=== PATIENT | female | born 1960 | race Caucasian/White ===

== ENCOUNTER → 2020-10-12 10:50 | Outpatient (CLI) | payer BC, SELFPAY ==
--- NOTE | ~2020-10-12 | MM_ITS ---
EXAMINATION: MM screening grant BI w veronika HISTORY: Screening mammogram TECHNIQUE: Craniocaudal and mediolateral oblique 3-D tomosynthesis images were obtained and synthetic 2-D images were generated. CAD analysis was submitted and interpreted. COMPARISON: 04/04/2017 bilateral digital screening mammogram BREAST PARENCHYMAL COMPOSITION: There are scattered areas of fibroglandular density. FINDINGS: There is no evidence of suspicious mass, calcification, or architectural distortion to sugg est malignancy in either breast. There has been no suspicious interval change. IMPRESSION: 1. No mammographic evidence of malignancy. 2. Recommend routine screening mammography in one year. BI-RADS Category 1: Negative Reviewed, dictated and finalized at location A. [employer]
== END ==
PROVIDERS: PCP Nurse Practitioner Adult Health; Visit Provider Nurse Practitioner Adult Health
DX: Z12.31 Encounter for screening mammogram for malignant neoplasm of breast (principal)
CPT/HCPCS: 77063; 77067

== ENCOUNTER → 2020-10-20 | Outpatient (NON) | payer BC, SELFPAY ==
[2020-10-20 21:41] LABS: SARS-CoV-2 RNA PCR Negative
== END | disposition home or self-care (01) ==
PROVIDERS: PCP Nurse Practitioner Adult Health; Visit Provider Nurse Practitioner Adult Health
DX: Z20.822 Contact with and (suspected) exposure to COVID-19 (principal); R09.89 Other specified symptoms and signs involving the circulatory and respiratory systems
CPT/HCPCS: C9803; U0003; U0005

== ENCOUNTER 2021-06-05 01:03 | Day surgery (SDC) | payer OTHER, SELFPAY ==
[2021-05-24 14:24] VITALS: BMI 34.4
--- NOTE | 2021-06-05 07:26 | WPDANESEPPF ---
Anes - Initial Pre Proc Eval Procedure: Operation Date: 06/05/21 08:30 Proposed Procedures p Esophagogastroduodenoscopy & Screening Colonoscopy - Gasper French MD Date/Time: 06/05/21 07:26 Surgeon: Gasper French MD Pre Op Diagnosis: R13.10 dysphagia, Schatzki's Ring Patient Data Age: 60 Gender: F Height: 1.68 m Weight: 97 kg Allergies Allergy/AdvReac Type Severity Reaction Status Date / Time No Known Allergies Allergy Verified 06/05/21 07:48 Home Medications Medication Instructions Recorded Confirmed Type amlodipine 5 mg PO DAILY 05/24/21 05/24/21 History empagliflozin [Jardiance] 25 mg PO DAILY 05/24/21 05/24/21 History escitalopram oxalate 10 mg PO DAILY 05/24/21 05/24/21 History glucosamine sulfate [Glucosamine] 500 mg PO DAILY 05/24/21 05/24/21 History losartan 50 mg PO DAILY 05/24/21 05/24/21 History rosuvastatin 20 mg PO DAILY 05/24/21 05/24/21 History semaglutide [Ozempic] 1 mg SUBCUT WEEKLY 05/24/21 05/24/21 History Patient hx anesthesia problems: none Family hx anesthesia problems: none [facility] Past Medical History Medical History (Updated 06/05/21 @ 07:27 by Kris Rose MD) Diabetes HTN (hypertension) Hyperlipidemia Obesity Osteoarthritis Social History Social History Smoking status: Never smoker Alcohol intake: never Substance use: never Substance use type: does not use Living arrangements: alone Spiritual care concerns: No Anes - Eval Final PreProcedure Day of Procedure 06/05/21 07:26 Patient weight: obese Heart: regular rate and rhythm Lungs: clear to auscultation and normal air movement Airway: Mallampati scale class II Neurological: alert and oriented Last oral intake: >/= 8 hours ASA classification: III Emergent: no Anesthetic plan: proceed Anesthesia type and monitoring: general GIVS Informed Consent: The patient's anesthetic plan and its attendant risks and benefits were discussed with the patient/family/POA. Questions were solicited and answers provided to the satisfaction of the patient/family/POA.
[2021-06-05 07:50] VITALS: BP 147/73; PULSE 86; RESP 16; TEMP 36.9; O2SAT 99; BMI 33.8
[2021-06-05] MEDS: LACTATED RINGERS 1,000 ML 150 ML IV CONT (08:05)
[2021-06-05 08:18] LABS: Glucose Point of Care 167 mg/dl (65-105)
--- NOTE | 2021-06-05 08:35 | WPDGICN ---
Assessment and Plan Assessment and plan (1) Dysphagia: Code(s): R13.10 - Dysphagia, unspecified Status: Acute Assessment and Plan: Patient has recurrent dysphagia. 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 Likely this is related to GE reflux as a continues to recur. Plan is for EGD to assess more thoroughly. We may need to consider long-term PPI use to minimize recurrence of the stricture. (2) Encounter for screening colonoscopy: Code(s): Z12.11 - Encounter for screening for malignant neoplasm of colon Status: Acute Assessment and Plan: Patient presents today for screening colonoscopy. She appears to be at average risk for colon polyps. (3) Obesity: Code(s): E66.9 - Obesity, unspecified Status: Acute Assessment and Plan: Patient is modestly overweight. Consider diet restriction calorie counting and increase activity. GI Consult Note Consult date/time: 06/05/21 08:35 HPI: Sommer Villavicencio is a 60 year old female Presents for both colonoscopy and EGD. She complains of dysphagia. She has difficulty swallowing. Solid pieces of food will catch the mid substernal portion the chest. She subsequently will regurgitate or have difficulty swallowing additional food until this passes. She has had similar difficulties in the past. Most recently 3 years ago an EGD by Dr. Cannon revealed a Schatzki's ring. Patient has had several dilatations of esophageal web in the past. She denies any heartburn. But previously was treated with proton pump inhibitor. This was discontinued because of concern for kidney issues. Patient family history is noncontributory. She also desires neoplasia screening colonoscopy. She has never had colon issues that she is aware of. Her weight appetite bowel movements have remained normal. Review of Systems Review of Systems: All systems reviewed & are unremarkable except as noted in HPI and below PMFSH Past Medical History Medical History (Updated 06/05/21 @ 08:38 by Gasper French MD) Diabetes HTN (hypertension) Hyperlipidemia Obesity Osteoarthritis Social History Social History Smoking status: Never smoker Alcohol intake: never Substance use: never Substance use type: does not use Living arrangements: alone Spiritual care concerns: No Meds Home Medications and Allergies Home Medications Medication Instructions Recorded Confirmed Type amlodipine 5 mg PO DAILY 05/24/21 05/24/21 History empagliflozin [Jardiance] 25 mg PO DAILY 05/24/21 05/24/21 History escitalopram oxalate 10 mg PO DAILY 05/24/21 05/24/21 History glucosamine sulfate [Glucosamine] 500 mg PO DAILY 05/24/21 05/24/21 History losartan 50 mg PO DAILY 05/24/21 05/24/21 History rosuvastatin 20 mg PO DAILY 05/24/21 05/24/21 History semaglutide [Ozempic] 1 mg SUBCUT WEEKLY 05/24/21 05/24/21 History Allergies Allergy/AdvReac Type Severity Reaction Status Date / Time No Known Allergies Allergy Verified 06/05/21 07:48 Vital Signs Vital Signs - 24 hr 06/05/21 07:50 Temperature 98.5 F Pulse Rate 86 Respiratory Rate 16 Blood Pressure 147/73 H Pulse Oximetry 99 Exam Narrative: Physical exam reveals patient to be alert. Vital signs stable. HEENT exam is unremarkable. Patient is anicteric. Lungs are clear to auscultation and percussion. Heart is without murmur or extra sounds. Abdominal exam bowel sounds are present soft nontender with no organomegaly. Digital external rectal exam is normal.
[2021-06-05] MEDS: BENZOCAINE (*SP) 60 ML SPRAY CAN (HURRICAINE) 1 SPRAY MUCOUS MEM (08:54)
[2021-06-05 09:19] VITALS: BP 97/57; PULSE 81; RESP 32; O2SAT 96
[2021-06-05 09:29] VITALS: BP 100/62; PULSE 81; RESP 29; O2SAT 100
[2021-06-05 09:39] VITALS: BP 125/75; PULSE 69; RESP 19; O2SAT 99
== END 2021-06-05 09:55 | disposition home or self-care (01) ==
PROVIDERS: PCP Nurse Practitioner Adult Health; Visit Provider Internal Medicine Gastroenterology
PROC: 0DJ08ZZ Inspection of Upper Intestinal Tract, Via Natural or Artificial Opening Endoscopic (ICD-10-PCS; CPT 43235; principal; 2021-06-05 08:30)
DX: Z12.11 Encounter for screening for malignant neoplasm of colon (principal); R13.10 Dysphagia, unspecified; K22.2 Esophageal obstruction; K57.30 Diverticulosis of large intestine without perforation or abscess without bleeding; K64.8 Other hemorrhoids; I10 Essential (primary) hypertension; E11.9 Type 2 diabetes mellitus without complications; E78.5 Hyperlipidemia, unspecified; E66.9 Obesity, unspecified; M19.90 Unspecified osteoarthritis, unspecified site
CPT/HCPCS: 45378; 43235; 43450; 82948; J2704; J7120

== ENCOUNTER 2024-03-29 01:58 | Emergency (ER) | payer MEDICARE, SELFPAY ==
[2024-03-29 01:58] VITALS: BP 194/84; PULSE 102; RESP 16; TEMP 37.1; O2SAT 100
[2024-03-29] MEDS: ONDANSETRON INJ 4 MG/2 ML VIAL IV PUSH (02:19)
--- NOTE | 2024-03-29 02:32 | ED.NAVMDI ---
HPI - Nausea/Vomiting/Diarrhea General Chief complaint: Nausea/Vomiting/Diarrhea Stated complaint: n/v Time Seen by Provider: 03/29/24 02:09 History of Present Illness HPI Narrative: patient presents with nausea vomiting, she does report that she has been feeling constipated, denies any abdominal pain. Has not been able to keep anything down, symptoms ongoing for the last few days. No diarrhea. History of diabetes and kidney disease Related Data Home Medications Medication Instructions Recorded Confirmed glucosamine sulfate 500 mg tablet 500 mg PO DAILY 05/24/21 12/05/23 (Glucosamine) insulin lispro 100 unit/mL 1 sliding scale dose subcut 11/12/22 12/05/23 subcutaneous pen (Humalog KwikPen USEASDIRECTD (U-100) Insulin) Allergies Allergy/AdvReac Type Severity Reaction Status Date / Time No Known Allergies Allergy Verified 03/29/24 02:04 Review of Systems Review of Systems: All systems reviewed & are unremarkable except as noted in HPI and below PMFSH Past Medical History Medical History Anxiety CKD (chronic kidney disease) Depression Diabetes Esophageal dilatation HTN (hypertension) Hyperlipidemia Obesity Osteoarthritis Surgical History Surgical History History of removal of calculus of renal pelvis through percutaneous nephrostomy Family History Family History Father Bladder cancer Mother Diabetes mellitus Hypertension Depression Cerebrovascular accident Sibling Hypertension Diabetes mellitus Heart disease Social History Social History Smoking status: Never smoker Second hand tobacco smoke exposure: No Alcohol intake: never Substance use: never Substance use type: does not use Lack of Transportation: No Lack of Food: Never True Current Housing: I Have Housing Concerned About Future Housing: No Difficulty Paying Gas/Electric Bills: No Difficulty Paying for Meds: No Currently Unemployed: No Education: High School Diploma/GED Living arrangements: alone Occupation/Education: occupation Gender identity (if verbalized by the patient): Female Spiritual care concerns: No Agree to blood products: Yes Exam Narrative: EXAMINATION OF ORGAN SYSTEMS/BODY AREAS: Constitutional: Vital signs per nursing GENERAL: looks nauseous, emesis bag HEAD: Normal with no signs of head trauma. EYES: EOMI, conjunctiva normal ENT: Hearing grossly intact LUNGS: Nonlabored breathing. HEART: [Regular rate and rhythm] ABD: [Soft], [nontender to palpation] EXT: Normal range of motion SKIN: [No rashes or lesions.] NEURO: [Alert and oriented x 3. No gross focal sensory or strength deficits.] PSYCH: Normal affect Course Vital Signs Vital signs: Vital Signs Temperature 98.7 F 03/29/24 01:58 Pulse Rate 102 H 03/29/24 01:58 Respiratory Rate 16 03/29/24 01:58 Blood Pressure 194/84 H 03/29/24 01:58 Pulse Oximetry 100 03/29/24 01:58 Oxygen Delivery Room Air 03/29/24 01:58 Temperature 98.7 F 03/29/24 01:58 Pulse Rate 102 H 03/29/24 01:58 Respiratory Rate 16 03/29/24 01:58 Blood Pressure 194/84 H 03/29/24 01:58 Pulse Oximetry 100 03/29/24 01:58 Oxygen Delivery Room Air 03/29/24 01:58 MDM - Nausea/Vomiting/Diarrhea MDM Narrative Medical decision making narrative: A 63-year-old female presenting with nausea vomiting, no abdominal pain. She also reports that she has been having sensation of motion sickness /room spinning around her whenever she turns her head or sits up suddenly, is better when she lays still and does not turn her head. She is otherwise neurologically intact, with no facial droop, speaking with clear speech, extraocular m
[2024-03-29 03:14] LABS: Basophils Percent Auto 0.5 % (0.2-1.2); Hematocrit 43.2 % (37.0-47.0); Hemoglobin 14.6 g/dL (12.0-15.0); Immature Granulocyte Absolute 0.06 K/mm3 (0.00-0.031); Lymphocytes Absolute Auto 0.32 K/mm3 (0.9-3.2); Lymphocytes Percent Auto 5.5 % (18.3-44.2); Mean Corpuscular HGB Conc 33.8 g/dl (32-36); Mean Corpuscular Hemoglobin 28.5 pg (26-34); Mean Corpuscular Volume 84.2 fl (80-100); Monocytes Absolute Auto 0.3 K/mm3 (0.1-0.6); Monocytes Percent Auto 4.8 % (2.6-8.5); Neutrophils Absolute Auto 5.2 K/mm3 (1.3-6.7); Neutrophils Percent Auto 88.2 % (45.5-73.1); Platelet Count Result 164 k/mm3 (150-375); Red Blood Count 5.13 M/mm3 (4.2-5.4); Red Cell Distribution Width 13.2 % (11.5-14.5); White Blood Count 5.8 K/mm3 (4.5-10.0)
[2024-03-29 03:33] LABS: Lactic Acid Reflex 1.4 mmol/L (0.7-2.0)
[2024-03-29 03:33] LABS: Alanine Aminotransferase 46 U/L (6-35); Alkaline Phosphatase 93 U/L (38-126); Anion Gap 13 mmol/L (4-12); Aspartate Amino Transferase 51 U/L (14-36); Bilirubin,Total 1.4 mg/dL (0.2-1.3); Blood Urea Nitrogen 22 mg/dL (7-17); Calcium 8.9 mg/dL (8.4-10.2); Carbon Dioxide 19 mmol/L (22-30); Chloride 101 mmol/L (98-107); Estimated CRCL calculation 47 ml/min; Estimated Glomerular Filt Rate 45; Glucose 331 mg/dL (65-110); Lipase 92 U/L (23-300); Potassium 3.6 mmol/L (3.4-5.0); Sodium 133 mmol/L (137-145)
[2024-03-29] MEDS: MECLIZINE HCL 25 MG TABLET PO (03:50)
[2024-03-29 04:31] VITALS: BP 154/78; PULSE 91; RESP 17; O2SAT 100
== END 2024-03-29 04:31 | disposition home or self-care (01) ==
PROVIDERS: Emergency Provider Emergency Medicine; PCP Family Medicine
DX: R11.2 Nausea with vomiting, unspecified (principal); R42 Dizziness and giddiness; I12.9 Hypertensive chronic kidney disease with stage 1 through stage 4 chronic kidney disease, or unspecified chronic kidney disease; E11.22 Type 2 diabetes mellitus with diabetic chronic kidney disease; N18.9 Chronic kidney disease, unspecified; E78.5 Hyperlipidemia, unspecified; E66.9 Obesity, unspecified; Z68.32 Body mass index [BMI] 32.0-32.9, adult; M19.90 Unspecified osteoarthritis, unspecified site; F41.9 Anxiety disorder, unspecified; F32.A Depression, unspecified; Z87.442 Personal history of urinary calculi; Z79.4 Long term (current) use of insulin; Z79.85 Long-term (current) use of injectable non-insulin antidiabetic drugs; Z79.899 Other long term (current) drug therapy
CPT/HCPCS: 36415; 80053; 83605; 83690; 85025; 96374; 99284; A9270; J2405

== ENCOUNTER 2024-04-09 11:20 | Outpatient (CLI) | payer MEDICARE, SELFPAY ==
--- NOTE | ~2024-04-09 | CT_ITS ---
CT brain wo con Ordering provider: Trista Randall PA-C History: 63 years Female with . R53.1 - Weakness . Comparison: None. Technique: CT of the head without contrast. Radiation reduction technique utilized. The dose-length product was 599.57 mGy-cm. FINDINGS: BRAIN PARENCHYMA AND CSF SPACES: No midline shift, mass effect or hemorrhage. Slight ventricular dila tation is seen which is not compatible with the degree of brain atrophy. Normal pressure hydrocephalu s should be considered. The brain parenchyma and CSF spaces are otherwise normal. VISUALIZED PARANASAL SINUSES: Well aerated. MASTOIDS: Well aerated. BONES: The bones appear intact. SOFT TISSUES: Visualized nasopharynx is normal. Superficial soft tissues are normal. IMPRESSION: No acute intracranial findings. Slight ventricular dilatation is seen which is not compatible with the degree of brain atrophy. Jasmyne l pressure hydrocephalus should be considered. Reviewed, dictated and finalized at location A. IMPRESSION: No acute intracranial findings. Slight ventricular dilatation is seen which is not compatible with the degree o f brain atrophy. Normal pressure hydrocephalus should be considered.
== END 2024-04-09 11:21 ==
LOC: MICIMG 11:21
PROVIDERS: PCP Family Medicine; Visit Provider Student in an Organized Health Care Education/Training Program
DX: R53.1 Weakness (principal)
CPT/HCPCS: 70450

== ENCOUNTER 2024-05-18 10:49 | Outpatient (CLI) | payer MEDICARE, SELFPAY ==
--- NOTE | ~2024-05-18 | US_ITS ---
Renal-Bladder ultrasound Clinical History: Chronic kidney disease Technique: Real-time sonographic imaging of the kidneys and urinary bladder was performed. Findings: The right kidney measures 10.7 cm in length and the left kidney measures 10.9 cm. There is no hydronephrosis or renal calculus identified. Renal cortical echogenicity is within normal limits. Probable small bilateral renal cysts. The urinary bladder is moderately distended at the time of this exam. No intraluminal echoes are iden tified. No abnormal wall thickening is seen. 5.9 cm cystic mass in the right adnexal region noted. Impression: No significant abnormality seen involving the kidneys. 5.9 cm cystic mass in the right adnexal region incidentally noted. Additional dedicated imaging latoya p advised. This large of a cystic lesion is abnormal in a postmenopausal woman. Reviewed, dictated and finalized at [facility]. Impression: No significant abnormality seen involving the kidneys. 5.9 cm cystic mass in the right adnexal region incidentally noted. Additional d edicated imaging workup advised. This large of a cystic lesion is abnormal in a postmenopausal woman.
== END 2024-05-18 10:50 ==
PROVIDERS: PCP Family Medicine; Visit Provider Internal Medicine Nephrology
DX: N18.31 Chronic kidney disease, stage 3a (principal); R10.9 Unspecified abdominal pain
CPT/HCPCS: 76775

== ENCOUNTER 2024-05-19 11:11 | Outpatient (CLI) | payer MEDICARE, SELFPAY ==
--- NOTE | ~2024-05-19 | CT_ITS ---
Non-contrast CT scan of the Abdomen and Pelvis Clinical indication: Abdominal pain Technique: 2.5 mm axial scans were obtained through the abdomen and pelvis without intravenous or or al contrast. Dose reduction technique was used on this scan by utilizing automated exposure control a nd iterative reconstruction technique. The dose-length product (DLP) was 999.72 mGy-cm. Findings: Images through the lung bases reveal no abnormalities. There is no evidence of renal or ureteral calculi. The kidneys and the ureters are nondilated. Parape lvic left renal cysts are present. The liver, pancreas, gallbladder, and adrenals appear normal. Calcified splenic granulomas are presen t. There there are mild atherosclerotic ossifications of the aorta. There is no evidence of bowel obstruction. Images through the pelvis were performed. There is no evidence of ascites or lymphadenopathy. Urinary bladder unremarkable. There is a 7 cm cystic right ovarian mass, with possible solid component super iorly versus normal ovarian parenchyma. There is a 2.2 cm left ovarian cyst. Impression: 7 cm cystic right ovarian mass with possible solid component superiorly versus normal ovarian parench yma. Gynecological surgical consultation advised given the size of the lesion and patient age. Consid er follow-up ultrasound or pre and postcontrast pelvic MR to further assess for solid component of th e lesion. Ovarian neoplasm not excluded. 2.2 cm left ovarian cyst. Reviewed, dictated and finalized at [facility]. Impression: 7 cm cystic right ovarian mass with possible solid component superiorly versus normal ovarian parenchyma. Gynecological surgical consultation advised given th e size of the lesion and patient age. Consider follow-up ultrasound or pre and postcontrast pelvic MR to further assess for solid component of the lesion. Ova mitzi neoplasm not excluded. 2.2 cm left ovarian cyst.
== END 2024-05-19 11:12 ==
LOC: MICIMG 11:11
PROVIDERS: PCP Family Medicine; Visit Provider Internal Medicine Nephrology
DX: N83.292 Other ovarian cyst, left side (principal); N83.291 Other ovarian cyst, right side; N18.31 Chronic kidney disease, stage 3a
CPT/HCPCS: 74176

== ENCOUNTER 2024-06-05 10:15 | Outpatient (CLI) | payer MEDICARE, SELFPAY ==
--- NOTE | ~2024-06-05 | US_ITS ---
EXAMINATION: US pelvic complete w TV DATE: 06/05/2024 10:49 INDICATION: Other noninflammatory disorders of ovary. TECHNIQUE: Multiple transabdominal and transvaginal sonographic images of the pelvis were obtained. COMPARISON: CT abdomen and pelvis 05/19/2024 FINDINGS: TRANSABDOMINAL ULTRASOUND: The uterus measures 7.0 x 3.2 x 5.4 cm. There is no free fluid in the pelvis. TRANSVAGINAL ULTRASOUND: The endometrial complex measures 1 mm in thickness. There are nabothian cysts in the cervix. The righ t ovary measures 7.8 x 7.9 x 7.5 cm. The left ovary measures 5.9 x 3.5 x 4.8 cm. There is a 6.7 cm cy stic mass with thick septations and peripheral nodularity in right ovary. No internal vascular flow o n color Doppler. There is a 3.0 cm cyst in left ovary. There is normal vascular flow in the ovaries. IMPRESSION: 1. 6.7 cm cystic mass in right ovary suspicious for neoplasm. Pelvis MRI without and with contrast or surgical evaluation is recommended. 2. 3.0 cm cyst in left ovary, likely benign. Pelvis ultrasound is recommended in one year. Reviewed, dictated and finalized at location A. IMPRESSION: 1. 6.7 cm cystic mass in right ovary suspicious for neoplasm. Pelvis MRI withou t and with contrast or surgical evaluation is recommended. 2. 3.0 cm cyst in left ovary, likely benign. Pelvis ultrasound is recommended i n one year.
== END 2024-06-05 10:16 | disposition home or self-care (01) ==
LOC: MICIMG 10:17
PROVIDERS: PCP Family Medicine; Visit Provider Family Medicine
DX: N83.8 Other noninflammatory disorders of ovary, fallopian tube and broad ligament (principal); N83.202 Unspecified ovarian cyst, left side
CPT/HCPCS: 76830; 76856

== ENCOUNTER 2024-06-25 08:00 | Outpatient (RCR) | payer MEDICARE, SELFPAY ==
[2024-04-30 08:04] VITALS: BMI 32.2
[2024-04-30 08:13] VITALS: BMI 32.2
[2024-06-25 08:44] VITALS: BMI 31.5
== END 2024-07-13 10:30 | disposition home or self-care (01) ==
LOC: ANHDMC 08:00
PROVIDERS: PCP Family Medicine; Visit Provider Family Medicine
DX: E11.9 Type 2 diabetes mellitus without complications (principal); E23.2 Diabetes insipidus; Z71.89 Other specified counseling; Z71.3 Dietary counseling and surveillance
CPT/HCPCS: 97803; G0108

== ENCOUNTER 2024-12-07 08:06 | Outpatient (CLI) | payer MEDICARE, SELFPAY ==
--- NOTE | ~2024-12-07 | NM_ITS ---
EXAMINATION: NM bone scan whole body DATE: 12/07/2024 12:02 INDICATION: Hypercalcemia TECHNIQUE: 23.6 mCi Tc-99m HDP was administered intravenously. Delayed whole-body scintigrams were o btained. COMPARISON: CT abdomen pelvis dated 05/19/2024 FINDINGS: There is likely degenerative joint centered uptake at the bilateral sternoclavicular and acromioclavi cular joints, the radial aspect of the carpus of the right hand, with medial compartment predominance at the right knee and at the bilateral ankles and left midfoot. There is additional likely degenerat zarina disc related uptake at the left side of L4-5 at the right side of L2-L3 with corresponding severe disc height loss and Modic type III sclerotic endplate changes on prior CT. Small focus of mild upta ke at the right side of the mid cervical spine and location typical for facet osteoarthritis. No othe r foci of more atypical bone uptake to suggest metastatic disease. IMPRESSION: 1. Typical distribution of likely degenerative joint and disc centered uptake in the axial and append icular skeleton. No lesion suspicious for metastatic disease. Reviewed, dictated and finalized at location A. IMPRESSION: 1. Typical distribution of likely degenerative joint and disc centered uptake i n the axial and appendicular skeleton. No lesion suspicious for metastatic dise ase.
--- OUTSIDE RECORDS SUMMARY | 2024-12-07 08:17 | XMS_ITS | Clinical Summary ---
Author Organization [facility] Address [address] [place] [address] Care Team Providers Care Hotel Or Motel Cleaning Supervisor Name Role Phone Tanya Olmos NP Primary Care Provider [phone] Allergies Active Allergy Reactions Criticality Noted Date Comments Latex Rash Medium 11/06/2018 Medications amLODIPine (NORVASC) 5 mg tablet Take 1 tablet (5 mg total) by mouth nightly 5 10/14/2018 Active VICTOZA 3-JANET 0.6 mg/0.1 mL (18 mg/3 mL) injection Inject 1.2 mg under the skin daily with dinner. 4 10/18/2018 Active losartan (COZAAR) 100 mg tablet Take 1 tablet (100 mg total) by mouth daily with dinner 6 10/14/2018 Active metFORMIN XR (GLUCOPHAGE XR) 750 mg 24 hr tablet Take 750 mg by mouth daily with dinner. 3 10/14/2018 Active pioglitazone (ACTOS) 30 mg tablet Take 30 mg by mouth daily with dinner. 4 10/14/2018 Active pravastatin (PRAVACHOL) 40 mg tablet Take 40 mg by mouth daily with dinner. 6 10/14/2018 Active Trulicity 4.5 mg/0.5 mL pen injector 06/10/2024 Active escitalopram (LEXAPRO) 10 mg tablet 04/08/2024 Active Levemir FlexPen 100 unit/mL (3 mL) pen for injection 06/07/2024 Active rosuvastatin (CRESTOR) 20 mg tablet 04/08/2024 Active buPROPion SR (ZYBAN) 150 mg 12 hr tablet Take 1 tablet (150 mg total) by mouth 2 (two) times a day Active Active Problems Problem Noted Date Diagnosed Date Diabetes mellitus 06/29/2024 Hyperlipidemia 06/29/2024 Hypertensive disorder 06/29/2024 Obesity 06/29/2024 History of malignant neoplasm of skin 03/01/2020 Low kidney function 11/05/2019 Uric acid kidney stone 01/26/2019 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 Resolved Problems Problem Noted Date Diagnosed Date Resolved Date Nephrolithiasis 11/06/2018 01/26/2019 Overview (11/07/2018): Added automatically from request for surgery [id number] Encounters Date Type Department Care Team Description 11/10/2024 Telephone [facility] Obstetrics and Gynecology [address] [facility] [address]th [place] [address] Jossie Whitaker RN 11/10/2024 Telephone [facility] Obstetrics and Gynecology [address] [facility] [address] 13th [place] [address] Jossie Whitaker RN 11/10/2024 Orders Only [facility] Obstetrics and Gynecology [address] [facility] [address]th [place] [address] Jossie Whitaker RN Ovarian mass (Primary Dx) 11/09/2024 12:30 PM CLINICAL SERVICES CONSULTANT - 11/09/2024 11:59 PM CLINICAL SERVICES CONSULTANT Hospital Encounter [facility] Center for Outpatient [facility] - Ultrasound [address] [facility] 7th [address], [address] [place] [address] Ovarian mass Discharge Disposition: Discharge to home or self care 10/26/2024 Telephone [facility] Obstetrics and Gynecology [address] [facility] [address] [facility] 13th [place] [address] [place] [address] Georgina Trujillo from Last 3 Months Immunizations Immunization Administration Dates Next Due Influenza, Quadrivalent, Spl it, Preservative Free, Intramuscular 11/05/2019,07/08/2018 Surgical History Surgery Date Site/Laterality Comments ESOPHAGOGASTRODUODENOSCOPY Multiple with esophageal stretching for Schatzki's ring, last 05/2018 per patient report KIDNEY SURGERY Medical History Medical History Date Comments Hydronephrosis Right Diverticulosis Diabetes mellitus (HCC) Nephrolithiasis 11/06/2018 Added automatica lly from request for surgery [id number] ARF (acute renal failure) 10/2018 SCR: 2 .13 -> 2.07 (11/06/18) GERD (gastroesophageal reflux disease) Schatzki's ring s/p esophageal s tretching, last 05/2018 HTN (hypertension) Hyperlipemia Arthritis Family History Medical History Relation Name Comments Heart disease Brother s/p 4 vessel C ABG COPD Father Kidney cancer Father Arthritis Other Cancer Other Hypertension Other Anesthesia problems Neg Hx Relation Name Status Comments Brother Father Other Social History Tobacco Use Types Packs/Day Years Used Date Smoking Tobacco: Never Smokeless Tobacco: Never Alcohol Use Standard Drinks/Week Comments No 0 (1 standard drink = 0.6 oz pur e alcohol) Comments No Sex and Gender Information Value Date Recorded Sex Assigned at Not on file Legal Sex Female 2:18 PM CLINICAL SERVICES CONSULTANT Gender Identity Female 07/01/2024 11:19 AM CDT Sexual Orientation Not on file 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 Not on file Not on file Obstetrics History Para Term AB IAB SAB Ectopic Multiple Livin g Live Births 1 1 Date Outcome GA Total Labor Labor/2nd/3rd Weight Sex Type Anes PTL Dee Dee A1 A5 Name Clin Last Filed Vital Signs Vital Sign Reading Time Taken Comments Blood Pressure 133/81 08/03/2024 4:32 PM CLINICAL SERVICES CONSULTANT Pulse 90 08/03/2024 4:32 PM CLINICAL SERVICES CONSULTANT Temperature 36.8 C (98.3 F) 08/03/2024 4:32 PM CLINICAL SERVICES CONSULTANT Respiratory Rate 16 08/03/2024 4:32 PM CLINICAL SERVICES CONSULTANT Oxygen Saturation 98% 08/03/2024 4:32 PM CLINICAL SERVICES CONSULTANT Inhaled Oxygen Concentration - - Weight 83.3 kg (183 lb 11.2 oz) 08/03/2024 4:32 PM CLINICAL SERVICES CONSULTANT Height 165.1 cm (5' 5 ) 06/08/2019 8:07 AM CDT Body Mass Index 30.57 06/08/2019 8:07 AM CDT Plan of Treatment Health Maintenance Due Date Last Done Comments Albumin Creatinine Ratio, Urine 1958 Breast Cancer Screening-Mammogram 1958 Colon Cancer Screening-Colonoscopy 1958 Depression Screening 1958 Fall Risk Assessment 1958 Hemoglobin A1C 1958 Hepatitis C Screening 1958 Osteoporosis Screening-Bone Density Scan 1958 eGFR 1958 Dilated Eye Exam 1958 Foot Exam 1958 Lipid Panel 1958 DTaP/Tdap/Td Vaccine (1 - Tdap) 1969 Hepatitis B Screening 1976 Pneumococcal vaccine 65+ (1 of 2 - PCV) 1977 Zoster Vaccine (1 of 2) 2008 Well Visit 65+ 2023 Influenza Vaccine (#1) 2024 11/05/2019, 2017 Cervical Cancer Screening Discontinued 06/29/2024, 03/2024 Medical Devices Explanted Type Area Carpenter Bridge Device Identifier Shelf Expiration Date Model / Serial / Lot [employer] [id number] Universa 7fr 26cm 145cm Soft Positioner Marketing Research Intern Braid Tether - [id number] Implanted:Qty: 1 on 11/07/2018 by Ronan Pham MD at [facility] Explanted:Qty: 1 on 12/03/2018 at [facility] Stent Right: Urethra [employer] [id number] / / Procedures Procedure Name Priority Date/Time Associated Diagnosis Comments US PELVIS COMPLETE Schedule Routine, Read Routine (OP Routine) 11/09/2024 12:39 PM CLINICAL SERVICES CONSULTANT Ovarian mass HIGH RISK HPV DNA DETECTION WITH GENOTYPING Routine 06/29/2024 4:23 PM CDT Ovarian mass from Last 3 Months or Most Recently Relevant to Health Maintenance Results * US Pelvis Complete (11/09/2024 12:39 PM CLINICAL SERVICES CONSULTANT) Cul de Sac No free fluid visualized VIEWPOINT Endometrial Thickness 3.2 mm&millim eters VIEWPOINT Anatomical Region Laterality Modality Pelvis N/A Ultrasound 11/09/2024 12:4 3 PM CLINICAL SERVICES CONSULTANT Impressions 11/09/2024 1:31 PM CLINICAL SERVICES CONSULTANT The uterus is anteverted and normal in size. The endometrial stripe measures 3.2 mm. Both adnexal masses are stable in size and appearance when compared to scan in July. Right adnexa contains a multilocular lesion without color flow which is anechoic and similar in appearance to prior scan in July, with mean diameter today of 74 mm, prior scan was 68 mm. Left ovary contains a simple anechoic cyst without color flow and a mean diameter of 33 mm, prior scan was 31 mm. There was no evidence of free fluid in the pelvis. Narrative Procedure Note Kathe Hernandez MD - 11/09/2024 IMPRESSION: The uterus is anteverted and normal in size. The endometrial stripemeasures 3.2 mm. Both adnexal masses are stable in size and appearancewhen compared to scan in July. Right adnexa contains a multilocularlesion without color flow which is anechoic and similar in appearance toprior scan in July, with mean diameter today of 74 mm, prior scan was68 mm. Left ovary contains a simple anechoic cyst without color flow harris mean diameter of 33 mm, prior scan was 31 mm. There was no evidence offree fluid in the pelvis. us Premal Chaka Coronado MD [facility] US PROCEDURES Final Result * High Risk HPV DNA Detection with Genotyping (Molecular component) (06/29/2024 4:23 PM CDT) HPV HR 16 Not Detected Not Detected [facility] HPV HR 18 Not Detected Not Detected [facility] HPV HR Non 16/18 Not Detected Not Detected [facility] Comment: Interpretive Data Nucleic acid amplification for detection of high-risk Human Papilloma virus (HPV) is performed by the Obdulio Kitty 6800 HPV test. This assay specifically detects HPV-16 and HPV-18 genotypes. The following HPV genotypes are detected as high-risk HPV: HPV-31, 33, 35, ,39, 45, 51, 52, 56, 58, 59, 66, and 68. This assay has been approved by the [place] Food and Drug Administration for detection of HPV in cervical specimens collected by a physician using an endocervical brush/spatula or cervical broom and placed in the ThinPrep Pap Test PreservCyt collection containers. The performance characteristics of this test have been verified by the [facility] Molecular Infectious Disease laboratory. Correlate with separately reported cytology results, as applicable. Interpretive data last revised 23 Endocervical 06/29/2024 4:23 PM CDT 06/30/2024 9:10 AM CDT Narrative DAV[facility] - 06/30/2024 7:16 PM CDT Clinical history and diagnosis->adnexal mass Number of vials->1 Testing type->Screening Last menstrual period (date if known)->over 5 years ago [facility] Chaka Coronado MD LAB BODY FLUIDS AND STOO LS ORDERABLES Final Result [facility] Department [place] [address] [facility] from Last 3 Months or Most Recently Relevant to Health Maintenance Insurance [employer] [place] [facility] MEDICARE RAILROAD [facility] MEDICARE RAILROAD Advance Directives For more information, please contact: [phone] * Full Code (Latest Code Status on File) Date Activated Date Inactivated Comments 12/03/2018 6:15 PM 12/04/2018 8:51 PM * Full Code Date Activated Date Inactivated Comments 11/06/2018 4:45 PM 11/08/2018 9:17 PM Care Teams Hotel Or Motel Cleaning Supervisor Relationship Specialty Start Date End Date Tanya Olmos NP PCP - General Nurse Practitioner 11/13/18
--- OUTSIDE RECORDS SUMMARY | 2024-12-07 08:17 | XMS_ITS | CONTINUITY OF CARE DOCUMENT ---
Author Name héctor anaya Address Unknown Organization [facility] Address [address] [place] [address] Phone [phone] Care Team Providers Care High School History Teacher Name Role Phone Emory Melgoza MD Unavailable [phone] PIOTR ROBERSON Unavailable DEYANIRA MUÑOZ MD Unavailable PROBLEMS Condition Status Date Provider Notes Other symptoms involving car diovascular system active Emory Melgoza MD Diabetes mellitus active Emory Melgoza MD HTN essential active Emory Melgoza MD Hypercholesterolemia active Emory Melgoza MD PVC's active Emory Melgoza MD ENCOUNTERS Date Type Provider Location Encounter Diag nosis - In-person encounter Office Visit Emory Melgoza MD [facility] Other symptoms involving cardiovascular systemDiabetes mellitusHTN essentialHypercholeste rolemiaPVC's VITAL SIGNS Date Observation Value Provider blood pressure, diastolic 88 mm[Hg] Eduar De Guzman blood pressure, systolic 157 mm[Hg] Rosalba De Guzman Body Mass Index (Ratio) 34.11 kg/m2 Sara De Guzman pulse rate 79 /min Shanon kate oxygen saturation, oximetry 97 % Shanon De Guzman respiratory rate E&M 16 /min Kia De Guzman weight E&M 205 [lb_av] Shanon kate height E&M 65 [in_i] Shanon kate ALLERGIES Allergy Name Onset Date Reaction Criticality Status TAPE High Criticality active HISTORY OF MEDICATION USE Medication Status Instructions Dates Provider Indications Com ments NYSTATIN CREAM active as directed Shanon Gab LOSARTAN POTASSIUM 100 MG ORAL TABLET active once daily Shanon Hamenson PRAVASTATIN SODIUM 40 MG ORAL TABLET active ONE TAB. DAILY Shanon Gab PIOGLITAZONE HCL 30 MG ORAL TABLET active once daily Shanon Gab AMLODIPINE BESYLATE 5 MG ORAL TABLET active ONE TAB. DAILY Shanon Gab METFORMIN HCL ER 750 MG ORAL TABLET EXTENDED RELEASE 24 HOUR active 3 tabs every evening Shanon De Guzman SOCIAL HISTORY Date Observation Value Provider alcohol use no Emory Melgoza MD social history E&M Patient has n ever smoked. Smoking History: P atient has never smoked. Emory Melgoza MD social history reviewed E&M reviewed - no changes required Emory Melgoza MD smoking status Never smoker Emory Melgoza MD FAMILY HISTORY Family Member Condition Full Brother Family History of Di abetes: INSURANCE PROVIDERS Payer name Policy type / Coverage type [place] red libertarian ID [facility] [id number] TREATMENT PLAN Date Name Performer NEW:Rhythm: Sinus Rh ythm with very frequent ventricular ectopics T he average heart rate was 81 BPM with a maximum heart rate of 121 BPM at 15:19:36. T he minimum heart rate was 58 BPM at 02:06:00. 2 575 Ventricular ectopics were noted. Ventricular ectopics were observed as 1762 isolated beat(s) and as 13 couplet(s). 3 of the ventricular beats occurred in 1 bigeminal cycles. 784 of the ventricular beats occured in 124 trigeminal cycles. Emory Melgoza MD NEW:BP 157/88 Emory Melgoza MD Date Name Holter Monitor 24 Hr Complete Echo HISTORY OF PROCEDURES Procedure Date Procedure Name Provider Procedure Notes S tatus EKG Emory Melgoza MD completed
--- OUTSIDE RECORDS SUMMARY | 2024-12-07 08:17 | XMS_ITS | Referral Summary ---
Author Organization [facility] Address [address] [place] [address] Care Team Providers Care Lawyer Name Role Phone Tanya Olmos NP Primary Care Provider [phone] Encounters Date Type Department Care Team Description 11/10/2024 Telephone [facility] Obstetrics and Gynecology [address] [facility] [address] 13th [place] [address] Jossie Whitaker RN 11/10/2024 Telephone [facility] Obstetrics and Gynecology [address] [facility] [address] 13th [place] [address] Jossie Whitaker RN 11/10/2024 Orders Only [facility] Obstetrics and Gynecology [address] [facility] [address] 13th [place] [address] Jossie Whitaker RN Ovarian mass (Primary Dx) 11/09/2024 12:30 PM PETS SALESPERSON - 11/09/2024 11:59 PM PETS SALESPERSON Hospital Encounter [facility] Center for Outpatient Health - Ultrasound [address] [facility] 7th [address], [address] [place] [address] Ovarian mass Discharge Disposition: Discharge to home or self care 10/26/2024 Telephone [facility] Obstetrics and Gynecology [facility] [address] [facility] [address]th [place] [address] [place] [address] Georgina Trujillo from Last 3 Months Allergies Active Allergy Reactions Criticality Noted Date [...] (11/07/2018): Added automatically from request for surgery [id number] Immunizations Immunization Administration Dates Next Due Influenza, Quadrivalent, Spl it, Preservative Free, Intramuscular 11/05/2019,07/08/2018 Social History Tobacco Use Types Packs/Day Years Used Date Smoking Tobacco: Never Smokeless Tobacco: Never Alcohol Use Standard Drinks/Week Comments No 0 (1 standard drink = 0.6 oz pur e alcohol) Comments No Sex and Gender Information Value Date Recorded Sex Assigned at Not on file Legal Sex Female 2:18 PM PETS SALESPERSON Gender Identity Female 07/01/2024 11:19 AM CDT Sexual Orientation Not on file 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 Not on file Not on file Last Filed Vital Signs Vital Sign Reading Time Taken Comments Blood Pressure 133/81 08/03/2024 4:32 PM PETS SALESPERSON Pulse 90 08/03/2024 4:32 PM PETS SALESPERSON Temperature 36.8 C (98.3 F) 08/03/2024 4:32 PM PETS SALESPERSON Respiratory Rate 16 08/03/2024 4:32 PM PETS SALESPERSON Oxygen Saturation 98% 08/03/2024 4:32 PM PETS SALESPERSON Inhaled Oxygen Concentration - - Weight 83.3 kg (183 lb 11.2 oz) 08/03/2024 4:32 PM PETS SALESPERSON Height 165.1 cm (5' 5 ) 06/08/2019 8:07 AM CDT Body Mass Index 30.57 06/08/2019 8:07 AM CDT Plan of Treatment Not on file Medical Devices Explanted Type Area Band Sawmill Operator Device Identifier Shelf Expiration Date Model / Serial / Lot [employer] [id number] Universa 7fr 26cm 145cm Soft Positioner Chainstitch Hemmer Braid Tether - [id number] Implanted:Qty: 1 on 11/07/2018 by Ronan Pham MD at [facility] Explanted:Qty: 1 on 12/03/2018 at [facility] Stent Right: Urethra [employer] [id number] / / Procedures Procedure Name Priority Date/Time Associated Diagnosis Comments US PELVIS COMPLETE Schedule Routine, Read Routine (OP Routine) 11/09/2024 12:39 PM PETS SALESPERSON Ovarian mass HIGH RISK HPV DNA DETECTION WITH GENOTYPING Routine 06/29/2024 4:23 PM CDT Ovarian mass from Last 3 Months or Most Recently Relevant to Health Maintenance Results * US Pelvis Complete (11/09/2024 12:39 PM PETS SALESPERSON) Cul de Sac No free fluid visualized VIEWPOINT Endometrial Thickness 3.2 mm&millim eters VIEWPOINT Anatomical Region Laterality Modality Pelvis N/A Ultrasound 11/09/2024 12:4 3 PM PETS SALESPERSON Impressions 11/09/2024 1:31 PM PETS SALESPERSON The uterus is anteverted and normal in [...] the pelvis. us Premal Chaka Coronado MD [facility] US PROCEDURES Final Result * High Risk HPV DNA Detection with Genotyping (Molecular component) (06/29/2024 4:23 PM CDT) Pathologist [facility] HPV HR [address] [facility] HPV HR 18 Not Detected Not Detected [facility] HPV HR Non 16/18 Not Detected Not Detected [facility] Comment: Interpretive Data Nucleic acid amplification for [...] this test have been verified by the [facility] Molecular Infectious Disease laboratory. Correlate with separately reported cytology results, as applicable. Interpretive data last revised 23 Endocervical 06/29/2024 4:23 PM CDT 06/30/2024 9:10 AM CDT Narrative [facility] - 06/30/2024 7:16 PM CDT Clinical history and diagnosis->adnexal mass Number of vials->1 Testing type->Screening Last menstrual period (date if known)->over 5 years ago [facility] Chaka Coronado MD LAB BODY FLUIDS AND STOO LS ORDERABLES Final Result [facility] [place] [address] [facility] from Last 3 Months or Most Recently Relevant to Health Maintenance Insurance [place] [employer] [place] [facility] ANTHEM ACCESS MEDICARE [employer]ROAD [facility] MEDIC[facility] RAILROAD Advance Directives For more information, please contact: [phone] * Full Code (Latest Code Status on File) Date Activated Date Inactivated Comments 12/03/2018 6:15 PM 12/04/2018 8:51 PM * Full Code Date Activated Date Inactivated Comments 11/06/2018 4:45 PM 11/08/2018 9:17 PM Care Teams Lawyer Relationship Specialty Start Date End Date Tanya Olmos NP PCP - General Nurse Practitioner 11/13/18
== END 2024-12-07 08:07 | disposition home or self-care (01) ==
PROVIDERS: PCP Family Medicine; Visit Provider Internal Medicine Nephrology
DX: E83.52 Hypercalcemia (principal)
CPT/HCPCS: 78306; A9503

== ENCOUNTER 2025-01-25 14:56 | Outpatient (CLI) | payer MEDICARE, SELFPAY ==
--- NOTE | ~2025-01-25 | US_ITS ---
US renal BI Ordering provider: Clyde Leonard MD History: . worsened kidney function . Comparison: None. Technique: Ultrasound bilateral kidneys. Findings: RIGHT KIDNEY: Measures 5 x 10.5 x 4.6 cm in length which is normal in size. No renal cysts. No renal mass or visualized echogenic stones. Otherwise, normal echotexture and contour. No hydronephrosis. No rmal renal cortical thickness. LEFT KIDNEY: Measures 6.2x 10.5x 5.9 cm in length which is normal in size. No renal cysts. No renal m ass or visualized echogenic stones. Otherwise, normal echotexture and contour. No hydronephrosis. Nor mal renal cortical thickness. BLADDER: Normal. Ureteral jets were not seen bilaterally. IMPRESSION: Normal study. Reviewed, dictated and finalized at location A. IMPRESSION: Normal study.
--- OUTSIDE RECORDS SUMMARY | 2025-01-25 15:37 | XMS_ITS | Clinical Summary ---
Author Organization [facility] Address [address] [place] [address] Care Team Providers Care Supervisor Building Maintenance Name Role Phone Tanya Olmos NP Primary Care Provider [phone] Allergies Active Allergy Reactions Criticality Noted Date Comments Latex Rash Medium 11/06/2018 Medications amLODIPine (NORVASC) 5 mg tabletIndications:h ypertension Take 1 tablet (5 mg total) by mouth every morning 5 10/14/19 19 Active losartan (COZAAR) 100 mg tabletIndications:h ypertension Take 1 tablet (100 mg total) by mouth every morning 6 10/14/19 19 Active Trulicity 4.5 mg/0.5 mL pen injectorIndications :type 2 diabetes mellitus Inject 0.5 mL (4.5 mg total) under the skin once a week Saturdays06/10/20 24 Active escitalopram (LEXAPRO) 10 mg tabletIndications:A nxiety with Depression Take 1 tablet (10 mg total) by mouth every morning 04/08/20 24 Active clopidogreL (PLAVIX) 75 mg tabletIndications:C erebral Thromboembolism Prevention Take 1 tablet (75 mg total) by mouth every morning 10/22/19 25 Active LANTUS 100 unit/mL (3 mL) pen for injectionIndication s:DM 2 Inject 30 Units under the skin every morning 10/08/19 25 Active buPROPion XL (WELLBUTRIN XL) 150 mg 24 hr tabletIndications:A nxiety with Depression Take 1 tablet (150 mg total) by mouth every morning 10/23/19 25 Active solifenacin (VESIcare) 5 mg tabletIndications:B ladder Hyperactivity,Urina ry Urgency Take 1 tablet (5 mg total) by mouth every morning 12/03/19 25 Active rosuvastatin (CRESTOR) 10 mg tabletIndications:C erebral Thromboembolism Prevention,hyperlip idemia Take 1 tablet (10 mg total) by mouth every morning 12/03/19 25 Active cholecalciferol, vitamin D3, (VITAMIN D3 ORAL)Indications:Fernandez pplement Take 1 tablet by mouth every morning Active pravastatin (PRAVACHOL) 40 mg tabletIndications:C erebral Thromboembolism Prevention,hyperlip idemia Take 1 tablet (40 mg total) by mouth every morning 6 10/14/19 19 025 Discontin ued(Alter nathan therapy) Levemir FlexPen 100 unit/mL (3 mL) pen for injection 06/07/20 24 025 Discontin ued(Error ) rosuvastatin (CRESTOR) 20 mg tablet 04/08/20 24 025 Discontin ued(Alter nathan therapy) Active Problems Problem Noted Date Diagnosed Date Adnexal mass 12/30/2024 Diabetes mellitus 06/29/2024 Hyperlipidemia 06/29/2024 Hypertensive disorder 06/29/2024 Obesity 06/29/2024 History of malignant neoplasm of skin 03/01/2020 Low kidney function 11/05/2019 Uric acid kidney stone 01/26/2019 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 Advanced Medicine 13th [place] [phone] Yesica Cross testing recommended 01/19/2025 Orders Only [facility] Obstetrics and Gynecology [address] [facility] 13th [place] [address] Jossie Whitaker RN Syncope, unspecified syncope type (Primary Dx); History of cardioembolic cerebrovascular accident (CVA) 01/15/2025 10:30 AM CDT Pre-Admission Testing [facility] for Preoperative Assessment and Planning [facility] Advanced Medicine ([facility]) [address] [place] [address] Preop examination (Primary Dx); Nephrolithiasis; Adnexal mass; Ovarian mass 12/30/2024 Orders Only [facility] Obstetrics and Gynecology [address] [facility] 13th [place] [address] Jossie Whitaker RN Adnexal mass (Primary Dx); Ovarian mass 12/28/2024 1:00 PM CDT Office Visit [facility] Obstetrics and Gynecology [address] [facility] 13th [place] [address] Leonel Coronado MD Adnexal mass (Primary Dx) 12/28/2024 10:55 AM CDT - 12/28/2024 11:59 PM CDT Hospital Encounter [facility] - Ultrasound [address] [facility], 7th Floor, [address] [facility] [place] [address] Ovarian mass Discharge Disposition: Discharge to home or self care 11/10/2024 Telephone [facility] Obstetrics and Gynecology [address] [facility] 13th [place] [address] Jossie Whitaker RN 11/10/2024 Telephone [facility] Obstetrics and Gynecology [address] [facility] 13th [place] [address] Jossie Whitaker RN 11/10/2024 Orders Only [facility] Obstetrics and Gynecology [address] [facility] 13th [place] [address] Jossie Whitaker RN Ovarian mass (Primary Dx) 11/09/2024 12:30 PM DELIMER - 11/09/2024 11:59 PM DELIMER Hospital Encounter [facility] Center for Outpatient Health - Ultrasound [address] [facility], 7th Floor, [address] [facility] [place] [address] Ovarian mass Discharge Disposition: Discharge to home or self care from Last 3 Months Immunizations Immunization Administration Dates Next Due Influenza, Quadrivalent, Spl it, Preservative Free, Intramuscular 11/05/2019,07/08/2018 Surgical History Surgery Date Site/Laterality Comments ESOPHAGOGASTRODUODENOSCOPY Multiple with esophageal stretching for Schatzki's ring, last 05/2018 per patient report KIDNEY SURGERY Medical History Medical History Date Comments Hydronephrosis Right Diverticulosis Diabetes mellitus (HCC) Nephrolithiasis 11/06/2018 Added automatica lly from request for surgery [id number] ARF (acute renal failure) 10/2018 SCR: 2 [...] Packs/Day Years Used Date Smoking Tobacco: Never Passive Smoke Exposure: Past Smokeless Tobacco: Never Tobacco Cessation:Counseling Given: Not Answered Alcohol Use Standard Drinks/Week Comments No 0 (1 standard drink = 0.6 oz pur e alcohol) AUDIT-C Answer Date Recorded Q1: How often do you have a drink containing alcohol? Never 01/15/2025 Q2: How many drinks containi ng alcohol do you have on a typical day when you are drinking? Patient does not drink Q3: How often do you have si x or more drinks on one occasion? Never 01/15/2025 Personal Safety Answer Date Recorded Have you ever been in or are you currently in a harmful physical or emotional relationship or is someone making you feel afraid or unsafe? 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 Not on file Not on file Not on file Obstetrics History Para Term AB IAB SAB Ectopic Multiple Livin g Live Births 1 1 Date Outcome GA Total Labor Labor/2nd/3rd Weight Sex Type Anes PTL Dee Dee A1 A5 Name Clin Last Filed Vital Signs Vital Sign Reading Time Taken Comments Blood Pressure 109/66 01/15/2025 10:30 AM CDT Pulse 76 01/15/2025 10:30 AM CDT Temperature 36.9 C (98.4 F) 12/28/2024 1:24 PM CDT Respiratory Rate 17 01/15/2025 10:30 AM CDT Oxygen Saturation 97% 01/15/2025 10:30 AM CDT Inhaled Oxygen Concentration - - Weight 75.4 kg (166 lb 3.6 oz) 01/15/2025 10:30 AM CDT Height 165.1 cm (5' 5 ) 01/15/2025 10:30 AM CDT Body Mass Index 27.66 01/15/2025 10:30 AM CDT Plan of Treatment Upcoming Encounters Date Type Department Care Team (Latest Contact Info) Description 01/29/2025 11:40 AM CDT Hospital Encounter [facility] Operating Room [address] [place] [phone] Leonel Coronado MD [address] [facility] [phone] [place] [address] 01/29/2025 11:40 AM CDT Anesthesia Event [facility] Operating Room [address] [place] [phone] Ilsa Gomez, STREET [employer]ER [address] [facility] [address] [phone] [place] [address] 01/29/2025 11:40 AM CDT - 01/29/2025 2:[address] [facility] Operating Room [address] [place] [phone] Leonel Coronado MD [address] [facility] [phone] [place] [address] LAPAROSCOPIC HYSTERECTOMY ABDOMINAL SALPINGO-OOPHORECTOM Y Scheduled Procedures Name Priority Associated Diagnoses Date/Ti me LAPAROSCOPIC HYSTERECTOMY ABDOMINAL SALPINGO-OOPHORECTOMY Adnexal mass 01/29/2025 11:40 AM CDT CYSTOSCOPY Adnexal mass 01/29/2025 11:40 AM CDT Health Maintenance Due Date Last Done Comments Albumin Creatinine Ratio, Urine 1958 Breast Cancer Screening-Mammogram 1958 Colon Cancer Screening-Colonoscopy 1958 Depression Screening 1958 Hepatitis C Screening 1958 Osteoporosis Screening-Bone Density Scan 1958 Dilated Eye Exam 1958 Foot Exam 1958 Lipid Panel 1958 DTaP/Tdap/Td Vaccine (1 - Tdap) 1969 Hepatitis B Screening 1976 Pneumococcal vaccine 65+ (1 of 2 - PCV) 1977 Zoster Vaccine (1 of 2) 2008 Well Visit 65+ 2023 Influenza Vaccine (Season Ended) 2025 11/05/19 20, 07/08/2018 Hemoglobin A1C 07/17/2025 01/15/2025 Fall Risk Assessment 01/15/2026 01/15/2025 eGFR 01/15/2026 01/15/2025 Cervical Cancer Screening Discontinued 06/29/2024, 03/2024 Medical Devices Explanted Type Area Pre Owned Sales Consultant Device Identifier Shelf Expiration Date Model / Serial / Lot [employer] [id number] Universa 7fr 26cm 145cm Soft Positioner Carriage Rider Braid Tether - [id number] Implanted:Qty: 1 on 11/07/2018 by Ronan Pham MD at [facility] Explanted:Qty: 1 on 12/03/2018 at [facility] Stent Right: Urethra [employer] [id number] / / Procedures Procedure Name Priority Date/Time Associated Diagnosis Comments EGFR Routine 01/15/2025 11:46 AM CDT Adnexal mass DIFFERENTIAL AUTO Routine 01/15/2025 11: 46 AM CDT Adnexal mass CA 125 Routine 01/15/2025 11:46 AM CDT Adnexal mass Ovarian mass CEA Routine 01/15/2025 11:46 AM CDT Adnexal mass Ovarian mass CANCER ANTIGEN 19-9 Routine 01/15/2025 1 1:46 AM CDT Adnexal mass Ovarian mass CBC WITH AUTO DIFFERENTIAL Routine 01/15/2025 11:46 AM CDT Adnexal mass COMPREHENSIVE METABOLIC PANEL Routine 01/15/2025 11:46 AM CDT Adnexal mass TYPE AND SCREEN 14 DAY Routine 01/15/2025 11:46 AM CDT Preop examination URINE CULTURE Routine 01/15/2025 11:46 AM CDT Preop examination Nephrolithiasis POCT HEMOGLOBIN A1C Routine 01/15/2025 1 1:01 AM CDT US PELVIS COMPLETE Schedule Routine, Read Routine (OP Routine) 12/28/2024 10:55 AM CDT Ovarian mass US PELVIS COMPLETE Schedule Routine, Read Routine (OP Routine) 11/09/2024 12:39 PM DELIMER Ovarian mass HIGH RISK HPV DNA DETECTION WITH GENOTYPING Routine 06/29/2024 4:23 PM CDT Ovarian mass from Last 3 Months or Most Recently Relevant to Health Maintenance Results * TYPE AND SCREEN 14 DAY (01/15/2025 11:46 AM CDT) ABO Rh O Positive Peter, indirect Negative DAVIS [facility] Blood 01/15/2025 11:4 6 AM CDT 01/15/2025 12:48 PM CDT Narrative DAVIS TOWNSEND - 01/15/2025 1:43 PM CDT Is this test being ordered in advance for a procedure?->Yes Expected date of procedure:->01/29/25 Has the patient been transfused in the past 3 months?->No Has the patient been in the past 3 months?->No Ilsa Gomez NP LAB BLOOD BANK TEST ORD ERABLES Final Result Performing Organization Address [facility] Co de Phone Number DAVIS [facility] [place] [address] * (ABNORMAL) eGFR (01/15/2025 11:46 AM CDT) eGFR 21(L) >=60 mL/min/1. 73 m2 Comment: Interpretive Data Reference Interval Normal >/= 90 mL/min/1.73m2 Mildly decreased* 60 - 89 mL/min/1.73m2 Mildly to moderately decreased 45 - 59 mL/min/1.73m2 Moderately to severely decreased 30 - 44 mL/min/1.73m2 Severely decreased 15 - 29 mL/min/1.73m2 Kidney Failure < 15 mL/min/1.73m2 *Relative to young adult level Estimated glomerular filtration rate is determined by the 2020 CKD-EPI equation recommended by the National Kidney Foundation (A Unifying Approach to GFR Estimation: Recommendations of the NKF-ASK Task Force on Reassessing the Inclusion of Race in Diagnosing Kidney Disease, JASN 2020). The CKD-EPI equation should not be used for patients with unstable renal function and has not been validated in children and those over 70. Current interpretive data was last reviewed 2021. Blood 01/15/2025 11:4 6 AM CDT 01/15/2025 12:46 PM CDT Leonel Coronado MD LAB BLOOD ORDERABLES Fin al Result Performing Organization Address [facility]/ZIP Co de Phone Number DAVIS [facility] Department [place] [address] * Differential, auto (01/15/2025 11:46 AM CDT) Neutrophil abs 3.58 1.50 - 6.50 K/cumm Imm gran abs 0.01 0.00 - 0.10 K/cumm [facility] Lymphocyte abs 1.21 0.80 - 3.30 K/cumm [facility] Monocyte abs 0.53 0.20 - 0.80 K/cumm [facility] Eosinophil abs 0.29 0.00 - 0.50 K/cumm [facility] Basophil abs 0.08 0.00 - 0.10 K/cumm [facility] Neutrophil pct 62.8 % [facility] Comment: Interpretive Data Percent cell count reference ranges are not reported, since discordance with absolute values may lead to misinterpretation of CBC data. Current Interpretive Data was last revised on 2017. Imm gran pct 0.2 % [facility] Comment: Interpretive Data Percent cell count reference ranges are not reported, since discordance with absolute values may lead to misinterpretation of CBC data. Current Interpretive Data was last revised on 2017. Lymphocyte pct 21.2 % [facility] Comment: Interpretive Data Percent cell count reference ranges are not reported, since discordance with absolute values may lead to misinterpretation of CBC data. Current Interpretive Data was last revised on 2017. Monocyte pct 9.3 % [facility] Comment: Interpretive Data Percent cell count reference ranges are not reported, since discordance with absolute values may lead to misinterpretation of CBC data. Current Interpretive Data was last revised on 2017. Eosinophil pct 5.1 % [facility] Comment: Interpretive Data Percent cell count reference ranges are not reported, since discordance with absolute values may lead to misinterpretation of CBC data. Current Interpretive Data was last revised on 2017. Basophil pct 1.4 % [facility] Comment: Interpretive Data Percent cell count reference ranges are not reported, since discordance with absolute values may lead to misinterpretation of CBC data. Current Interpretive Data was last revised on 2017. Blood 01/15/2025 11:4 6 AM CDT 01/15/2025 12:46 PM CDT us Premal Chaka Coronado MD LAB BLOOD ORDERABLES Fin al Result CERNER [facility] Department [place] [address] * CBC with auto differential (01/15/2025 11:46 AM CDT) [facility] WBC 5.70 3.80 - 9.90 K/cumm Hgb 13.9 11.9 - 15.5 g/dL [facility] Hct 41.1 35.6 - 45.5 % [facility] Plt 290 150 - 400 K/cumm [facility] MPV 10.8 9.1 - 12.3 fL [facility] RBC 4.96 3.90 - 5.20 M/cumm [facility] MCV 82.9 81.3 - 96.4 fL [facility] MCH 28.0 27.1 - 33.3 pg [facility] MCHC 33.8 32.3 - 35.7 g/dL [facility] RDW CV 13.7 11.1 - 14.9 % [facility] RDW SD 41.5 35.7 - 48.1 fL [facility] NRBC abs 0.00 0.00 - 0.01 K/cumm [facility] Blood 01/15/2025 11:4 6 AM CDT 01/15/2025 12:46 PM CDT [facility] Chaka Coronado MD LAB BLOOD ORDERABLES Fin al Result [facility] Department [place] [address] * Cancer antigen 19-9 (01/15/2025 11:46 AM CDT) [facility] CA 19-9 ag 16.4 <=35.0 units/mL Comment: Interpretive Data The [employer] CA 19-9 assay procedure was used. Results from different manufacturers or methods may not be comparable. Serial testing should be performed using the same method. Blood 01/15/2025 11:4 6 AM CDT 01/15/2025 12:46 PM CDT Leonel Coronaod MD LAB BLOOD ORDERABLES Fin al Result Performing Organization Address [facility] de Phone Number [facility] [place] [address] * Urine culture Urine, clean voided (01/15/2025 11:46 AM CDT) Report Final Report: Less than 100,000 colonies/mL (clinically insignificant growth based on current clinical standards) Organism (CLINICALLY INSIGNIFICANT GROWTH [facility] Urine, clean voided 01/15/2025 11:46 AM CDT 01/15/2025 12:46 PM CDT Narrative [facility] - 01/16/2025 1:29 PM CDT Testing performed by [facility] Microbiology [facility] ([phone]) Ilsa Gomez NP LAB MICROBIOLOGY - GENE RAL ORDERABLES Final Result Performing Organization Address [facility] de Phone Number [facility] Department [place] [address] * CA 125 (01/15/2025 11:46 AM CDT) Pathologist [facility] CA 125 ag 13.6 0.0 - 38.1 units/mL Comment: Interpretive Data The [employer] CA 125 assay procedure was used. Results from different manufacturers or methods may not be comparable. Serial testing should be performed using the same method. Blood 01/15/2025 11:4 6 AM CDT 01/15/2025 12:46 PM CDT Leonel Coronado MD LAB BLOOD ORDERABLES Fin al Result Performing Organization Address [facility] [place] [address] * CEA (01/15/2025 11:46 AM CDT) CEA 1.3 <=5.0 ng/mL Comment: Interpretive Data: Reference Range: Non-Smokers: 0.0 5.0 ng/mL Smokers: 0.0 6.5 ng/mL The [employer] CEA assay procedure was used. Results from different manufacturers or methods may not be comparable. Serial testing should be performed using the same method. Current interpretive data was last revised 2022. Blood 01/15/2025 11:4 6 AM CDT 01/15/2025 12:46 PM CDT us Premal Chaka Coronado MD LAB BLOOD ORDERABLES Fin al Result [facility] Department [place] [address] * (ABNORMAL) Comprehensive metabolic panel (01/15/2025 11:46 AM CDT) Sodium 140 135 - 145 mmol/L Potassium, pl 4.1 3.3 - 4.9 mmol/L [facility] Chloride 103 97 - 110 mmol/L [facility] CO2 27 22 - 32 mmol/L [facility] Anion gap 10 2 - 15 mmol/L [facility] BUN 33(H) 6 - 25 mg/dL [facility] Creatinine 2.50(H) 0.60 - 1.10 mg/dL [facility] Glucose 86 70 - 199 mg/dL [facility] Comment: Interpretive Data Fasting glucose >/= 126 mg/dl is diagnostic for diabetes. Fasting is defined as no caloric intake for at least 8 hours. Fasting glucose between 100 mg/dl to 125 mg/dl is diagnostic of prediabetes. In a patient with classic symptoms of hyperglycemia or hyperglycemic crisis, a random glucose >/= 200 mg/dl is diagnostic for diabetes. In the absence of unequivocal hyperglycemia, results should be confirmed by repeat testing. The classification and Diagnosis of Diabetes Diabetes Care 202; 46: S19-S40. Current interpretive data was last revised 2022. Calcium 11.8(H) 8.5 - 10.3 mg/dL [facility] Bilirubin, total 0.6 0.1 - 1.2 mg/dL [facility] Protein, pl 8.2 6.5 - 8.5 g/dL [facility] Albumin 4.1 3.5 - 5.0 g/dL [facility] Alk phos 128 40 - 130 Units/L [facility] ALT 34 7 - 45 Units/L [facility] AST 35 10 - 45 Units/L [facility] Blood 01/15/2025 11:4 6 AM CDT 01/15/2025 12:46 PM CDT [facility] LAB BLOOD ORDERABLES Fin al Result Performing Organization Address [facility] de Phone Number [facility] [place] [address] * (ABNORMAL) POCT hemoglobin A1c (01/15/2025 11:01 AM CDT) Hgb A1C, POC 6.6(H) 4.0 - 5.6 % Est Average Gluc POC 143 mg/dL [facility] Comment: The ADA recommends reporting an estimated Average Glucose (eAG) with all Hemoglobin A1c results using the equation derived from a study of 507 normal and diabetic adults. Minority populations were underrepresented and children were not included. (Diabetes Care 31:5419-3523, 2008). The eAG is not equivalent to a fasting glucose. Blood 01/15/2025 11:0 1 AM CDT 01/15/2025 11:01 AM CDT Leonel Coronado MD POINT OF CARE TEST ORDER BESS Final Result Performing Organization Address [facility] Co de Phone Number [facility] [place] [address] * US Pelvis Complete (12/28/2024 10:55 AM CDT) Cul de Sac No free fluid visualized V[facility]POINT Endometrial Thickness 2.6 mm&millim eters VIEWPOINT Anatomical Region Laterality Modality Pelvis N/A Ultrasound 12/28/2024 11:3 4 AM CDT Impressions 12/28/2024 12:38 PM CDT Images compared to scan on 11/09/24. The uterus is anteverted and normal in size. The endometrial stripe measures 2.6 mm. There is a small fibroid, mean diameter 16 mm. Right adnexa contains a multilocular lesion without solid components or color flow with a mean diameter of 73 mm, prior mean was 74 mm, for a continued ORADS 3 designation. Left ovary contains a unilocular cystic lesion which is anechoic, without color flow or solid components, mean diameter 30 mm with prior mean of 31 mm, for a continued ORADS 2 lesion. There was no evidence of free fluid in the pelvis. Narrative Procedure Note Kathe Hernandez MD - 12/28/2024 IMPRESSION: Images compared to scan on 11/09/24. The uterus is anteverted and normalin size. The endometrial stripe measures 2.6 mm. There is a smallfibroid, mean diameter 16 mm. Right adnexa contains a multilocular lesionwithout solid components or color flow with a mean diameter of 73 mm,prior mean was 74 mm, for a continued ORADS 3 designation. Left ovarycontains a unilocular cystic lesion which is anechoic, without color flowor solid components, mean diameter 30 mm with prior mean of 31 mm, for acontinued ORADS 2 lesion. There was no evidence of free fluid in thepelvis. us Premal Chaka Coronado MD [facility] US PROCEDURES Final Result * US Pelvis Complete (11/09/2024 12:39 PM DELIMER) Cul de Sac No free fluid visualized [facility] Endometrial Thickness 3.2 mm&millim eters VIEWPOINT Anatomical Region Laterality Modality Pelvis N/A Ultrasound 11/09/2024 12:4 3 PM DELIMER Impressions 11/09/2024 1:31 PM DELIMER The uterus is anteverted and normal in [...] the pelvis. us Premal Chaka Coronado MD [facility] US PROCEDURES Final Result * High Risk HPV DNA Detection with Genotyping (Molecular component) (06/29/2024 4:23 PM CDT) HPV HR 16 Not Detected Not Detected [facility] HPV HR 18 Not Detected Not Detected [facility] HPV HR Non 16/18 Not Detected Not Detected [facility] Comment: Interpretive Data Nucleic acid amplification [...] this test have been verified by the [facility] Molecular Infectious Disease laboratory. Correlate with separately reported cytology results, as applicable. Interpretive data last revised 23 Endocervical 06/29/2024 4:23 PM CDT 06/30/2024 9:10 AM CDT Narrative DAVIS TOWNSEND - 06/30/2024 7:16 PM CDT Clinical history and diagnosis->adnexal mass Number of vials->1 Testing type->Screening Last menstrual period (date if known)->over 5 years ago us Premal Chaka Coronado MD LAB BODY FLUIDS AND STOO LS ORDERABLES Final Result [facility] One [facility] Department [place] [address] [facility] from Last 3 Months or Most Recently Relevant to Health Maintenance Insurance [employer] [place] [employer] CHOICE [employer] ACCESS MEDICARE RAILROAD [address] [facility] MEDICARE RAILROAD [facility] Address: [facility] [address] [place] [address] Advance Directives For more information, please contact: [phone] * Full Code (Latest Code Status on File) Date Activated Date Inactivated Comments 12/03/2018 6:15 PM 12/04/2018 8:51 PM * Full Code Date Activated Date Inactivated Comments 11/06/2018 4:45 PM 11/08/2018 9:17 PM Care Teams Supervisor Building Maintenance Relationship Specialty Start Date End Date Tanya Olmos NP PCP - General Nurse Practitioner 11/13/18
--- OUTSIDE RECORDS SUMMARY | 2025-01-25 15:38 | XMS_ITS | Referral Summary ---
Author Organization [facility] Address [address] [place] [address] Care Team Providers Care Medical Office Technologist Name Role Phone Tanya Olmos NP Primary Care Provider [phone] Encounters Date Type Department Care Team Description 01/21/2025 Telephone [facility]s [facility] Gynecology [address] [facility] Advanced Medicine 13th [place] [phone] Yesica rCoss testing recommended 01/19/2025 Orders Only [facility]ne[facility] [address] [facility] Medicine 13th [place] [address] Jossie Whitaker RN Syncope, unspecified syncope type (Primary Dx); History of cardioembolic cerebrovascular accident (CVA) 01/15/2025 10:30 AM CDT Pre-Admission Testing [facility] [address] [place] [address] Preop examination (Primary Dx); Nephrolithiasis; Adnexal mass; Ovarian mass 12/30/2024 Orders Only [facility] Ob[facility]s [facility] Gynecology [address] [facility] Medicine 13th [place] [phone] Jossie Whitaker RN Adnexal mass (Primary Dx); Ovarian mass 12/28/2024 10:55 AM CDT - 12/28/2024 11:59 PM CDT Hospital Encounter [facility] - Ul[facility]ound [address] [facility], 7th Floor, [address] [place] [address] Ovarian mass Discharge Disposition: Discharge to home or self care 12/28/2024 1:00 PM CDT Office Visit [facility] [address] [facility] Advanced Medicine 13th [place] [address] Leonel Coronado MD Adnexal mass (Primary Dx) 11/10/2024 Telephone [facility] [address] [facility] 13th [place] [address] Jossie Whitaker RN 11/10/2024 Telephone [facility] [address] [facility] 13th [place] [address] Jossie Whitaker RN 11/10/2024 Orders Only [facility]cology Pending sale to [facility] 13th [place] [address] Jossie Whitaker RN Ovarian mass (Primary Dx) 11/09/2024 12:30 PM HEALTH INSURANCE SPECIALIST - 11/09/2024 11:59 PM HEALTH INSURANCE SPECIALIST Hospital Encounter [facility] - Ultrasound [address] [place] [address], 7th Floor, [address] [place] [address] Ovarian mass Discharge Disposition: Discharge to home or self care from Last 3 Months Allergies Active Allergy [...] (11/07/2018): Added automatically from request for surgery [id number] Immunizations Immunization Administration Dates Next Due Influenza, [...] on file Legal Sex Female 2:18 PM HEALTH INSURANCE SPECIALIST Gender Identity Female 07/01/2024 11:19 AM CDT Sexual Orientation Not on file 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 Not on file [...] Description 01/29/2025 11:40 AM CDT Hospital Encounter [facility] Operating Room [address] [place] [phone] Leonel Coronado MD [address] [facility] [phone] [place], [place] [phone] 01/29/2025 11:40 AM CDT Anesthesia Event [facility] Operating Room [address] [place] [phone] Ilsa Gomez, RESOURCES REPRESENTATIVE [address] [facility] [address] [phone] [place], [place] [phone] 01/29/2025 11:40 AM CDT - 01/29/2025 2:30 PM CDT Surgery [facility] Operating Room [address] [place] [phone] Leonel Coronado MD [address] [facility] [phone] [place], [place] [id number] LAPAROSCOPIC HYSTERECTOMY ABDOMINAL SALPINGO-OOPHORECTOM Y Scheduled Procedures Name Priority Associated Diagnoses Date/Ti me LAPAROSCOPIC HYSTERECTOMY ABDOMINAL SALPINGO-OOPHORECTOMY Adnexal mass 01/29/2025 11:40 AM CDT CYSTOSCOPY Adnexal mass 01/29/2025 11:40 AM CDT Medical Devices Explanted Type Area Price Accuracy Supervisor Device Identifier Shelf Expiration Date Model / Serial / Lot [employer] [id number] Universa 7fr 26cm 145cm Soft Positioner Polymerization Oven Operator Braid Tether - [id number] Implanted:Qty: 1 on 11/07/2018 by Ronan Pham MD at [facility] Explanted:Qty: 1 on 12/03/2018 at [facility] Stent Right: Urethra [employer] [id number] / / Procedures Procedure Name Priority Date/Time [...] Read Routine (OP Routine) 11/09/2024 12:39 PM HEALTH INSURANCE SPECIALIST Ovarian mass HIGH RISK HPV DNA DETECTION WITH GENOTYPING Routine 06/29/2024 4:23 PM CDT Ovarian mass from Last 3 Months or Most Recently Relevant to Health Maintenance Results * TYPE AND SCREEN 14 DAY (01/15/2025 11:46 AM CDT) ABO Rh O Positive Peter, indirect Negative [facility] Blood 01/15/2025 11:4 6 AM CDT [...] ORD ERABLES Final Result Performing Organization Address [facility] Co de Phone Number [facility] [place] [address] * (ABNORMAL) eGFR (01/15/2025 11:46 AM CDT) [...] ORDERABLES Fin al Result Performing Organization Address [facility] Co de Phone Number [facility] Department [place] [address] * Differential, auto (01/15/2025 11:46 AM CDT) Neutrophil abs 3.58 1.50 - 6.50 K/cumm Imm gran abs 0.01 0.00 - 0.10 K/cumm [facility] Lymphocyte abs 1.21 0.80 - 3.30 K/cumm [facility] Monocyte abs 0.53 0.20 - 0.80 K/cumm [facility] Eosinophil abs 0.29 0.00 - 0.50 K/cumm [facility] Basophil abs 0.08 0.00 - 0.10 K/cumm [facility] Neutrophil pct 62.8 % [facility] Comment: Interpretive Data Percent cell count reference ranges are not reported, since discordance with absolute values may lead to misinterpretation of CBC data. Current Interpretive Data was last revised on 2017. Imm gran pct 0.2 % [facility] Comment: Interpretive Data Percent cell count reference ranges are not reported, since discordance with absolute values may lead to misinterpretation of CBC data. Current Interpretive Data was last revised on 2017. Lymphocyte pct 21.2 % [facility] Comment: Interpretive Data Percent cell count reference ranges are not reported, since discordance with absolute values may lead to misinterpretation of CBC data. Current Interpretive Data was last revised on 2017. Monocyte pct 9.3 % [facility] Comment: Interpretive Data Percent cell count reference ranges are not reported, since discordance with absolute values may lead to misinterpretation of CBC data. Current Interpretive Data was last revised on 2017. Eosinophil pct 5.1 % [facility] Comment: Interpretive Data Percent cell count reference ranges are not reported, since discordance with absolute values may lead to misinterpretation of CBC data. Current Interpretive Data was last revised on 2017. Basophil pct 1.4 % [facility] Comment: Interpretive Data Percent cell count reference ranges are not reported, since discordance with absolute values may lead to misinterpretation of CBC data. Current Interpretive Data was last revised on 2017. Blood 01/15/2025 11:4 6 AM CDT 01/15/2025 12:46 PM CDT [facility] Chaka Coronado MD LAB BLOOD ORDERABLES Fin al Result Performing Organization Address [facility] de Phone Number [facility] [place] [address] * CBC with auto differential (01/15/2025 11:46 AM CDT) [facility] WBC 5.70 3.80 - 9.90 K/cumm Hgb 13.9 11.9 - 15.5 g/dL [facility] Hct 41.1 35.6 - 45.5 % [facility] Plt 290 150 - 400 K/cumm [facility] MPV 10.8 9.1 - 12.3 fL [facility] RBC 4.96 3.90 - 5.20 M/cumm [facility] MCV 82.9 81.3 - 96.4 fL [facility] MCH 28.0 27.1 - 33.3 pg [facility] MCHC 33.8 32.3 - 35.7 g/dL [facility] RDW CV 13.7 11.1 - 14.9 % [facility] RDW SD 41.5 35.7 - 48.1 fL [facility] NRBC abs 0.00 0.00 - 0.01 K/cumm [facility] Blood 01/15/2025 11:4 6 AM CDT 01/15/2025 12:46 PM CDT [facility] Chaka Coronado MD LAB BLOOD ORDERABLES Fin al Result Performing Organization Address [facility] Co de Phone Number [facility] Department [place] [address] * Cancer antigen 19-9 (01/15/2025 11:46 AM CDT) [facility] CA 19-9 ag 16.4 <=35.0 units/mL Comment: Interpretive Data The [employer] CA 19-9 assay procedure was used. Results from different manufacturers or methods may not be comparable. Serial testing should be performed using the same method. Blood 01/15/2025 11:4 6 AM CDT 01/15/2025 12:46 PM CDT Leonel Coronado MD LAB BLOOD ORDERABLES Fin al Result [facility] [place] [address] * Urine culture Urine, clean voided (01/15/2025 11:46 AM CDT) Report Final Report: Less than 100,000 colonies/mL (clinically insignificant growth based on current clinical standards) Organism (CLINICALLY INSIGNIFICANT GROWTH [facility] Urine, clean voided 01/15/2025 11:46 AM CDT 01/15/2025 12:46 PM CDT Narrative [facility] - 01/16/2025 1:29 PM CDT Testing performed by [facility] Microbiology Laboratory ([phone]) Result [facility] Ilsa Gomez NP LAB MICROBIOLOGY - GENE RAL ORDERABLES Final Result Performing Organization Address [facility] [place] [address] * CA 125 (01/15/2025 11:46 AM CDT) CA 125 ag 13.6 0.0 - 38.1 units/mL Comment: Interpretive Data The [employer] CA 125 assay procedure was used. Results from different manufacturers or methods may not be comparable. Serial testing should be performed using the same method. Blood 01/15/2025 11:4 6 AM CDT 01/15/2025 12:46 PM CDT Leonel Coronado MD LAB BLOOD ORDERABLES Fin al Result Performing Organization Address [facility] Co de Phone Number [facility] [place] [address] * CEA (01/15/2025 11:46 AM CDT) CEA [...] 6 AM CDT 01/15/2025 12:46 PM CDT [facility] Chaka Coronado MD LAB BLOOD ORDERABLES Fin al Result [facility] Department [place] [address] * (ABNORMAL) Comprehensive metabolic panel (01/15/2025 11:46 AM CDT) Sodium 140 135 - 145 mmol/L Potassium, pl 4.1 3.3 - 4.9 mmol/L [facility] Chloride 103 97 - 110 mmol/L [facility] CO2 27 22 - 32 mmol/L [facility] Anion gap 10 2 - 15 mmol/L [facility] BUN 33(H) 6 - 25 mg/dL [facility] Creatinine 2.50(H) 0.60 - 1.10 mg/dL [facility] Glucose 86 70 - 199 mg/dL [facility] Comment: Interpretive Data Fasting glucose [...] classification and Diagnosis of Diabetes Diabetes Care 2021; 46: S19-S40. Current interpretive data was last revised 2022. Calcium 11.8(H) 8.5 - 10.3 mg/dL [facility] Bilirubin, total 0.6 0.1 - 1.2 mg/dL [facility] Protein, pl 8.2 6.5 - 8.5 g/dL [facility] Albumin 4.1 3.5 - 5.0 g/dL [facility] Alk phos 128 40 - 130 Units/L [facility] ALT 34 7 - 45 Units/L [facility] AST 35 10 - 45 Units/L [facility] Blood 01/15/2025 11:4 6 AM CDT 01/15/2025 12:46 PM CDT Leonel Coronado MD LAB BLOOD ORDERABLES Fin al Result Performing Organization Address [facility] Co de Phone Number [facility] [place] [address] * (ABNORMAL) POCT hemoglobin A1c (01/15/2025 11:01 AM CDT) Hgb A1C, POC 6.6(H) 4.0 - 5.6 % Est Average Gluc POC 143 mg/dL [facility] Comment: The ADA recommends reporting an estimated Average Glucose (eAG) with all Hemoglobin A1c results using the equation derived from a study of 507 normal and diabetic adults. Minority populations were underrepresented and children were not included. (Diabetes Care 31:4909-6659, 2008). The eAG is not equivalent to a fasting glucose. Blood 01/15/2025 11:0 1 AM CDT 01/15/2025 11:01 AM CDT Leonel Coronado MD POINT OF CARE TEST ORDER BESS Final Result Performing Organization Address [facility] Co de Phone Number [facility] [place] [address] * US Pelvis Complete (12/28/2024 10:55 AM [...] in thepelvis. us Premal Chaka Coronado MD IMG US PROCEDURES Final Result * US Pelvis Complete (11/09/2024 12:39 PM HEALTH INSURANCE SPECIALIST) Cul de Sac No free fluid visualized [facility] Endometrial Thickness 3.2 mm&millim eters [facility] Anatomical Region Laterality Modality Pelvis N/A Ultrasound 11/09/2024 12:4 3 PM HEALTH INSURANCE SPECIALIST Impressions 11/09/2024 1:31 PM HEALTH INSURANCE SPECIALIST The uterus is anteverted and normal in [...] the pelvis. us Premal Chaka Coronado MD [facility] US PROCEDURES Final Result * High Risk HPV DNA Detection with Genotyping (Molecular component) (06/29/2024 4:23 PM CDT) Pathologist [facility] HPV HR 16 Not Detected Not Detected [facility] HPV HR 18 Not Detected Not Detected [facility] HPV HR Non 16/18 Not Detected Not Detected [facility] Comment: Interpretive Data Nucleic acid amplification [...] this test have been verified by the [facility] Molecular Infectious Disease laboratory. Correlate with separately reported cytology results, as applicable. Interpretive data last revised 23 [facility] 06/29/2024 4:23 PM CDT 06/30/2024 9:10 AM CDT Narrative [facility] - 06/30/2024 7:16 PM CDT Clinical history and diagnosis->adnexal mass Number of vials->1 Testing type->Screening Last menstrual period (date if known)->over 5 years ago us Premok Chaka Coroando MD LAB BODY FLUIDS AND STOO LS ORDERABLES Final Result [facility] Department [place] [address] [facility] from Last 3 Months or Most Recently Relevant to Health Maintenance Insurance [employer] CHOICE [facility]LY [facility] ACCESS MEDICARE RAILROAD [facility] MEDICARE RAILROAD Advance Directives For more information, please contact: [phone] * Full Code (Latest Code Status on File) Date Activated Date Inactivated Comments 12/03/2018 6:15 PM 12/04/2018 8:51 PM * Full Code Date Activated Date Inactivated Comments 11/06/2018 4:45 PM 11/08/2018 9:17 PM Care Teams Medical Office Technologist Relationship Specialty Start Date End Date Tanya Olmos NP PCP - General Nurse Practitioner 11/13/18
--- OUTSIDE RECORDS SUMMARY | 2025-01-25 15:38 | XMS_ITS | CONTINUITY OF CARE DOCUMENT ---
Author Name héctor anaya Address Unknown Organization [facility] Address [address] [place] [address] Phone [phone] Care Team Providers Care Machine Plaster Mixer Name Role Phone Emory Melgoza MD Unavailable PIOTR ROBERSON Unavailable DEYANIRA MUÑOZ MD Unavailable [phone] PROBLEMS Condition Status Date Provider Notes Other symptoms involving car diovascular system active Emory Melgoza MD Diabetes mellitus active Emory Melgoza MD HTN essential active Emory Melgoza MD Hypercholesterolemia active Emory Melgoza MD PVC's active Emory Melgoza MD ENCOUNTERS Date Type Provider Location Encounter Diag nosis - In-person encounter Office Visit Emory Melgoza MD [place] [facility] Other symptoms involving cardiovascular systemDiabetes mellitusHTN [...] Payer name Policy type / Coverage type [place] red republican ID [facility] [id number] TREATMENT PLAN Date Name Performer NEW:Rhythm: Sinus [...]
== END 2025-01-25 14:57 | disposition home or self-care (01) ==
PROVIDERS: Visit Provider Internal Medicine Nephrology
DX: N18.9 Chronic kidney disease, unspecified (principal)
CPT/HCPCS: 76775

== ENCOUNTER 2025-02-04 09:19 | Outpatient (CLI) | payer MEDICARE, SELFPAY ==
--- NOTE | ~2025-02-04 | XR_ITS ---
EXAMINATION: BONE SURVEY/METASTATIC SURVEY DATE: 02/04/2025 INDICATION: Hypercalcemia and worsening kidney function TECHNIQUE: A skeletal survey was performed including AP views of the chest, abdomen and pelvis; AP an d lateral/lateral swimmers views of the cervical, thoracic and lumbar spine; lateral view of the skul l, and AP and lateral views of the appendicular skeleton excluding the hands and feet. COMPARISON: Bone scan dated 12/07/2024 FINDINGS: No suspicious lytic or blastic bone lesions in the axial or appendicular skeleton. Mild lumbar levosc oliosis with severe spondylosis. There are prominent degenerative endplate changes with endplate oste ophytes on the right at L2-L3 and on the left at L4-L5 and L5-S1 which appear to correspond to the re gion of increased activity on the prior bone scan. 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 Osteoarthritis of the bilateral kne es with prominent marginal osteophytes particularly at the right patellofemoral compartment likely ac counting for the asymmetric joint centered uptake at the right knee on prior bone scan. Lungs are gaudencio ar with no focal airspace opacities, pulmonary edema, pleural effusion or pneumothorax. Cardiomediast inal silhouette is normal. Multiple calcified splenic granulomata. Normal bowel gas pattern. IMPRESSION: 1. Degenerative skeletal changes in the axial and the periventricular scalp as detailed above, it for many of the posterior of increased uptake on prior bone scan. No suspicious lytic or blastic bone le sions. Reviewed, dictated and finalized at location A. IMPRESSION: 1. Degenerative skeletal changes in the axial and the periventricular scalp as detailed above, it for many of the posterior of increased uptake on prior bone scan. No suspicious lytic or blastic bone lesions.
--- NOTE | ~2025-02-04 | XR_ITS ---
Supine and upright views of the abdomen Clinical history: Kidney stone Findings: Bowel gas pattern is nonspecific. No evidence for obstruction or free air. No abnormal mass lesion or calcification is seen. There is levoscoliosis of the lumbar spine with degenerative spondy litic changes.. Impression: No significant abnormality is seen. Reviewed, dictated and finalized at [facility]. Impression: No significant abnormality is seen.
--- OUTSIDE RECORDS SUMMARY | 2025-02-04 09:24 | XMS_ITS | Clinical Summary ---
Author Organization [facility] Address [address] [place] [address] Care Team Providers Care Financial Brokers Name Role Phone Tanya Olmos NP Primary Care Provider [phone] Allergies Active Allergy Reactions Criticality Noted Date [...] injection 06/07/20 24 025 Discontin ued(Error ) Active Problems Problem Noted Date Diagnosed Date Adnexal mass 12/30/2024 Diabetes mellitus 06/29/2024 Hyperlipidemia 06/29/2024 Hypertensive disorder 06/29/2024 Obesity 06/29/2024 History of malignant neoplasm of skin 03/01/2020 Low kidney function 11/05/2019 Uric acid kidney stone 01/26/2019 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 Resolved Problems Problem Noted Date Diagnosed Date Resolved Date Nephrolithiasis 11/06/2018 01/26/2019 Overview (11/07/2018): Added automatically from request for surgery [id number] Encounters Date Type Department Care Team Description 01/21/2025 Telephone [facility] Ob[facility]s and [facility]ne[facility] [address] [facility] Medicine 13th [place] [address] Yesica Cross testing recommended 01/19/2025 Orders Only [facility] Obstetrics and Gynecology [address] [facility] 13th [place] [address] [place] [address] Jossie Whitaker RN Syncope, unspecified syncope type (Primary Dx); History of cardioembolic cerebrovascular accident (CVA) 01/15/2025 10:30 AM CDT Pre-Admission Testing [facility] for Preoperative Assessment and Planning [facility] Advanced Medicine ([facility]) [address] [place] [address] Preop examination (Primary Dx); Nephrolithiasis; Adnexal mass; Ovarian mass 12/30/2024 Orders Only [facility] Obstetrics and Gynecology [address] [place] [address] Medicine 13th [place] [address] Jossie Whitaker RN Adnexal mass (Primary Dx); Ovarian mass 12/28/2024 1:00 PM CDT Office Visit [facility] Obstetrics and Gynecology [address] [place] [address] 13th [place] [address] Leonel Coronado MD Adnexal mass (Primary Dx) 12/28/2024 10:55 AM CDT - 12/28/2024 11:59 PM CDT Hospital Encounter [facility] - Ultrasound [address] [place] [address], 7th Floor, [address] [place] [address] Ovarian mass Discharge Disposition: Discharge to home or self care 11/10/2024 Telephone [facility] Obstetrics and Gynecology [address] [place] [address] 13th [place] [address] Jossie Whitaker RN 11/10/2024 Telephone [facility] Obstetrics and Gynecology [address] [place] [address] Medicine 13th [place] [address] Jossie Whitaker RN 11/10/2024 Orders Only [facility] Obstetrics and Gynecology [address] [place] [address] Medicine 13th [place] [address] Jossie Whitaker RN Ovarian mass (Primary Dx) 11/09/2024 12:30 PM [employer] - 11/09/2024 11:59 PM [employer] Hospital Encounter [facility]ound [address] [facility], 7th Floor, [address] [place] [address] Ovarian mass Discharge Disposition: Discharge to home [...] Added automatica lly from request for surgery [id number] ARF (acute renal failure) 10/2018 SCR: 2 [...] on file Legal Sex Female 2:18 PM [employer] Gender Identity Female 07/01/2024 11:19 AM CDT Sexual Orientation Not on file 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 Operating Room [address] [place] [phone] Leonel Coronado MD [address] [facility] [phone] [place] [address] 02/26/2025 8:55 AM CDT Anesthesia Event [facility] Operating Room [address] [place] [phone] Ilsa Gomez, CIRCULATION REPRESENTATIVE [address] [facility] [address] [phone] [place] [address] 02/26/2025 8:55 AM CDT - 02/26/2025 11:[address] [facility] Operating Room [address] [place] [address] Leonel Coronado MD [address] [facility] [phone] [place] [address] LAPAROSCOPIC HYSTERECTOMY ABDOMINAL SALPINGO-OOPHORECTOM Y Scheduled Procedures Name Priority Associated Diagnoses Date/Ti me LAPAROSCOPIC HYSTERECTOMY ABDOMINAL SALPINGO-OOPHORECTOMY Adnexal mass 02/26/2025 8:55 AM CDT CYSTOSCOPY Adnexal mass 02/26/2025 8:55 AM CDT Health Maintenance Due Date Last [...] 06/29/2024, 03/2024 Medical Devices Explanted Type Area Pharmacy Billing Adjudicator Device Identifier Shelf Expiration Date Model / Serial / Lot [employer] [id number] Universa 7fr 26cm 145cm Soft Positioner [employer] Operator Braid Tether - [id number] Implanted:Qty: 1 on 11/07/2018 by Ronan Pham MD at [facility] Explanted:Qty: 1 on 12/03/2018 at [facility] Stent Right: Urethra [employer] [id number] / / Procedures Procedure Name Priority Date/Time [...] Read Routine (OP Routine) 11/09/2024 12:39 PM [employer] Ovarian mass HIGH RISK HPV DNA DETECTION WITH GENOTYPING Routine 06/29/2024 4:23 PM CDT Ovarian mass from Last 3 Months or Most Recently Relevant to Health Maintenance Results * TYPE AND SCREEN 14 DAY (01/15/2025 11:46 AM CDT) ABO Rh O Positive Peter, indirect Negative [facility] Blood 01/15/2025 11:4 6 AM CDT 01/15/2025 12:48 PM CDT [facility]ative [facility] - 01/15/2025 1:43 PM CDT Is this test being ordered in advance for a procedure?->Yes Expected date of procedure:->01/29/25 Has the patient been transfused in the past 3 months?->No Has the patient been in the past 3 months?->No Ilsa Gomez NP LAB BLOOD BANK TEST ORD ERABLES Final Result Performing Organization Address City/[facility] Co de Phone Number [facility] Department [place] [address] * (ABNORMAL) eGFR (01/15/2025 11:46 AM CDT) Pathologist [facility] eGFR 21(L) >=60 mL/min/1. 73 m2 Comment: [...] MD LAB BLOOD ORDERABLES Fin al Result [facility]IS [facility] Department [place] [address] * Differential, auto (01/15/2025 11:46 AM CDT) Pathologist [facility] Neutrophil abs 3.58 1.50 - 6.50 K/cumm Imm gran abs 0.01 0.00 - 0.10 K/cumm [facility] Lymphocyte abs 1.21 0.80 - 3.30 K/cumm [facility] Monocyte abs 0.53 0.20 - 0.80 K/cumm [facility] Eosinophil abs 0.29 0.00 - 0.50 K/cumm [facility] Basophil abs 0.08 0.00 - 0.10 K/cumm [facility] Neutrophil pct 62.8 % [facility] Comment: Interpretive Data Percent cell count reference ranges are not reported, since discordance with absolute values may lead to misinterpretation of CBC data. Current Interpretive Data was last revised on 2017. Imm gran pct 0.2 % [facility] Comment: Interpretive Data Percent cell count reference ranges are not reported, since discordance with absolute values may lead to misinterpretation of CBC data. Current Interpretive Data was last revised on 2017. Lymphocyte pct 21.2 % [facility] Comment: Interpretive Data Percent cell count reference ranges are not reported, since discordance with absolute values may lead to misinterpretation of CBC data. Current Interpretive Data was last revised on 2017. Monocyte pct 9.3 % [facility] Comment: Interpretive Data Percent cell count reference ranges are not reported, since discordance with absolute values may lead to misinterpretation of CBC data. Current Interpretive Data was last revised on 2017. Eosinophil pct 5.1 % [facility] Comment: Interpretive Data Percent cell count reference ranges are not reported, since discordance with absolute values may lead to misinterpretation of CBC data. Current Interpretive Data was last revised on 2017. Basophil pct 1.4 % [facility] Comment: Interpretive Data Percent cell count reference ranges are not reported, since discordance with absolute values may lead to misinterpretation of CBC data. Current Interpretive Data was last revised on 2017. Blood 01/15/2025 11:4 6 AM CDT 01/15/2025 12:46 PM CDT us Premal Chaka Coronado MD LAB BLOOD ORDERABLES Fin al Result [facility] Department [place] [address] * CBC with auto differential (01/15/2025 11:46 AM CDT) [facility] WBC 5.70 3.80 - 9.90 K/cumm Hgb 13.9 11.9 - 15.5 g/dL [facility] Hct 41.1 35.6 - 45.5 % [facility] Plt 290 150 - 400 K/cumm [facility] MPV 10.8 9.1 - 12.3 fL [facility] RBC 4.96 3.90 - 5.20 M/cumm [facility] MCV 82.9 81.3 - 96.4 fL [facility] MCH 28.0 27.1 - 33.3 pg [facility] MCHC 33.8 32.3 - 35.7 g/dL [facility] RDW CV 13.7 11.1 - 14.9 % [facility] RDW SD 41.5 35.7 - 48.1 fL [facility] NRBC abs 0.00 0.00 - 0.01 K/cumm [facility] Blood 01/15/2025 11:4 6 AM CDT 01/15/2025 12:46 PM CDT [facility] Chaka Coronado MD LAB BLOOD ORDERABLES Fin al Result Performing Organization Address [facility] de Phone Number [facility] Department [place] [address] * Cancer antigen 19-9 (01/15/2025 11:46 AM CDT) [facility] CA 19-9 ag 16.4 <=35.0 units/mL Comment: Interpretive Data The [employer] CA 19-9 assay procedure was used. Results from different manufacturers or methods may not be comparable. Serial testing should be performed using the same method. Blood 01/15/2025 11:4 6 AM CDT 01/15/2025 12:46 PM CDT [facility] Chaka Coronado MD LAB BLOOD ORDERABLES Fin al Result [facility] [place] [address] * Urine culture Urine, clean voided (01/15/2025 11:46 AM CDT) Report Final Report: Less than 100,000 colonies/mL (clinically insignificant growth based on current clinical standards) Organism (CLINICALLY INSIGNIFICANT GROWTH [facility] Urine, clean voided 01/15/2025 11:46 AM CDT 01/15/2025 12:46 PM CDT Narrative [facility] - 01/16/2025 1:29 PM CDT Testing performed by [facility] Microbiology Laboratory ([phone]) Ilsa Gomez NP LAB MICROBIOLOGY - GENE RAL ORDERABLES Final Result Performing Organization Address [facility] [place] [address] * CA 125 (01/15/2025 11:46 AM CDT) Pathologist [facility] CA 125 ag 13.6 0.0 - 38.1 units/mL Comment: Interpretive Data The [employer] CA 125 assay procedure was used. Results from different manufacturers or methods may not be comparable. Serial testing should be performed using the same method. Blood 01/15/2025 11:4 6 AM CDT 01/15/2025 12:46 PM CDT Leonel Coronado MD LAB BLOOD [place] [address] * CEA (01/15/2025 11:46 AM CDT) CEA [...] MD LAB BLOOD ORDERABLES Fin al Result [facility] Department [place] [address] * (ABNORMAL) Comprehensive metabolic panel (01/15/2025 11:46 AM CDT) Sodium 140 135 - 145 mmol/L Potassium, pl 4.1 3.3 - 4.9 mmol/L [facility] Chloride 103 97 - 110 mmol/L [facility] CO2 27 22 - 32 mmol/L [facility] Anion gap 10 2 - 15 mmol/L [facility] BUN 33(H) 6 - 25 mg/dL [facility] Creatinine 2.50(H) 0.60 - 1.10 mg/dL [facility] Glucose 86 70 - 199 mg/dL [facility] Comment: Interpretive Data Fasting glucose >/= [...] 2022. Calcium 11.8(H) 8.5 - 10.3 mg/dL [facility] Bilirubin, total 0.6 0.1 - 1.2 mg/dL [facility] Protein, pl 8.2 6.5 - 8.5 g/dL [facility] Albumin 4.1 3.5 - 5.0 g/dL [facility] Alk phos 128 40 - 130 Units/L [facility] ALT 34 7 - 45 Units/L [facility] AST 35 10 - 45 Units/L [facility] Blood 01/15/2025 11:4 6 AM CDT 01/15/2025 12:46 PM CDT [facility] Chaka Coronado MD LAB BLOOD ORDERABLES Fin al Result Performing Organization Address [facility] de Phone Number [facility] [place] [address] * (ABNORMAL) POCT hemoglobin A1c (01/15/2025 11:01 AM CDT) Hgb A1C, POC 6.6(H) 4.0 - 5.6 % Est Average Gluc POC 143 mg/dL [facility] Comment: The ADA recommends reporting an estimated Average Glucose (eAG) with all Hemoglobin A1c results using the equation derived from a study of 507 normal and diabetic adults. Minority populations were underrepresented and children were not included. (Diabetes Care 31:3153-5891, 2008). The eAG is not equivalent to a fasting glucose. Blood 01/15/2025 11:0 1 AM CDT 01/15/2025 11:01 AM CDT [facility] Chaka Coronado MD POINT OF CARE TEST ORDER BESS Final Result Performing Organization Address [facility] de Phone Number [facility] [place] [address] * US Pelvis Complete (12/28/2024 10:55 AM CDT) Pathologist [facility] Cul de Sac No free fluid visualized [...] * US Pelvis Complete (11/09/2024 12:39 PM [employer]) [place] Sac No free fluid visualized [facility] Endometrial Thickness 3.2 mm&millim eters [facility] Anatomical Region Laterality Modality Pelvis N/A Ultrasound 11/09/2024 12:4 3 PM [employer] Impressions 11/09/2024 1:31 PM [employer] The uterus is anteverted and normal in [...] the pelvis. us Premal Chaka Coronado MD IM US PROCEDURES Final Result * High Risk HPV DNA Detection with Genotyping (Molecular component) (06/29/2024 4:23 PM CDT) HPV HR 16 Not Detected Not Detected [facility] HPV HR 18 Not Detected Not Detected [facility] HPV HR Non 16/18 Not Detected Not Detected [facility] Comment: Interpretive Data Nucleic acid [...] this test have been verified by the [facility] Molecular Infectious Disease laboratory. Correlate with separately reported cytology results, as applicable. Interpretive data last revised 23 Specimen (Source) Anatomical Location / Laterality [id number]|2025-02-04 09:24:00|2025-02-04 09:24:00|XMS_ITS|[employer]|External Medical Summaries|[id number]|" Referral Summary Created on: February 04, 2025 Sommer Villavicencio : 1960 Sex: Female Author Organization [facility] Address [address] [place] [address] Care Team Providers Care Financial Brokers Name Role Phone Tanya Olmos NP Primary Care Provider [phone] Encounters Date Type Department Care Team Description 01/21/2025 Telephone [facility] Obstetrics and Gynecology [facility] Medicine 13th [place] [phone] Yesica Cross testing recommended 01/19/2025 Orders Only [facility] Obstetrics and Gynecology [facility] Medicine 13th [place] [phone] Jossie Whitaker RN Syncope, unspecified syncope type (Primary Dx); History of cardioembolic cerebrovascular accident (CVA) 01/15/2025 10:30 AM CDT Pre-Admission Testing [facility] for Preoperative Assessment and Planning [facility] ([facility] [address] [place] [address] Preop examination (Primary Dx); Nephrolithiasis; Adnexal mass; Ovarian mass 12/30/2024 Orders Only [facility] Obstetrics and Gynecology [address] [facility] Medicine 13th [place] [address] Jossie Whitaker RN Adnexal mass (Primary Dx); Ovarian mass 12/28/2024 10:55 AM CDT - 12/28/2024 11:59 PM CDT Hospital Encounter [facility] [address] [facility], 7th Floor, [address] [place] [address] Ovarian mass Discharge Disposition: Discharge to home or self care 12/28/2024 1:00 PM CDT Office Visit [facility] Obstetrics and Gynecology [address] [facility] Medicine 13th [place] [address] Leonel Coronado MD Adnexal mass (Primary Dx) 11/10/2024 Telephone [facility] Obstetrics and Gynecology [address] [facility] 13th [place] [address] Jossie Whitaker RN 11/10/2024 Telephone [facility] Obstetrics and Gynecology [address] [facility] 13th [place] [address] Jossie Whitaker RN 11/10/2024 Orders Only [facility] Obstetrics and Gynecology [address] [facility] 13th [place] [address] Jossie Whitaker RN Ovarian mass (Primary Dx) 11/09/2024 12:30 PM [employer] - 11/09/2024 11:59 PM [employer] Hospital Encounter [facility] [address] [facility], 7th Floor, [address] [place] [address] Ovarian mass Discharge Disposition: Discharge to home or self care from Last 3 Months Allergies Active Allergy Reactions Criticality Noted Date Comments Latex Rash Medium 11/06/2018 Medications amLODIPine (NORVASC) 5 mg tabletIndications:h ypertension Take 1 tablet (5 mg total) by mouth every morning 5 10/14/19 19 Active losartan (COZAAR) 100 mg tabletIndications:h ypertension Take 1 tablet (100 mg total) by mouth every morning 10/14/19 19 Active Trulicity 4.5 mg/0.5 mL [...] (40 mg total) by mouth every morning 10/14/19 19 025 Discontin ued(Alter nathan therapy) Levemir FlexPen 100 unit/mL (3 mL) pen for injection 06/07/20 24 025 Discontin ued(Error ) Active Problems Problem Noted Date Diagnosed Date Adnexal mass 12/30/2024 Diabetes mellitus 06/29/2024 Hyperlipidemia 06/29/2024 Hypertensive disorder 06/29/2024 Obesity 06/29/2024 History of malignant neoplasm of skin 03/01/2020 Low kidney function 11/05/2019 Uric acid kidney stone 01/26/2019 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 Resolved Problems Problem Noted Date Diagnosed Date Resolved Date Nephrolithiasis 11/06/2018 01/26/2019 Overview (11/07/2018): Added automatically from request for surgery [id number] Immunizations Immunization Administration Dates Next Due Influenza, [...] on file Legal Sex Female 2:18 PM [employer] Gender Identity Female 07/01/2024 11:19 AM CDT Sexual Orientation Not on file 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 Operating Room [address] [place] [phone] Leonel Coronado MD [address] [facility] [phone] [place] [address] 02/26/2025 8:55 AM CDT Anesthesia Event [facility] Operating Room [address] [place] [phone] Ilsa Gomez NP [address] [facility] [address] [phone] [place] [address] 02/26/2025 8:55 AM CDT - 02/26/2025 11:[address] [facility] Operating Room [address] [place] [phone] Leonel Coronado MD [address] [facility] [phone] [place], [place] [phone] LAPAROSCOPIC HYSTERECTOMY ABDOMINAL SALPINGO-OOPHORECTOM Y Scheduled Procedures Name Priority Associated Diagnoses Date/Ti me LAPAROSCOPIC HYSTERECTOMY ABDOMINAL SALPINGO-OOPHORECTOMY Adnexal mass 02/26/2025 8:55 AM CDT CYSTOSCOPY Adnexal mass 02/26/2025 8:55 AM CDT Medical Devices Explanted Type Area Pharmacy Billing Adjudicator Device Identifier Shelf Expiration Date Model / Serial / Lot [employer] [id number] Universa 7fr 26cm 145cm Soft Positioner [employer] Operator Braid Tether - [id number] Implanted:Qty: 1 on 11/07/2018 by Ronan Pham MD at [facility] Explanted:Qty: 1 on 12/03/2018 at [facility] Stent Right: Urethra [employer] [id number] / / Procedures Procedure Name Priority Date/Time [...] Read Routine (OP Routine) 11/09/2024 12:39 PM [employer] Ovarian mass HIGH RISK HPV DNA DETECTION WITH GENOTYPING Routine 06/29/2024 4:23 PM CDT Ovarian mass from Last 3 Months or Most Recently Relevant to Health Maintenance Results * TYPE AND SCREEN 14 DAY (01/15/2025 11:46 AM CDT) ABO Rh O Positive Peter, indirect Negative [facility] Blood 01/15/2025 11:4 6 AM CDT [...] ORD ERABLES Final Result Performing Organization Address [facility] Co de Phone Number [facility] Department of [place] [address] * (ABNORMAL) eGFR (01/15/2025 11:46 AM CDT) [...] AM CDT 01/15/2025 12:46 PM CDT us Leonel Coronado MD LAB BLOOD ORDERABLES Fin al Result Performing Organization Address [facility]/ZIP Co de Phone Number [facility] Department [place] [address] * Differential, auto (01/15/2025 11:46 AM CDT) Neutrophil abs 3.58 1.50 - 6.50 K/cumm Imm gran abs 0.01 0.00 - 0.10 K/cumm [facility] Lymphocyte abs 1.21 0.80 - 3.30 K/cumm [facility] Monocyte abs 0.53 0.20 - 0.80 K/cumm [facility] Eosinophil abs 0.29 0.00 - 0.50 K/cumm [facility] Basophil abs 0.08 0.00 - 0.10 K/cumm [facility] Neutrophil pct 62.8 % [facility] Comment: Interpretive Data Percent cell count reference ranges are not reported, since discordance with absolute values may lead to misinterpretation of CBC data. Current Interpretive Data was last revised on 2017. Imm gran pct 0.2 % [facility] Comment: Interpretive Data Percent cell count reference ranges are not reported, since discordance with absolute values may lead to misinterpretation of CBC data. Current Interpretive Data was last revised on 2017. Lymphocyte pct 21.2 % [facility] Comment: Interpretive Data Percent cell count reference ranges are not reported, since discordance with absolute values may lead to misinterpretation of CBC data. Current Interpretive Data was last revised on 2017. Monocyte pct 9.3 % [facility] Comment: Interpretive Data Percent cell count reference ranges are not reported, since discordance with absolute values may lead to misinterpretation of CBC data. Current Interpretive Data was last revised on 2017. Eosinophil pct 5.1 % [facility] Comment: Interpretive Data Percent cell count reference ranges are not reported, since discordance with absolute values may lead to misinterpretation of CBC data. Current Interpretive Data was last revised on 2017. Basophil pct 1.4 % [facility] Comment: Interpretive Data Percent cell count reference ranges are not reported, since discordance with absolute values may lead to misinterpretation of CBC data. Current Interpretive Data was last revised on 2017. Blood 01/15/2025 11:4 6 AM CDT 01/15/2025 12:46 PM CDT Leonel Coronado MD LAB BLOOD ORDERABLES Fin al Result Performing Organization Address [facility] de Phone Number [facility] Department [place] [address] * CBC with auto differential (01/15/2025 11:46 AM CDT) [facility] WBC 5.70 3.80 - 9.90 K/cumm Hgb 13.9 11.9 - 15.5 g/dL [facility] Hct 41.1 35.6 - 45.5 % [facility] Plt 290 150 - 400 K/cumm [facility] MPV 10.8 9.1 - 12.3 fL [facility] RBC 4.96 3.90 - 5.20 M/cumm [facility] MCV 82.9 81.3 - 96.4 fL [facility] MCH 28.0 27.1 - 33.3 pg [facility] MCHC 33.8 32.3 - 35.7 g/dL [facility] RDW CV 13.7 11.1 - 14.9 % [facility] RDW SD 41.5 35.7 - 48.1 fL [facility] NRBC abs 0.00 0.00 - 0.01 K/cumm [facility] Blood 01/15/2025 11:4 6 AM CDT 01/15/2025 12:46 PM CDT Leonel Coronado MD LAB BLOOD ORDERABLES Fin al Result Performing Organization Address [facility] Co de Phone Number [facility] Department [place] [address] * Cancer antigen 19-9 (01/15/2025 11:46 AM CDT) [facility] CA 19-9 ag 16.4 <=35.0 units/mL Comment: Interpretive Data The [employer] CA 19-9 assay procedure was used. Results from different manufacturers or methods may not be comparable. Serial testing should be performed using the same method. Blood 01/15/2025 11:4 6 AM CDT 01/15/2025 12:46 PM CDT Leonel Coronado MD LAB BLOOD ORDERABLES Fin al Result Performing Organization Address [facility] Co de Phone Number [facility] [place] [address] * Urine culture Urine, clean voided (01/15/2025 11:46 AM CDT) Report Final Report: Less than 100,000 colonies/mL (clinically insignificant growth based on current clinical standards) Organism (CLINICALLY INSIGNIFICANT GROWTH [facility] Urine, clean voided 01/15/2025 11:46 AM CDT 01/15/2025 12:46 PM CDT Narrative [facility] - 01/16/2025 1:29 PM CDT Testing performed by [facility] ([phone]) Result [facility] Ilsa Gomez NP LAB MICROBIOLOGY - GENE RAL ORDERABLES Final Result Performing Organization Address [facility] [place] [address] * CA 125 (01/15/2025 11:46 AM CDT) [...] ORDERABLES Fin al Result Performing Organization Address [facility] Co de Phone Number [facility] Department [place] [address] * CEA (01/15/2025 11:46 AM CDT) Pathologist [facility] CEA 1.3 <=5.0 ng/mL Comment: Interpretive Data: Reference Range: Non-Smokers: 0.0 5.0 ng/mL Smokers: 0.0 6.5 ng/mL The [employer] CEA assay procedure was used. Results from different manufacturers or methods may not be comparable. Serial testing should be performed using the same method. Current interpretive data was last revised 2022. Blood 01/15/2025 11:4 6 AM CDT 01/15/2025 12:46 PM CDT [facility] Chaka Coronado MD LAB BLOOD ORDERABLES Fin al Result [facility] [place] [address] * (ABNORMAL) Comprehensive metabolic panel (01/15/2025 11:46 AM CDT) Pathologist [facility] Sodium 140 135 - 145 mmol/L Potassium, pl 4.1 3.3 - 4.9 mmol/L [facility] Chloride 103 97 - 110 mmol/L [facility] CO2 27 22 - 32 mmol/L [facility] Anion gap 10 2 - 15 mmol/L [facility] BUN 33(H) 6 - 25 mg/dL [facility] Creatinine 2.50(H) 0.60 - 1.10 mg/dL [facility] Glucose 86 70 - 199 mg/dL [facility] Comment: Interpretive Data Fasting glucose >/= [...] 2022. Calcium 11.8(H) 8.5 - 10.3 mg/dL [facility] Bilirubin, total 0.6 0.1 - 1.2 mg/dL [facility] Protein, pl 8.2 6.5 - 8.5 g/dL [facility] Albumin 4.1 3.5 - 5.0 g/dL [facility] Alk phos 128 40 - 130 Units/L [facility] ALT 34 7 - 45 Units/L [facility] AST 35 10 - 45 Units/L [facility] Blood 01/15/2025 11:4 6 AM CDT 01/15/2025 12:46 PM CDT Premmegan Coronado MD LAB BLOOD ORDERABLES Fin al Result Performing Organization Address [facility] Co de Phone Number [facility] [place] [address] * (ABNORMAL) POCT hemoglobin A1c (01/15/2025 11:01 AM CDT) Pathologist [facility] Hgb A1C, POC 6.6(H) 4.0 - 5.6 % Est Average Gluc POC 143 mg/dL [facility] Comment: The ADA recommends reporting an estimated Average Glucose (eAG) with all Hemoglobin A1c results using the equation derived from a study of 507 normal and diabetic adults. Minority populations were underrepresented and children were not included. (Diabetes Care 31:0440-2815, 2008). The eAG is not equivalent to a fasting glucose. Blood 01/15/2025 11:0 1 AM CDT 01/15/2025 11:01 AM CDT Premmegan Coronado MD POINT OF CARE TEST ORDER BESS Final Result Performing Organization Address City/[facility]/ZIP Co de Phone Number [facility] [place] [address] * US Pelvis Complete (12/28/2024 10:55 AM [...] in thepelvis. us Premal Chaka Coronado MD IM US PROCEDURES Final Result * US Pelvis Complete (11/09/2024 12:39 PM [employer]) Cul de Sac No free fluid visualized [facility] Endometrial Thickness 3.2 mm&millim eters [facility] Anatomical Region Laterality Modality Pelvis N/A Ultrasound 11/09/2024 12:4 3 PM [employer] Impressions 11/09/2024 1:31 PM [employer] The uterus is anteverted and normal in [...] the pelvis. us Premal Chaka Coronado MD [facility] [place] PROCEDURES Final Result * High Risk HPV DNA Detection with Genotyping (Molecular component) (06/29/2024 4:23 PM CDT) HPV HR 16 Not Detected Not Detected [facility] HPV HR 18 Not Detected Not Detected [facility] HPV HR Non 16/18 Not Detected Not Detected [facility] Comment: Interpretive Data Nucleic acid amplification [...] this test have been verified by the [facility] Molecular Infectious Disease laboratory. Correlate with separately reported cytology results, as applicable. Interpretive data last revised 23 Endocervical 06/29/2024 4:23 PM CDT 06/30/2024 9:10 AM CDT Narrative [facility] - 06/30/2024 7:16 PM CDT Clinical history and diagnosis->adnexal mass Number of vials->1 Testing type->Screening Last menstrual period (date if known)->over 5 years ago us Premde Chaka Coronado MD LAB BODY FLUIDS AND STOO LS ORDERABLES Final Result [facility] Department [place] [address] [facility] from Last 3 Months or Most Recently Relevant to Health Maintenance Insurance [place] [employer] [place] [facility] [employer] Member Subscriber Plan / Payer ( fective 2019-Present) Name:Sommer Villavicencio Relation to Subscriber:Self Name:Sommer Villavicencio Payer ID:[id number] (NAIC) Type: [employer] Address: [address] [employer]
== END 2025-02-04 09:20 | disposition home or self-care (01) ==
PROVIDERS: PCP Family Medicine; Visit Provider Internal Medicine Nephrology
DX: N20.0 Calculus of kidney (principal); N18.31 Chronic kidney disease, stage 3a; E83.52 Hypercalcemia
CPT/HCPCS: 74018; 77075

== ENCOUNTER 2025-02-09 08:16 | Outpatient (CLI) | payer MEDICARE, SELFPAY ==
--- NOTE | ~2025-02-09 | MR_ITS ---
EXAMINATION: MRA brain wo con DATE: 02/09/2025 09:07 INDICATION: Cerebral infarction TECHNIQUE: Magnetic resonance angiography (MRA) of the brain was performed without intravenous contrast by the 3 D [id number] technique. COMPARISON: None. FINDINGS: There is normal flow related signal seen within the vertebral, basilar and internal carotid arteries. There is no proximal stenosis. There are no aneurysms identified. Both A1 and P1 segments are pat ent. Flow in the cerebral arteries is symmetric. IMPRESSION: 1. Normal cerebral MR angiogram with no significant stenosis, aneurysm or thrombosis. Reviewed, dictated and finalized at location A. IMPRESSION: 1. Normal cerebral MR angiogram with no significant stenosis, aneurysm or throm bosis.
--- NOTE | ~2025-02-09 | US_ITS ---
EXAMINATION: US carotid duplex BI DATE: 02/09/2025 09:51 INDICATION: Cerebral infarction. History of stroke. TECHNIQUE: Grayscale, color Doppler, and pulsed Doppler images of the cervical carotid arteries were obtained. The degree of vessel stenosis is placed in one of the following categories: normal, <50%, 5 0-69%, >=70% but less than near-occlusion, near-occlusion, or total occlusion. Note that percent sten osis relative to normal distal artery lumen diameter is indirectly measured from velocity measurement s as described by Feliz, et al. Radiology 2003; 229:340-346. Notes: Normal: Peak systolic velocity <125 centimeters/sec and no plaque <50%. Peak systolic velocity <125 ( EDV <40; ICA/CCA PSV ratio <2.0; used these factors only a tandem lesions or low cardiac output or co ntralateral disease) 50-69 %: PSV 125-230 (EDV 40-100; ratio 2-4) >= 70% but less than near occlusion: PSV greater than 230 (EDV > 100; ratio> 4.0) Near Occlusion: PSV that is variable; markedly narrowed lumen Occlusion: Absent flow on color/spectral Doppler and no lumen on diaz scale. COMPARISON: None. FINDINGS: RIGHT: The right common carotid artery (CCA) peak systolic velocity (PSV) is 66 cm/s. The right internal car otid artery (ICA) PSV is 54 cm/s. The right ICA end-diastolic velocity (EDV) is 18 cm/s. The right IC A/CCA PSV ratio is 0.8. The external carotid artery (ECA) PSV is 52 cm/s. There is antegrade flow in the right vertebral artery. LEFT: The left CCA PSV is 71 cm/s. The left ICA PSV is 59 cm/s. The left ICA EDV is 18 cm/s. The left ICA/C CA PSV ratio is 0.8. The ECA PSV is 60 cm/s. There is antegrade flow in the left vertebral artery. IMPRESSION: 1. Less than 50% stenosis in the right internal carotid artery by sonographic criteria. 2. Less than 50% stenosis in the left internal carotid artery by sonographic criteria. Reviewed, dictated and finalized at location B. IMPRESSION: 1. Less than 50% stenosis in the right internal carotid artery by sonographic c riteria. 2. Less than 50% stenosis in the left internal carotid artery by sonographic cr arnoldia.
--- NOTE | ~2025-02-09 | MR_ITS ---
EXAMINATION: MR brain/brain stem wo con DATE: 02/09/2025 09:07 INDICATION: Cerebral infarction. TECHNIQUE: Magnetic resonance imaging (MRI) of the brain and brainstem was performed without intraven ous contrast. Sequences included sagittal and axial T1-weighted SE, axial diffusion-weighted FS SE, a xial 3D SWAN, axial T2-weighted FLAIR, and axial T2-weighted FSE. Apparent diffusion coefficient (ADC ) maps were created. COMPARISON: Head CT dated 04/09/2024 FINDINGS: There are no areas of restricted diffusion to suggest acute infarction. No intracranial hemorrhage or abnormal intracranial mass lesion. There are scattered areas of nonspecific increased T2-weighted si gnal intensity in the cerebral white matter, predominantly involving the deep and periventricular whi te matter. There are no intraparenchymal signal abnormalities seen on the other pulse sequences. The ventricles are symmetric and normal in size. There are no abnormal extra-axial fluid collections. Alexander w voids are seen in the cerebral arteries on the T2-weighted sequences consistent with their expected patency. Visualized orbits and soft tissues are unremarkable. IMPRESSION: 1. Normal aging brain with mild periventricular predominant scattered nonspecific white matter T2 hyp erintensity consistent with chronic small vessel ischemic disease. No acute intracranial process. Reviewed, dictated and finalized at location A. IMPRESSION: 1. Normal aging brain with mild periventricular predominant scattered nonspecif ic white matter T2 hyperintensity consistent with chronic small vessel ischemic disease. No acute intracranial process.
--- OUTSIDE RECORDS SUMMARY | 2025-02-09 08:29 | XMS_ITS | Clinical Summary ---
Author Organization [facility] Address [address] [place] [address] Care Team Providers Care Outsole Cementer Name Role Phone Tanya Olmos NP Primary Care Provider [phone] Allergies Active Allergy Reactions Criticality Noted Date [...] (11/07/2018): Added automatically from request for surgery [id number] Encounters Date Type Department Care Team Description 01/21/2025 Telephone [facility] [address] [facility] Medicine [address]th [place] [address] Yesica Cross testing recommended 01/19/2025 Orders Only [facility] [address] [facility] 13th [place] [address] [place] [address] Jossie Whitaker RN Syncope, unspecified syncope type (Primary Dx); History of cardioembolic cerebrovascular accident (CVA) 01/15/2025 10:30 AM CDT Pre-Admission Testing [facility] for Preoperative Assessment and Planning [facility] Advanced Medicine ([facility]) [address] [place] [address] Preop examination (Primary Dx); Nephrolithiasis; Adnexal mass; Ovarian mass 12/30/2024 Orders Only [facility] [address] [facility] Medicine 13th [place] [address] [place] [address] Jossie Whitaker RN Adnexal mass (Primary Dx); Ovarian mass 12/28/2024 1:00 PM CDT Office Visit 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 Not on file Not on file [...] Care Team (Latest Contact Info) Description 02/26/2025 10:40 AM CDT Hospital Encounter [facility] Operating Room [address] [place] [address] Leonel Coronado MD [id number] [place] [address] 02/26/2025 10:40 AM CDT Anesthesia Event [facility] Operating Room [address] [place] [address] Ilsa Gomez, SHLOMO [address] [facility] [address] [phone] [place] [address] 02/26/2025 10:40 AM CDT - 02/26/2025 1:30 PM CDT Surgery [facility] Operating Room [address] [place] [address] Leonel Coronado MD [address] [facility] [id number] [place], [place] [id number] LAPAROSCOPIC HYSTERECTOMY ABDOMINAL SALPINGO-OOPHORECTOM Y Scheduled Procedures Name Priority Associated Diagnoses Date/Ti me LAPAROSCOPIC HYSTERECTOMY ABDOMINAL SALPINGO-OOPHORECTOMY Adnexal mass 02/26/2025 10:40 AM CDT CYSTOSCOPY Adnexal mass 02/26/2025 10:40 AM CDT Health Maintenance Due Date Last [...] 06/29/2024, 03/2024 Medical Devices Explanted Type Area Estimating Engineer Device Identifier Shelf Expiration Date Model / Serial / Lot MediBeacon [id number] Universa 7fr 26cm 145cm Soft Positioner Coding Tech Braid Tether - [id number] Implanted:Qty: 1 on 11/07/2018 by Ronan Pham MD at [facility] Explanted:Qty: 1 on 12/03/2018 at [facility] Stent Right: Urethra [employer] [id number] / / Procedures Procedure Name Priority Date/Time [...] Routine) 12/28/2024 10:55 AM CDT Ovarian mass HIGH RISK HPV DNA DETECTION WITH GENOTYPING Routine 06/29/2024 4:23 PM CDT Ovarian mass from Last 3 Months or Most Recently Relevant to Health Maintenance Results * TYPE AND SCREEN 14 DAY (01/15/2025 11:46 AM CDT) ABO Rh O Positive Peter, indirect Negative [facility] Blood 01/15/2025 11:4 6 AM CDT 01/15/2025 12:48 PM CDT Narrative [facility] - 01/15/2025 1:43 PM CDT Is this test being ordered in advance for a procedure?->Yes Expected date of procedure:->01/29/25 Has the patient been transfused in the past 3 months?->No Has the patient been in the past 3 months?->No Ilsa Gomez B[facility]Y [facility] LAB BLOOD BANK TEST ORD ERABLES Final Result [facility] [place] [place] [address] * (ABNORMAL) eGFR (01/15/2025 11:46 AM CDT) [...] of Race in Diagnosing Kidney Disease, JASN 2021). The CKD-EPI equation should not be used for patients with unstable renal function and has not been validated in children and those over 70. Current interpretive data was last reviewed 2021. Blood 01/15/2025 11:4 6 AM CDT 01/15/2025 12:46 PM CDT [facility] Chaka Coronado MD LAB BLOOD ORDERABLES Fin al Result [facility] [place] [address] * Differential, auto (01/15/2025 11:46 AM CDT) Neutrophil abs 3.58 1.50 - 6.50 K/cumm Imm gran abs 0.01 0.00 - 0.10 K/cumm [facility] Lymphocyte abs 1.21 0.80 - 3.30 K/cumm [facility] Monocyte abs 0.53 0.20 - 0.80 K/cumm [facility] Eosinophil abs 0.29 0.00 - 0.50 K/cumm [facility] Basophil abs 0.08 0.00 - 0.10 K/cumm [facility] Neutrophil pct 62.8 % [facility] Comment: Interpretive Data Percent cell count reference ranges are not reported, since discordance with absolute values may lead to misinterpretation of CBC data. Current Interpretive Data was last revised on 2017. Imm gran pct 0.2 % [facility] Comment: Interpretive Data Percent cell count reference ranges are not reported, since discordance with absolute values may lead to misinterpretation of CBC data. Current Interpretive Data was last revised on 2017. Lymphocyte pct 21.2 % [facility] Comment: Interpretive Data Percent cell count reference ranges are not reported, since discordance with absolute values may lead to misinterpretation of CBC data. Current Interpretive Data was last revised on 2017. Monocyte pct 9.3 % [facility] Comment: Interpretive Data Percent cell count reference ranges are not reported, since discordance with absolute values may lead to misinterpretation of CBC data. Current Interpretive Data was last revised on 2017. Eosinophil pct 5.1 % [facility] Comment: Interpretive Data Percent cell count reference ranges are not reported, since discordance with absolute values may lead to misinterpretation of CBC data. Current Interpretive Data was last revised on 2017. Basophil pct 1.4 % [facility] Comment: Interpretive Data Percent cell count reference ranges are not reported, since discordance with absolute values may lead to misinterpretation of CBC data. Current Interpretive Data was last revised on 2017. Blood 01/15/2025 11:4 6 AM CDT 01/15/2025 12:46 PM CDT [facility] Chaka Coronado MD LAB BLOOD ORDERABLES Fin al Result [facility] [place] [address] * CBC with auto differential (01/15/2025 11:46 AM CDT) WBC 5.70 3.80 - 9.90 K/cumm Hgb 13.9 11.9 - 15.5 g/dL [facility] Hct 41.1 35.6 - 45.5 % [facility] Plt 290 150 - 400 K/cumm [facility] MPV 10.8 9.1 - 12.3 fL [facility] RBC 4.96 3.90 - 5.20 M/cumm [facility] MCV 82.9 81.3 - 96.4 fL [facility] MCH 28.0 27.1 - 33.3 pg [facility] MCHC 33.8 32.3 - 35.7 g/dL [facility] RDW CV 13.7 11.1 - 14.9 % [facility] RDW SD 41.5 35.7 - 48.1 fL [facility] NRBC abs 0.00 0.00 - 0.01 K/cumm [facility] Blood 01/15/2025 11:4 6 AM CDT 01/15/2025 12:46 PM CDT [facility] BLOOD ORDERABLES Fin al Result Performing Organization Address City/[facility] Co de Phone Number [facility] [place] [address] * Cancer antigen 19-9 (01/15/2025 11:46 AM CDT) CA 19-9 ag 16.4 <=35.0 units/mL Comment: Interpretive Data The [employer] CA 19-9 assay procedure was used. Results from different manufacturers or methods may not be comparable. Serial testing should be performed using the same method. Blood 01/15/2025 11:4 6 AM CDT 01/15/2025 12:46 PM CDT [facility] LAB BLOOD ORDERABLES Fin al Result Performing Organization Address [facility] Co de Phone Number [facility] Department [place] [address] * Urine culture Urine, clean voided (01/15/2025 11:46 AM CDT) Pathologist [facility] Report Final Report: Less than 100,000 colonies/mL (clinically insignificant growth based on current clinical standards) Organism (CLINICALLY INSIGNIFICANT GROWTH [facility] Urine, clean voided 01/15/2025 11:46 AM CDT 01/15/2025 12:46 PM CDT Narrative [facility] - 01/16/2025 1:29 PM CDT Testing performed by [facility] Microbiology Laboratory ([phone]) Ilsa Gomez NP LAB MICROBIOLOGY - GENE RAL ORDERABLES Final Result Performing Organization Address [facility] Co de Phone Number [facility] [place] [address] * CA 125 (01/15/2025 11:46 AM CDT) CA 125 ag 13.6 0.0 - 38.1 units/mL Comment: Interpretive Data The Obd[employer]io CA 125 assay procedure was used. Results from different manufacturers or methods may not be comparable. Serial testing should be performed using the same method. Blood 01/15/2025 11:4 6 AM CDT 01/15/2025 12:46 PM CDT Result [facility] Chaka Coronado MD LAB BLOOD ORDERABLES Fin al Result Performing Organization Address [facility] de Phone Number [facility] [place] [place] [address] * CEA (01/15/2025 11:46 AM CDT) [facility] CEA 1.3 <=5.0 ng/mL Comment: Interpretive Data: Reference Range: Non-Smokers: 0.0 5.0 ng/mL Smokers: 0.0 6.5 ng/mL The [employer] CEA assay procedure was used. Results from different manufacturers or methods may not be comparable. Serial testing should be performed using the same method. Current interpretive data was last revised 2022. Blood 01/15/2025 11:4 6 AM CDT 01/15/2025 12:46 PM CDT Result [facility] Chaka Coronado MD LAB BLOOD ORDERABLES Fin al Result Performing Organization Address [facility] de Phone Number [facility] [place] [address] * (ABNORMAL) Comprehensive metabolic panel (01/15/2025 11:46 AM CDT) [facility] Sodium 140 135 - 145 mmol/L Potassium, pl 4.1 3.3 - 4.9 mmol/L [facility] Chloride 103 97 - 110 mmol/L [facility] CO2 27 22 - 32 mmol/L [facility] Anion gap 10 2 - 15 mmol/L [facility] BUN 33(H) 6 - 25 mg/dL [facility] Creatinine 2.50(H) 0.60 - 1.10 mg/dL [facility] Glucose 86 70 - 199 mg/dL [facility] Comment: Interpretive Data Fasting glucose >/= [...] Calcium 11.8(H) 8.5 - 10.3 mg/dL [facility] Bilirubin, total 0.6 0.1 - 1.2 mg/dL [facility] Protein, pl 8.2 6.5 - 8.5 g/dL [facility] Albumin 4.1 3.5 - 5.0 g/dL [facility] Alk phos 128 40 - 130 Units/L [facility] ALT 34 7 - 45 Units/L [facility] AST 35 10 - 45 Units/L [facility] Blood 01/15/2025 11:4 6 AM CDT 01/15/2025 12:46 PM CDT us Premal Chaka Coronado MD LAB BLOOD ORDERABLES Fin al Result [facility] [place] [place] [address] * (ABNORMAL) POCT hemoglobin A1c (01/15/2025 11:01 AM CDT) Hgb A1C, POC 6.6(H) 4.0 - 5.6 % Est Average Gluc POC 143 mg/dL [facility] Comment: The ADA recommends reporting an estimated Average Glucose (eAG) with all Hemoglobin A1c results using the equation derived from a study of 507 normal and diabetic adults. Minority populations were underrepresented and children were not included. (Diabetes Care 31:2538-8585, 2008). The eAG is not equivalent to a fasting glucose. Blood 01/15/2025 11:0 1 AM CDT 01/15/2025 11:01 AM CDT us Premal Chaka Coronado MD POINT OF CARE TEST ORDER BESS Final Result [facility] [place] [place] [address] * US Pelvis Complete (12/28/2024 10:55 AM [...] no evidence of free fluid in thepelvis. [facility] Chaka Coronado MD [facility] US PROCEDURES Final Result * High Risk HPV DNA Detection with Genotyping (Molecular component) (06/29/2024 4:23 PM CDT) HPV HR 16 Not Detected Not Detected [facility] HPV HR 18 Not Detected Not Detected [facility] HPV HR Non 16/18 Not Detected Not Detected [facility] Comment: Interpretive Data Nucleic acid amplification [...] this test have been verified by the [facility] Molecular Infectious Disease laboratory. Correlate with separately reported cytology results, as applicable. Interpretive data last revised 23 Endocervical 06/29/2024 4:23 PM CDT 06/30/2024 9:10 AM CDT Narrative [facility] - 06/30/2024 7:16 PM CDT Clinical history and diagnosis->adnexal mass Number of vials->1 Testing type->Screening Last menstrual period (date if known)->over 5 years ago [facility] Chaka Coronado MD LAB BODY FLUIDS AND STOO LS ORDERABLES Final Result [facility] [place] [place] [address] [facility] from Last 3 Months or Most Recently Relevant to Health Maintenance Insurance [place] [employer] [place] Member Subscriber Plan / Payer (Ef fective 2017-Present) Name:Sommer Villavicencio Relation to Subscriber:Self Name:Sommer Villavicencio Payer ID:[id number] (NAIC) Type:IV Diagnostics Address: [address] [place] [address] [facility] ACCESS CHOICE ACCESS MEDICARE RAILROAD [facility] MEDICARE RAILROAD Advance Directives For more information, please contact: [phone] * Full Code (Latest Code Status on File) Date Activated Date Inactivated Comments 12/03/2018 6:15 PM 12/04/2018 8:51 PM * Full Code Date Activated Date Inactivated Comments 11/06/2018 4:45 PM 11/08/2018 9:17 PM Care Teams Outsole Cementer Relationship Specialty Start Date End Date Tanya Olmos NP PCP - General Nurse Practitioner 11/13/18
--- OUTSIDE RECORDS SUMMARY | 2025-02-09 08:29 | XMS_ITS | CONTINUITY OF CARE DOCUMENT ---
Author Name héctor anaya Address Unknown Organization [facility] Address [address] [place] [address] Phone [phone] Care Team Providers Care Heel Curver Name Role Phone Emory Melgoza MD Unavailable [phone] PIOTR ROBERSON Unavailable DEYANIRA MUÑOZ MD Unavailable PROBLEMS Condition Status Date Provider Notes Other symptoms involving car diovascular system active Emory Melgoza MD Diabetes mellitus active Emory Melgoza MD HTN essential active Emory Melgoza MD Hypercholesterolemia active Emory Melgoza MD PVC's active Emory Melgoza MD ENCOUNTERS Date Type Provider Location Encounter Diag nosis - In-person encounter Office Visit Emory Melgoza MD [place] [facility] Other symptoms involving cardiovascular systemDiabetes mellitusHTN [...] Payer name Policy type / Coverage type [place] red libertarian ID [facility] [id number] TREATMENT PLAN Date Name Performer NEW:Rhythm: Sinus [...]
--- OUTSIDE RECORDS SUMMARY | 2025-02-09 08:29 | XMS_ITS | Referral Summary ---
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 Name Role Phone Tanya Olmos NP Primary Care Provider [phone] Encounters Date Type Department Care Team Description 01/21/2025 Telephone [facility] Obstetrics and Gynecology [address] [facility] Advanced Medicine 13th [place] [phone] Yesica Cross testing recommended 01/19/2025 Orders Only [facility] Obstetrics and Gynecology [address] [facility] 13th [place] [address] Jossie Whitaker RN Syncope, unspecified syncope type (Primary Dx); History of cardioembolic cerebrovascular accident (CVA) 01/15/2025 10:30 AM CDT Pre-Admission Testing [facility] [address] [place] [address] Preop examination (Primary Dx); Nephrolithiasis; Adnexal mass; Ovarian mass 12/30/2024 Orders Only [facility] Obstetrics and Gynecology [address] [facility] 13th [place] [phone] Jossie Whitaker RN Adnexal mass (Primary Dx); Ovarian mass 12/28/2024 10:55 AM CDT - 12/28/2024 11:59 PM CDT Hospital Encounter [facility] Outpatient Health - Ultrasound [address] [facility] [place] [facility], 7th Floor, [address] [place] [address] Ovarian mass Discharge Disposition: Discharge to home or self care 12/28/2024 1:00 PM CDT Office Visit [facility] Obstetrics and Gynecology [address] [facility] 13th [place] [address] [place] [address] Leonel Coronado MD Adnexal mass (Primary Dx) from Last 3 Months Allergies Active Allergy [...] (11/07/2018): Added automatically from request for surgery [id number] Immunizations Immunization Administration Dates Next Due Influenza, [...] on file 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 Not on file [...] Description 02/26/2025 10:40 AM CDT Hospital Encounter [facility] Operating Room [address] [place] [phone] Leonel Coronado MD [address] [phone] [place] [address] 02/26/2025 10:40 AM CDT Anesthesia Event [facility] Operating Room [address] [place] [phone] Ilsa Gomez, SHLOMO [address] [facility] [address] [phone] [place] [address] 02/26/2025 10:40 AM CDT - 02/26/2025 1:30 PM CDT Surgery [facility] Operating Room [address] [place] [phone] Leonel Coronado MD [address] [phone] [place] [address] LAPAROSCOPIC HYSTERECTOMY ABDOMINAL SALPINGO-OOPHORECTOM Y Scheduled Procedures Name Priority Associated Diagnoses Date/Ti me LAPAROSCOPIC HYSTERECTOMY ABDOMINAL SALPINGO-OOPHORECTOMY Adnexal mass 02/26/2025 10:40 AM CDT CYSTOSCOPY Adnexal mass 02/26/2025 10:40 AM CDT Medical Devices Explanted Type Area Cyber Systems Operations Specialist Device Identifier Shelf Expiration Date Model / Serial / Lot [employer] [id number] Universa 7fr 26cm 145cm Soft 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 Blood 01/15/2025 11:4 6 AM CDT 01/15/2025 12:48 PM CDT Narrative [facility] - 01/15/2025 1:43 PM CDT Is this test being ordered in advance for a procedure?->Yes Expected date of procedure:->01/29/25 Has the patient been transfused in the past 3 months?->No Has the patient been in the past 3 months?->No Ilsa Gomez NP LAB BLOOD BANK TEST ORD ERABLES Final Result [facility] [place] [address] * (ABNORMAL) eGFR (01/15/2025 11:46 AM CDT) [...] AM CDT 01/15/2025 12:46 PM CDT us Premut Chaka Coronado MD LAB BLOOD ORDERABLES Fin al Result [facility] [place] [address] * Differential, auto (01/15/2025 11:46 AM CDT) Neutrophil abs 3.58 1.50 - 6.50 K/cumm Imm gran abs 0.01 0.00 - 0.10 K/cumm [facility] Lymphocyte abs 1.21 0.80 - 3.30 K/cumm [facility] Monocyte abs 0.53 0.20 - 0.80 K/cumm [facility] Eosinophil abs 0.29 0.00 - 0.50 K/cumm [facility] Basophil abs 0.08 0.00 - 0.10 K/cumm [facility] Neutrophil pct 62.8 % [facility] Comment: Interpretive Data Percent cell count reference ranges are not reported, since discordance with absolute values may lead to misinterpretation of CBC data. Current Interpretive Data was last revised on 2017. Imm gran pct 0.2 % [facility] Comment: Interpretive Data Percent cell count reference ranges are not reported, since discordance with absolute values may lead to misinterpretation of CBC data. Current Interpretive Data was last revised on 2017. Lymphocyte pct 21.2 % [facility] Comment: Interpretive Data Percent cell count reference ranges are not reported, since discordance with absolute values may lead to misinterpretation of CBC data. Current Interpretive Data was last revised on 2017. Monocyte pct 9.3 % [facility] Comment: Interpretive Data Percent cell count reference ranges are not reported, since discordance with absolute values may lead to misinterpretation of CBC data. Current Interpretive Data was last revised on 2017. Eosinophil pct 5.1 % [facility] Comment: Interpretive Data Percent cell count reference ranges are not reported, since discordance with absolute values may lead to misinterpretation of CBC data. Current Interpretive Data was last revised on 2017. Basophil pct 1.4 % [facility] Comment: Interpretive Data Percent cell count reference ranges are not reported, since discordance with absolute values may lead to misinterpretation of CBC data. Current Interpretive Data was last revised on 2017. Blood 01/15/2025 11:4 6 AM CDT 01/15/2025 12:46 PM CDT us Premal Chaka Coronado MD LAB BLOOD ORDERABLES Fin al Result [facility] [place] [address] * CBC with auto differential (01/15/2025 11:46 AM CDT) WBC 5.70 3.80 - 9.90 K/cumm Hgb 13.9 11.9 - 15.5 g/dL [facility] Hct 41.1 35.6 - 45.5 % [facility] Plt 290 150 - 400 K/cumm [facility] MPV 10.8 9.1 - 12.[address] [facility] RBC 4.96 3.90 - 5.20 M/cumm [facility] MCV 82.9 81.3 - 96.[address] [facility] MCH 28.0 27.1 - 33.[address] [facility] MCHC 33.8 32.3 - 35.7 g/dL [facility] RDW CV 13.7 11.1 - 14.9 % [facility] RDW SD 41.5 35.7 - 48.[address] [facility] NRBC abs 0.00 0.00 - 0.01 K/cumm [facility] Blood 01/15/2025 11:4 6 AM CDT 01/15/2025 12:46 PM CDT Leonel Coronado MD LAB BLOOD ORDERABLES Fin al Result Performing Organization Address City/[facility] Co de Phone Number [facility] [place] [address] * Cancer antigen 19-9 (01/15/2025 11:46 AM CDT) CA 19-9 ag 16.4 <=35.0 units/mL Comment: Interpretive Data The [employer] CA 19-9 assay procedure was used. Results from different manufacturers or methods may not be comparable. Serial testing should be performed using the same method. Blood 01/15/2025 11:4 6 AM CDT 01/15/2025 12:46 PM CDT [facility] LAB BLOOD ORDERABLES Fin al Result Performing Organization Address [facility] Co de Phone Number [facility] [place] [address] * Urine culture Urine, clean voided (01/15/2025 11:46 AM CDT) Report Final Report: Less than 100,000 colonies/mL (clinically insignificant growth based on current clinical standards) Organism (CLINICALLY INSIGNIFICANT GROWTH [facility] Urine, clean voided 01/15/2025 11:46 AM CDT 01/15/2025 12:46 PM CDT Narrative [facility] - 01/16/2025 1:29 PM CDT Testing performed by [facility] Microbiology Laboratory ([phone]) Ilsa Gomez NP LAB MICROBIOLOGY - GENE RAL ORDERABLES Final Result Performing Organization Address City/[facility] Co de Phone Number [facility] [place] [address] * CA 125 (01/15/2025 11:46 AM CDT) [facility] [address] CA 125 ag 13.6 0.0 - 38.1 units/mL Comment: Interpretive Data The [employer] CA 125 assay procedure was used. Results from different manufacturers or methods may not be comparable. Serial testing should be performed using the same method. Blood 01/15/2025 11:4 6 AM CDT 01/15/2025 12:46 PM CDT [facility] Chaka Coronado MD LAB BLOOD ORDERABLES Fin al Result Performing Organization Address City/[facility] [place] [address] * CEA (01/15/2025 11:46 AM CDT) [facility] [address] CEA 1.3 <=5.0 ng/mL Comment: Interpretive Data: Reference Range: Non-Smokers: 0.0 5.0 ng/mL Smokers: 0.0 6.5 ng/mL The [employer] CEA assay procedure was used. Results from different manufacturers or methods may not be comparable. Serial testing should be performed using the same method. Current interpretive data was last revised 2022. Blood 01/15/2025 11:4 6 AM CDT 01/15/2025 12:46 PM CDT [facility] Chaka Coronado MD LAB BLOOD ORDERABLES [place] [address] * (ABNORMAL) Comprehensive metabolic panel (01/15/2025 11:46 AM CDT) [facility] [address] Sodium 140 135 - 145 mmol/L Potassium, pl 4.1 3.3 - 4.9 mmol/L [facility] Chloride 103 97 - 110 mmol/L [facility] CO2 27 22 - 32 mmol/L [facility] Anion gap 10 2 - 15 mmol/L [facility] BUN 33(H) 6 - 25 mg/dL [facility] Creatinine 2.50(H) 0.60 - 1.10 mg/dL [facility] Glucose 86 70 - 199 mg/dL [facility] Comment: Interpretive Data Fasting glucose >/= [...] 2022. Calcium 11.8(H) 8.5 - 10.3 mg/dL [facility] Bilirubin, total 0.6 0.1 - 1.2 mg/dL [facility] Protein, pl 8.2 6.5 - 8.5 g/dL [facility] Albumin 4.1 3.5 - 5.0 g/dL [facility] Alk phos 128 40 - 130 Units/L [facility] ALT 34 7 - 45 Units/L [facility] AST 35 10 - 45 Units/L [facility] Blood 01/15/2025 11:4 6 AM CDT 01/15/2025 12:46 PM CDT us Premal Chaka Coronado MD LAB BLOOD ORDERABLES Fin al Result [facility] [place] [address] * (ABNORMAL) POCT hemoglobin A1c (01/15/2025 11:01 AM CDT) Hgb A1C, POC 6.6(H) 4.0 - 5.6 % Est Average Gluc POC 143 mg/dL [facility] Comment: The ADA recommends reporting an estimated Average Glucose (eAG) with all Hemoglobin A1c results using the equation derived from a study of 507 normal and diabetic adults. Minority populations were underrepresented and children were not included. (Diabetes Care 31:8138-0148, 2008). The eAG is not equivalent to a fasting glucose. Blood 01/15/2025 11:0 1 AM CDT 01/15/2025 11:01 AM CDT us Premal Chaka Coronado MD POINT OF CARE TEST ORDER BESS Final Result [facility] [place] [address] * US Pelvis Complete (12/28/2024 10:55 AM [...] MD IMG US PROCEDURES Final Result * High Risk HPV DNA Detection with Genotyping (Molecular component) (06/29/2024 4:23 PM CDT) HPV HR 16 Not Detected Not Detected [facility] HPV HR 18 Not Detected Not Detected [facility] HPV HR Non 16/18 Not Detected Not Detected [facility] Comment: Interpretive Data Nucleic acid amplification for [...] this test have been verified by the [facility] laboratory. Correlate with separately [...] AND STOO LS ORDERABLES Final Result [facility] [place] [address] [facility] from Last 3 Months or Most Recently Relevant to Health Maintenance Insurance [employer] [facility] [employer] [facility] [employer] Advance Directives For more information, please contact: [phone] * Full Code (Latest Code Status on File) Date Activated Date Inactivated Comments 12/03/2018 6:15 PM 12/04/2018 8:51 PM * Full Code Date Activated Date Inactivated Comments 11/06/2018 4:45 PM 11/08/2018 9:17 PM Care Teams Firer Locomotive Crane Relationship Specialty Start Date End Date Tanya Olmos NP PCP - General Nurse Practitioner 11/13/18
== END 2025-02-09 08:17 | disposition home or self-care (01) ==
PROVIDERS: PCP Family Medicine; Visit Provider Psychiatry & Neurology Neurology
DX: I63.9 Cerebral infarction, unspecified (principal); Z87.828 Personal history of other (healed) physical injury and trauma
CPT/HCPCS: 70544; 70551; 93880

== ENCOUNTER 2025-03-04 08:17 | Outpatient (CLI) | payer MEDICARE, SELFPAY ==
--- NOTE | 2025-02-24 08:18 | PC.NURSE ---
Pre Radiology instructions Report to the outpatient abebe puckettilion on date _03/04/25 ____ at time 08:30am for procedure Time: _10:30am___ YOU MAY BE MONITORED AT HOSPITAL FOR UP TO 4 HOURS AFTER YOUR PROCEDURE. A visitor will be allowed to accompany the patient into the hospital. You and your visitor will be asked to self-screen and do not enter if you have any COVID symptoms. A mask is OPTIONAL within the hospital. Patients are to have no food or drink 6 hours prior to procedure time Driving will be restricted after the procedure, you must have a person to drive you home. Labs will be drawn in preop area and once reviewed, you will be taken to radiology area for procedure. When the procedure is completed, you will be taken to outpatient where you will be monitored for several hours. You may have one visitor in this area. Other than holding anti-coagulants, patient may take other medication(s) as scheduled. Prior to your appointment date patients are instructed to hold anti-coagulants after discussing with ordering provider to stop. If unable to discontinue anti-coagulants please notify radiologist. ? No aspirin or warfarin (Coumadin) for 7 days prior to the procedure. ? No clopidogrel (Plavix), ticagrelor (Brilinta), prasugrel (Effient) or dabigatran (Pradaxa) for 5 days prior to the procedure. ? No rivaroxaban (Xarelto), apixaban (Eliquis), dipyridamole (Aggrenox or Persantine) or cilostazol (Pletal) for 2 days prior to the procedure. Hold Trulicity Date of last dose is 02/20/[address] Leonard-pt aware. Medications to discontinue per physician: _Plavix for 5 days prior, Pt already holding Date to take last dose: ___02/26/25 Please leave all valuables, including medications, at home the day of procedure. The hospital will not accept responsibility for valuables. Wear comfortable, loose fitting clothing.? Follow any additional instructions given to you from ordering provider. Telephone instructions given to ___Patient and asked if any additional questions and then verbalized understanding. Patient advised to call scheduling provider office or registration scheduling [phone] if any additional questions.
[2025-02-24 08:22] VITALS: BMI 26.7
[2025-03-04] VITALS (10 sets, daily range): BP systolic 124–156; BP diastolic 66–83; PULSE 59–66; RESP 16–18; TEMP 36.4; O2SAT 92–100; BMI 26.6
--- NOTE | ~2025-03-04 | US_ITS ---
EXAMINATION: US biopsy renal DATE: 03/04/2025 10:56 INDICATION: Worsening renal function TECHNIQUE: The procedure including the risks, benefits, and alternatives was discussed with the patie nt. Risks discussed included bleeding and infection. The patient understood the risks and agreed to p roceed. A timeout was performed to verify the patient's name, date of , and procedure to be p erformed. The skin overlying the left kidney was prepped and draped in usual sterile fashion. Anest hetic was administered with 1% lidocaine subcutaneously. An 18 gauge core biopsy needle was then use d to obtain 3 core biopsy specimens under continuous sonographic guidance. The entry site was cleaned and dressed. There were no immediate complications. FINDINGS: Ultrasound images demonstrate the needle in the kidney. IMPRESSION: 1. Successful ultrasound-guided random left kidney core needle biopsy. Reviewed, dictated and finalized at location A.
--- OUTSIDE RECORDS SUMMARY | 2025-03-04 08:25 | XMS_ITS | Clinical Summary ---
Author Organization [facility] Address [address] [place] [address] Care Team Providers Care Insulation Board Head Saw Operator Name Role Phone Tanya Olmos NP Primary Care Provider [phone] Allergies Active Allergy Reactions Criticality Noted Date Comments Latex Rash Medium 11/06/2018 Medications amLODIPine (NORVASC) 5 mg tabletIndications:h ypertension Take 1 tablet (5 mg total) by mouth every morning 5 9 Active losartan (COZAAR) 100 mg tabletIndications:h ypertension Take 1 tablet (100 mg total) by mouth every morning 6 9 Active Trulicity 4.5 mg/0.5 mL pen injectorIndications :type 2 diabetes mellitus Inject 0.5 mL (4.5 mg total) under the skin once a week Saturdays 4 Active escitalopram (LEXAPRO) 10 mg tabletIndications:A nxiety with Depression Take 1 tablet (10 mg total) by mouth every morning 4 Active clopidogreL (PLAVIX) 75 mg tabletIndications:C erebral Thromboembolism Prevention Take 1 tablet (75 mg total) by mouth every morning 5 Active LANTUS 100 unit/mL (3 mL) pen for injectionIndication s:DM 2 Inject 30 Units under the skin every morning 5 Active buPROPion XL (WELLBUTRIN XL) 150 mg 24 hr tabletIndications:A nxiety with Depression Take 1 tablet (150 mg total) by mouth every morning 5 Active solifenacin (VESIcare) 5 mg tabletIndications:B ladder Hyperactivity,Urina ry Urgency Take 1 tablet (5 mg total) by mouth every morning 5 Active rosuvastatin (CRESTOR) 10 mg tabletIndications:C erebral Thromboembolism Prevention,hyperlip idemia Take 1 tablet (10 mg total) by mouth every morning 5 Active cholecalciferol, vitamin D3, (VITAMIN D3 ORAL)Indications:Fernandez pplement Take 1 tablet by mouth every morning Active Active Problems Problem Noted Date Diagnosed Date Adnexal mass 12/30/2024 Diabetes mellitus 06/29/2024 Hyperlipidemia 06/29/2024 Hypertensive disorder 06/29/2024 Obesity 06/29/2024 History of malignant neoplasm of skin 03/01/2020 Low kidney function 11/05/2019 Uric acid kidney stone 01/26/2019 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 Advanced Medicine 13th [place] [address] Yesica Cross 02/11/2025 Orders Only [facility] Obstetrics and Gynecology [address] [facility] Advanced Medicine 13th [place] [address] Suzy Forde RN Elevated serum creatinine (Primary Dx) 01/21/2025 Telephone [facility] Obstetrics and Gynecology [address] [facility] Advanced Medicine 13th [place] [address] Yesica Cross testing recommended 01/19/2025 Orders Only [facility] Obstetrics and Gynecology [address] [facility] Advanced Medicine 13th [place] [address] Jossie Whitaker RN Syncope, unspecified syncope type (Primary Dx); History of cardioembolic cerebrovascular accident (CVA) 01/15/2025 10:30 AM CDT Pre-Admission Testing [facility] Center for Preoperative Assessment and Planning [facility] Advanced Medicine ([facility]) [address] [place] [address] Preop examination (Primary Dx); Nephrolithiasis; Adnexal mass; Ovarian mass 12/30/2024 Orders Only [facility] Obstetrics and Gynecology [address] [facility] Medicine 13th [place] [address] [place] [address] Jossie Whitaker RN Adnexal mass (Primary Dx); Ovarian mass 12/28/2024 1:00 PM CDT Office Visit [facility] Obstetrics and Gynecology [facility] 13th [place] [address] [place] [address] Leonel Coronado MD Adnexal mass (Primary Dx) 12/28/2024 10:55 AM CDT - 12/28/2024 11:59 PM CDT Hospital Encounter [facility] - Ultrasound [address] [facility], 7th Floor, [address] [facility] [place] [address] Ovarian mass Discharge Disposition: Discharge to home [...] Added automatica lly from request for surgery [id number] ARF (acute renal failure) 10/2018 SCR: 2 [...] on file Legal Sex Female 2:18 PM 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 Not on file [...] 10:30 AM CDT Height 165.1 cm (5' 5) 01/15/2025 10:30 AM CDT Body Mass Index 27.66 01/15/2025 10:30 AM CDT Plan of Treatment Upcoming Encounters Date Type Department Care Team (Latest Contact Info) Description 03/19/2025 7:30 AM CDT Hospital Encounter [facility] Operating Room [address] [place] [address] Leonel Coronado MD [phone] [place] [address] 03/19/2025 7:30 AM CDT Anesthesia Event [facility] Operating Room [address] [place] [phone] Ilsa Gomez, ASSIGNMENT DESK EDITOR [address] [facility] [phone] [place] [address] 03/19/2025 7:30 AM CDT - 03/19/2025 10:20 AM CDT Surgery [facility] Operating Room [address] [place] [phone] Leonel Coronado MD [phone] [place] [address] LAPAROSCOPIC HYSTERECTOMY ABDOMINAL SALPINGO-OOPHORECTOM Y Scheduled Procedures Name Priority Associated Diagnoses Date/Ti me LAPAROSCOPIC HYSTERECTOMY ABDOMINAL SALPINGO-OOPHORECTOMY Adnexal mass 03/19/2025 7:30 AM CDT CYSTOSCOPY Adnexal mass 03/19/2025 7:30 AM CDT Health Maintenance Due Date Last [...] 06/29/2024, 03/2024 Medical Devices Explanted Type Area Air Quality Engineer Device Identifier Shelf Expiration Date Model / Serial / Lot Eloquii [id number] Universa 7fr 26cm 145cm Soft Positioner Professor Of Genetics Braid Tether - [id number] Implanted:Qty: 1 on 11/07/2018 by Ronan Pham MD at [facility] Explanted:Qty: 1 on 12/03/2018 at [facility] Stent Right: Urethra [employer] [id number] / / Procedures Procedure Name Priority Date/Time [...] ABO Rh O Positive Peter, indirect Negative [facility] Blood 01/15/2025 11:4 6 AM CDT 01/15/2025 12:48 PM CDT [facility]ative [facility] - 01/15/2025 1:43 PM CDT Is this test being ordered in advance for a procedure?->Yes Expected date of procedure:->01/29/25 Has the patient been transfused in the past 3 months?->No Has the patient been in the past 3 months?->No Ilsa Gomez ASSIGNMENT DESK EDITOR LAB BLOOD BANK TEST ORD ERABLES Final Result [facility] [address] [facility] Department [place] [address] * (ABNORMAL) eGFR (01/15/2025 11:46 AM CDT) [...] Inclusion of Race in Diagnosing Kidney Disease, DESIREESN 2020). The CKD-EPI equation should not be used for patients with unstable renal function and has not been validated in children and those over 70. Current interpretive data was last reviewed 2021. Blood 01/15/2025 11:4 6 AM CDT 01/15/2025 12:46 PM CDT us Premma Chaka Coronado MD LAB BLOOD ORDERABLES Fin al Result [facility] Department [place] [address] * Differential, auto (01/15/2025 11:46 AM CDT) Neutrophil abs 3.58 1.50 - 6.50 K/cumm Imm gran abs 0.01 0.00 - 0.10 K/cumm [facility] Lymphocyte abs 1.21 0.80 - 3.30 K/cumm [facility] Monocyte abs 0.53 0.20 - 0.80 K/cumm [facility] Eosinophil abs 0.29 0.00 - 0.50 K/cumm [facility] Basophil abs 0.08 0.00 - 0.10 K/cumm [facility] Neutrophil pct 62.8 % [facility] Comment: Interpretive Data Percent cell count reference ranges are not reported, since discordance with absolute values may lead to misinterpretation of CBC data. Current Interpretive Data was last revised on 2017. Imm gran pct 0.2 % [facility] Comment: Interpretive Data Percent cell count reference ranges are not reported, since discordance with absolute values may lead to misinterpretation of CBC data. Current Interpretive Data was last revised on 2017. Lymphocyte pct 21.2 % [facility] Comment: Interpretive Data Percent cell count reference ranges are not reported, since discordance with absolute values may lead to misinterpretation of CBC data. Current Interpretive Data was last revised on 2017. Monocyte pct 9.3 % [facility] Comment: Interpretive Data Percent cell count reference ranges are not reported, since discordance with absolute values may lead to misinterpretation of CBC data. Current Interpretive Data was last revised on 2017. Eosinophil pct 5.1 % [facility] Comment: Interpretive Data Percent cell count reference ranges are not reported, since discordance with absolute values may lead to misinterpretation of CBC data. Current Interpretive Data was last revised on 2017. Basophil pct 1.4 % [facility] Comment: Interpretive Data Percent cell count reference ranges are not reported, since discordance with absolute values may lead to misinterpretation of CBC data. Current Interpretive Data was last revised on 2017. Blood 01/15/2025 11:4 6 AM CDT 01/15/2025 12:46 PM CDT [facility] Chaka Coronado MD LAB BLOOD ORDERABLES Fin al Result [facility] [address] [facility] Department [place] [address] * CBC with auto differential (01/15/2025 11:46 AM CDT) WBC 5.70 3.80 - 9.90 K/cumm Hgb 13.9 11.9 - 15.5 g/dL [facility] Hct 41.1 35.6 - 45.5 % [facility] Plt 290 150 - 400 K/cumm [facility] MPV 10.8 9.1 - 12.3 fL [facility] RBC 4.96 3.90 - 5.20 M/cumm [facility] MCV 82.9 81.3 - 96.4 fL [facility] MCH 28.0 27.1 - 33.3 pg [facility] MCHC 33.8 32.3 - 35.7 g/dL [facility] RDW CV 13.7 11.1 - 14.9 % [facility] RDW SD 41.5 35.7 - 48.1 fL [facility] NRBC abs 0.00 0.00 - 0.01 K/cumm [facility] Blood 01/15/2025 11:4 6 AM CDT 01/15/2025 12:46 PM CDT Leonel Coronado MD LAB BLOOD ORDERABLES Fin al Result Performing Organization Address [facility] Co de Phone Number [facility] Department [place] [address] * Cancer antigen 19-9 (01/15/2025 11:46 AM [...] al Result Performing Organization Address [facility] de Phone Number [facility] [place] [address] * Urine culture Urine, clean voided (01/15/2025 11:46 AM CDT) Report Final Report: Less than 100,000 colonies/mL (clinically insignificant growth based on current clinical standards) Organism (CLINICALLY INSIGNIFICANT GROWTH [facility] Urine, clean voided 01/15/2025 11:46 AM CDT 01/15/2025 12:46 PM CDT Narrative [facility] - 01/16/2025 1:29 PM CDT Testing performed by [facility] Microbiology Laboratory ([phone]) Ilsa Gomez NP LAB MICROBIOLOGY - GENE RAL ORDERABLES Final Result Performing Organization Address [facility] Co de Phone Number [facility] Department [place] [address] * CA 125 (01/15/2025 11:46 AM CDT) [facility] CA 125 ag 13.6 0.0 - 38.1 units/mL Comment: Interpretive Data The [employer] CA 125 assay procedure was used. Results from different manufacturers or methods may not be comparable. Serial testing should be performed using the same method. Blood 01/15/2025 11:4 6 AM CDT 01/15/2025 12:46 PM CDT [facility] Chaka Coronado MD LAB BLOOD ORDERABLES Fin al Result Performing Organization Address [facility] de Phone Number [facility] [place] [address] * CEA (01/15/2025 11:46 AM CDT) [facility] CEA 1.3 <=5.0 ng/mL Comment: Interpretive Data: Reference Range: Non-Smokers: 0.0 5.0 ng/mL Smokers: 0.0 6.5 ng/mL The [employer] CEA assay procedure was used. Results from different manufacturers or methods may not be comparable. Serial testing should be performed using the same method. Current interpretive data was last revised 2022. Blood 01/15/2025 11:4 6 AM CDT 01/15/2025 12:46 PM CDT [facility] Chaka Coronado MD LAB BLOOD ORDERABLES Fin al Result Performing Organization Address [facility] de Phone Number [facility] [place] [address] * (ABNORMAL) Comprehensive metabolic panel (01/15/2025 11:46 AM CDT) [facility] Sodium 140 135 - 145 mmol/L Potassium, pl 4.1 3.3 - 4.9 mmol/L [facility] Chloride 103 97 - 110 mmol/L [facility] CO2 27 22 - 32 mmol/L [facility] Anion gap 10 2 - 15 mmol/L [facility] BUN 33(H) 6 - 25 mg/dL [facility] Creatinine 2.50(H) 0.60 - 1.10 mg/dL [facility] Glucose 86 70 - 199 mg/dL [facility] Comment: Interpretive Data Fasting glucose >/= [...] 2022. Calcium 11.8(H) 8.5 - 10.3 mg/dL [facility] Bilirubin, total 0.6 0.1 - 1.2 mg/dL [facility] Protein, pl 8.2 6.5 - 8.5 g/dL [facility] Albumin 4.1 3.5 - 5.0 g/dL [facility] Alk phos 128 40 - 130 Units/L [facility] ALT 34 7 - 45 Units/L [facility] AST 35 10 - 45 Units/L [facility] Blood 01/15/2025 11:4 6 AM CDT 01/15/2025 12:46 PM CDT us Premal Chaka Coronado MD LAB BLOOD ORDERABLES Fin al Result [facility] Department [place] [address] * (ABNORMAL) POCT hemoglobin A1c (01/15/2025 11:01 AM CDT) Hgb A1C, POC 6.6(H) 4.0 - 5.6 % Est Average Gluc POC 143 mg/dL [facility] Comment: The ADA recommends reporting an estimated Average Glucose (eAG) with all Hemoglobin A1c results using the equation derived from a study of 507 normal and diabetic adults. Minority populations were underrepresented and children were not included. (Diabetes Care 31:9475-0128, 2008). The eAG is not equivalent to a fasting glucose. Blood 01/15/2025 11:0 1 AM CDT 01/15/2025 11:01 AM CDT us Premal Chaka Coronado MD POINT OF CARE TEST ORDER BESS Final Result [facility] Department [place] [address] * US Pelvis Complete (12/28/2024 10:55 AM [...] no evidence of free fluid in thepelvis. [facility] Chaka Coronado MD IM US PROCEDURES Final Result * High Risk HPV DNA Detection with Genotyping (Molecular component) (06/29/2024 4:23 PM CDT) HPV HR 16 Not Detected Not Detected [facility] HPV HR 18 Not Detected Not Detected [facility] HPV HR Non 16/18 Not Detected Not Detected [facility] Comment: Interpretive Data Nucleic acid amplification [...] this test have been verified by the [facility] Molecular Infectious Disease laboratory. Correlate with separately reported cytology results, as applicable. Interpretive data last revised 23 Endocervical 06/29/2024 4:23 PM CDT 06/30/2024 9:10 AM CDT Narrative [facility] - 06/30/2024 7:16 PM CDT Clinical history and diagnosis->adnexal mass Number of vials->1 Testing type->Screening Last menstrual period (date if known)->over 5 years ago [facility] Chaka Coronado MD LAB BODY FLUIDS AND STOO LS ORDERABLES Final Result [facility] [place] [address] [facility] from Last 3 Months or Most Recently Relevant to Health Maintenance Insurance dscovered [facility] [facility] CHO[facility] Member Subscriber Plan / Payer (Ef fective 2019-Present) Name:Sommer Villavicencio Relation to Subscriber:Self Name:Sommer Villavicencio Payer ID:[id number] (NAIC) Type:OpenText Address: [address] MEDICARE [facility]ILROAD [facility] Advance Directives For more information, please contact: [phone] * Full Code (Latest Code Status on File) Date Activated Date Inactivated Comments 12/03/2018 6:15 PM 12/04/2018 8:51 PM * Full Code Date Activated Date Inactivated Comments 11/06/2018 4:45 PM 11/08/2018 9:17 PM Care Teams Insulation Board Head Saw Operator Relationship Specialty Start Date End Date Tanya Olmos NP PCP - General Nurse Practitioner 11/13/18
--- OUTSIDE RECORDS SUMMARY | 2025-03-04 08:26 | XMS_ITS | Referral Summary ---
Author Organization [facility] Address [address] [place] [address] Care Team Providers Care Ribbon Sweatband Operator Name Role Phone Tanya Olmos NP Primary Care Provider [phone] Encounters Date Type Department Care Team Description 02/19/2025 Telephone [facility] [address] [facility] 13th [place] [phone] Yesica Cross 02/11/2025 Orders Only [facility] [address] [facility] 13th [place] [phone] Suzy Forde RN Elevated serum creatinine (Primary Dx) 01/21/2025 Telephone [facility] [address] [facility] 13th [place] [phone] Yesica Cross testing recommended 01/19/2025 Orders Only [facility] [address] [facility] 13th [place] [phone] Jossie Whitaker RN Syncope, unspecified syncope type (Primary Dx); History of cardioembolic cerebrovascular accident (CVA) 01/15/2025 10:30 AM CDT Pre-Admission Testing [facility] ([facility]) [address] [place] [address] Preop examination (Primary Dx); Nephrolithiasis; Adnexal mass; Ovarian mass 12/30/2024 Orders Only [facility] [address] [facility] Medicine 13th [place] [address] [place] [address] Jossie Whitaker RN Adnexal mass (Primary Dx); Ovarian mass 12/28/2024 10:55 AM CDT - 12/28/2024 11:59 PM CDT Hospital Encounter [facility] - Ultrasound [address] [facility], 7th Floor, [address] [facility] [place] [address] Ovarian mass Discharge Disposition: Discharge to home or self care 12/28/2024 1:00 PM CDT Office Visit [facility] [address] [facility] 13th [place] [address] [place] [address] Leonel Coronado MD Adnexal mass (Primary Dx) [...] (11/07/2018): Added automatically from request for surgery [id number] Immunizations Immunization Administration Dates Next Due Influenza, [...] on file Legal Sex Female 2:18 PM FEATHER BALER Gender Identity Female 07/01/2024 11:19 AM CDT Sexual Orientation Not on file 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 Not on file Not on file Not [...] Description 03/19/2025 7:30 AM CDT Hospital Encounter [facility] Operating Room [address] [place] [phone] Leonel Coronado MD [phone] [place] [address] 03/19/2025 7:30 AM CDT Anesthesia Event [facility] Operating Room [address] [place] [phone] Ilsa Gomez NP [address] [facility] [phone] [place] [address] 03/19/2025 7:30 AM CDT - 03/19/2025 10:20 AM CDT Surgery [facility] Operating Room [address] [place] [address] Leonel Coronado MD [address] [phone] [place] [address] LAPAROSCOPIC HYSTERECTOMY ABDOMINAL SALPINGO-OOPHORECTOM Y Scheduled Procedures Name Priority Associated Diagnoses Date/Ti me LAPAROSCOPIC HYSTERECTOMY ABDOMINAL SALPINGO-OOPHORECTOMY Adnexal mass 03/19/2025 7:30 AM CDT CYSTOSCOPY Adnexal mass 03/19/2025 7:30 AM CDT Medical Devices Explanted Type Area Tin Can Laborer Device Identifier Shelf Expiration Date Model / Serial / Lot [employer] [id number] Universa 7fr 26cm 145cm Soft Positioner Diplomatic Interpreter Braid Tether - [id number] Implanted:Qty: 1 on 11/07/2018 by Ronan Pham MD at [facility] Explanted:Qty: 1 on 12/03/2018 at [facility] Stent Right: Urethra [employer] [id number] / / Procedures Procedure Name Priority Date/Time [...] ABO Rh O Positive Peter, indirect Negative [facility] Blood 01/15/2025 11:4 6 AM CDT 01/15/2025 12:48 PM CDT Narrative [facility] - 01/15/2025 1:43 PM CDT Is this test being ordered in advance for a procedure?->Yes Expected date of procedure:->01/29/25 Has the patient been transfused in the past 3 months?->No Has the patient been in the past 3 months?->No Ilsa Gomez LAB BLOOD BANK TEST ORD ERABLES Final Result [facility] Department [place] [address] * (ABNORMAL) eGFR (01/15/2025 11:46 AM CDT) [...] MD LAB BLOOD ORDERABLES Fin al Result [facility] Department [place] [address] * Differential, auto (01/15/2025 11:46 AM CDT) Neutrophil abs 3.58 1.50 - 6.50 K/cumm Imm gran abs 0.01 0.00 - 0.10 K/cumm [facility] Lymphocyte abs 1.21 0.80 - 3.30 K/cumm [facility] Monocyte abs 0.53 0.20 - 0.80 K/cumm [facility] Eosinophil abs 0.29 0.00 - 0.50 K/cumm [facility] Basophil abs 0.08 0.00 - 0.10 K/cumm [facility] Neutrophil pct 62.8 % [facility] Comment: Interpretive Data Percent cell count reference ranges are not reported, since discordance with absolute values may lead to misinterpretation of CBC data. Current Interpretive Data was last revised on 2017. Imm gran pct 0.2 % [facility] Comment: Interpretive Data Percent cell count reference ranges are not reported, since discordance with absolute values may lead to misinterpretation of CBC data. Current Interpretive Data was last revised on 2017. Lymphocyte pct 21.2 % [facility] Comment: Interpretive Data Percent cell count reference ranges are not reported, since discordance with absolute values may lead to misinterpretation of CBC data. Current Interpretive Data was last revised on 2017. Monocyte pct 9.3 % [facility] Comment: Interpretive Data Percent cell count reference ranges are not reported, since discordance with absolute values may lead to misinterpretation of CBC data. Current Interpretive Data was last revised on 2017. Eosinophil pct 5.1 % [facility] Comment: Interpretive Data Percent cell count reference ranges are not reported, since discordance with absolute values may lead to misinterpretation of CBC data. Current Interpretive Data was last revised on 2017. Basophil pct 1.4 % [facility] Comment: Interpretive Data Percent cell count reference ranges are not reported, since discordance with absolute values may lead to misinterpretation of CBC data. Current Interpretive Data was last revised on 2017. Blood 01/15/2025 11:4 6 AM CDT 01/15/2025 12:46 PM CDT [facility] Chaka Coronado MD LAB BLOOD ORDERABLES Fin al Result [facility] Department [place] [address] * CBC with auto differential (01/15/2025 11:46 AM CDT) WBC 5.70 3.80 - 9.90 K/cumm Hgb 13.9 11.9 - 15.5 g/dL [facility] Hct 41.1 35.6 - 45.5 % [facility] Plt 290 150 - 400 K/cumm [facility] MPV 10.8 9.1 - 12.3 fL [facility] RBC 4.96 3.90 - 5.20 M/cumm [facility] MCV 82.9 81.3 - 96.4 fL [facility] MCH 28.0 27.1 - 33.3 pg [facility] MCHC 33.8 32.3 - 35.7 g/dL [facility] RDW CV 13.7 11.1 - 14.9 % [facility] RDW SD 41.5 35.7 - 48.1 fL [facility] NRBC abs 0.00 0.00 - 0.01 K/cumm [facility] Blood 01/15/2025 11:4 6 AM CDT 01/15/2025 12:46 PM CDT Result [facility] Leonel Coronado MD LAB BLOOD ORDERABLES Fin al Result Performing Organization Address [facility] Co de Phone Number [facility] [place] [address] * Cancer antigen 19-9 (01/15/2025 11:46 AM CDT) CA 19-9 ag 16.4 <=35.0 units/mL Comment: Interpretive Data The [employer] CA 19-9 assay procedure was used. Results from different manufacturers or methods may not be comparable. Serial testing should be performed using the same method. Blood 01/15/2025 11:4 6 AM CDT 01/15/2025 12:46 PM CDT [facility] BLOOD ORDERABLES Fin al Result Performing Organization Address [facility] de Phone Number [facility] Department [place] [address] * Urine culture Urine, clean voided (01/15/2025 11:46 AM CDT) Report Final Report: Less than 100,000 colonies/mL (clinically insignificant growth based on current clinical standards) Organism (CLINICALLY INSIGNIFICANT GROWTH [facility] Urine, clean voided 01/15/2025 11:46 AM CDT 01/15/2025 12:46 PM CDT Narrative [facility] - 01/16/2025 1:29 PM CDT Testing performed by [facility] Microbiology Laboratory ([phone]) Result [facility] Ilsa Gomez NP LAB MICROBIOLOGY - GENE RAL ORDERABLES Final Result Performing Organization Address City/[facility] Co de Phone Number [facility] Department [place] [address] * CA 125 (01/15/2025 11:46 AM CDT) [facility] CA 125 ag 13.6 0.0 - 38.1 units/mL Comment: Interpretive Data The [employer] CA 125 assay procedure was used. Results from different manufacturers or methods may not be comparable. Serial testing should be performed using the same method. Blood 01/15/2025 11:4 6 AM CDT 01/15/2025 12:46 PM CDT [facility] BLOOD ORDERABLES Fin al Result Performing Organization Address City/[facility] [place] [address] * CEA (01/15/2025 11:46 AM CDT) [facility] CEA 1.3 <=5.0 ng/mL Comment: Interpretive Data: Reference Range: Non-Smokers: 0.0 5.0 ng/mL Smokers: 0.0 6.5 ng/mL The [employer] CEA assay procedure was used. Results from different manufacturers or methods may not be comparable. Serial testing should be performed using the same method. Current interpretive data was last revised 2022. Blood 01/15/2025 11:4 6 AM CDT 01/15/2025 12:46 PM CDT [facility] LAB BLOOD ORDERABLES Fin al Result Performing Organization Address City/State/[facility] [place] [address] * (ABNORMAL) Comprehensive metabolic panel (01/15/2025 11:46 AM CDT) [facility] Sodium 140 135 - 145 mmol/L Potassium, pl 4.1 3.3 - 4.9 mmol/L [facility] Chloride 103 97 - 110 mmol/L [facility] CO2 27 22 - 32 mmol/L [facility] Anion gap 10 2 - 15 mmol/L [facility] BUN 33(H) 6 - 25 mg/dL [facility] Creatinine 2.50(H) 0.60 - 1.10 mg/dL [facility] Glucose 86 70 - 199 mg/dL [facility] Comment: Interpretive Data Fasting glucose >/= 126 [...] 2022. Calcium 11.8(H) 8.5 - 10.3 mg/dL [facility] Bilirubin, total 0.6 0.1 - 1.2 mg/dL [facility] Protein, pl 8.2 6.5 - 8.5 g/dL [facility] Albumin 4.1 3.5 - 5.0 g/dL [facility] Alk phos 128 40 - 130 Units/L [facility] ALT 34 7 - 45 Units/L [facility] AST 35 10 - 45 Units/L [facility] Blood 01/15/2025 11:4 6 AM CDT 01/15/2025 12:46 PM CDT us Premal Chaka Coronado MD LAB BLOOD ORDERABLES Fin al Result [facility] Department of Laboratories [place], [place] [id number] * (ABNORMAL) POCT hemoglobin A1c (01/15/2025 11:01 AM CDT) Hgb A1C, POC 6.6(H) 4.0 - 5.6 % Est Average Gluc POC 143 mg/dL [facility] Comment: The ADA recommends reporting an estimated Average Glucose (eAG) with all Hemoglobin A1c results using the equation derived from a study of 507 normal and diabetic adults. Minority populations were underrepresented and children were not included. (Diabetes Care 31:6246-7042, 2008). The eAG is not equivalent to a fasting glucose. Blood 01/15/2025 11:0 1 AM CDT 01/15/2025 11:01 AM CDT us Premal Chaka Coronado MD POINT OF CARE TEST ORDER BESS Final Result [facility] Department [place] [address] * US Pelvis Complete (12/28/2024 10:55 AM [...] no evidence of free fluid in thepelvis. Premal Chaka Coronado MD [facility] US PROCEDURES Final Result * High Risk HPV DNA Detection with Genotyping (Molecular component) (06/29/2024 4:23 PM CDT) Pathologist [facility] HPV HR 16 Not Detected Not Detected [facility] HPV HR 18 Not Detected Not Detected [facility] HPV HR Non 16/18 Not Detected Not Detected [facility] Comment: Interpretive Data Nucleic acid amplification for [...] test have been verified by the [facility] Molecular Infectious Disease laboratory. Correlate with separately reported cytology results, as applicable. Interpretive data last revised 23 Endoc[facility]ical 06/29/2024 4:23 PM CDT 06/30/2024 9:10 AM CDT Narrative [facility] - 06/30/2024 7:16 PM CDT Clinical history and diagnosis->adnexal mass Number of vials->1 Testing type->Screening Last menstrual period (date if known)->over 5 years ago Premal Chaka Coronado MD LAB BODY FLUIDS AND STOO LS ORDERABLES Final Result [facility] Department [place] [address] [facility] from Last 3 Months or Most Recently Relevant to Health Maintenance Insurance [employer] ACCESS CHOICE [employer] MEDICARE RAILROAD [facility] MEDICARE RAILROAD Advance Directives For more information, please contact: [phone] * Full Code (Latest Code Status on File) Date Activated Date Inactivated Comments 12/03/2018 6:15 PM 12/04/2018 8:51 PM * Full Code Date Activated Date Inactivated Comments 11/06/2018 4:45 PM 11/08/2018 9:17 PM Care Teams Ribbon Sweatband Operator Relationship Specialty Start Date End Date Tanya Olmos NP PCP - General Nurse Practitioner 11/13/18
--- NOTE | 2025-03-04 09:59 | S_PTH ---
PATIENT: Sommer Villavicencio LOC: [facility] U#:[id number] AGE/SX: 64/F ROOM: RE03/04/[address]: Chaim Delgado MD : 1960 BED: DIS: 03/04/2025 SPEC #: [id number] RECD: 03/04/25 10:43 STATUS: DEN RECari #: [id number] MARGARET: 03/04/25 09:[address]: [place] Leonard DEPT: [facility] Surgical RECD BY: Yovana Galdamez ENTERED: 03/04/25 10:45 SP TYPE: Surgical OTHR DR: Sudha Tian, MD Chaim Delgado MD Tissues: A - Kidney Biopsy Procedures: Gross Exam Level 1 Intraoperative
== END 2025-03-04 15:15 | disposition home or self-care (01) ==
PROVIDERS: PCP Family Medicine; Referring Provider Internal Medicine Nephrology; Visit Provider Radiology Diagnostic Radiology
PROC: (CPT 76942; principal; 2025-03-04 10:30)
DX: Z01.818 Encounter for other preprocedural examination (principal); I12.9 Hypertensive chronic kidney disease with stage 1 through stage 4 chronic kidney disease, or unspecified chronic kidney disease; N18.31 Chronic kidney disease, stage 3a; N26.9 Renal sclerosis, unspecified; E11.8 Type 2 diabetes mellitus with unspecified complications; E11.22 Type 2 diabetes mellitus with diabetic chronic kidney disease; E78.5 Hyperlipidemia, unspecified
CPT/HCPCS: 36415; 50200; 76942; 85610; 88300; 88329

== ENCOUNTER 2025-03-16 14:27 | Outpatient (CLI) | payer MEDICARE, SELFPAY ==
--- NOTE | ~2025-03-16 | US_ITS ---
EXAMINATION: US renal BI DATE: 03/16/2025 15:21 INDICATION: Stage IIIa chronic kidney disease TECHNIQUE: Multiple ultrasound grayscale images of the kidneys were obtained. COMPARISON: CT abdomen pelvis dated 05/19/2024 FINDINGS: The right kidney measures 10.1 x 4.6 x 5.9 cm. The left kidney measures 9.7 x 4.8 x 6.3 cm. There is asymmetric mild to moderate cortical atrophy at the right kidney. The kidneys demonstrate normal echo genicity. No hydronephrosis in either kidney. There are few anechoic parapelvic cysts at the left candice al hilum. There is a 4.3 x 1.8 x 3.6 cm anechoic region with irregular margins along the lower pole o f the left kidney near the site of the prior biopsy could represent a small postbiopsy perinephric he matoma. No stones identified. The bladder is normal with bilateral ureteral jets visualized on color Doppler. 7.7 x 6.8 x 6.1 cm complex cystic lesion at the right adnexa with a few thin linear echogen ic internal septations and 1.4 x 1.0 cm hypoechoic peripheral nodule. No evident vascular flow within the complex cystic lesion on color Doppler. IMPRESSION: 1. Asymmetric mild to moderate cortical atrophy at the right kidney and several parapelvic cysts in the left kidney. No hydronephrosis in either kidney. 2. Small irregular left perinephric fluid collection likely small amount of residual hematoma post le ft renal biopsy performed 12 days prior. 3. 7.7 x 6.8 x 6.1 cm complex cystic lesion at the right adnexa which remains concerning for ovarian neoplasm either benign or malignant. Recommend further evaluation with either pre and postcontrast pe lvic MRI) of HEARING CONSULTANT consultation. Reviewed, dictated and finalized at location A. IMPRESSION: 1. Asymmetric mild to moderate cortical atrophy at the right kidney and severa l parapelvic cysts in the left kidney. No hydronephrosis in either kidney. 2. Small irregular left perinephric fluid collection likely small amount of res idual hematoma post left renal biopsy performed 12 days prior. 3. 7.7 x 6.8 x 6.1 cm complex cystic lesion at the right adnexa which remains c oncerning for ovarian neoplasm either benign or malignant. Recommend further ev aluation with either pre and postcontrast pelvic MRI) of HEARING CONSULTANT consultation.
== END 2025-03-16 14:28 | disposition home or self-care (01) ==
PROVIDERS: PCP Family Medicine; Visit Provider Internal Medicine Nephrology
DX: N18.31 Chronic kidney disease, stage 3a (principal); N28.1 Cyst of kidney, acquired; N26.1 Atrophy of kidney (terminal)
CPT/HCPCS: 76775

== ENCOUNTER 2025-03-17 19:28 | Inpatient (IN) | payer MEDICARE, SELFPAY ==
--- NOTE | ~2025-03-17 | CT_ITS ---
CLINICAL INDICATION: Hypercalcemia with a pelvic lesion COMPARISON: Reference is made to a bone survey performed 02/04/2025 as well as a bone scan hypercalcem ia dated 12/07/2024, both of which were unremarkable. Reference is also made to an ultrasound examination of the pelvis 06/05/[address] examination performed 05/19/2024 TECHNIQUE: Multiple contiguous axial images of the abdomen and pelvis were performed without the admi nistration of intravenous contrast The dose-length product (DLP) was 378.93 mGy-cm. Automated exposure control and iterative reconstruction technique were employed. FINDINGS/OBSERVATIONS: Visualized lower thorax: The bilateral lung bases are clear. The heart is enlarged, without pericardial effusion. Small hiatal hernia is present. Liver: The liver demonstrates homogeneous attenuation and is not enlarged. Gallbladder and biliary system: The gallbladder is only minimally distended, and otherwise unremarkable. Pancreas: Limited evaluation of the pancreas secondary to the lack of intravenous contrast. Spleen: The spleen demonstrates homogeneous attenuation and is not enlarged. Kidneys: Parapelvic cysts within the left kidney, unchanged from 05/19/2024. The remainder of the bilateral kidneys are otherwise unremarkable, without hydronephrosis or renal ca lculi. Lateral to the left kidney is a focus of increased attenuation, consistent with blood products, measu ring 29 x 26 x 36 mm, likely periprocedural in origin from recent renal biopsy Adrenal glands: Unremarkable. Gastrointestinal tract: Colonic diverticulosis without surrounding inflammatory change. Appendix: The appendix is not definitively visualized. However, no pericecal inflammatory change is identified suggest the presence of acute appendicitis. Vasculature: Trace calcified atherosclerotic disease without aneurysmal dilatation Lymph nodes: Limited evaluation without intravenous contrast Pelvic structures: The bladder is only minimally distended, and otherwise unremarkable. The uterus is anteverted and anteflexed, and otherwise unremarkable. Redemonstration of a right ovarian mass of mixed attenuation measuring 8.5 x 7.8 x 10.1 cm (anterior to posterior x medial to lateral x cranial to caudal dimension). This mass has increased in size from previous ultrasound examination dated 06/05/2024 when it measured 7 cm in greatest dimension. This ma ss represents a malignancy until proven otherwise. A left ovarian cystic mass is also noted, without significant increase in size or morphology. Body wall and musculoskeletal: Age-appropriate degenerative disease within the lumbosacral spine, without acute compression fracture . IMPRESSION: Increase in size right ovarian mass compared with 2023 examinations for which a right ovarian maligna ncy is suspected. Small left perirenal hematoma post biopsy, likely of no clinical significance. Reviewed, dictated and finalized at location A. IMPRESSION: Increase in size right ovarian mass compared with 2023 examinations for which a right ovarian malignancy is suspected. Small left perirenal hematoma post biopsy, likely of no clinical significance.
[2025-03-17 19:44] VITALS: BP 130/76; PULSE 75; RESP 16; TEMP 36.7; O2SAT 100
[2025-03-17 22:25] LABS: Basophils Absolute Auto 0.1 K/mm3 (0.0-0.1); Eosinophils Absolute Auto 0.4 K/mm3 (0-0.3); Eosinophils Percent Auto 5.2 % (0-4.4); Hematocrit 38.9 % (37.0-47.0); Hemoglobin 12.7 g/dL (12.0-15.0); Immature Granulocyte Absolute 0.02 K/mm3 (0.00-0.031); Immature Granulocyte Percent A 0.3 % (0-0.5); Lymphocytes Absolute Auto 1.26 K/mm3 (0.9-3.2); Lymphocytes Percent Auto 17.7 % (18.3-44.2); Mean Corpuscular HGB Conc 32.6 g/dl (32-36); Mean Corpuscular Hemoglobin 27.6 pg (26-34); Mean Corpuscular Volume 84.6 fl (80-100); Mean Platelet Volume 10.4 fl (7.4-10.4); Monocytes Absolute Auto 0.8 K/mm3 (0.1-0.6); Monocytes Percent Auto 10.7 % (2.6-8.5); Neutrophils Absolute Auto 4.7 K/mm3 (1.3-6.7); Neutrophils Percent Auto 65.1 % (45.5-73.1); Platelet Count Result 270 k/mm3 (150-375); Red Cell Distribution Width 13.5 % (11.5-14.5); White Blood Count 7.1 K/mm3 (4.5-10.0)
[2025-03-17 22:39] LABS: Alanine Aminotransferase 27 U/L (6-35); Albumin Level 4.2 g/dL (3.5-5.1); Alkaline Phosphatase 135 U/L (38-126); Anion Gap 11 mmol/L (4-12); Aspartate Amino Transferase 32 U/L (14-36); Bilirubin,Total 0.5 mg/dL (0.2-1.3); Blood Urea Nitrogen 34 mg/dL (7-17); Calcium 13.4 mg/dL (8.4-10.2); Carbon Dioxide 22 mmol/L (22-30); Chloride 107 mmol/L (98-107); Estimated Glomerular Filt Rate 11; Glucose 141 mg/dL (65-110); Magnesium 2.4 mg/dL (1.6-2.3); Phosphorus 3.6 mg/dL (2.5-4.5); Potassium 3.6 mmol/L (3.4-5.0); Sodium 140 mmol/L (137-145); Total Protein 8.4 g/dL (6.3-8.2)
--- NOTE | 2025-03-17 22:41 | ECG_ITS ---
Test Date: 2025-03-17 23:05:16 Measurements Intervals Kiana Rate: 62 P: 33 RI: 241 QRS: -22 QRSD: 97 T: 12 QT: 391 QTc: 400 Interpretive Statements SINUS RHYTHM WITH SINUS ARRHYTHMIA WITH FIRST DEGREE AV BLOCK POSSIBLE ANTERIOR MYOCARDIAL INFARCTION , OF INDETERMINATE AGE CONSIDER INFERIOR INFARCT, AGE INDETERMINATE BASELINE ARTIFACT- I, II, AVR, AVL ABNORMAL ECG No previous ECG available for comparison Electronically Signed On 03-18-2025 06:09:25 CDT by Tanner Gonzales D.O.
--- NOTE | 2025-03-17 22:49 | ED.GENADULT ---
HPI - General Adult General Chief complaint: Recheck/Abnormal Lab/Rx Stated complaint: high calcium Time Seen by Provider: 03/17/25 22:05 History of Present Illness HPI narrative: 64-year-old female with history chronic kidney disease, type 2 diabetes, high cholesterol hypertension presents emergency department for evaluation for worsening kidney function elevated calcium. Patient states previously her diabetes she is to be poorly controlled but tenderness now better controlled. Patient states her kidney function is thought to be secondary to this. Of poorly controlled diabetes. Patient does follow-up with Dr. Leonard. Patient's creatinine has been worsening over the last few months and she has been discussion with Nephrology regarding starting dialysis. Patient did have a calcium of 13.4 yesterday. Patient states that Nephrology advised that she presents emergency department for evaluation for anticipated admission and for potential initiation dialysis. Patient has no prior history of CHF and patient is not fluid overloaded. Patient denies any chest pain shortness breath nausea vomiting diarrhea muscle spasms. Related Data Allergies Allergy/AdvReac Type Severity Reaction Status Date / Time No Known Allergies Allergy Verified 03/17/25 19:43 Review of Systems Review of Systems: All systems reviewed & are unremarkable except as noted in HPI and below PMFSH Past Medical History Medical History Cerebrovascular disease Ataxia Brainstem stroke Normal pressure hydrocephalus Right-sided cerebrovascular accident (CVA) Anxiety Depression CKD (chronic kidney disease) Esophageal dilatation Obesity Diabetes Osteoarthritis HTN (hypertension) Hyperlipidemia Surgical History Surgical History History of removal of calculus of renal pelvis through percutaneous nephrostomy Family History Family History Father Bladder cancer Mother Diabetes mellitus Hypertension Depression Cerebrovascular accident Sibling Hypertension Diabetes mellitus Heart disease Social History Social History Smoking status: Never smoker Second hand tobacco smoke exposure: No Alcohol intake: never Substance use: never Substance use type: does not use Lack of Transportation: No Lack of Food: Never True Current Housing: I Have Housing Concerned About Future Housing: No Difficulty Paying Gas/Electric Bills: No Difficulty Paying for Meds: No Currently Unemployed: No Education: High School Diploma/GED Living arrangements: alone Occupation/Education: occupation Gender identity (if verbalized by the patient): Female Spiritual care concerns: No Agree to blood products: Yes Exam Narrative: APPEARANCE: Well appearing, no pain, no distress, well-nourished. HEAD: normocephalic, atraumatic. EYES: PERRLA/EOMI, conjunctivae clear. NOSE: Normal no drainage EARS:TMS clear with good light reflex. THROAT: Pharynx clear, no exudate. NECK: Supple. No adenopathy, no masses. RESPIRATORY: Airway patent, respirations nonlabored. Clear to auscultation bilaterally, no rales, rhonchi, wheezing. CARDIOVASCULAR: Regular rate and rhythm without murmurs rubs or gallops. ABDOMINAL: Soft, nontender, nondistended, normal bowel sounds MUSCULOSKELETAL: Moves all extremities. Strength/ROM intact, No edema, No calf tenderness. NEURO: Alert. Cranial nerves II through XII intact. Good gait. Good coordination SKIN: Warm, dry. Normal Color Course Vital Signs Vital signs: Vital Signs Temperature 98.1 F 03/17/25 19:44 Pulse Rate 75 03/17/25 19:44 Respiratory Rate 16 03/17/25 19:44 Blood Pressure 130/76 03/17/25 19:44 Pulse Oximetry 100 03/17/25 19:44 Oxygen Delivery Room Air 03/17/25 19:44 Temperature 98.0 F 03/17/25 23:12 Pulse Rate 70 03/17/25 23:29 Respiratory Rate 16 03/17/25 23:29 Blood Pressure 156/83 H 03/17/25 23:29 Pulse Oximetry 97 03/17/25 23:29 Oxygen Delivery Room Air 03/17/25 23:12 Medical Decision Making MDM Narrative Medical decision making narrative: 64-year-old female present to the emergency department for evaluation for worsening kidney function and hypercalcemia. Patient has had recent follow-up with nephrology. It was the correspondence renew clerk who advised her to present to the emergency department for admission for anticipated dialysis. Patient is currently afebrile with no leukocytosis hemoglobin of 12.7. Patient's creatinine is 3.8 patient's calcium is 13.4 patient's magnesium is 2.4. Patient did have a renal biopsy recently and patient still has a persistent mass and MRI was recommended. Patient was admitted to the hospitalist and Nephrology was consulted. Differential Diagnosis Differential Diagnosis: Ovarian neoplasm, kidney failure, hyperkalemia hypermagnesemia, hypercalcemia Vital Signs Vital Signs: Vital Signs Temperature 98.1 F 03/17/25 19:44 Pulse Rate 75 03/17/25 19:44 Respiratory Rate 16 03/17/25 19:44 Blood Pressure 130/76 03/17/25 19:44 Pulse Oximetry 100 03/17/25 19:44 Oxygen Delivery Room Air 03/17/25 19:44 Temperature 98.0 F 03/17/25 23:12 Pulse Rate 70 03/17/25 23:29 Respiratory Rate 16 03/17/25 23:29 Blood Pressure 156/83 H 03/17/25 23:29 Pulse Oximetry 97 03/17/25 23:29 Oxygen Delivery Room Air 03/17/25 23:12 Lab Data Lab results reviewed: Yes I reviewed the patient's lab results. 03/17/25 22:20 03/17/25 22:19 Labs: Lab Results 03/17/25 03/17/25 Range/Units 22:19 22:20 WBC 7.1 (4.5-10.0) K/mm3 RBC 4.60 (4.2-5.4) M/mm3 Hgb 12.7 (12.0-15.0) g/dL Hct 38.9 (37.0-47.0) % MCV 84.6 (80-100) fl MCH 27.6 (26-34) pg MCHC 32.6 (32-36) g/dl RDW 13.5 (11.5-14.5) % Plt Count 270 D (150-375) k/mm3 MPV 10.4 (7.4-10.4) fl Immature Gran % (Auto) 0.3 (0-0.5) % Neut % (Auto) 65.1 (45.5-73.1) % Lymph % (Auto) 17.7 L (18.3-44.2) % [place] % (Auto) 10.7 H (2.6-8.5) % Eos % (Auto) 5.2 H (0-4.4) % Baso % (Auto) 1.0 (0.2-1.2) % Lymph # (Auto) 1.26 (0.9-3.2) K/mm3 [place] # (Auto) 0.8 H (0.1-0.6) K/mm3 Eos # (Auto) 0.4 H (0-0.3) K/mm3 Baso # (Auto) 0.1 (0.0-0.1) K/mm3 Abs Immat Gran (auto) 0.02 (0.00-0.031) K/mm3 Absolute Neuts (auto) 4.7 (1.3-6.7) K/mm3 Absolute Nucleated RBC 0.000 (0.0-0.012) K/mm3 Nucleated RBC % 0.0 (0.0-0.2) % Sodium 140 (137-145) mmol/L Potassium 3.6 (3.4-5.0) mmol/L Chloride 107 (98-107) mmol/L Carbon Dioxide 22 (22-30) mmol/L Anion Gap 11 (4-12) mmol/L BUN 34 H D (7-17) mg/dL Creatinine 3.98 H (0.7-1.0) mg/dL Estim Creat Clear Calc Not Reportable Estimated GFR 11 L (59 - ) Glucose 141 H (65-110) mg/dL Calcium 13.4 H* (8.4-10.2) mg/dL Ionized Calcium Grzegorz Pending Phosphorus 3.6 (2.5-4.5) mg/dL Magnesium 2.4 H (1.6-2.3) mg/dL Total Bilirubin 0.5 (0.2-1.3) mg/dL AST 32 (14-36) U/L ALT 27 (6-35) U/L Alkaline Phosphatase 135 H (38-126) U/L Total Protein 8.4 H (6.3-8.2) g/dL Albumin 4.2 (3.5-5.1) g/dL Discharge Plan Discharge Clinical Impression: Hypercalcemia, Chronic kidney disease Patient Disposition: Still a Patient Condition: Stable
[2025-03-17 23:12] VITALS: BP 132/78; PULSE 64; RESP 20; TEMP 36.7; O2SAT 97
[2025-03-17 23:29] VITALS: BP 156/83; PULSE 70; RESP 16; O2SAT 97
[2025-03-17] MEDS: SODIUM CHLORIDE 0.9% IV 1,000 ML 125 ML IV CONT (23:29)
[2025-03-18] VITALS (9 sets, daily range): BP systolic 130–168; BP diastolic 52–73; PULSE 58–79; RESP 14–20; TEMP 35.8–36.5; O2SAT 96–100; BMI 26.4
[2025-03-18 06:28] LABS: Basophils Absolute Auto 0.1 K/mm3 (0.0-0.1); Basophils Percent Auto 1.2 % (0.2-1.2); Eosinophils Absolute Auto 0.4 K/mm3 (0-0.3); Eosinophils Percent Auto 6.6 % (0-4.4); Hemoglobin 11.7 g/dL (12.0-15.0); Immature Granulocyte Absolute 0.02 K/mm3 (0.00-0.031); Immature Granulocyte Percent A 0.3 % (0-0.5); Lymphocytes Absolute Auto 1.21 K/mm3 (0.9-3.2); Lymphocytes Percent Auto 20.9 % (18.3-44.2); Mean Corpuscular HGB Conc 32.5 g/dl (32-36); Mean Corpuscular Hemoglobin 27.7 pg (26-34); Mean Corpuscular Volume 85.3 fl (80-100); Mean Platelet Volume 10.7 fl (7.4-10.4); Monocytes Absolute Auto 0.7 K/mm3 (0.1-0.6); Monocytes Percent Auto 11.9 % (2.6-8.5); Neutrophils Absolute Auto 3.4 K/mm3 (1.3-6.7); Neutrophils Percent Auto 59.1 % (45.5-73.1); Platelet Count Result 247 k/mm3 (150-375); Red Blood Count 4.22 M/mm3 (4.2-5.4); Red Cell Distribution Width 13.3 % (11.5-14.5); White Blood Count 5.8 K/mm3 (4.5-10.0)
[2025-03-18 06:52] LABS: Alanine Aminotransferase 23 U/L (6-35); Albumin Level 3.5 g/dL (3.5-5.1); Alkaline Phosphatase 112 U/L (38-126); Anion Gap 7 mmol/L (4-12); Aspartate Amino Transferase 25 U/L (14-36); Bilirubin,Total 0.5 mg/dL (0.2-1.3); Blood Urea Nitrogen 31 mg/dL (7-17); Calcium 12.1 mg/dL (8.4-10.2); Carbon Dioxide 22 mmol/L (22-30); Chloride 110 mmol/L (98-107); Estimated CRCL calculation 13 ml/min; Estimated Glomerular Filt Rate 13; Glucose 126 mg/dL (65-110); Magnesium 2.2 mg/dL (1.6-2.3); Phosphorus 3.8 mg/dL (2.5-4.5); Potassium 3.3 mmol/L (3.4-5.0); Sodium 139 mmol/L (137-145)
[2025-03-18 07:04] LABS: Hemoglobin A1C. 6.9 % (<5.7)
--- NOTE | 2025-03-18 07:14 | PM.IMHP ---
H&P: HPI History of Present Illness Date/Time: 03/18/25 12:15pm Chief Complaint: Elevated calcium Narrative: 64-year-old female with history CKD, HLD, hx RCVA, who came to the ED for an elevated calcium on a blood draw. She reports feeling well recently but has had elevated calcium levels. She follows with nephrology, Dr. Leonard. Creatinine elevated to 3.98, up from baseline 1.2 last March. Calcium up to 13.4. She was started on calcitriol, and pamidronate 30mg IV. She wears a CGM and blood sugars have been much more controlled recently. Previously hemoglobin A1c 10.6-14.1 in 2022 in 2023. 03/18/2025. This year hemoglobin A1c has been 6.9. CKD is thought possibly secondary to uncontrolled diabetes Renal was consulted. Started calcitonin 280 units q12 and Pamindronate 30mg x1. Renal US today showed: 1. Asymmetric mild to moderate cortical atrophy at the right kidney and several parapelvic cysts in the left kidney. No hydronephrosis in either kidney. 2. Small irregular left perinephric fluid collection likely small amount of residual hematoma post left renal biopsy performed 12 days prior. 3. 7.7 x 6.8 x 6.1 cm complex cystic lesion at the right adnexa which remains concerning for ovarian neoplasm either benign or malignant. Recommend further evaluation with either pre and postcontrast pelvic MRI) of [employer] consultation. Patient is planning a hysterectomy for a known ovarian mass when hypercalcemia resolved PMFSH Past Medical History Medical History Cerebrovascular disease Ataxia Brainstem stroke Normal pressure hydrocephalus Right-sided cerebrovascular accident (CVA) Anxiety Depression CKD (chronic kidney disease) Esophageal dilatation Obesity Diabetes Osteoarthritis HTN (hypertension) Hyperlipidemia Surgical History Surgical History History of removal of calculus of renal pelvis through percutaneous nephrostomy Family History Family History Father Bladder cancer Mother Diabetes mellitus Hypertension Depression Cerebrovascular accident Sibling Hypertension Diabetes mellitus Heart disease Social History Social History Smoking status: Never smoker Second hand tobacco smoke exposure: No Alcohol intake: never Substance use: never Substance use type: does not use Do You Feel Safe in your Home?: Yes Lack of Transportation: No Lack of Food: Never True Current Housing: I Have Housing Concerned About Future Housing: No Difficulty Paying Gas/Electric Bills: No Difficulty Paying for Meds: No Currently Unemployed: No Education: High School Diploma/GED Difficulty w/ Childcare or Family Care: No Living arrangements: alone Occupation/Education: occupation Gender identity (if verbalized by the patient): Female Spiritual care concerns: No Agree to blood products: Yes Meds Home Medications and Allergies Home Medications ?Medication ?Instructions ?Recorded ?Confirmed ?Type amlodipine 5 mg tablet 5 mg PO DAILY #90 tabs 08/27/24 03/18/25 Rx rosuvastatin 10 mg tablet 10 mg PO DAILY #90 tabs 09/10/24 03/18/25 Rx glucose 4 gram chewable tablet 16 g (4 x 4 gram) PO Q15M PRN 09/22/24 03/18/25 Rx (Dex4 Glucose) hypoglycemia #60 tabs solifenacin 5 mg tablet (Vesicare) 5 mg PO DAILY #90 tabs 10/22/24 03/18/25 Rx bupropion HCl 150 mg 24 hr tablet, 150 mg PO QAM #90 tabs 10/23/24 03/18/25 Rx extended release clopidogrel 75 mg tablet (Plavix) 75 mg PO DAILY #90 tabs 11/22/24 03/18/25 Rx insulin glargine 100 unit/mL (3 16 unit (0.16 mL) subcut DAILY #18 01/21/25 03/18/25 Rx mL) subcutaneous pen (Lantus mL Solostar U-100 Insulin) escitalopram oxalate 10 mg tablet 10 mg PO DAILY #90 tabs 02/08/25 03/18/25 Rx dulaglutide 4.5 mg/0.5 mL 4.5 mg subcut WEEKLY 03/18/25 03/18/25 History subcutaneous pen injector (Trulicity) glucagon 1 mg/0.2 mL subcutaneous 1 mg subcut ONCE PRN hypoglycemia 03/18/25 03/18/25 History auto-injector (Gvoke HypoPen 2-Pack) Allergies Allergy/AdvReac Type Severity Reaction Status Date / Time No Known Allergies Allergy Verified 03/17/25 19:43 Vital Signs Vital Signs - 24 hr 03/17/25 19:44 03/17/25 23:12 03/17/25 23:29 Temperature 98.1 F 98.0 F Pulse Rate 75 64 70 Respiratory Rate 16 20 16 Blood Pressure 130/76 132/78 156/83 H Pulse Oximetry 100 97 97 Oxygen Delivery Room Air Room Air 03/18/25 01:48 03/18/25 04:00 03/18/25 05:57 Temperature 96.5 F L 97.3 F L Pulse Rate 58 L 65 59 L Respiratory Rate 16 20 Blood Pressure 166/67 H 130/59 L Pulse Oximetry 100 98 Oxygen Delivery Exam Narrative: General - Awake and alert. No acute distress Eyes - PERRLA, EOM intact ENT - No thrush, No erythema Neck - No noticeable or palpable swelling Lymph Nodes - No lymphadenopathy Cardiovascular - RRR no m/r/g, no JVD Lungs: Clear to auscultation, No wheezing, use of accessory muscles, no crackles Skin - Skin warm and dry, no wounds or rashes Abdomen - Normal bowel sounds, abdomen soft and nontender Extremities - No edema, cyanosis or clubbing Musculoskeletal - 5/5 strength, normal range of motion, no swollen or erythematous joints. Neurological ? Alert and oriented x 3, CN 2-12 grossly intact. Psych: Normal mood and affect H&P: Results Labs Labs: Short CBC 03/17/25 03/18/25 Range/Units 22:20 06:09 WBC 7.1 5.8 (4.5-10.0) K/mm3 Hgb 12.7 11.7 L (12.0-15.0) g/dL Hct 38.9 36.0 L (37.0-47.0) % Plt Count 270 D 247 (150-375) k/mm3 BMP 03/17/25 03/18/25 22:19 06:09 Sodium 140 139 Potassium 3.6 3.3 L Chloride 107 110 H Carbon Dioxide 22 22 BUN 34 H D 31 H Creatinine 3.98 H 3.61 H Glucose 141 H 126 H Calcium 13.4 H* 12.1 H* Liver Function 03/17/25 03/18/25 Range/Units 22:19 06:09 Total Bilirubin 0.5 0.5 (0.2-1.3) mg/dL AST 32 25 (14-36) U/L ALT 27 23 (6-35) U/L Alkaline Phosphatase 135 H 112 (38-126) U/L Albumin 4.2 3.5 (3.5-5.1) g/dL Assessment and Plan Assessment and plan (1) Uncontrolled diabetes mellitus with chronic kidney disease: Status: Chronic Assessment and Plan: Home meds: Lantus 16 daily, trulicity. Wearing a CGM Splitting basal/bolus in case of procedures --Lantus 8, Lispro 3 TID & SSI -- accuchecks QID (2) ANTONI (acute kidney injury): Code(s): N17.9 - Acute kidney failure, unspecified Status: Acute Assessment and Plan: ANTONI on CKD. Follows with Dr. Leonard outpatient. Hx kidney stones, uric acid stones. HTN and diabetes. Creatinine 3.98, trending down with fluids to 3.36. Renal biopsy done on 03/10/25 that showed Glomerulosclerosis, Class IV. arterionephrosclerosis and diabetic nephropathy. --Continue fluids (3) Hypercalcemia: Code(s): E83.52 - Hypercalcemia Status: Acute Assessment and Plan: Recent PTH 02/04/25 11. Vitamin D elevated, 83. PTHrH <2 Calcium 13.4, trending down 12.2 --Continue fluids -- Monitor on tele --Continue calcitriol --BMP q8 --check pthrp (4) Hx of completed stroke: Code(s): Z86.73 - Personal history of transient ischemic attack (TIA), and cerebral infarction without residual deficits Status: Acute Assessment and Plan: Mild residual left leg weakness --Has not been on plavix recently --Holding for possible procedures --Continue statin (5) Anemia: Code(s): D64.9 - Anemia, unspecified Status: Acute Assessment and Plan: H&H 11.. Bili normal. B12 318 earlier this year --Check iron panel, ferritin -Check LDH, retic, b12 Plan Also has peripheral eosinophilia--monitoring. Planning hysterectomy for ovarian mass Quality VTE Prophylaxis VTE prophylaxis: pharmacologic ordered Hospitalist [facility] Advance Care Plan I have confirmed that the patient's Advanced Care Plan is present, code status is documented, or surrogate decision maker is listed in patient medical record.: Yes Medication Reconciliation I have utilized all available resources to obtain, update and review the patients current medications (includes all prescriptions, OTC, herbals, cannabis, and nutritional supplements).: Yes
[2025-03-18] MEDS: SODIUM CHLORIDE 0.9% IV 1,000 ML 125 ML IV CONT ×2 (07:42→20:25)
[2025-03-18] MEDS: buPROPion HCL XL (24 HR) 150 MG TABCR PO (10:14)
[2025-03-18] MEDS: POTASSIUM CHLORIDE 10 MEQ ER TABLET PO (10:14)
[2025-03-18] MEDS: ESCITALOPRAM OXALATE 10 MG TABLET PO (10:14)
[2025-03-18] MEDS: amLODIPine BESYLATE 5 MG TABLET PO (10:14)
[2025-03-18] MEDS: ROSUVASTATIN 10 MG TABLET PO (10:15)
[2025-03-18] MEDS: SOLIFENACIN 5 MG TABLET PO (10:15)
[2025-03-18] MEDS: INSULIN GLARGINE (*BKC) 100 UNITS/ML 16 UNITS SUB-Q (10:19)
[2025-03-18] MEDS: PAMIDRONATE DISODIUM 30 MG in DEXTROSE 5% IN WATER 500 ML 125 MG IVPB (11:41)
[2025-03-18] MEDS: CALCITONIN SALMON INJ 400 UNITS/2 ML VIAL 280 UNITS SUB-Q ×2 (11:41→22:19)
[2025-03-18 12:00] LABS: Glucose Point of Care 267 mg/dl (65-105)
[2025-03-18] MEDS: INSULIN ASPART (*BKC) 100 UNITS/ML SUB-Q ×2 (12:04→17:57)
[2025-03-18 12:29] LABS: Anion Gap 9 mmol/L (4-12); Blood Urea Nitrogen 30 mg/dL (7-17); Calcium 12.2 mg/dL (8.4-10.2); Carbon Dioxide 21 mmol/L (22-30); Chloride 108 mmol/L (98-107); Estimated CRCL calculation 14 ml/min; Estimated Glomerular Filt Rate 14; Glucose 268 mg/dL (65-110); Potassium 3.5 mmol/L (3.4-5.0); Sodium 138 mmol/L (137-145)
--- NOTE | 2025-03-18 15:46 | P.CONNP_ITS ---
Assessment and Plan Assessment and plan (1) Acute kidney injury: Code(s): N17.9 - Acute kidney failure, unspecified Status: Acute Assessment and Plan: * worsening renal function/creatinine in the last month as noted by outpatinet labs * creatinine 2.79mg/dl on 02/04 * up to 3.81mg/dl on 03/16 * 3.98mg/dl on admission * noted to be associated with hypercalcemia * renal ultrasound noted (03/16): * symmetric mild to moderate cortical atrophy at the right kidney and several parapelvic cysts in the left kidney. No hydronephrosis in either kidney * small irregular left perinephric fluid collection likely small amount of residual hematoma post left renal biopsy performed 12 days prior * 7.7 x 6.8 x 6.1 cm complex cystic lesion at the right adnexa which remains concerning for ovarian neoplasm either benign or malignant * trial of IVFs * check urine electrolytes and urine eosinophils (noted peripheral eosinophilia) * correct hypercalcemia * follow trend of repeat labs and UOP (2) Stage 4 chronic kidney disease: Code(s): N18.4 - Chronic kidney disease, stage 4 (severe) Status: Chronic Assessment and Plan: * due to biopsy proven arterionephrosclerosis and diabetic nephropathy * 40% intersitital fibrosis and tubular atrophy * baseline creatinine was running ~ 1.7 - 2.2mg/dl since August 2024 * abrupt change noted in January 2025 (see #1) (3) Hypercalcemia: Code(s): E83.52 - Hypercalcemia Status: Acute Assessment and Plan: * etiology not entirely clear * was running in the mid 11ish range -- now up to 13.4!!! * extensive outpatient evaluation noted: * high urine calcium * PTH low * bone scan negative * skeletal survey negative for lytic bone lesions * serum/urine immunofixation negative * PTHrp negative * trial of IVFs * calcitonin ordered x 6 doses * pamidronate x 1 today * follow trend of repeat calcium levels (4) Anemia: Code(s): D64.9 - Anemia, unspecified Status: Acute Assessment and Plan: * presumably due to CKD * follow-up on anemia studies * may need DURAN while hospitalized * follow trend of H/H (5) HTN (hypertension): Qualifiers: Hypertension type: primary hypertension Qualified Code(s): I10 - Essential (primary) hypertension Code(s): I10 - Essential (primary) hypertension Status: Chronic Assessment and Plan: * reasonable control at this time * continue home medications * follow trend of hemodynamics (6) Diabetes: Qualifiers: Diabetes mellitus complication status: without complication Diabetes mellitus longterm insulin use: without paginator use Diabetes mellitus type: t ype 2 Qualified Code(s): E11.9 - Type 2 diabetes mellitus without complications Code(s): E11.9 - Type 2 diabetes mellitus without complications Status: Chronic Assessment and Plan: * follow accu-cheks * glycemic control per hospitalist I will continue to follow the patient with you while he remains hospitalized and make further recommendations as deemed necessary. Thank you for allowing me to participate in the care of this patient. L History of Present Illness Reason for Consult Consult date: 03/18/25 Reason for consult: acute renal failure (on chronic kidney disease) and Other (hypercalcemia) Chief Complaint Chief complaint: Hypercalcemia chronic kidney disease History of Present Illness Narrative: The patient is a very pleasant 64-year-old female a past medical history as outlined below who presented to [facility] Emergency Room due to abnormal labs, specifically hypercalcemia and acute kidney injury on top of her baseline chronic kidney disease. The patient had outpatient labs done by her primary pediatric neurologist, Dr. Leonard for ongoing management of her chronic kidney disease as well as in anticipation of a needed OBGyn surgical procedure with regard to an ovarian mass. These labs returned yesterday showing a decline in her kidney function in conjunction with a calcium level that was quite elevated as well. From review of her labs, it would seem that her kidney function has been slowly deteriorating over last few years and her calcium levels always been slightly elevated around the 11ish range but these most recent labs show her calcium up to 13.4. Given this significant change in her labs, Dr. Leonard asked her to come to the ER for further assessment. Aside from these abnormal labs as listed above, but the patient states that she has been feeling reasonably well. She has not had any issues or problems with nausea, vomiting, abdominal pain, numbness, tingling, paresthesias, memory issues, dizziness, lightheadedness, palpitations, shortness of breath, or chest pain. Her blood sugars have been doing quite well also. Workup and evaluation emergency room demonstrated the patient to be hemodynamically stable and in no acute distress. Repeat labs confirmed her acute kidney injury on top of her baseline chronic kidney disease as well as her hypercalcemia. Her CBC was remarkable so for mild anemia most likely secondary to her known chronic kidney disease. She was subsequently instituted on IV fluids and admitted to the hospital for further evaluation and therapy. Renal consultation was requested due to her acute kidney injury on top of her baseline chronic kidney disease in association with her hypercalcemia. The patient follows with Dr. Clyde Leonard for management of her chronic kidney disease. Is been noted by the trend of her labs that her renal function has been slowly deteriorated over last few years. When she lost saw Dr. Leonard in the office in January of this year her creatinine was around 2.7-2.8 mg/dL which is a tad worse in comparison to what it was in November this year at around 1.9 mg/dL. She also had issues with a slightly elevated calcium level as well an outpatient evaluation was instituted for evaluation of this issue but did not yield a specific diagnosis (see evaluation noted in the assessment/plan ). For her chronic kidney disease, she did undergo a renal biopsy for definitive diagnosis of her kidney disease which demonstrated evidence of arterionephrosclerosis as well as class 4 diabetic glomerulosclerosis. Currently, at the time my evaluation, she appeared to be in no acute distress. Review of Systems 2 Review of Systems: As per HPI. [facility] Past Medical History Medical History Cerebrovascular disease Ataxia Brainstem stroke Normal pressure hydrocephalus Right-sided cerebrovascular accident (CVA) Anxiety Depression CKD (chronic kidney disease) Esophageal dilatation Obesity Diabetes Osteoarthritis HTN (hypertension) Hyperlipidemia Surgical History Surgical History History of removal of calculus of renal pelvis through percutaneous nephrostomy Family History Family History Father Bladder cancer Mother Diabetes mellitus Hypertension Depression Cerebrovascular accident Sibling Hypertension Diabetes mellitus Heart disease Social History Social History Smoking status: Never smoker Second hand tobacco smoke exposure: No Alcohol intake: never Substance use: never Substance use type: does not use Do You Feel Safe in your Home?: Yes Lack of Transportation: No Lack of Food: Never True Current Housing: I Have Housing Concerned About Future Housing: No Difficulty Paying Gas/Electric Bills: No Difficulty Paying for Meds: No Currently Unemployed: No Education: High School Diploma/GED Difficulty w/ Childcare or Family Care: No Living arrangements: alone Occupation/Education: occupation Gender identity (if verbalized by the patient): Female Spiritual care concerns: No Agree to blood products: Yes Meds Home Medications and Allergies Home Medications ?Medication ?Instructions ?Recorded ?Confirmed ?Type amlodipine 5 mg tablet 5 mg PO DAILY #90 tabs 08/27/24 03/18/25 Rx rosuvastatin 10 mg tablet 10 mg PO DAILY #90 tabs 09/10/24 03/18/25 Rx glucose 4 gram chewable tablet 16 g (4 x 4 gram) PO Q15M PRN 09/22/24 03/18/25 Rx (Dex4 Glucose) hypoglycemia #60 tabs solifenacin 5 mg tablet (Vesicare) 5 mg PO DAILY #90 tabs 10/22/24 03/18/25 Rx bupropion HCl 150 mg 24 hr tablet, 150 mg PO QAM #90 tabs 10/23/24 03/18/25 Rx extended release clopidogrel 75 mg tablet (Plavix) 75 mg PO DAILY #90 tabs 11/22/24 03/18/25 Rx insulin glargine 100 unit/mL (3 16 unit (0.16 mL) subcut DAILY #18 01/21/25 03/18/25 Rx mL) subcutaneous pen (Lantus mL Solostar U-100 Insulin) escitalopram oxalate 10 mg tablet 10 mg PO DAILY #90 tabs 02/08/25 03/18/25 Rx dulaglutide 4.5 mg/0.5 mL 4.5 mg subcut WEEKLY 03/18/25 03/18/25 History subcutaneous pen injector (Trulicity) glucagon 1 mg/0.2 mL subcutaneous 1 mg subcut ONCE PRN hypoglycemia 03/18/25 03/18/25 History auto-injector (Gvoke HypoPen 2-Pack) Allergies Allergy/AdvReac Type Severity Reaction Status Date / Time No Known Allergies Allergy Verified 03/17/25 19:43 Vital Signs Vital Signs Temp Pulse Resp BP Pulse Ox O2 Del Method 03/18/25 13:58 97.3 F L 74 14 168/73 H 99 03/18/25 12:00 73 03/18/25 12:00 96 Room Air 03/18/25 10:14 Room Air 03/18/25 08:00 64 03/18/25 05:57 97.3 F L 59 L 20 130/59 L 98 03/18/25 04:00 65 03/18/25 01:48 96.5 F L 58 L 16 166/67 H 100 03/17/25 23:29 70 16 156/83 H 97 03/17/25 23:12 98.0 F 64 20 132/78 97 Room Air Exam 2 Narrative: GENERAL APPEARANCE: well developed well nourished female in no acute distress HEENT: normocephalic, atraumatic, normal conjunctiva and sclera, nares patient NECK: no lymphadenopathy, thyromegaly, or JVD MOUTH: normal lips, teeth, and gums CARDIOVASCULAR: RRR, normal S1 and S2, no rub RESPIRATORY: clear to auscultation bilaterally ABDOMEN: soft, nontender, nondistended, positive bowel sounds present EXTREMITIES: no evidence of cyanosis, clubbing, or edema NEUROLOGICAL: alert and oriented x 3; CN II - XII intact bilaterally; no focal deficits noted Results Lab Results 03/19/25 06:45 03/19/25 06:45 Lab results: Most recent lab results Calcium 11.9 mg/dL (8.4-10.2) H 03/18/25 21:13 Phosphorus 3.8 mg/dL (2.5-4.5) 03/18/25 06:09 Magnesium 2.2 mg/dL (1.6-2.3) 03/18/25 06:09
[2025-03-18 16:26] LABS: Glucose Point of Care 154 mg/dl (65-105)
[2025-03-18 20:51] LABS: Glucose Point of Care 132 mg/dl (65-105)
[2025-03-18] MEDS: HEPARIN SODIUM 5,000 UNITS/ML VIAL 5000 UNITS SUB-Q (21:14)
[2025-03-18 21:58] LABS: Anion Gap 10 mmol/L (4-12); Blood Urea Nitrogen 33 mg/dL (7-17); Calcium 11.9 mg/dL (8.4-10.2); Carbon Dioxide 19 mmol/L (22-30); Chloride 108 mmol/L (98-107); Estimated CRCL calculation 14 ml/min; Estimated Glomerular Filt Rate 14; Glucose 134 mg/dL (65-110); Potassium 3.5 mmol/L (3.4-5.0); Sodium 137 mmol/L (137-145)
[2025-03-19] VITALS (9 sets, daily range): BP systolic 110–142; BP diastolic 52–67; PULSE 57–72; RESP 16–18; TEMP 35.8–36.7; O2SAT 94–100
--- NOTE | 2025-03-19 01:38 | PC.NURSE ---
On 03/19/25, the Graduate Nurse, Emelina, provided care and completed [employer] documentation on this patient with this nurse at her side, available for questions/assistance. I have reviewed the Emelina's documentation and agree with the findings.
[2025-03-19] MEDS: SODIUM CHLORIDE 0.9% IV 1,000 ML 125 ML IV CONT ×3 (04:59→21:07)
--- NOTE | 2025-03-19 07:18 | PM.IMPN ---
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 Wearing a CGM. High risk medication use, requires insulin Splitting basal/bolus in case of procedures --Lantus 8, Lispro 3 TID & SSI. Blood sugars controlled -- accuchecks QID (2) ANTONI (acute kidney injury): Code(s): N17.9 - Acute kidney failure, unspecified Status: Acute Assessment and Plan: ANTONI on CKD. Follows with Dr. Leonard outpatient. Hx kidney stones, uric acid stones. HTN and diabetes. Creatinine 3.98, trending down with fluids to 3.36. Renal biopsy done on 03/10/25 that showed Glomerulosclerosis, Class IV. arterionephrosclerosis and diabetic nephropathy. --Received fluids, now monitoring off (3) Hypercalcemia: Code(s): E83.52 - Hypercalcemia Status: Acute Assessment and Plan: Recent PTH 02/04/25 11. Vitamin D elevated, 83. PTHrH <2 Calcium 13.4, trending down 12.2>11.9>10.8 --Continue fluids -- Monitor on tele --Continue calcitriol --Following BMP (4) Hx of completed stroke: Code(s): Z86.73 - Personal history of transient ischemic attack (TIA), and cerebral infarction without residual deficits Status: Acute Assessment and Plan: Mild residual left leg weakness --Has not been on plavix recently --Holding for possible procedures --Continue statin (5) Anemia: Code(s): D64.9 - Anemia, unspecified Status: Acute Assessment and Plan: H&H 11.7/36. Bili normal. B12 318 earlier this year --Check iron panel, ferritin -Check LDH, retic, b12 Plan Also has peripheral eosinophilia--monitoring, improving. Planning hysterectomy for ovarian mass after discharge Subjective Date/time seen: 03/19/25 09:15 Interval history: VSS AM labs pending. Calcium improving with current treatment and renal function improving Exam Narrative: General - Awake and alert. No acute distress Eyes - PERRLA, EOM intact ENT - No thrush, No erythema Neck - No noticeable or palpable swelling Lymph Nodes - No lymphadenopathy Cardiovascular - RRR no m/r/g, no JVD Lungs: Clear to auscultation, No wheezing, use of accessory muscles, no crackles Skin - Skin warm and dry, no wounds or rashes Abdomen - Normal bowel sounds, abdomen soft and nontender Extremities - No edema, cyanosis or clubbing Musculoskeletal - 5/5 strength, normal range of motion, no swollen or erythematous joints. Neurological ? Alert and oriented x 3, CN 2-12 grossly intact. Psych: Normal mood and affect Objective Data Vital Signs Vital Signs: Vital Signs - 24 hr 03/18/25 08:00 03/18/25 10:14 03/18/25 12:00 Temperature Pulse Rate 64 Respiratory Rate Blood Pressure Pulse Oximetry 96 Oxygen Delivery Room Air Room Air 03/18/25 12:00 03/18/25 13:58 03/18/25 16:00 Temperature 97.3 F L Pulse Rate 73 74 64 Respiratory Rate 14 Blood Pressure 168/73 H Pulse Oximetry 99 Oxygen Delivery 03/18/25 20:00 03/18/25 20:24 03/18/25 20:35 Temperature 97.7 F Pulse Rate 72 79 Respiratory Rate 18 Blood Pressure 140/52 L Pulse Oximetry 98 Oxygen Delivery Room Air 03/19/25 00:00 03/19/25 04:00 03/19/25 04:57 Temperature Pulse Rate 72 67 Respiratory Rate Blood Pressure Pulse Oximetry 98 Oxygen Delivery Autopap 03/19/25 05:38 Temperature 98.1 F Pulse Rate 67 Respiratory Rate 16 Blood Pressure 110/52 L Pulse Oximetry 94 Oxygen Delivery Intake/Output Intake/Output: Intake & Output 03/16/25 03/17/25 03/18/25 03/19/25 23:59 23:59 23:59 23:59 Intake Total 3898 1550 Balance 3898 1550 Meds/Results Medications: Active Medications Generic Name Dose Route Start Last Admin Trade Name Freq PRN Reason Stop Dose Admin Amlodipine Besylate 5 mg 03/18/25 09:00 03/18/25 10:14 Amlodipine Besylate 5 Mg Tablet PO 5 mg DAILY DELANO Administration Bupropion HCl 150 mg 03/18/25 09:00 03/18/25 10:14 Bupropion Hcl Xl (24 Hr) 150 Mg Tabcr PO 150 mg QAM DELANO Administration Calcitonin [place] 280 units 03/18/25 09:00 03/18/25 22:19 Calcitonin [place] Inj 400 Units/2 Ml Vial SUB-Q 03/20/25 21:01 280 units Q12H DELANO Administration Dextrose 12.5 gm 03/18/25 04:19 Dextrose 50% 25 Gm/50 Ml Syringe IV PUSH PRN PRN Hypoglycemia Protocol Escitalopram Oxalate 10 mg 03/18/25 09:00 03/18/25 10:14 Escitalopram Oxalate 10 Mg Tablet PO 10 mg DAILY DELANO Administration Glucagon 1 mg 03/18/25 04:19 Glucagon For Inj 1 Mg Vial IM PRN PRN Hypoglycemia Protocol Glucose 15 gm 03/18/25 04:19 Glucose Oral Gel 15 Gm Of Glucse In 37.5 Gm Tube PO PRN PRN Hypoglycemia Protocol Heparin Sodium (Porcine) 5,000 units 03/18/25 21:00 03/18/25 21:14 Heparin Sodium 5,000 Units/Ml Vial SUB-Q 5,000 units Q12HR DELANO Administration Sodium Chloride 1,000 mls @ 125 mls/hr 03/17/25 23:05 03/19/25 04:59 Normal Saline Iv IV CONT 125 mls/hr .Q8H DELANO Administration Dextrose 1,000 mls @ 100 mls/hr 03/18/25 04:19 Dextrose 5% 1,000 Ml IVPB PRN PRN Hypoglycemia Protocol Insulin Aspart 2 - 5 units 03/18/25 08:00 03/18/25 17:49 Insulin Aspart (*Bkc) 100 Units/Ml SUB-Q Not Given TID[facility] Protocol Insulin Aspart 3 units 03/18/25 17:00 03/18/25 17:57 Insulin Aspart (*Bkc) 100 Units/Ml SUB-Q 3 units TIDWM DELANO Administration Insulin Glargine 8 units 03/19/25 09:00 Insulin Glargine (*Bkc) 100 Units/Ml SUB-Q DAILY DELANO Rosuvastatin Calcium 10 mg 03/18/25 09:00 03/18/25 10:15 Rosuvastatin 10 Mg Tablet PO 10 mg DAILY DELANO Administration Solifenacin 5 mg 03/18/25 09:00 03/18/25 10:15 Solifenacin 5 Mg Tablet PO 5 mg DAILY DELANO Administration Labs Labs: Laboratory Results - last 24 hr 03/18/25 03/18/25 03/18/25 11:56 12:06 16:19 Sodium 138 Potassium 3.5 Chloride 108 H Carbon Dioxide 21 L Anion Gap 9 BUN 30 H Creatinine 3.36 H Estim Creat Clear Calc 14 Estimated GFR 14 L Glucose 268 H POC Capillary Glucose 267 H 154 H Calcium 12.2 H* 03/18/25 03/18/25 20:31 21:13 Sodium 137 Potassium 3.5 Chloride 108 H Carbon Dioxide 19 L Anion Gap 10 BUN 33 H Creatinine 3.27 H Estim Creat Clear Calc 14 Estimated GFR 14 L Glucose 134 H POC Capillary Glucose 132 H Calcium 11.9 H Quality VTE Prophylaxis VTE prophylaxis: pharmacologic ordered Hospitalist [facility] Advance Care Plan I have confirmed that the patient's Advanced Care Plan is present, code status is documented, or surrogate decision maker is listed in patient medical record.: Yes Medication Reconciliation I have utilized all available resources to obtain, update and review the patients current medications (includes all prescriptions, OTC, herbals, cannabis, and nutritional supplements).: Yes
[2025-03-19 07:32] LABS: Basophils Absolute Auto 0.1 K/mm3 (0.0-0.1); Eosinophils Absolute Auto 0.3 K/mm3 (0-0.3); Eosinophils Percent Auto 4.5 % (0-4.4); Hematocrit 33.7 % (37.0-47.0); Hemoglobin 10.9 g/dL (12.0-15.0); Immature Granulocyte Absolute 0.02 K/mm3 (0.00-0.031); Immature Granulocyte Percent A 0.3 % (0-0.5); Lymphocytes Absolute Auto 0.92 K/mm3 (0.9-3.2); Lymphocytes Percent Auto 14.6 % (18.3-44.2); Mean Corpuscular HGB Conc 32.3 g/dl (32-36); Mean Corpuscular Hemoglobin 27.9 pg (26-34); Mean Corpuscular Volume 86.2 fl (80-100); Monocytes Absolute Auto 0.6 K/mm3 (0.1-0.6); Monocytes Percent Auto 9.2 % (2.6-8.5); Neutrophils Absolute Auto 4.4 K/mm3 (1.3-6.7); Neutrophils Percent Auto 70.4 % (45.5-73.1); Platelet Count Result 226 k/mm3 (150-375); Red Blood Count 3.91 M/mm3 (4.2-5.4); Red Cell Distribution Width 13.7 % (11.5-14.5); White Blood Count 6.3 K/mm3 (4.5-10.0)
[2025-03-19 07:42] LABS: Glucose Point of Care 142 mg/dl (65-105)
[2025-03-19 07:59] LABS: Alanine Aminotransferase 19 U/L (6-35); Albumin Level 3.2 g/dL (3.5-5.1); Alkaline Phosphatase 106 U/L (38-126); Anion Gap 8 mmol/L (4-12); Aspartate Amino Transferase 24 U/L (14-36); Bilirubin,Total 0.5 mg/dL (0.2-1.3); Blood Urea Nitrogen 31 mg/dL (7-17); Calcium 10.8 mg/dL (8.4-10.2); Carbon Dioxide 17 mmol/L (22-30); Chloride 112 mmol/L (98-107); Estimated CRCL calculation 15 ml/min; Estimated Glomerular Filt Rate 15; Glucose 129 mg/dL (65-110); Phosphorus 3.1 mg/dL (2.5-4.5); Potassium 3.7 mmol/L (3.4-5.0); Sodium 137 mmol/L (137-145); Total Protein 6.5 g/dL (6.3-8.2)
[2025-03-19 08:05] LABS: Iron 47 ug/dL (37-170)
[2025-03-19 08:14] LABS: Percent Iron Saturation 20 % (20-50)
[2025-03-19] MEDS: INSULIN GLARGINE (*BKC) 100 UNITS/ML 8 UNITS SUB-Q (09:04)
[2025-03-19] MEDS: INSULIN ASPART (*BKC) 100 UNITS/ML SUB-Q ×3 (09:04→18:39)
[2025-03-19] MEDS: CALCITONIN SALMON INJ 400 UNITS/2 ML VIAL 280 UNITS SUB-Q ×2 (09:05→21:04)
[2025-03-19] MEDS: HEPARIN SODIUM 5,000 UNITS/ML VIAL 5000 UNITS SUB-Q ×2 (09:06→21:04)
[2025-03-19] MEDS: ROSUVASTATIN 10 MG TABLET PO (09:06)
[2025-03-19] MEDS: amLODIPine BESYLATE 5 MG TABLET PO (09:06)
[2025-03-19] MEDS: ESCITALOPRAM OXALATE 10 MG TABLET PO (09:06)
[2025-03-19] MEDS: SOLIFENACIN 5 MG TABLET PO (09:06)
[2025-03-19] MEDS: buPROPion HCL XL (24 HR) 150 MG TABCR PO (09:06)
[2025-03-19 09:48] LABS: Vitamin D 25 Hydroxy 18.7 ng/mL
[2025-03-19 11:32] LABS: Glucose Point of Care 96 mg/dl (65-105)
--- NOTE | 2025-03-19 15:05 | P.PNNP_ITS ---
Progress Note: A&P Assessment and Plan (1) Acute kidney injury: Code(s): N17.9 - Acute kidney failure, unspecified Status: Acute Assessment and Plan: * worsening renal function/creatinine in the last month as noted by outpatient labs * creatinine 2.79mg/dl on 02/04 * up to 3.81mg/dl on 03/16 * 3.98mg/dl on admission * noted to be associated with hypercalcemia * renal ultrasound noted (03/16): * symmetric mild to moderate cortical atrophy at the right kidney and several parapelvic cysts in the left kidney. No hydronephrosis in either kidney * small irregular left perinephric fluid collection likely small amount of residual hematoma post left renal biopsy performed 12 days prior * 7.7 x 6.8 x 6.1 cm complex cystic lesion at the right adnexa which remains concerning for ovarian neoplasm either benign or malignant. she is getting this evaluated by [facility] * etiology unclear. consider prerenal factors (due to hypercalcemia and effect on ROM-K)? * u/s, biopsy multiple blood and urine tests unrevealing. * continue hydration and treating hypercalcemia (2) Stage 4 chronic kidney disease: Code(s): N18.4 - Chronic kidney disease, stage 4 (severe) Status: Chronic Assessment and Plan: * due to biopsy proven arterionephrosclerosis and diabetic nephropathy * 40% intersitital fibrosis and tubular atrophy * baseline creatinine was running ~ 1.7 - 2.2mg/dl since August 2024 * abrupt change noted in January 2025 (see #1) (3) Hypercalcemia: Code(s): E83.52 - Hypercalcemia Status: Acute Assessment and Plan: * etiology not entirely clear * was running in the mid 11ish range -- now up to 13.4!!! * extensive outpatient evaluation noted: * high urine calcium c/w high calcium input from the system (however neg bone scan and neg bone survey) so maybe just hyperabsorption from GI tract?) 1,25 vit d was high in spite of low 25 vit d so not sure what is the problem. some sort of granulomatous disease? * PTH low, PTHrp low, Vit A okay, ANDREW okay * bone scan negative * skeletal survey negative for lytic bone lesions * serum/urine immunofixation negative * PTHrp negative * trial of IVFs * calcitonin ordered x 6 doses * pamidronate x 1 today * follow trend of repeat calcium levels * check ct abd and pelvis without contrast to look for lymphoma? (4) Anemia: Code(s): D64.9 - Anemia, unspecified Status: Acute Assessment and Plan: * presumably due to CKD * follow-up on anemia studies * may need DURAN while hospitalized * follow trend of H/H (5) HTN (hypertension): Qualifiers: Hypertension type: primary hypertension Qualified Code(s): I10 - Essential (primary) hypertension Code(s): I10 - Essential (primary) hypertension Status: Chronic Assessment and Plan: * reasonable control at this time * continue home medications * follow trend of hemodynamics (6) Diabetes: Qualifiers: Diabetes mellitus type: type 2 Diabetes mellitus senior living insulin use: without terminal clerk use Diabetes mellitus complication status: without complication Qualified Code(s): E11.9 - Type 2 diabetes mellitus without complications Code(s): E11.9 - Type 2 diabetes mellitus without complications Status: Chronic Assessment and Plan: * follow accu-cheks * glycemic control per hospitalist I will continue to follow the patient with you while he remains hospitalized and make further recommendations as deemed necessary. Thank you for allowing me to participate in the care of this patient. Subjective Date/time seen: 03/19/25 15:05 Interval history: Alert. feels better no cp or sob. no swelling. eating fine Review of Systems Cardiovascular: Cardiovascular: Reports no additional cardiovascular complaints Respiratory: Respiratory: Reports no additional respiratory complaints Gastrointestinal: Gastrointestinal: Reports no additional gastrointestinal complaints Genitourinary: Genitourinary: Reports no additional female genitourinary complaints Exam Narrative: WDWN in NAD skin no rash head ncat lungs clear cor reg no rub abd BS+ nontender and soft ext no edema. Objective Data Vital Signs Vital Signs: Vital Signs - 24 hr 03/18/25 16:00 03/18/25 20:00 03/18/25 20:24 Temperature 97.7 F Pulse Rate 64 72 79 Respiratory Rate 18 Blood Pressure 140/52 L Pulse Oximetry 98 Oxygen Delivery 03/18/25 20:35 03/19/25 00:00 03/19/25 04:00 Temperature Pulse Rate 72 67 Respiratory Rate Blood Pressure Pulse Oximetry Oxygen Delivery Room Air 03/19/25 04:57 03/19/25 05:38 Temperature 98.1 F Pulse Rate 67 Respiratory Rate 16 Blood Pressure 110/52 L Pulse Oximetry 98 94 Oxygen Delivery Autopap Intake/Output Intake/Output: Intake & Output 03/16/25 03/17/25 03/18/25 03/19/25 23:59 23:59 23:59 23:59 Intake Total 3898 2790 Balance 3898 2790 Meds/Results Medications: Active Medications Generic Name Dose Route Start Last Admin Trade Name Freq PRN Reason Stop Dose Admin Amlodipine Besylate 5 mg 03/18/25 09:00 03/19/25 09:06 Amlodipine Besylate 5 Mg Tablet PO 5 mg DAILY DELANO Administration Bupropion HCl 150 mg 03/18/25 09:00 03/19/25 09:06 Bupropion Hcl Xl (24 Hr) 150 Mg Tabcr PO 150 mg QAM DELANO Administration Calcitonin [place] 280 units 03/18/25 09:00 03/19/25 09:05 Calcitonin [place] Inj 400 Units/2 Ml Vial SUB-Q 03/20/25 21:01 280 units Q12H DELANO Administration Dextrose 12.5 gm 03/18/25 04:19 Dextrose 50% 25 Gm/50 Ml Syringe IV PUSH PRN PRN Hypoglycemia Protocol Escitalopram Oxalate 10 mg 03/18/25 09:00 03/19/25 09:06 Escitalopram Oxalate 10 Mg Tablet PO 10 mg DAILY DELANO Administration Glucagon 1 mg 03/18/25 04:19 Glucagon For Inj 1 Mg Vial IM PRN PRN Hypoglycemia Protocol Glucose 15 gm 03/18/25 04:19 Glucose Oral Gel 15 Gm Of Glucse In 37.5 Gm Tube PO PRN PRN Hypoglycemia Protocol Heparin Sodium (Porcine) 5,000 units 03/18/25 21:00 03/19/25 09:06 Heparin Sodium 5,000 Units/Ml Vial SUB-Q 5,000 units Q12HR DELANO Administration Sodium Chloride 1,000 mls @ 125 mls/hr 03/17/25 23:05 03/19/25 13:00 Normal Saline Iv IV CONT 125 mls/hr .Q8H DELANO Administration Dextrose 1,000 mls @ 100 mls/hr 03/18/25 04:19 Dextrose 5% 1,000 Ml IVPB PRN PRN Hypoglycemia Protocol Insulin Aspart 2 - 5 units 03/18/25 08:00 03/19/25 11:44 Insulin Aspart (*Bkc) 100 Units/Ml SUB-Q Not Given TIDWM DELANO Protocol Insulin Aspart 3 units 03/18/25 17:00 03/19/25 12:43 Insulin Aspart (*Bkc) 100 Units/Ml SUB-Q 3 units TIDWM DELANO Administration Insulin Glargine 8 units 03/19/25 09:00 03/19/25 09:04 Insulin Glargine (*Bkc) 100 Units/Ml SUB-Q 8 units DAILY DELANO Administration Rosuvastatin Calcium 10 mg 03/18/25 09:00 03/19/25 09:06 Rosuvastatin 10 Mg Tablet PO 10 mg DAILY DELANO Administration Solifenacin 5 mg 03/18/25 09:00 03/19/25 09:06 Solifenacin 5 Mg Tablet PO 5 mg DAILY DELANO Administration Labs Labs: Laboratory Results - last 24 hr 03/18/25 03/18/25 03/18/25 16:19 20:31 21:13 WBC RBC Hgb Hct MCV MCH MCHC RDW Plt Count MPV Immature Gran % (Auto) Neut % (Auto) Lymph % (Auto) [place] % (Auto) Eos % (Auto) Baso % (Auto) Lymph # (Auto) [place] # (Auto) Eos # (Auto) Baso # (Auto) Abs Immat Gran (auto) Absolute Neuts (auto) Absolute Nucleated RBC Nucleated RBC % Sodium 137 Potassium 3.5 Chloride 108 H Carbon Dioxide 19 L Anion Gap 10 BUN 33 H Creatinine 3.27 H Estim Creat Clear Calc 14 Estimated GFR 14 L Glucose 134 H POC Capillary Glucose 154 H 132 H Calcium 11.9 H Phosphorus Magnesium Iron TIBC % Saturation Ferritin Total Bilirubin AST ALT Alkaline Phosphatase Total Protein Albumin Vitamin B12 Vitamin D 25-Hydroxy 03/19/25 03/19/25 03/19/25 06:45 07:33 11:30 WBC 6.3 RBC 3.91 L Hgb 10.9 L Hct 33.7 L MCV 86.2 MCH 27.9 MCHC 32.3 RDW 13.7 Plt Count 226 MPV 11.0 H Immature Gran % (Auto) 0.3 Neut % (Auto) 70.4 Lymph % (Auto) 14.6 L [place] % (Auto) 9.2 H Eos % (Auto) 4.5 H Baso % (Auto) 1.0 Lymph # (Auto) 0.92 [place] # (Auto) 0.6 Eos # (Auto) 0.3 Baso # (Auto) 0.1 Abs Immat Gran (auto) 0.02 Absolute Neuts (auto) 4.4 Absolute Nucleated RBC 0.000 Nucleated RBC % 0.0 Sodium 137 Potassium 3.7 Chloride 112 H Carbon Dioxide 17 L Anion Gap 8 BUN 31 H Creatinine 3.15 H Estim Creat Clear Calc 15 Estimated GFR 15 L Glucose 129 H POC Capillary Glucose 142 H 96 Calcium 10.8 H Phosphorus 3.1 Magnesium 2.0 Iron 47 TIBC 236 L % Saturation 20 Ferritin 113.00 Total Bilirubin 0.5 AST 24 ALT 19 Alkaline Phosphatase 106 Total Protein 6.5 Albumin 3.2 L Vitamin B12 188.0 L Vitamin D 25-Hydroxy 18.7
[2025-03-19 16:56] LABS: Glucose Point of Care 84 mg/dl (65-105)
[2025-03-19] MEDS: CYANOCOBALAMIN INJ 1,000 MCG/ML VIAL 1000 MCG IM (19:42)
[2025-03-19 21:01] LABS: Glucose Point of Care 123 mg/dl (65-105)
[2025-03-20] VITALS (8 sets, daily range): BP systolic 124–148; BP diastolic 54–70; PULSE 63–77; RESP 16; TEMP 36.4–36.8; O2SAT 98–100
[2025-03-20] MEDS: SODIUM CHLORIDE 0.9% IV 1,000 ML 125 ML IV CONT (05:06)
[2025-03-20 06:47] LABS: Basophils Absolute Auto 0.1 K/mm3 (0.0-0.1); Basophils Percent Auto 0.9 % (0.2-1.2); Eosinophils Absolute Auto 0.2 K/mm3 (0-0.3); Eosinophils Percent Auto 3.8 % (0-4.4); Hematocrit 33.6 % (37.0-47.0); Immature Granulocyte Absolute 0.04 K/mm3 (0.00-0.031); Immature Granulocyte Percent A 0.7 % (0-0.5); Immature Reticulocyte Fraction 8.1 % (3.0-15.9); Lymphocytes Absolute Auto 0.68 K/mm3 (0.9-3.2); Lymphocytes Percent Auto 11.9 % (18.3-44.2); Mean Corpuscular HGB Conc 32.7 g/dl (32-36); Mean Corpuscular Hemoglobin 28.1 pg (26-34); Mean Corpuscular Volume 85.7 fl (80-100); Mean Platelet Volume 10.8 fl (7.4-10.4); Monocytes Absolute Auto 0.5 K/mm3 (0.1-0.6); Monocytes Percent Auto 9.4 % (2.6-8.5); Neutrophils Absolute Auto 4.2 K/mm3 (1.3-6.7); Neutrophils Percent Auto 73.3 % (45.5-73.1); Platelet Count Result 222 k/mm3 (150-375); Red Blood Count 3.92 M/mm3 (4.2-5.4); Red Cell Distribution Width 13.8 % (11.5-14.5); Reticulocyte Hemoglobin Conten 31.9 pg (28.2-36.6); Reticulocyte Percent 1.27 % (0.7-4.3); Reticulocytes Absolute 0.05 10^6/uL (0.02-0.10); White Blood Count 5.7 K/mm3 (4.5-10.0)
[2025-03-20 06:56] LABS: Alanine Aminotransferase 19 U/L (6-35); Albumin Level 3.1 g/dL (3.5-5.1); Alkaline Phosphatase 105 U/L (38-126); Anion Gap 8 mmol/L (4-12); Aspartate Amino Transferase 23 U/L (14-36); Bilirubin,Total 0.5 mg/dL (0.2-1.3); Blood Urea Nitrogen 25 mg/dL (7-17); Calcium 9.7 mg/dL (8.4-10.2); Carbon Dioxide 16 mmol/L (22-30); Chloride 116 mmol/L (98-107); Estimated CRCL calculation 18 ml/min; Estimated Glomerular Filt Rate 19; Glucose 118 mg/dL (65-110); Lactate Dehydrogenase 151 U/L (120-246); Magnesium 1.8 mg/dL (1.6-2.3); Phosphorus 2.4 mg/dL (2.5-4.5); Potassium 3.5 mmol/L (3.4-5.0); Sodium 140 mmol/L (137-145); Total Protein 6.5 g/dL (6.3-8.2)
--- NOTE | 2025-03-20 07:07 | P.PNIM_ITS ---
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 Wearing a CGM. High risk medication use, requires insulin Splitting basal/bolus in case of procedures --Lantus 8, Lispro 3 TID & SSI. Blood sugars controlled -- accuchecks QID (2) ANTONI (acute kidney injury): Code(s): N17.9 - Acute kidney failure, unspecified Status: Acute Assessment and Plan: ANTONI on CKD. Follows with Dr. Leonard outpatient. Hx kidney stones, uric acid stones. HTN and diabetes. Creatinine 3.98, trending down with fluids to 2.43 Renal biopsy done on 03/10/25 that showed Glomerulosclerosis, Class IV. arterionephrosclerosis and diabetic nephropathy. --Bicarb drip started for metabolic acidosis (3) Hypercalcemia: Code(s): E83.52 - Hypercalcemia Status: Acute Assessment and Plan: Recent PTH 02/04/25 11. Vitamin D elevated, 83. PTHrH <2 Calcium 13.4, trending down 12.2>11.9>10.8 --Continue fluids -- Monitor on tele --Continue calcitriol --Following BMP --Gave 250mg phos for phos 2.4 (4) Hx of completed stroke: Code(s): Z86.73 - Personal history of transient ischemic attack (TIA), and cerebral infarction without residual deficits Status: Acute Assessment and Plan: Mild residual left leg weakness --Has not been on plavix recently --Start ASA 81mg daily --Continue statin (5) Anemia: Code(s): D64.9 - Anemia, unspecified Status: Acute Assessment and Plan: H&H 11.. Bili normal. B12 318 earlier this year --Check iron panel, ferritin -Check LDH, retic, b12 (6) Ovarian mass: Code(s): N83.8 - Other noninflammatory disorders of ovary, fallopian tube and broad ligament Status: Acute Plan Also has peripheral eosinophilia--monitoring, improving. Planning hysterectomy for ovarian mass after discharge Time Spent With Patient Time: 56 minutes Subjective Date/time seen: 03/20/25 07:07 Interval history: Feeling ok. LDH normal. Creatinine improving. Calcium normalized 9.7<10.1 . Phos 2.4. Recheck at 1400 unchanged, so ordered 1 dose of phos. Mag 1.[address] showed an increase in size right ovarian mass compared with 2023 examinations for which a right ovarian malignancy is suspected. Small left perirenal hematoma post biopsy, likely of no clinical significance. Hypercalcemia may be paraneoplastic 2/2 ovarian mass. Planning outpatient surgery with change control manager Exam Narrative: General - Awake and alert. No acute distress Eyes - PERRLA, EOM intact ENT - No thrush, No erythema Neck - No noticeable or palpable swelling Lymph Nodes - No lymphadenopathy Cardiovascular - RRR no m/r/g, no JVD Lungs: Clear to auscultation, No wheezing, use of accessory muscles, no crackles Skin - Skin warm and dry, no wounds or rashes Abdomen - Normal bowel sounds, abdomen soft and nontender Extremities - No edema, cyanosis or clubbing Musculoskeletal - 5/5 strength, normal range of motion, no swollen or erythematous joints. Neurological ? Alert and oriented x 3, CN 2-12 grossly intact. Psych: Normal mood and affect Objective Data Vital Signs Vital Signs: Vital Signs - 24 hr 03/19/25 08:03 03/19/25 14:00 03/19/25 16:03 Temperature 97.6 F Pulse Rate 66 59 L 57 L Respiratory Rate 18 Blood Pressure 132/67 Pulse Oximetry 100 03/19/25 20:00 03/19/25 20:15 03/20/25 00:00 Temperature 96.4 F L Pulse Rate 70 62 63 Respiratory Rate 16 Blood Pressure 142/60 H Pulse Oximetry 99 03/20/25 04:00 03/20/25 04:55 Temperature 98.2 F Pulse Rate 72 70 Respiratory Rate 16 Blood Pressure 124/54 L Pulse Oximetry 98 Intake/Output Intake/Output: Intake & Output 03/17/25 03/18/25 03/19/25 03/20/25 23:59 23:59 23:59 23:59 Intake Total 9061 5370 1247.9 Balance 3898 5370 1247.9 Meds/Results Medications: Active Medications Generic Name Dose Route Start Last Admin Trade Name Freq PRN Reason Stop Dose Admin Amlodipine Besylate 5 mg 03/18/25 09:00 03/19/25 09:06 Amlodipine Besylate 5 Mg Tablet PO 5 mg DAILY DELANO Administration Bupropion HCl 150 mg 03/18/25 09:00 03/19/25 09:06 Bupropion Hcl Xl (24 Hr) 150 Mg Tabcr PO 150 mg QAM DEALNO Administration Calcitonin [place] 280 units 03/18/25 09:00 03/19/25 21:04 Calcitonin [place] Inj 400 Units/2 Ml Vial SUB-Q 03/20/25 21:01 280 units Q12H DELANO Administration Cyanocobalamin 1,000 mcg 03/20/25 09:00 Cyanocobalamin 1,000 Mcg Tablet PO QAM DELANO Dextrose 12.5 gm 03/18/25 04:19 Dextrose 50% 25 Gm/50 Ml Syringe IV PUSH PRN PRN Hypoglycemia Protocol Escitalopram Oxalate 10 mg 03/18/25 09:00 03/19/25 09:06 Escitalopram Oxalate 10 Mg Tablet PO 10 mg DAILY DELANO Administration Glucagon 1 mg 03/18/25 04:19 Glucagon For Inj 1 Mg Vial IM PRN PRN Hypoglycemia Protocol Glucose 15 gm 03/18/25 04:19 Glucose Oral Gel 15 Gm Of Glucse In 37.5 Gm Tube PO PRN PRN Hypoglycemia Protocol Heparin Sodium (Porcine) 5,000 units 03/18/25 21:00 03/19/25 21:04 Heparin Sodium 5,000 Units/Ml Vial SUB-Q 5,000 units Q12HR DELANO Administration Sodium Chloride 1,000 mls @ 125 mls/hr 03/17/25 23:05 03/20/25 05:06 Normal Saline Iv IV CONT 125 mls/hr .Q8H DELANO Administration Dextrose 1,000 mls @ 100 mls/hr 03/18/25 04:19 Dextrose 5% 1,000 Ml IVPB PRN PRN Hypoglycemia Protocol Insulin Aspart 2 - 5 units 03/18/25 08:00 03/19/25 17:30 Insulin Aspart (*Bkc) 100 Units/Ml SUB-Q Not Given TIDWM DELANO Protocol Insulin Aspart 3 units 03/18/25 17:00 03/19/25 18:39 Insulin Aspart (*Bkc) 100 Units/Ml SUB-Q 3 units TIDWM DELANO Administration Insulin Glargine 8 units 03/19/25 09:00 03/19/25 09:04 Insulin Glargine (*Bkc) 100 Units/Ml SUB-Q 8 units DAILY DELANO Administration Rosuvastatin Calcium 10 mg 03/18/25 09:00 03/19/25 09:06 Rosuvastatin 10 Mg Tablet PO 10 mg DAILY DELANO Administration Solifenacin 5 mg 03/18/25 09:00 03/19/25 09:06 Solifenacin 5 Mg Tablet PO 5 mg DAILY DELANO Administration Radiology Results: ITS Impressions Abdomen/Pelvis CT 03/19/25 23:42 IMPRESSION: Increase in size right ovarian mass compared with 2023 examinations for which a right ovarian malignancy is suspected. Small left perirenal hematoma post biopsy, likely of no clinical significance. Labs Labs: Laboratory Results - last 24 hr 03/17/25 03/19/25 03/19/25 22:20 06:45 07:33 WBC 6.3 RBC 3.91 L Hgb 10.9 L Hct 33.7 L MCV 86.2 MCH 27.9 MCHC 32.3 RDW 13.7 Plt Count 226 MPV 11.0 H Immature Gran % (Auto) 0.3 Neut % (Auto) 70.4 Lymph % (Auto) 14.6 L [place] % (Auto) 9.2 H Eos % (Auto) 4.5 H Baso % (Auto) 1.0 Lymph # (Auto) 0.92 [place] # (Auto) 0.6 Eos # (Auto) 0.3 Baso # (Auto) 0.1 Abs Immat Gran (auto) 0.02 Absolute Neuts (auto) 4.4 Absolute Nucleated RBC 0.000 Nucleated RBC % 0.0 Absolute Retic Percent Retic Immature Retic Fraction Retic Hgb Content Sodium 137 Potassium 3.7 Chloride 112 H Carbon Dioxide 17 L Anion Gap 8 BUN 31 H Creatinine 3.15 H Estim Creat Clear Calc 15 Estimated GFR 15 L Glucose 129 H POC Capillary Glucose 142 H Calcium 10.8 H Ionized Calcium Grzegorz 7.0 H* Phosphorus 3.1 Magnesium 2.0 Iron 47 TIBC 236 L % Saturation 20 Ferritin 113.00 Total Bilirubin 0.5 AST 24 ALT 19 Alkaline Phosphatase 106 Lactate Dehydrogenase Total Protein 6.5 Albumin 3.2 L Vitamin B12 188.0 L Vitamin D 25-Hydroxy 18.7 03/19/25 03/19/25 03/19/25 11:30 16:53 20:21 WBC RBC Hgb Hct MCV MCH MCHC RDW Plt Count MPV Immature Gran % (Auto) Neut % (Auto) Lymph % (Auto) [place] % (Auto) Eos % (Auto) Baso % (Auto) Lymph # (Auto) [place] # (Auto) Eos # (Auto) Baso # (Auto) Abs Immat Gran (auto) Absolute Neuts (auto) Absolute Nucleated RBC Nucleated RBC % Absolute Retic Percent Retic Immature Retic Fraction Retic Hgb Content Sodium Potassium Chloride Carbon Dioxide Anion Gap BUN Creatinine Estim Creat Clear Calc Estimated GFR Glucose POC Capillary Glucose 96 84 123 H Calcium Ionized Calcium [place] Phosphorus Magnesium Iron TIBC % Saturation Ferritin Total Bilirubin AST ALT Alkaline Phosphatase Lactate Dehydrogenase Total Protein Albumin Vitamin B12 Vitamin D 25-Hydroxy 03/20/25 06:15 WBC 5.7 RBC 3.92 L Hgb 11.0 L Hct 33.6 L MCV 85.7 MCH 28.1 MCHC 32.7 RDW 13.8 Plt Count 222 MPV 10.8 H Immature Gran % (Auto) 0.7 H Neut % (Auto) 73.3 H Lymph % (Auto) 11.9 L [place] % (Auto) 9.4 H Eos % (Auto) 3.8 Baso % (Auto) 0.9 Lymph # (Auto) 0.68 L [place] # (Auto) 0.5 Eos # (Auto) 0.2 Baso # (Auto) 0.1 Abs Immat Gran (auto) 0.04 H Absolute Neuts (auto) 4.2 Absolute Nucleated RBC 0.000 Nucleated RBC % 0.0 Absolute Retic 0.05 Percent Retic 1.27 Immature Retic Fraction 8.1 Retic Hgb Content 31.9 Sodium 140 Potassium 3.5 Chloride 116 H Carbon Dioxide 16 L Anion Gap 8 BUN 25 H Creatinine 2.55 H Estim Creat Clear Calc 18 Estimated GFR 19 L Glucose 118 H POC Capillary Glucose Calcium 9.7 Ionized Calcium [place] Phosphorus 2.4 L Magnesium 1.8 Iron TIBC % Saturation Ferritin Total Bilirubin 0.5 AST 23 ALT 19 Alkaline Phosphatase 105 Lactate Dehydrogenase 151 Total Protein 6.5 Albumin 3.1 L Vitamin B12 Vitamin D 25-Hydroxy Quality VTE Prophylaxis VTE prophylaxis: mechanical ordered Hospitalist MIPS Advance Care Plan I have confirmed that the patient's Advanced Care Plan is present, code status is documented, or surrogate decision maker is listed in patient medical record.: Yes Medication Reconciliation I have utilized all available resources to obtain, update and review the patients current medications (includes all prescriptions, OTC, herbals, cannabis, and nutritional supplements).: Yes
[2025-03-20 07:52] LABS: Vitamin B12. > 1000.0 pg/mL (239-931)
[2025-03-20 07:53] LABS: Glucose Point of Care 125 mg/dl (65-105)
[2025-03-20] MEDS: INSULIN ASPART (*BKC) 100 UNITS/ML SUB-Q ×3 (09:24→18:51)
[2025-03-20] MEDS: HEPARIN SODIUM 5,000 UNITS/ML VIAL 5000 UNITS SUB-Q ×2 (09:24→20:17)
[2025-03-20] MEDS: INSULIN GLARGINE (*BKC) 100 UNITS/ML 8 UNITS SUB-Q (09:24)
[2025-03-20] MEDS: CYANOCOBALAMIN 1,000 MCG TABLET 1000 MCG PO (09:25)
[2025-03-20] MEDS: MAGNESIUM OXIDE 200 MG TABLET PO (09:25)
[2025-03-20] MEDS: buPROPion HCL XL (24 HR) 150 MG TABCR PO (09:25)
[2025-03-20] MEDS: ESCITALOPRAM OXALATE 10 MG TABLET PO (09:25)
[2025-03-20] MEDS: amLODIPine BESYLATE 5 MG TABLET PO (09:25)
[2025-03-20] MEDS: SOLIFENACIN 5 MG TABLET PO (09:25)
[2025-03-20] MEDS: ROSUVASTATIN 10 MG TABLET PO (09:26)
--- NOTE | 2025-03-20 10:04 | P.PNNP_ITS ---
Progress Note: A&P Assessment and Plan (1) Acute kidney injury: Code(s): N17.9 - Acute kidney failure, unspecified Status: Acute Assessment and Plan: * worsening renal function/creatinine in the last month as noted by outpatient labs * creatinine 2.79mg/dl on 02/04 * up to 3.81mg/dl on 03/16 * 3.98mg/dl on admission * noted to be associated with hypercalcemia * renal ultrasound noted (03/16): * symmetric mild to moderate cortical atrophy at the right kidney and several parapelvic cysts in the left kidney. No hydronephrosis in either kidney * small irregular left perinephric fluid collection likely small amount of residual hematoma post left renal biopsy performed 12 days prior * 7.7 x 6.8 x 6.1 cm complex cystic lesion at the right adnexa which remains concerning for ovarian neoplasm either benign or malignant. she is getting this evaluated by [facility] * etiology unclear. consider prerenal factors (due to hypercalcemia and effect on ROM-K)? * u/s, biopsy multiple blood and urine tests unrevealing. * The patient is getting IV fluids. * Creatinine has improved. GFR is up to 19. * continue hydration and treating hypercalcemia (2) Stage 4 chronic kidney disease: Code(s): N18.4 - Chronic kidney disease, stage 4 (severe) Status: Chronic Assessment and Plan: * due to biopsy proven arterionephrosclerosis and diabetic nephropathy * 40% intersitital fibrosis and tubular atrophy * baseline creatinine was running ~ 1.7 - 2.2mg/dl since August 2024 * abrupt change noted in January 2025 (see #1) (3) Hypercalcemia: Code(s): E83.52 - Hypercalcemia Status: Acute Assessment and Plan: * etiology not entirely clear * was running in the mid 11ish range -- now up to 13.4!!! * extensive outpatient evaluation noted: * high urine calcium c/w high calcium input from the system (however neg bone scan and neg bone survey) so maybe just hyperabsorption from GI tract?) 1,25 vit d was high in spite of low 25 vit d so not sure what is the problem. some sort of granulomatous disease? * PTH low, PTHrp low, Vit A okay, ANDREW okay * bone scan negative * skeletal survey negative for lytic bone lesions * serum/urine immunofixation negative * PTHrp negative * Received calcitonin and pamidronate. * Getting IV fluids. * Calcium is now down to normal. * Check another calcium tomorrow. * CT abdomen pelvis shows that the pelvic mass is larger. Nothing else of clinical significance. (4) Anemia: Code(s): D64.9 - Anemia, unspecified Status: Acute Assessment and Plan: * presumably due to CKD * Hemoglobin is 11. No need for EPO. (5) HTN (hypertension): Qualifiers: Hypertension type: primary hypertension Qualified Code(s): I10 - Essential (primary) hypertension Code(s): I10 - Essential (primary) hypertension Status: Chronic Assessment and Plan: * Systolic 110-142. * continue home medications at the same dose * follow trend of hemodynamics (6) Diabetes: Qualifiers: Diabetes mellitus type: type 2 Diabetes mellitus director long term care insulin use: without director long term care use Diabetes mellitus complication status: without complication Qualified Code(s): E11.9 - Type 2 diabetes mellitus without complications Code(s): E11.9 - Type 2 diabetes mellitus without complications Status: Chronic Assessment and Plan: * follow accu-cheks * glycemic control per hospitalist (7) Metabolic acidosis: Code(s): E87.20 - Acidosis, unspecified Status: Acute Assessment and Plan: CO2 was low. Anion gap is normal. No diarrhea. I suspect that this is due to poor ammonia generation by her poorly functioning kidneys. Will give some bicarb in her IV fluids. Once IV fluids are off we can give her p.o. bicarb. Subjective Date/time seen: 03/20/25 10:04 Interval history: The patient is up and eating her breakfast. No chest pain or shortness of breath She has some reflux. She takes Pepcid at home for this. Exam Narrative: WDWN in NAD skin no rash or subcu nodules head ncat lungs clear to auscultation cor reg no rub abd BS+ nontender and soft ext no edema. Objective Data Vital Signs Vital Signs: Vital Signs - 24 hr 03/19/25 14:00 03/19/25 16:03 03/19/25 20:00 Temperature 97.6 F Pulse Rate 59 L 57 L 70 Respiratory Rate 18 Blood Pressure 132/67 Pulse Oximetry 100 03/19/25 20:15 03/20/25 00:00 03/20/25 04:00 Temperature 96.4 F L Pulse Rate 62 63 72 Respiratory Rate 16 Blood Pressure 142/60 H Pulse Oximetry 99 03/20/25 04:55 Temperature 98.2 F Pulse Rate 70 Respiratory Rate 16 Blood Pressure 124/54 L Pulse Oximetry 98 Intake/Output Intake/Output: Intake & Output 03/17/25 03/18/25 03/19/25 03/20/25 23:59 23:59 23:59 23:59 Intake Total 3898 5370 1727.9 Balance 3898 5370 1727.9 Meds/Results Medications: Active Medications Generic Name Dose Route Start Last Admin Trade Name Freq PRN Reason Stop Dose Admin Amlodipine Besylate 5 mg 03/18/25 09:00 03/20/25 09:25 Amlodipine Besylate 5 Mg Tablet PO 5 mg DAILY DELANO Administration Bupropion HCl 150 mg 03/18/25 09:00 03/20/25 09:25 Bupropion Hcl Xl (24 Hr) 150 Mg Tabcr PO 150 mg QAM DELANO Administration Calcitonin [place] 280 units 03/18/25 09:00 03/19/25 21:04 Calcitonin [place] Inj 400 Units/2 Ml Vial SUB-Q 03/20/25 21:01 280 units Q12H DELANO Administration Cyanocobalamin 1,000 mcg 03/20/25 09:00 03/20/25 09:25 Cyanocobalamin 1,000 Mcg Tablet PO 1,000 mcg QAM DELANO Administration Dextrose 12.5 gm 03/18/25 04:19 Dextrose 50% 25 Gm/50 Ml Syringe IV PUSH PRN PRN Hypoglycemia Protocol Escitalopram Oxalate 10 mg 03/18/25 09:00 03/20/25 09:25 Escitalopram Oxalate 10 Mg Tablet PO 10 mg DAILY DELANO Administration Glucagon 1 mg 03/18/25 04:19 Glucagon For Inj 1 Mg Vial IM PRN PRN Hypoglycemia Protocol Glucose 15 gm 03/18/25 04:19 Glucose Oral Gel 15 Gm Of Glucse In 37.5 Gm Tube PO PRN PRN Hypoglycemia Protocol Heparin Sodium (Porcine) 5,000 units 03/18/25 21:00 03/20/25 09:24 Heparin Sodium 5,000 Units/Ml Vial SUB-Q 5,000 units Q12HR DELANO Administration Sodium Chloride 1,000 mls @ 125 mls/hr 03/17/25 23:05 03/20/25 05:06 Normal Saline Iv IV CONT 125 mls/hr .Q8H DELANO Administration Dextrose 1,000 mls @ 100 mls/hr 03/18/25 04:19 Dextrose 5% 1,000 Ml IVPB PRN PRN Hypoglycemia Protocol Insulin Aspart 2 - 5 units 03/18/25 08:00 03/20/25 07:58 Insulin Aspart (*Bkc) 100 Units/Ml SUB-Q Not Given TIDWM DELANO Protocol Insulin Aspart 3 units 03/18/25 17:00 03/20/25 09:24 Insulin Aspart (*Bkc) 100 Units/Ml SUB-Q 3 units TIDWM DELANO Administration Insulin Glargine 8 units 03/19/25 09:00 03/20/25 09:24 Insulin Glargine (*Bkc) 100 Units/Ml SUB-Q 8 units DAILY DELANO Administration Rosuvastatin Calcium 10 mg 03/18/25 09:00 03/20/25 09:26 Rosuvastatin 10 Mg Tablet PO 10 mg DAILY DELANO Administration Solifenacin 5 mg 03/18/25 09:00 03/20/25 09:25 Solifenacin 5 Mg Tablet PO 5 mg DAILY DELANO Administration Radiology Results: ITS Impressions Abdomen/Pelvis CT 03/19/25 23:42 IMPRESSION: Increase in size right ovarian mass compared with 2023 examinations for which a right ovarian malignancy is suspected. Small left perirenal hematoma post biopsy, likely of no clinical significance. Labs Labs: Laboratory Results - last 24 hr 03/17/25 03/19/25 03/19/25 22:20 11:30 16:53 WBC RBC Hgb Hct MCV MCH MCHC RDW Plt Count MPV Immature Gran % (Auto) Neut % (Auto) Lymph % (Auto) [place] % (Auto) Eos % (Auto) Baso % (Auto) Lymph # (Auto) [place] # (Auto) Eos # (Auto) Baso # (Auto) Abs Immat Gran (auto) Absolute Neuts (auto) Absolute Nucleated RBC Nucleated RBC % Absolute Retic Percent Retic Immature Retic Fraction Retic Hgb Content Sodium Potassium Chloride Carbon Dioxide Anion Gap BUN Creatinine Estim Creat Clear Calc Estimated GFR Glucose POC Capillary Glucose 96 84 Calcium Ionized Calcium Grzegorz 7.0 H* Phosphorus Magnesium Total Bilirubin AST ALT Alkaline Phosphatase Lactate Dehydrogenase Total Protein Albumin Vitamin B12 03/19/25 03/20/25 03/20/25 20:21 06:15 07:49 WBC 5.7 RBC 3.92 L Hgb 11.0 L Hct 33.6 L MCV 85.7 MCH 28.1 MCHC 32.7 RDW 13.8 Plt Count 222 MPV 10.8 H Immature Gran % (Auto) 0.7 H Neut % (Auto) 73.3 H Lymph % (Auto) 11.9 L [place] % (Auto) 9.4 H Eos % (Auto) 3.8 Baso % (Auto) 0.9 Lymph # (Auto) 0.68 L [place] # (Auto) 0.5 Eos # (Auto) 0.2 Baso # (Auto) 0.1 Abs Immat Gran (auto) 0.04 H Absolute Neuts (auto) 4.2 Absolute Nucleated RBC 0.000 Nucleated RBC % 0.0 Absolute Retic 0.05 Percent Retic 1.27 Immature Retic Fraction 8.1 Retic Hgb Content 31.9 Sodium 140 Potassium 3.5 Chloride 116 H Carbon Dioxide 16 L Anion Gap 8 BUN 25 H Creatinine 2.55 H Estim Creat Clear Calc 18 Estimated GFR 19 L Glucose 118 H POC Capillary Glucose 123 H 125 H Calcium 9.7 Ionized Calcium Grzegorz Phosphorus 2.4 L Magnesium 1.8 Total Bilirubin 0.5 AST 23 ALT 19 Alkaline Phosphatase 105 Lactate Dehydrogenase 151 Total Protein 6.5 Albumin 3.1 L Vitamin B12 > 1000.0 H
[2025-03-20] MEDS: CALCITONIN SALMON INJ 400 UNITS/2 ML VIAL 280 UNITS SUB-Q ×2 (10:59→20:17)
[2025-03-20 12:00] LABS: Glucose Point of Care 128 mg/dl (65-105)
[2025-03-20] MEDS: SODIUM BICARBONATE 8.4% 100 MEQ in WATER, STERILE FOR INJECTION 1,000 ML 75 MEQ IV CONT (12:25)
[2025-03-20 13:51] LABS: Anion Gap 9 mmol/L (4-12); Blood Urea Nitrogen 24 mg/dL (7-17); Calcium 10.1 mg/dL (8.4-10.2); Carbon Dioxide 15 mmol/L (22-30); Chloride 114 mmol/L (98-107); Estimated CRCL calculation 19 ml/min; Estimated Glomerular Filt Rate 20; Glucose 119 mg/dL (65-110); Phosphorus 2.4 mg/dL (2.5-4.5); Potassium 3.5 mmol/L (3.4-5.0); Sodium 138 mmol/L (137-145)
[2025-03-20 17:02] LABS: Glucose Point of Care 94 mg/dl (65-105)
[2025-03-20] MEDS: POTASSIUM PHOS/SODIUM PHOS 250 MG TABLET PO (18:50)
[2025-03-20 21:34] LABS: Glucose Point of Care 94 mg/dl (65-105)
[2025-03-21] VITALS (9 sets, daily range): BP systolic 119–135; BP diastolic 55–61; PULSE 64–71; RESP 16–18; TEMP 36.1–36.6; O2SAT 97–99
[2025-03-21] MEDS: SODIUM BICARBONATE 8.4% 100 MEQ in WATER, STERILE FOR INJECTION 1,000 ML 75 MEQ IV CONT ×2 (01:11→15:00)
[2025-03-21 07:02] LABS: Basophils Absolute Auto 0.1 K/mm3 (0.0-0.1); Basophils Percent Auto 0.9 % (0.2-1.2); Eosinophils Absolute Auto 0.2 K/mm3 (0-0.3); Hematocrit 33.6 % (37.0-47.0); Hemoglobin 11.1 g/dL (12.0-15.0); Immature Granulocyte Absolute 0.03 K/mm3 (0.00-0.031); Immature Granulocyte Percent A 0.5 % (0-0.5); Lymphocytes Absolute Auto 0.74 K/mm3 (0.9-3.2); Mean Corpuscular Hemoglobin 28.1 pg (26-34); Mean Corpuscular Volume 85.1 fl (80-100); Monocytes Absolute Auto 0.7 K/mm3 (0.1-0.6); Monocytes Percent Auto 12.3 % (2.6-8.5); Neutrophils Percent Auto 69.3 % (45.5-73.1); Platelet Count Result 235 k/mm3 (150-375); Red Blood Count 3.95 M/mm3 (4.2-5.4); Red Cell Distribution Width 13.7 % (11.5-14.5); White Blood Count 5.7 K/mm3 (4.5-10.0)
[2025-03-21 07:10] LABS: Alanine Aminotransferase 18 U/L (6-35); Albumin Level 3.2 g/dL (3.5-5.1); Alkaline Phosphatase 111 U/L (38-126); Anion Gap 9 mmol/L (4-12); Aspartate Amino Transferase 24 U/L (14-36); Bilirubin,Total 0.6 mg/dL (0.2-1.3); Blood Urea Nitrogen 22 mg/dL (7-17); Calcium 9.4 mg/dL (8.4-10.2); Carbon Dioxide 18 mmol/L (22-30); Chloride 109 mmol/L (98-107); Estimated CRCL calculation 19 ml/min; Estimated Glomerular Filt Rate 21; Glucose 130 mg/dL (65-110); Magnesium 1.8 mg/dL (1.6-2.3); Phosphorus 2.9 mg/dL (2.5-4.5); Sodium 136 mmol/L (137-145); Total Protein 6.5 g/dL (6.3-8.2)
[2025-03-21 08:20] LABS: Glucose Point of Care 142 mg/dl (65-105)
--- NOTE | 2025-03-21 08:32 | P.PNNP_ITS ---
Progress Note: A&P Assessment and Plan (1) Acute kidney injury: Code(s): N17.9 - Acute kidney failure, unspecified Status: Acute Assessment and Plan: * worsening renal function/creatinine in the last month as noted by outpatient labs * creatinine 2.79mg/dl on 02/04 * up to 3.81mg/dl on 03/16 * 3.98mg/dl on admission * noted to be associated with hypercalcemia * renal ultrasound noted (03/16): * symmetric mild to moderate cortical atrophy at the right kidney and several parapelvic cysts in the left kidney. No hydronephrosis in either kidney * small irregular left perinephric fluid collection likely small amount of residual hematoma post left renal biopsy performed 12 days prior * 7.7 x 6.8 x 6.1 cm complex cystic lesion at the right adnexa which remains concerning for ovarian neoplasm either benign or malignant. she is getting this evaluated by [facility] [employer] [facility] * etiology unclear. consider prerenal factors (due to hypercalcemia and effect on ROM-K)? * u/s, biopsy multiple blood and urine tests unrevealing. * The patient is getting IV fluids. * Creatinine has improved. GFR is up to 21 today. * continue hydration and treating hypercalcemia * Continue IV fluids until GFR has reached a new plateau (2) Stage 4 chronic kidney disease: Code(s): N18.4 - Chronic kidney disease, stage 4 (severe) Status: Chronic Assessment and Plan: * due to biopsy proven arterionephrosclerosis and diabetic nephropathy * 40% intersitital fibrosis and tubular atrophy * baseline creatinine was running ~ 1.7 - 2.2mg/dl since August 2024 * abrupt change noted in January 2025 (see #1) (3) Hypercalcemia: Code(s): E83.52 - Hypercalcemia Status: Acute Assessment and Plan: * etiology not entirely clear * was running in the mid 11ish range -- now up to 13.4!!! * extensive outpatient evaluation noted: * high urine calcium c/w high calcium input from the system (however neg bone scan and neg bone survey) so maybe just hyperabsorption from GI tract?) 1,25 vit d was high in spite of low 25 vit d so not sure what is the problem. some sort of granulomatous disease? * PTH low, PTHrp low, Vit A okay, ANDREW okay * bone scan negative * skeletal survey negative for lytic bone lesions * serum/urine immunofixation negative * PTHrp negative * Received calcitonin and pamidronate. * Getting IV fluids. * Calcium is now down to normal. * Check another calcium tomorrow. * CT abdomen pelvis shows that the pelvic mass is larger. Nothing else of clinical significance. (4) Anemia: Code(s): D64.9 - Anemia, unspecified Status: Acute Assessment and Plan: * presumably due to CKD * Hemoglobin is 11. No need for EPO. (5) HTN (hypertension): Qualifiers: Hypertension type: primary hypertension Qualified Code(s): I10 - Essential (primary) hypertension Code(s): I10 - Essential (primary) hypertension Status: Chronic Assessment and Plan: * Systolic 110-142. * continue home medications at the same dose * follow trend of hemodynamics (6) Diabetes: Qualifiers: Diabetes mellitus type: type 2 Diabetes mellitus chcf insulin use: without chcf use Diabetes mellitus complication status: without complication Qualified Code(s): E11.9 - Type 2 diabetes mellitus without complications Code(s): E11.9 - Type 2 diabetes mellitus without complications Status: Chronic Assessment and Plan: * follow accu-cheks * glycemic control per hospitalist (7) Metabolic acidosis: Code(s): E87.20 - Acidosis, unspecified Status: Acute Assessment and Plan: CO2 was low. Anion gap is normal. No diarrhea. I suspect that this is due to poor ammonia generation by her poorly functioning kidneys. getting some bicarb in the drip. CO2 has risen to 8 (8) Hypokalemia: Code(s): E87.6 - Hypokalemia Status: Acute Assessment and Plan: this is possibly due to giving the bicarb. Will give some potassium supplements Subjective Date/time seen: 03/21/25 08:32 Interval history: patient feels okay. Alert and oriented. Eating well. I encouraged her to walk in the halls Exam Narrative: WDWN female in NAD skin no rash or subcu nodules head ncat lungs clear bilaterally cor reg no rub abd BS+ nontender and soft ext no edema or cyanosis Objective Data Vital Signs Vital Signs: Vital Signs - 24 hr 03/20/25 14:00 03/20/25 20:00 03/20/25 20:35 Temperature 97.9 F 97.5 F L Pulse Rate 67 77 71 Respiratory Rate 16 16 Blood Pressure 145/70 H 148/64 H Pulse Oximetry 100 100 Oxygen Delivery 03/20/25 21:09 03/21/25 00:00 03/21/25 04:00 Temperature Pulse Rate 71 66 Respiratory Rate Blood Pressure Pulse Oximetry 100 Oxygen Delivery Room Air 03/21/25 05:05 Temperature 96.9 F L Pulse Rate 66 Respiratory Rate 16 Blood Pressure 119/55 L Pulse Oximetry 99 Oxygen Delivery Intake/Output Intake/Output: Intake & Output 03/18/25 03/19/25 03/20/25 03/21/25 23:59 23:59 23:59 23:59 Intake Total 3898 5370 3181.2 1375.5 Balance 3898 5370 3181.2 1375.5 Meds/Results Medications: Active Medications Generic Name Dose Route Start Last Admin Trade Name Freq PRN Reason Stop Dose Admin Amlodipine Besylate 5 mg 03/18/25 09:00 03/20/25 09:25 Amlodipine Besylate 5 Mg Tablet PO 5 mg DAILY DELANO Administration Aspirin 81 mg 03/21/25 09:00 Aspirin 81 Mg Enteric Tablet PO QAM DELANO Bupropion HCl 150 mg 03/18/25 09:00 03/20/25 09:25 Bupropion Hcl Xl (24 Hr) 150 Mg Tabcr PO 150 mg QAM DELANO Administration Cyanocobalamin 1,000 mcg 03/20/25 09:00 03/20/25 09:25 Cyanocobalamin 1,000 Mcg Tablet PO 1,000 mcg QAM DELANO Administration Dextrose 12.5 gm 03/18/25 04:19 Dextrose 50% 25 Gm/50 Ml Syringe IV PUSH PRN PRN Hypoglycemia Protocol Escitalopram Oxalate 10 mg 03/18/25 09:00 03/20/25 09:25 Escitalopram Oxalate 10 Mg Tablet PO 10 mg DAILY DELANO Administration Famotidine 20 mg 03/21/25 09:00 Famotidine 20 Mg Tablet PO DAILY DELANO Glucagon 1 mg 03/18/25 04:19 Glucagon For Inj 1 Mg Vial IM PRN PRN Hypoglycemia Protocol Glucose 15 gm 03/18/25 04:19 Glucose Oral Gel 15 Gm Of Glucse In 37.5 Gm Tube PO PRN PRN Hypoglycemia Protocol Heparin Sodium (Porcine) 5,000 units 03/18/25 21:00 03/20/25 20:17 Heparin Sodium 5,000 Units/Ml Vial SUB-Q 5,000 units Q12HR DELANO Administration Dextrose 1,000 mls @ 100 mls/hr 03/18/25 04:19 Dextrose 5% 1,000 Ml IVPB PRN PRN Hypoglycemia Protocol Sodium Bicarbonate 100 meq/ 1,100 mls @ 75 mls/hr 03/20/25 11:00 03/21/25 01:11 Sterile Water IV CONT 75 mls/hr .[id number] DELANO Administration Insulin Aspart 2 - 5 units 03/18/25 08:00 03/21/25 08:23 Insulin Aspart (*Bkc) 100 Units/Ml SUB-Q Not Given TIDWM DELANO Protocol Insulin Aspart 3 units 03/18/25 17:00 03/20/25 18:51 Insulin Aspart (*Bkc) 100 Units/Ml SUB-Q 3 units TIDWM DELANO Administration Insulin Glargine 8 units 03/19/25 09:00 03/20/25 09:24 Insulin Glargine (*Bkc) 100 Units/Ml SUB-Q 8 units DAILY DELANO Administration Rosuvastatin Calcium 10 mg 03/18/25 09:00 03/20/25 09:26 Rosuvastatin 10 Mg Tablet PO 10 mg DAILY DELANO Administration Solifenacin 5 mg 03/18/25 09:00 03/20/25 09:25 Solifenacin 5 Mg Tablet PO 5 mg DAILY DELANO Administration Radiology Results: ITS Impressions Abdomen/Pelvis CT 03/19/25 23:42 IMPRESSION: Increase in size right ovarian mass compared with 2023 examinations for which a right ovarian malignancy is suspected. Small left perirenal hematoma post biopsy, likely of no clinical significance. Labs Labs: Laboratory Results - last 24 hr 03/20/25 03/20/25 03/20/25 11:33 13:29 16:55 WBC RBC Hgb Hct MCV MCH MCHC RDW Plt Count MPV Immature Gran % (Auto) Neut % (Auto) Lymph % (Auto) [place] % (Auto) Eos % (Auto) Baso % (Auto) Lymph # (Auto) [place] # (Auto) Eos # (Auto) Baso # (Auto) Abs Immat Gran (auto) Absolute Neuts (auto) Absolute Nucleated RBC Nucleated RBC % Sodium 138 Potassium 3.5 Chloride 114 H Carbon Dioxide 15 L Anion Gap 9 BUN 24 H Creatinine 2.43 H Estim Creat Clear Calc 19 Estimated GFR 20 L Glucose 119 H POC Capillary Glucose 128 H 94 Calcium 10.1 Phosphorus 2.4 L Magnesium Total Bilirubin AST ALT Alkaline Phosphatase Total Protein Albumin 03/20/25 03/21/25 03/21/25 20:36 06:13 08:00 WBC 5.7 RBC 3.95 L Hgb 11.1 L Hct 33.6 L MCV 85.1 MCH 28.1 MCHC 33.0 RDW 13.7 Plt Count 235 MPV 11.0 H Immature Gran % (Auto) 0.5 Neut % (Auto) 69.3 Lymph % (Auto) 13.0 L [place] % (Auto) 12.3 H Eos % (Auto) 4.0 Baso % (Auto) 0.9 Lymph # (Auto) 0.74 L [place] # (Auto) 0.7 H Eos # (Auto) 0.2 Baso # (Auto) 0.1 Abs Immat Gran (auto) 0.03 Absolute Neuts (auto) 4.0 Absolute Nucleated RBC 0.000 Nucleated RBC % 0.0 Sodium 136 L Potassium 3.0 L Chloride 109 H Carbon Dioxide 18 L Anion Gap 9 BUN 22 H Creatinine 2.34 H Estim Creat Clear Calc 19 Estimated GFR 21 L Glucose 130 H POC Capillary Glucose 94 142 H Calcium 9.4 Phosphorus 2.9 Magnesium 1.8 Total Bilirubin 0.6 AST 24 ALT 18 Alkaline Phosphatase 111 Total Protein 6.5 Albumin 3.2 L
--- NOTE | 2025-03-21 09:15 | PM.IMPN ---
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 Wearing a CGM. High risk medication use, requires insulin Splitting basal/bolus in case of procedures --Lantus 8, Lispro 3 TID & SSI. Blood sugars controlled -- accuchecks QID (2) ANTONI (acute kidney injury): Code(s): N17.9 - Acute kidney failure, unspecified Status: Acute Assessment and Plan: ANTONI on CKD. Follows with Dr. Leonard outpatient. Hx kidney stones, uric acid stones. HTN and diabetes. Creatinine 3.98, trending down with fluids to 2.43>2.34 Renal biopsy done on 03/10/25 that showed Glomerulosclerosis, Class IV. arterionephrosclerosis and diabetic nephropathy. --Bicarb drip started for metabolic acidosis (3) Hypercalcemia: Code(s): E83.52 - Hypercalcemia Status: Acute Assessment and Plan: Recent PTH 02/04/25 11. Vitamin D elevated, 83. PTHrH <2 Calcium 13.4, trending down 12.2>11.9>10.8 --Continue fluids -- Monitor on tele --Continue calcitriol --Following BMP --Gave 250mg phos for phos 2.4 03/20 normalized today (4) Hx of completed stroke: Code(s): Z86.73 - Personal history of transient ischemic attack (TIA), and cerebral infarction without residual deficits Status: Acute Assessment and Plan: Mild residual left leg weakness --Has not been on plavix recently --Started ASA 81mg daily --Continue statin (5) Anemia: Code(s): D64.9 - Anemia, unspecified Status: Acute Assessment and Plan: H&H 11.7/36. Bili normal. B12 318 earlier this year --Check iron panel, ferritin -Check LDH, retic, b12 (6) Ovarian mass: Code(s): N83.8 - Other noninflammatory disorders of ovary, fallopian tube and broad ligament Status: Acute Assessment and Plan: Planning hysterectomy for ovarian mass after discharge (7) Hypokalemia: Code(s): E87.6 - Hypokalemia Status: Acute Assessment and Plan: Potassium 3.0 40meq this morning and repeat 3.5 this afternoon. additional 20meq --Repeat BMP in AM Plan Also had peripheral eosinophilia--resolved. Time Spent With Patient Time: 47 minutes Subjective Date/time seen: 03/21/25 13:10 Interval history: Potassium 3.0 40meq ordered by renal this morning. Phos normalized. Calcium improved. Had a BM Overall feeling well. No shortness of breath or other symptoms Exam Narrative: General - Awake and alert. No acute distress Eyes - PERRLA, EOM intact ENT - No thrush, No erythema Neck - No noticeable or palpable swelling Lymph Nodes - No lymphadenopathy Cardiovascular - RRR no m/r/g, no JVD Lungs: Clear to auscultation, No wheezing, use of accessory muscles, no crackles Skin - Skin warm and dry, no wounds or rashes Abdomen - Normal bowel sounds, abdomen soft and nontender Extremities - No edema, cyanosis or clubbing Musculoskeletal - 5/5 strength, normal range of motion, no swollen or erythematous joints. Neurological ? Alert and oriented x 3, CN 2-12 grossly intact. Psych: Normal mood and affect Objective Data Vital Signs Vital Signs: Vital Signs - 24 hr 03/20/25 14:00 03/20/25 20:00 03/20/25 20:35 Temperature 97.9 F 97.5 F L Pulse Rate 67 77 71 Respiratory Rate 16 16 Blood Pressure 145/70 H 148/64 H Pulse Oximetry 100 100 Oxygen Delivery 03/20/25 21:09 03/21/25 00:00 03/21/25 04:00 Temperature Pulse Rate 71 66 Respiratory Rate Blood Pressure Pulse Oximetry 100 Oxygen Delivery Room Air 03/21/25 05:05 Temperature 96.9 F L Pulse Rate 66 Respiratory Rate 16 Blood Pressure 119/55 L Pulse Oximetry 99 Oxygen Delivery Intake/Output Intake/Output: Intake & Output 03/18/25 03/19/25 03/20/25 03/21/25 23:59 23:59 23:59 23:59 Intake Total 3898 5370 3181.2 1375.5 Balance 3898 5370 3181.2 1375.5 Meds/Results Medications: Active Medications Generic Name Dose Route Start Last Admin Trade Name Freq PRN Reason Stop Dose Admin Amlodipine Besylate 5 mg 03/18/25 09:00 03/20/25 09:25 Amlodipine Besylate 5 Mg Tablet PO 5 mg DAILY DELANO Administration Aspirin 81 mg 03/21/25 09:00 Aspirin 81 Mg Enteric Tablet PO QAM DELANO Bupropion HCl 150 mg 03/18/25 09:00 03/20/25 09:25 Bupropion Hcl Xl (24 Hr) 150 Mg Tabcr PO 150 mg QAM DELANO Administration Cyanocobalamin 1,000 mcg 03/20/25 09:00 03/20/25 09:25 Cyanocobalamin 1,000 Mcg Tablet PO 1,000 mcg QAM DELANO Administration Dextrose 12.5 gm 03/18/25 04:19 Dextrose 50% 25 Gm/50 Ml Syringe IV PUSH PRN PRN Hypoglycemia Protocol Escitalopram Oxalate 10 mg 03/18/25 09:00 03/20/25 09:25 Escitalopram Oxalate 10 Mg Tablet PO 10 mg DAILY DELANO Administration Famotidine 20 mg 03/21/25 09:00 Famotidine 20 Mg Tablet PO DAILY DELANO Glucagon 1 mg 03/18/25 04:19 Glucagon For Inj 1 Mg Vial IM PRN PRN Hypoglycemia Protocol Glucose 15 gm 03/18/25 04:19 Glucose Oral Gel 15 Gm Of Glucse In 37.5 Gm Tube PO PRN PRN Hypoglycemia Protocol Heparin Sodium (Porcine) 5,000 units 03/18/25 21:00 03/20/25 20:17 Heparin Sodium 5,000 Units/Ml Vial SUB-Q 5,000 units Q12HR DELANO Administration Dextrose 1,000 mls @ 100 mls/hr 03/18/25 04:19 Dextrose 5% 1,000 Ml IVPB PRN PRN Hypoglycemia Protocol Sodium Bicarbonate 100 meq/ 1,100 mls @ 75 mls/hr 03/20/25 11:00 03/21/25 01:11 Sterile Water IV CONT 75 mls/hr .[id number] DELANO Administration Insulin Aspart 2 - 5 units 03/18/25 08:00 03/21/25 08:23 Insulin Aspart (*Bkc) 100 Units/Ml SUB-Q Not Given TIDWM [facility] Protocol Insulin Aspart 3 units 03/18/25 17:00 03/20/25 18:51 Insulin Aspart (*Bkc) 100 Units/Ml SUB-Q 3 units TIDWM DELANO Administration Insulin Glargine 8 units 03/19/25 09:00 03/20/25 09:24 Insulin Glargine (*Bkc) 100 Units/Ml SUB-Q 8 units DAILY DELANO Administration Rosuvastatin Calcium 10 mg 03/18/25 09:00 03/20/25 09:26 Rosuvastatin 10 Mg Tablet PO 10 mg DAILY DELANO Administration Solifenacin 5 mg 03/18/25 09:00 03/20/25 09:25 Solifenacin 5 Mg Tablet PO 5 mg DAILY DELANO Administration Radiology Results: ITS Impressions Abdomen/Pelvis CT 03/19/25 23:42 IMPRESSION: Increase in size right ovarian mass compared with 2023 examinations for which a right ovarian malignancy is suspected. Small left perirenal hematoma post biopsy, likely of no clinical significance. Labs Labs: Laboratory Results - last 24 hr 03/20/25 03/20/25 03/20/25 11:33 13:29 16:55 WBC RBC Hgb Hct MCV MCH MCHC RDW Plt Count MPV Immature Gran % (Auto) Neut % (Auto) Lymph % (Auto) [place] % (Auto) Eos % (Auto) Baso % (Auto) Lymph # (Auto) [place] # (Auto) Eos # (Auto) Baso # (Auto) Abs Immat Gran (auto) Absolute Neuts (auto) Absolute Nucleated RBC Nucleated RBC % Sodium 138 Potassium 3.5 Chloride 114 H Carbon Dioxide 15 L Anion Gap 9 BUN 24 H Creatinine 2.43 H Estim Creat Clear Calc 19 Estimated GFR 20 L Glucose 119 H POC Capillary Glucose 128 H 94 Calcium 10.1 Phosphorus 2.4 L Magnesium Total Bilirubin AST ALT Alkaline Phosphatase Total Protein Albumin 03/20/25 03/21/25 03/21/25 20:36 06:13 08:00 WBC 5.7 RBC 3.95 L Hgb 11.1 L Hct 33.6 L MCV 85.1 MCH 28.1 MCHC 33.0 RDW 13.7 Plt Count 235 MPV 11.0 H Immature Gran % (Auto) 0.5 Neut % (Auto) 69.3 Lymph % (Auto) 13.0 L [place] % (Auto) 12.3 H Eos % (Auto) 4.0 Baso % (Auto) 0.9 Lymph # (Auto) 0.74 L [place] # (Auto) 0.7 H Eos # (Auto) 0.2 Baso # (Auto) 0.1 Abs Immat Gran (auto) 0.03 Absolute Neuts (auto) 4.0 Absolute Nucleated RBC 0.000 Nucleated RBC % 0.0 Sodium 136 L Potassium 3.0 L Chloride 109 H Carbon Dioxide 18 L Anion Gap 9 BUN 22 H Creatinine 2.34 H Estim Creat Clear Calc 19 Estimated GFR 21 L Glucose 130 H POC Capillary Glucose 94 142 H Calcium 9.4 Phosphorus 2.9 Magnesium 1.8 Total Bilirubin 0.6 AST 24 ALT 18 Alkaline Phosphatase 111 Total Protein 6.5 Albumin 3.2 L Quality VTE Prophylaxis VTE prophylaxis: mechanical ordered Hospitalist [facility] Advance Care Plan I have confirmed that the patient's Advanced Care Plan is present, code status is documented, or surrogate decision maker is listed in patient medical record.: Yes Medication Reconciliation I have utilized all available resources to obtain, update and review the patients current medications (includes all prescriptions, OTC, herbals, cannabis, and nutritional supplements).: Yes
[2025-03-21] MEDS: CYANOCOBALAMIN 1,000 MCG TABLET 1000 MCG PO (09:29)
[2025-03-21] MEDS: amLODIPine BESYLATE 5 MG TABLET PO (09:29)
[2025-03-21] MEDS: ESCITALOPRAM OXALATE 10 MG TABLET PO (09:29)
[2025-03-21] MEDS: buPROPion HCL XL (24 HR) 150 MG TABCR PO (09:29)
[2025-03-21] MEDS: FAMOTIDINE 20 MG TABLET PO (09:29)
[2025-03-21] MEDS: HEPARIN SODIUM 5,000 UNITS/ML VIAL 5000 UNITS SUB-Q ×2 (09:29→22:03)
[2025-03-21] MEDS: INSULIN ASPART (*BKC) 100 UNITS/ML SUB-Q ×3 (09:30→17:58)
[2025-03-21] MEDS: ASPIRIN 81 MG ENTERIC TABLET PO (09:30)
[2025-03-21] MEDS: SOLIFENACIN 5 MG TABLET PO (09:30)
[2025-03-21] MEDS: ROSUVASTATIN 10 MG TABLET PO (09:30)
[2025-03-21] MEDS: INSULIN GLARGINE (*BKC) 100 UNITS/ML 8 UNITS SUB-Q (09:30)
[2025-03-21] MEDS: POTASSIUM CHLORIDE 20 MEQ PACKET (FOR LIQUID) 40 MEQ PO (09:37)
[2025-03-21 11:32] LABS: Glucose Point of Care 177 mg/dl (65-105)
[2025-03-21 15:57] LABS: Potassium 3.5 mmol/L (3.4-5.0)
[2025-03-21 16:46] LABS: Glucose Point of Care 141 mg/dl (65-105)
[2025-03-21] MEDS: POTASSIUM CHLORIDE 20 MEQ ER TABLET PO (17:58)
[2025-03-21 20:46] LABS: Glucose Point of Care 171 mg/dl (65-105)
[2025-03-22] VITALS: PULSE 65
[2025-03-22 04:10] VITALS: BP 134/57; PULSE 69; RESP 18; TEMP 35.7; O2SAT 98
[2025-03-22] MEDS: SODIUM BICARBONATE 8.4% 100 MEQ in WATER, STERILE FOR INJECTION 1,000 ML 75 MEQ IV CONT (04:47)
[2025-03-22 05:58] LABS: Basophils Percent Auto 0.9 % (0.2-1.2); Eosinophils Absolute Auto 0.2 K/mm3 (0-0.3); Hematocrit 33.2 % (37.0-47.0); Immature Granulocyte Absolute 0.02 K/mm3 (0.00-0.031); Immature Granulocyte Percent A 0.4 % (0-0.5); Lymphocytes Percent Auto 17.5 % (18.3-44.2); Mean Corpuscular HGB Conc 33.1 g/dl (32-36); Mean Corpuscular Volume 84.5 fl (80-100); Mean Platelet Volume 10.6 fl (7.4-10.4); Monocytes Absolute Auto 0.5 K/mm3 (0.1-0.6); Monocytes Percent Auto 11.2 % (2.6-8.5); Platelet Count Result 226 k/mm3 (150-375); Red Blood Count 3.93 M/mm3 (4.2-5.4); Red Cell Distribution Width 13.8 % (11.5-14.5); White Blood Count 4.6 K/mm3 (4.5-10.0)
[2025-03-22 06:13] LABS: Alanine Aminotransferase 20 U/L (6-35); Albumin Level 3.4 g/dL (3.5-5.1); Alkaline Phosphatase 118 U/L (38-126); Anion Gap 10 mmol/L (4-12); Aspartate Amino Transferase 27 U/L (14-36); Bilirubin,Total 0.6 mg/dL (0.2-1.3); Blood Urea Nitrogen 22 mg/dL (7-17); Calcium 9.5 mg/dL (8.4-10.2); Carbon Dioxide 20 mmol/L (22-30); Chloride 108 mmol/L (98-107); Estimated CRCL calculation 19 ml/min; Estimated Glomerular Filt Rate 20; Glucose 120 mg/dL (65-110); Magnesium 1.8 mg/dL (1.6-2.3); Phosphorus 2.3 mg/dL (2.5-4.5); Potassium 3.5 mmol/L (3.4-5.0); Sodium 138 mmol/L (137-145); Total Protein 6.8 g/dL (6.3-8.2)
[2025-03-22 08:00] VITALS: PULSE 63
[2025-03-22 08:07] LABS: Glucose Point of Care 137 mg/dl (65-105)
[2025-03-22] MEDS: INSULIN ASPART (*BKC) 100 UNITS/ML SUB-Q ×3 (08:34→12:08)
[2025-03-22] MEDS: INSULIN GLARGINE (*BKC) 100 UNITS/ML 8 UNITS SUB-Q (08:34)
[2025-03-22] MEDS: ESCITALOPRAM OXALATE 10 MG TABLET PO (08:35)
[2025-03-22] MEDS: buPROPion HCL XL (24 HR) 150 MG TABCR PO (08:35)
[2025-03-22] MEDS: FAMOTIDINE 20 MG TABLET PO (08:35)
[2025-03-22] MEDS: amLODIPine BESYLATE 5 MG TABLET PO (08:35)
[2025-03-22] MEDS: CYANOCOBALAMIN 1,000 MCG TABLET 1000 MCG PO (08:35)
[2025-03-22] MEDS: ASPIRIN 81 MG ENTERIC TABLET PO (08:35)
[2025-03-22] MEDS: SOLIFENACIN 5 MG TABLET PO (08:35)
[2025-03-22] MEDS: HEPARIN SODIUM 5,000 UNITS/ML VIAL 5000 UNITS SUB-Q (08:38)
[2025-03-22] MEDS: ROSUVASTATIN 10 MG TABLET PO (08:39)
--- NOTE | 2025-03-22 11:17 | P.PNNP_ITS ---
Progress Note: A&P Assessment and Plan (1) Acute kidney injury: Code(s): N17.9 - Acute kidney failure, unspecified Status: Acute Assessment and Plan: * slow improvement noted... * worsening renal function/creatinine in the last month as noted by outpatient labs * creatinine 2.79mg/dl on 02/04/25 * up to 3.81mg/dl on 03/16 * 3.98mg/dl on admission * noted to be associated with hypercalcemia * renal ultrasound noted (03/16): * symmetric mild to moderate cortical atrophy at the right kidney and several parapelvic cysts in the left kidney. No hydronephrosis in either kidney * small irregular left perinephric fluid collection likely small amount of residual hematoma post left renal biopsy performed 12 days prior * 7.7 x 6.8 x 6.1 cm complex cystic lesion at the right adnexa which remains concerning for ovarian neoplasm either benign or malignant. she is getting this evaluated by [facility] * etiology unclear. consider prerenal factors (due to hypercalcemia and effect on ROM-K)? * extensive testing/imaging to date unrevealing... * improvement noted s/p IVFs and treatment of hypercalcemia (2) Stage 4 chronic kidney disease: Code(s): N18.4 - Chronic kidney disease, stage 4 (severe) Status: Chronic Assessment and Plan: * due to biopsy proven arterionephrosclerosis and diabetic nephropathy * 40% intersitital fibrosis and tubular atrophy * baseline creatinine was running ~ 1.7 - 2.2mg/dl since August 2024 * abrupt change noted in January 2025 (see #1) * possible new baseline? (3) Hypercalcemia: Code(s): E83.52 - Hypercalcemia Status: Acute Assessment and Plan: * normalized * etiology not entirely clear * was running in the mid 11ish range -- now up to 13.4(!) on admission * extensive outpatient evaluation noted: * high urine calcium c/w high calcium input from the system (however neg bone scan and neg bone survey) so maybe just hyperabsorption from GI tract?) 1,25 vit d was high in spite of low 25 vit d so not sure what is the problem. some sort of granulomatous disease? * PTH low, PTHrp low, Vit A okay, ANDREW okay * bone scan negative * skeletal survey negative for lytic bone lesions * serum/urine immunofixation negative * PTHrp negative * s/p calcitonin and pamidronate. * s/p IVFs * CT abdomen pelvis shows that the pelvic mass is larger -- nothing else of clinical significance (4) Anemia: Code(s): D64.9 - Anemia, unspecified Status: Acute Assessment and Plan: * presumably due to CKD * relatively stable * no need for DURAN (5) HTN (hypertension): Qualifiers: Hypertension type: primary hypertension Qualified Code(s): I10 - Essential (primary) hypertension Code(s): I10 - Essential (primary) hypertension Status: Chronic Assessment and Plan: * reasonable control * continue home medications * follow trend of hemodynamics (6) Hypokalemia: Code(s): E87.6 - Hypokalemia Status: Acute Assessment and Plan: * presumably secondary to bicarb IVFs * stable at this time * replete PRN (7) Metabolic acidosis: Code(s): E87.20 - Acidosis, unspecified Status: Acute Assessment and Plan: * likely due to previous normal saline IVFs in conjunction with ANTONI * improvement noted with bicarb added to IVFs * follow trend for now (8) Diabetes: Qualifiers: Diabetes mellitus complication status: without complication Diabetes mellitus roasterman insulin use: without custodial use Diabetes mellitus type: t ype 2 Qualified Code(s): E11.9 - Type 2 diabetes mellitus without complications Code(s): E11.9 - Type 2 diabetes mellitus without complications Status: Chronic Assessment and Plan: * follow accu-cheks * glycemic control per hospitalist Not opposed to discharge from renal perspective if otherwise medically stable -- she can follow-up with Dr. Leonard in the office for ongoing management of her CKD. Will continue to follow. L Subjective Date/time seen: 03/22/25 11:17 Interval history: Follow-up for acute kidney injury/acute renal failure on chronic kidney disease and hypercalcemia. Chart reviewed since last seen -- calcium level has normalized and creatinine has stabilized ~ 2.3 - 2.4mg/dl; no apparent distress noted at the time of my visit; no other acute complaints voiced; feels reasonably well; playing solitaire on her phone on my visit with her. Exam 2 Narrative: General: WD/WN female in NAD Heart: normal S1 and S2; no rub Lungs: clear to auscultation Abdomen: soft, nontender, nondistended, positive bowel sounds Extremities: no cyanosis or clubbing; no edema Skin: warm and dry Objective Data Vital Signs Vital Signs: Vital Signs Temp Pulse Resp BP Pulse Ox O2 Del Method 03/22/25 08:00 Room Air 03/22/25 04:10 96.3 F L 69 18 134/57 L 98 03/22/25 00:00 65 03/21/25 20:00 65 03/21/25 19:50 97.4 F L 65 18 130/61 98 03/21/25 16:04 64 03/21/25 14:00 97.9 F 64 16 135/60 97 03/21/25 12:01 65 Intake/Output Intake/Output: Intake & Output 03/19/25 03/20/25 03/21/25 03/22/25 23:59 23:59 23:59 23:59 Intake Total 5370 3181.2 2891.8 1556.3 Balance 5370 3181.2 2891.8 1556.3 Meds/Results Medications: Active Medications Generic Name Dose Route Start Last Admin Trade Name Freq PRN Reason Stop Dose Admin Amlodipine Besylate 5 mg 03/18/25 09:00 03/22/25 08:35 Amlodipine Besylate 5 Mg Tablet PO 5 mg DAILY DELANO Administration Aspirin 81 mg 03/21/25 09:00 03/22/25 08:35 Aspirin 81 Mg Enteric Tablet PO 81 mg QAM DELANO Administration Bupropion HCl 150 mg 03/18/25 09:00 03/22/25 08:35 Bupropion Hcl Xl (24 Hr) 150 Mg Tabcr PO 150 mg QAM DELANO Administration Cyanocobalamin 1,000 mcg 03/20/25 09:00 03/22/25 08:35 Cyanocobalamin 1,000 Mcg Tablet PO 1,000 mcg QAM DELANO Administration Dextrose 12.5 gm 03/18/25 04:19 Dextrose 50% 25 Gm/50 Ml Syringe IV PUSH PRN PRN Hypoglycemia Protocol Escitalopram Oxalate 10 mg 03/18/25 09:00 03/22/25 08:35 Escitalopram Oxalate 10 Mg Tablet PO 10 mg DAILY DELANO Administration Famotidine 20 mg 03/21/25 09:00 03/22/25 08:35 Famotidine 20 Mg Tablet PO 20 mg DAILY DELANO Administration Glucagon 1 mg 03/18/25 04:19 Glucagon For Inj 1 Mg Vial IM PRN PRN Hypoglycemia Protocol Glucose 15 gm 03/18/25 04:19 Glucose Oral Gel 15 Gm Of Glucse In 37.5 Gm Tube PO PRN PRN Hypoglycemia Protocol Heparin Sodium (Porcine) 5,000 units 03/18/25 21:00 03/22/25 08:38 Heparin Sodium 5,000 Units/Ml Vial SUB-Q 5,000 units Q12HR DELANO Administration Dextrose 1,000 mls @ 100 mls/hr 03/18/25 04:19 Dextrose 5% 1,000 Ml IVPB PRN PRN Hypoglycemia Protocol Sodium Bicarbonate 100 meq/ 1,100 mls @ 75 mls/hr 03/20/25 11:00 03/22/25 04:47 Sterile Water IV CONT 75 mls/hr .[id number] DELANO Administration Insulin Aspart 2 - 5 units 03/18/25 08:00 03/22/25 08:32 Insulin Aspart (*Bkc) 100 Units/Ml SUB-Q Not Given TIDWM DELANO Protocol Insulin Aspart 3 units 03/18/25 17:00 03/22/25 08:34 Insulin Aspart (*Bkc) 100 Units/Ml SUB-Q 3 units TIDWM DELANO Administration Insulin Glargine 8 units 03/19/25 09:00 03/22/25 08:34 Insulin Glargine (*Bkc) 100 Units/Ml SUB-Q 8 units DAILY DELANO Administration Rosuvastatin Calcium 10 mg 03/18/25 09:00 03/22/25 08:39 Rosuvastatin 10 Mg Tablet PO 10 mg DAILY DELANO Administration Solifenacin 5 mg 03/18/25 09:00 03/22/25 08:35 Solifenacin 5 Mg Tablet PO 5 mg DAILY DELANO Administration Radiology Results: ITS Impressions Abdomen/Pelvis CT 03/19/25 23:42 IMPRESSION: Increase in size right ovarian mass compared with 2023 examinations for which a right ovarian malignancy is suspected. Small left perirenal hematoma post biopsy, likely of no clinical significance. Labs Labs: Laboratory Tests 03/22/25 05:29 03/22/25 05:29 Calcium 9.5 Phosphorus 2.3 L Magnesium 1.8 Total Bilirubin 0.6 AST 27 ALT 20 Alkaline Phosphatase 118 Total Protein 6.8 Albumin 3.4 L
--- NOTE | 2025-03-22 11:31 | PM.DS ---
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: Status: Chronic (2) ANTONI (acute kidney injury): Code(s): N17.9 - Acute kidney failure, unspecified Status: Acute (3) Hypercalcemia: Code(s): E83.52 - Hypercalcemia Status: Acute (4) Hx of completed stroke: Code(s): Z86.73 - Personal history of transient ischemic attack (TIA), and cerebral infarction without residual deficits Status: Acute (5) Anemia: Code(s): D64.9 - Anemia, unspecified Status: Acute (6) Ovarian mass: Code(s): N83.8 - Other noninflammatory disorders of ovary, fallopian tube and broad ligament Status: Acute (7) Hypokalemia: Code(s): E87.6 - Hypokalemia Status: Acute DS: Summary Hospital Course Reason for hospitalization: Hypercalcemia Hospital Course: Patient presented to the emergency room on 03/17/2025 for abnormal calcium labs. She follows with Nephrology, Dr. Leonard. She has an elevated creatinine. She has been seeing him ever since. She recently had a renal biopsy. She has known adnexal masses being followed by OBGYN. When she came into the ED her calcium was 13.4. She was started on calcitonin x6 doses and pamidronate. CT of abdomen pelvis shows a 7.7 x 6.8 x 6.1 cm complex cystic lesion at the right adnexa which remains concerning for ovarian neoplasm either benign or malignant. Patient's creatinine as well as her calcium was trended during hospital stay. Her calcium dropped back into normal limits on day of discharge. Nephrology is agreeing to discharge with close follow-up with both Nephrology and pharmacy clinical coordinator. Patient is doing well with no complaints today. She is up and walking and eating well. She is stable for discharge. Time Spent with Patient Time attestation: Total time spent providing and/or coordinating discharge services: Exam Narrative: GENERAL: Comfortable, no acute distress HENMT: moist mucous membranes EYES: EOM intact b/l NECK: no lymphadenopathy RESPIRATORY: clear to auscultation, no increased respiratory effort CARDIO: Regular rate and rhythm GI: soft, nontender, bowel sounds present SKIN/EXTREMITIES: no rashes, no edema, no redness or tenderness NEURO: PROM intact, answers questions appropriately, A&O x4 DS: Data Data Completed and Pending Labs on day of discharge: Labs from last 24 hours 03/22/25 03/22/25 03/21/25 08:04 05:29 19:51 WBC 4.6 RBC 3.93 L Hgb 11.0 L Hct 33.2 L MCV 84.5 MCH 28.0 MCHC 33.1 RDW 13.8 Plt Count 226 MPV 10.6 H Immature Gran % (Auto) 0.4 Neut % (Auto) 65.0 Lymph % (Auto) 17.5 L [place] % (Auto) 11.2 H Eos % (Auto) 5.0 H Baso % (Auto) 0.9 Lymph # (Auto) 0.80 L [place] # (Auto) 0.5 Eos # (Auto) 0.2 Baso # (Auto) 0.0 Abs Immat Gran (auto) 0.02 Absolute Neuts (auto) 3.0 Absolute Nucleated RBC 0.000 Nucleated RBC % 0.0 Sodium 138 Potassium 3.5 Chloride 108 H Carbon Dioxide 20 L Anion Gap 10 BUN 22 H Creatinine 2.42 H Estim Creat Clear Calc 19 Estimated GFR 20 L Glucose 120 H POC Capillary Glucose 137 H 171 H Calcium 9.5 Phosphorus 2.3 L Magnesium 1.8 Total Bilirubin 0.6 AST 27 ALT 20 Alkaline Phosphatase 118 Total Protein 6.8 Albumin 3.4 L 03/21/25 03/21/25 03/21/25 16:38 15:35 11:28 WBC RBC Hgb Hct MCV MCH MCHC RDW Plt Count MPV Immature Gran % (Auto) Neut % (Auto) Lymph % (Auto) [place] % (Auto) Eos % (Auto) Baso % (Auto) Lymph # (Auto) [place] # (Auto) Eos # (Auto) Baso # (Auto) Abs Immat Gran (auto) Absolute Neuts (auto) Absolute Nucleated RBC Nucleated RBC % Sodium Potassium 3.5 Chloride Carbon Dioxide Anion Gap BUN Creatinine Estim Creat Clear Calc Estimated GFR Glucose POC Capillary Glucose 141 H 177 H Calcium Phosphorus Magnesium Total Bilirubin AST ALT Alkaline Phosphatase Total Protein Albumin Discharge Plan Discharge Consulting providers: Kan Hernandez Discharging Clinician: Lizbeth Colindres Patient Disposition: Home Activity: no preference Diet: renal Discharge Instructions: Discharge disposition: Take medications as prescribed Monitor blood pressures Avoid social areas, you wear a mask when in social settings Encouraged to continue with yearly vaccinations Return to the emergency department if he developed sudden shortness of breath, chest pain, nausea, vomiting, upset stomach or intractable diarrhea Return to the emergency department if you develop fever greater than 100.4 Follow-up with the primary care physician within 1-2 weeks Close follow up with both ASSISTANT PROFESSOR OF ENGLISH and nephrology Thank you for [facility] for your healthcare needs Patient Instructions: Antibiotic Form Patient Language: Amharic Stand Alone Forms: General Discharge Information Follow-up/Referrals: Clyde Leonard MD [Physician] - Discharge Medications: Continued insulin glargine [Lantus Solostar U-100 Insulin] 100 unit/mL (3 mL) insulin pen 16 unit subcut DAILY Qty: 18 4RF glucose [Dex4 Glucose] 4 gram tablet,chewable 16 g PO Q15M PRN (Reason: hypoglycemia) Qty: 60 1RF Rx Instructions: until symptoms of low blood sugar are controlled Gvoke HypoPen 2-Pack 1 mg/0.2 mL auto-injector 1 mg subcut ONCE PRN (Reason: hypoglycemia) Rx Instructions: may repeat once after 15 minutes if no response Trulicity 4.5 mg/0.5 mL pen injector 4.5 mg subcut WEEKLY Rx Instructions: saturday amlodipine 5 mg tablet 5 mg PO DAILY Qty: 90 2RF rosuvastatin 10 mg tablet 10 mg PO DAILY Qty: 90 2RF solifenacin [Vesicare] 5 mg tablet 5 mg PO DAILY Qty: 90 3RF bupropion HCl 150 mg tablet extended release 24 hr 150 mg PO QAM Qty: 90 2RF clopidogrel [Plavix] 75 mg tablet 75 mg PO DAILY Qty: 90 3RF Patient Comments: PT to hold for [address] Leonard escitalopram oxalate 10 mg tablet 10 mg PO DAILY Qty: 90 3RF Date of admission: 03/18/25 15:46 Primary Care Provider: Sudha Tian Admitting Provider: Sherri Duarte Attending physician on admission: Lanie Smith Condition: Stable
[2025-03-22 12:00] VITALS: PULSE 71
[2025-03-22 12:04] LABS: Glucose Point of Care 245 mg/dl (65-105)
== END 2025-03-22 12:35 | disposition home or self-care (01) | DRG 683 ==
LOC: ANHED 23:04 → ANH3MEDSUR 03-18 00:20
PROVIDERS: Internal Medicine Nephrology; Nurse Practitioner; Nurse Practitioner Acute Care; Admitting Provider Internal Medicine; Emergency Provider Emergency Medicine; PCP Family Medicine; Visit Provider Internal Medicine Critical Care Medicine
DX: N17.9 Acute kidney failure, unspecified (principal); E87.21 Acute metabolic acidosis; E83.52 Hypercalcemia; N18.4 Chronic kidney disease, stage 4 (severe); N83.9 Noninflammatory disorder of ovary, fallopian tube and broad ligament, unspecified; I12.9 Hypertensive chronic kidney disease with stage 1 through stage 4 chronic kidney disease, or unspecified chronic kidney disease; E11.42 Type 2 diabetes mellitus with diabetic polyneuropathy; E87.6 Hypokalemia; E11.22 Type 2 diabetes mellitus with diabetic chronic kidney disease; D63.1 Anemia in chronic kidney disease; M19.90 Unspecified osteoarthritis, unspecified site; F41.9 Anxiety disorder, unspecified; F32.A Depression, unspecified; E78.5 Hyperlipidemia, unspecified; I69.344 Monoplegia of lower limb following cerebral infarction affecting left non-dominant side
CPT/HCPCS: 36415; 74176; 76775; 80048; 80053; 80069; 82306; 82330; 82607; 82728; 82948; 83036; 83540; 83550; 83615; 83735; 84100; 84132; 85025; 85046; 93005; 96365; 96366; 99285; A9270; G0378; J0630; J1644; J1815; J2430; J3420; J7030; J7060

== ENCOUNTER 2025-05-25 00:54 | Day surgery (SDC) | payer MEDICARE, SELFPAY ==
[2025-05-19 10:47] VITALS: BMI 26.1
--- NOTE | 2025-05-19 11:01 | SUR.PREOP ---
Spoke with patient in regards to her Plavix. Last dose is to be on 05/20/2025 for procedure on 05/25/2025. Patient verbalized understanding.
--- OUTSIDE RECORDS SUMMARY | 2025-05-25 00:57 | XMS_ITS | Clinical Summary ---
Author Organization [facility] Address [address] [place] [address] Care Team Providers Care Clearing Inspector Name Role Phone Sudha Tian MD Primary Care Provider [phone] Allergies Active Allergy Reactions Criticality Noted Date Comments Adhesive Rash Medium 05/04/2025 Medications amLODIPine (NORVASC) 5 mg tablet Take 1 tablet (5 mg total) by mouth every morning 9 Active Trulicity 4.5 mg/0.5 mL pen injector Inject 0.5 mL (4.5 mg total) under the skin once a week Saturdays 4 Active escitalopram (LEXAPRO) 10 mg tablet Take 1 tablet (10 mg total) by mouth every morning 4 Active clopidogreL (PLAVIX) 75 mg tablet Take 1 tablet (75 mg total) by mouth every morning 5 Active LANTUS 100 unit/mL (3 mL) pen for injection Inject 16 Units under the skin every morning 5 Active buPROPion XL (WELLBUTRIN XL) 150 mg 24 hr tablet Take 1 tablet (150 mg total) by mouth every morning 5 Active solifenacin (VESIcare) 5 mg tablet Take 1 tablet (5 mg total) by mouth every morning 5 Active rosuvastatin (CRESTOR) 10 mg tablet Take 1 tablet (10 mg total) by mouth every morning 5 Active acetaminophen (TYLENOL) 500 mg tablet Take 2 tablets (1,000 mg total) by mouth every 6 (six) hours as needed for pain 120 tablet 5 Active oxyCODONE (ROXICODONE) 5 mg immediate release tabletIndicatio ns:Pain Take 1 tablet (5 mg total) by mouth every 4 (four) hours as needed for pain 15 tablet 5 Active polyethylene glycol (MIRALAX) 17 gram/dose bulk powder Take 17 g by mouth daily 289 g 5 Active Active Problems Problem Noted Date Diagnosed Date Ovarian mass 04/13/2025 Adnexal mass 12/30/2024 Diabetes mellitus 06/29/2024 Hyperlipidemia 06/29/2024 Hypertensive disorder 06/29/2024 Obesity 06/29/2024 History of malignant neoplasm of skin 03/01/2020 Low kidney function 11/05/2019 Uric acid kidney stone 01/26/2019 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 Resolved Problems Problem Noted Date Diagnosed Date Resolved Date Nephrolithiasis 11/06/2018 01/26/2019 Overview (11/07/2018): Added automatically from request for surgery [id number] Encounters Date Type Department Care Team Description 05/14/2025 7:30 AM CDT - 05/14/2025 10:45 AM CDT Surgery [facility] Operating Room [address] [place] [address] Leonel Coronado MD LAPAROSCOPIC HYSTERECTOMY ABDOMINAL SALPINGO-OOPHORECTO MY 05/14/2025 7:29 AM CDT Anesthesia Event [facility] Operating Room [address] [place] [address] Myron Prado MD Mallette, Allison Anne, NP 05/14/2025 5:19 AM CDT - 05/14/2025 2:45 PM CDT Hospital Encounter [facility] Operating Room [address] [place] [address] Leonel Coronado MD Ovarian mass Discharge Disposition: Discharge to home or self care 05/13/2025 Telephone [facility] Medicine Obstetrics and Gynecology [address] [facility] 13th [place] [address] [place] [address] Argenis Rosas Surgery Confirmation 05/13/2025 Telephone [facility] Obstetrics and Gynecology [address] [facility] 13th [place] [address] OlmanelleYesica Surgery Confirmation 05/04/2025 8:30 AM CDT Pre-Admission Testing [facility] Center for Preoperative Assessment and Planning [facility] Medicine ([facility]) [address] [place] [address] Preoperative testing (Primary Dx); Pain in urethra; Ovarian mass 04/12/2025 11:40 AM CDT Office Visit [facility] Obstetrics and Gynecology [address] [facility] 13th [place] [address] Leonel Coronado MD Ovarian mass (Primary Dx) 04/09/2025 1:15 PM CDT - 04/09/2025 11:59 PM CDT Hospital Encounter [facility] Center for Outpatient Health - Ultrasound [address] [facility], 7th Floor, [address] [facility] [place] [address] Adnexal mass Discharge Disposition: Discharge to home or self care 04/01/2025 Orders Only [facility] Medicine Obstetrics and Gynecology [address] [facility] 13th [place] [address] Jossie Whitaker RN Adnexal mass (Primary Dx) 03/17/2025 Telephone [facility] Medicine Obstetrics and Gynecology [address] [facility] 13th [place] [address] Jossie Whitaker, RN 03/16/2025 Documentation [facility] Medicine Obstetrics and Gynecology [address] [facility] 13th [place] [address] Jossie Whitaker RN 03/16/2025 Orders Only [facility] Obstetrics and Gynecology [address] [facility] 13th [place] [address] Jossie Whitaker RN Adnexal mass (Primary Dx) 03/12/2025 9:00 AM CDT Pre-Admission Testing [facility] Center for Preoperative Assessment and Planning [facility] ([facility]) [facility] [place] [address] Preoperative testing (Primary Dx); Kidney stones 01/15/2025 11:59 PM CDT Anesthesia Event [facility] Operating Room [address] [place] [address] Ilsa Gomez NP from Last 3 Months Immunizations Immunization Administration Dates Next Due Influenza, Quadrivalent, Spl it, Preservative Free, Intramuscular 11/05/2019,07/08/2018 Surgical History Surgery Date Site/Laterality Comments ESOPHAGOGASTRODUODENOSCOPY Multiple with esophageal stretching for Schatzki's ring, last 05/2018 per patient report KIDNEY SURGERY stent and kidney stone COLONOSCOPY Medical History Medical History Date Comments Hydronephrosis Right Diverticulosis Diabetes mellitus (HCC) Nephrolithiasis 11/06/2018 Added automatica lly from request for surgery [id number] ARF (acute renal failure) 10/2018 SCR: 2 [...] Not Answered Alcohol Use Standard Drinks/Week Comments Never 0 (1 standard drink = 0.6 oz pur e alcohol) AUDIT-C Answer Date Recorded Q1: How often do you have a drink containing alcohol? Never 05/14/2025 Q2: How many drinks containi ng alcohol do you have on a typical day when you are drinking? Patient does not drink Q3: How often do you have si x or more drinks on one occasion? Never 05/14/2025 Personal Safety Answer Date Recorded Have you ever been in or are you currently in a harmful physical or emotional relationship or is someone making you feel afraid or unsafe? 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 Not on file Not on file Not on file Obstetrics History Para Term AB IAB SAB Ectopic Multiple Livin g Live Births 1 1 Date Outcome GA Total Labor Labor/2nd/3rd Weight Sex Type Anes PTL Dee Dee A1 A5 Name Clin Last Filed Vital Signs Vital Sign Reading Time Taken Comments Blood Pressure 120/65 05/14/2025 2:10 PM CDT Pulse 64 05/14/2025 2:10 PM CDT Temperature 36.1 C (97 F) 05/14/2025 9:50 AM CDT Respiratory Rate 16 05/14/2025 12:50 PM CDT Oxygen Saturation 96% 05/14/2025 2:10 PM CDT Inhaled Oxygen Concentration - - Weight 70.8 kg (156 lb) 05/14/2025 5:40 AM CDT Height 165.1 cm (5' 5) 05/14/2025 5:40 AM CDT Body Mass Index 25.96 05/14/2025 5:40 AM CDT Plan of Treatment Health Maintenance Due Date Last Done Comments Albumin Creatinine Ratio, Urine 1960 Breast Cancer Screening-Mammogram 1960 Colon Cancer Screening-Colonoscopy 1960 Depression Screening 1960 Hepatitis C Screening 1960 Osteoporosis Screening-Bone Density Scan 1960 Dilated Eye Exam 1960 Foot Exam 1960 Lipid Panel 1960 DTaP/Tdap/Td Vaccine (1 - Tdap) 1969 Hepatitis B Screening 1976 Zoster Vaccine (1 of 2) 2008 Pneumococcal vaccine 65+ (2 of 2 - PCV) 09/01/2021 09/01/2020 Well Visit 65+ 2023 Influenza Vaccine (#1) 2025 4, 07/11/2021, 09/01/2020, Additional history exists Hemoglobin A1C 11/04/2025 05/04/2025, 01/15/2025 eGFR 05/04/2026 05/04/2025, 06/, 01/15/2025 Fall Risk Assessment 05/14/2026 05/14/2025 Cervical Cancer Screening Discontinued 06/29/2024, 03/2024 Goals Goal Patient Goal Type Associated Problems Recent Progress Patient-Stated? Author Autogenera trisha Goal Care Plan Autogenerated Problem No Efrain Huber, KRISTAN Medical Devices Explanted Type Area Waterproofing Supervisor Device Identifier Shelf Expiration Date Model / Serial / Lot [employer] [id number] Universa 7fr 26cm 145cm Soft Positioner Glass Ribbon Machine Operator Assistant Braid Tether - [id number] Implanted:Qty: 1 on 11/07/2018 by Ronan Pham MD at [facility] Explanted:Qty: 1 on 12/03/2018 at [facility] Stent Right: Urethra [employer] [id number] / / Procedures Procedure Name Priority Date/Time Associated Diagnosis Comments POCT GLUCOSE DEVICE Routine 05/14/2025 9 :53 AM CDT SURGICAL PATHOLOGY Routine 05/14/2025 8: 49 AM CDT Ovarian mass POCT GLUCOSE DEVICE Routine 05/14/2025 8 :20 AM CDT CYTOLOGY Routine 05/14/2025 8:15 AM CDT Ovarian mass [place] AN PROCEDURE PLACEHOLDER Routine 05/14/2025 7:58 AM CDT [place] AN PROCEDURE PLACEHOLDER Routine 05/14/2025 7:58 AM CDT [place] AN ELECTIVE ENDOTRACHEAL AIRWAY Routine 05/14/2025 7:58 AM CDT LAPAROSCOPIC HYSTERECTOMY ABDOMINAL SALPINGO-OOPHORECTOM Y 05/14/2025 7:32 AM CDT Ovarian mass Case Notes 04/15/2025- Pt picked this date- AMM POCT GLUCOSE DEVICE Routine 05/14/2025 6 :03 AM CDT EGFR Routine 05/04/2025 9:39 AM CDT Ovarian mass DIFFERENTIAL AUTO Routine 05/04/2025 9:3 9 AM CDT Ovarian mass TYPE AND SCREEN 14 DAY Routine 05/04/2025 9:39 AM CDT Ovarian mass CBC WITH AUTO DIFFERENTIAL Routine 05/04/2025 9:39 AM CDT Ovarian mass BASIC METABOLIC PANEL Routine 05/04/2025 9:39 AM CDT Ovarian mass URINE CULTURE Routine 05/04/2025 9:39 AM CDT Preoperative testing Pain in urethra POCT HEMOGLOBIN A1C Routine 05/04/2025 8 :36 AM CDT US PELVIS COMPLETE Schedule Routine, Read Routine (OP Routine) 04/09/2025 1:15 PM CDT Adnexal mass EGFR Routine 03/12/2025 9:41 AM CDT Preoperative testing DIFFERENTIAL AUTO Routine 03/12/2025 9:4 1 AM CDT Preoperative testing COMPREHENSIVE METABOLIC PANEL Routine 03/12/2025 9:41 AM CDT Preoperative testing CBC WITH AUTO DIFFERENTIAL Routine 03/12/2025 9:41 AM CDT Preoperative testing TYPE AND SCREEN 14 DAY Routine 03/12/2025 9:41 AM CDT Preoperative testing URINE CULTURE Routine 03/12/2025 9:41 AM CDT Preoperative testing Kidney stones ECG 12-LEAD Routine 03/12/2025 9:33 AM CDT Preoperative testing HIGH RISK HPV DNA DETECTION WITH GENOTYPING Routine 06/29/2024 4:23 PM CDT Ovarian mass from Last 3 Months or Most Recently Relevant to Health Maintenance Results * POCT glucose (05/14/2025 9:53 AM CDT) Glucose, POC 147 70 - 199 mg/dL Blood 05/14/2025 9:53 AM CDT 05/14/2025 9:53 AM CDT us Premal Chaka Coronado MD LAB POCT ORDERABLES - DE VICE Final Result [facility] Department [place] [address] * Surgical pathology (05/14/2025 8:49 AM CDT) Tissue (Uterus with/without tubes & ovaries, Neoplastic) 05/14/2025 8:49 AM CDT Tissue specimen (specimen) (Uterus with/without tubes & ovaries, Neoplastic) 05/14/2025 8:56 AM CDT Narrative PATHOLOGY [facility] - 05/19/2025 1:22 PM CDT EPIC results best viewed via link to PDF [facility] Daphne Chávez Laboratory [place] [address] Note to Patients: This report may contain a detailed description of human tissue sent by a health care provider to the laboratory for pathologic evaluation. The content of this report is essential for diagnosis and may provide important critical findings. This information may be unfamiliar to patients to review without a medical professional present. It is advised that the patient review this report in the presence of a health care provider who can answer questions and explain the details. SURGICAL PATHOLOGY REPORT FINAL Patient Name: BLANK NUNEZ Gender: F : 1960 (Age: 64) Address: [facility] [place] [address] [facility] #: [id number] Taken:05/14/2025 Received:05/14/2025 Reported: 05/19/2025 Patient Type: [facility] Service: Surgery Location: [facility] OR [facility] Physician(s): Lani Harvey M.D. Diagnosis: A. 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 Uterus, cervix, bilateral fallopian tubes, and left ovary, hysterectomy, bilateral salpingectomy, and left oophorectomy - Cervix - Mild chronic inflammation - Endometrium - Inactive pattern endometrium with cystic atrophy - No evidence of hyperplasia or malignancy - Myometrium - Leiomyomata - Adenomyosis - Serosa - Leiomyomata - Endometriosis - Right ovary - No histopathologic abnormality - Left ovary - Serous cystadenoma - Partial right fallopian tube - No histopathologic abnormality - Left fallopian tube - No histopathologic abnormality [facility]/05/19/2025 08:10 By this signature, I attest that the above diagnosis is based upon my personal examination of the slides(and/or other material indicated in the diagnosis). Jono Hare M.D., Ph.D. Report Electronically Reviewed and Signed Out By Jono Hare M.D., Ph.D. 05/19/2025 13:22:04 Intraoperative Consultation: Frozen Section Diagnosis AFR1..AFR2: Right ovary - Serous-cystadenoma with focal epithelial proliferation By James Terry MD PhD, Lillie Draper M.D., P.h.D., Ron Jenkins MS, PA ([facility]) Gross Consultation A: Right ovary Received fresh and labeled with the patient's identifiers and right ovary is an adnexal mass measuring 9.8 x 7.4 x 4.2 cm and weighing 166.0g. It contains a putative tube measuring 3.6 cm in length and 0.5 cm in diameter. The mass is multicystic with a smooth surface that is inked black. Sectioning reveals clear, yellow, viscous fluid and a multilocular cysts, up to 5.5 cm in greatest dimension, with multiple papillary projections. No definitive solid component is identified. Tractor Engine Mechanic sections of the papillary areas are submitted in cassettes AFR1 and AFR2. By James Terry MD PhD, Lillie Draper M.D., P.h.D., Ron Jenkins, , PA ([facility])CM I personally examined the relevant preparation(s) or a microscopic image of the relevant preparation(s) for the specimen(s) while the surgical procedure was still underway and rendered or confirmed the diagnosis(es) Report Electronically reviewed and Signed out by James Terry MD PhD (A) Microscopic Description and Comment: Microscopic examination substantiates the above cited diagnosis. Permanent sections confirm the frozen section diagnosis. Real Nair M.D. History: Patient is a 64-year-old female with an adnexal mass on imaging. Operative procedure: Laparoscopic hysterectomy, abdominal salpingo-oophorectomy. Specimen(s) Received: A: Right ovary B: Uterus, cervix, bilateral fallopian tubes, left ovary Gross Description: Received in two formalin jars, each labeled with the patient's identifiers. A. Labeled right ovary is a 166 g intact ovary measuring 9.8 x 7.4 x 4.2 cm with a partial fallopian tube measuring 3.6 x 0.5 cm. The ovary is cystic and solid with a smooth purple-white serosal surface (inked black). Serial sectioning reveals clear yellow and viscous fluid within the multiloculated cysts that range in size from 0.4 to 5.5 cm. The lining of the largest cyst has a 1.3 cm papillary nodule. Also present in the container are two plastic casettes labeled AFR1 and AFR2 holding the frozen section remnants. Sections are submitted as follows. Jar 2. AFR1-AFR2 frozen section remnants A3-A4 Partial fallopian tube and fimbriae A5-A8 Ovary B. Labeled uterus, cervix, bilateral fallopian tubes, left ovary is a 98 g hysterectomy specimen including the uterus (8.2 x 5.8 x 4.0 cm), cervix (2.3 x 2.5, with a 0.8 cm slit-like os), bilateral fallopian tubes (right, partial - 1.6 x 0.4 x 0.3 cm; left - 4.1 x 0.8 x 0.5 cm), and left ovary (11.6 g, 3.5 x 2.8 x 2.3 cm). The serosal surface of the uterus is yellow-ambrose and smooth with two 0.1 cm hard ambrose-yellow nodules on the posterior side. The endocervical canal is lined by ambrose smooth mucosa with scattered nabothian cysts measuring up to 0.3 cm in greatest diameter. The endometrial cavity measures 2.0 x 4.2 cm and is grossly unremarkable with a ambrose endometrium. The specimen is serially sectioned to reveal a 1.9 cm and 0.9 cm myometrial white whorled nodules. The total endomyometrial wall thickness measures 1.7 cm and the endometrium is 0.1 cm thick. Attached to the left ovary and fallopian is a 4 x 3 x 0.7 cm adipose tissue fragment that is serially sectioned to reveal no nodules. The fallopian tube and fimbriae are serially sectioned to reveal no abnormalities. The left ovary is intact and contains a 2.7 cm multiloculated cyst that has a 0.3 and two 0.1 cm ambrose-white nodules on the inner lining. Sections are submitted as follows. Jar 2. B1 Anterior cervix B2 Anterior lower uterine segment B3 Anterior fundus B4 Posterior cervix B5 Posterior lower uterine segment B6 Posterior fundus B7 Serosal nodules B8 Left fallopian tube and fimbriae B9 Left ovary B10 Partial right fallopian tube B11 Attached adipose tissue [facility]05/17/2025 15:34 Gross Resident:Real Nair M.D. By this signature, I attest that the above diagnosis is based upon my personal examination of the slides(and/or other material). Addenda/Procedures The performance characteristics of some immunohistochemical stains, fluorescence in-situ hybridization tests and immunophenotyping by flow cytometry cited in this report (if any) were determined by the Surgical Pathology and Flow Cytometry Departments at [facility] as part of an ongoing quality process auditor program and in compliance with federally mandated regulations drawn from the Clinical Laboratory Improvement Act of 1988 (CLIA '88). Some of these tests rely on the use of analyte specific reagents and are subject to specific labeling requirements by the US Food and Drug Administration. Such diagnostic tests may only be performed in a facility that is certified by the Department of Health and Human Services as a high complexity laboratory under CLIA '88. The FDA has determined that such clearance or approval is not necessary. This test is used for clinical purposes. It should not be regarded as investigational or for research. Nevertheless, federal rules concerning the medical use of analyte specific reagents require that the following disclaimer be attached to the report: This test was developed and its performance characteristics determined by the Surgical Pathology and Flow Cytometry Departments of [facility]. It has not been cleared or approved by the U. S. Food and Drug Administration. IMAGES AND SCANNED DOCUMENTS, IF INCLUDED, ONLY VIEWABLE IN PDF VERSION OF REPORT [facility] Chaka Coronado MD LAB PATHOLOGY ORDERABLES Final Result PATHOLOGY [facility] 3rd Floor [place], [place] [phone] * POCT glucose (05/14/2025 8:20 AM CDT) Glucose, POC 141 70 - 199 mg/dL Blood 05/14/2025 8:20 AM CDT 05/14/2025 8:20 AM CDT [facility] Chaka Coronado MD LAB POCT ORDERABLES - DE VICE Final Result Performing Organization Address [facility] Co de Phone Number [facility] Department [place] [address] * Cytology (05/14/2025 8:15 AM CDT) Fluid (Pelvic Washing (Cytology)) 05/14/2025 8:15 AM CDT Narrative PATHOLOGY [facility] - 05/21/2025 10:26 AM CDT EPIC results best viewed via link to PDF [facility] Daphne Chávez Laboratory [place] [address] Note to Patients: This report may contain a detailed description of human tissue sent by a health care provider to the laboratory for pathologic evaluation. The content of this report is essential for diagnosis and may provide important critical findings. This information may be unfamiliar to patients to review without a medical professional present. It is advised that the patient review this report in the presence of a health care provider who can answer questions and explain the details. CYTOPATHOLOGY REPORT FINAL Patient Name: BLANK NUNEZ Gender: F : 1960 (Age: 64) Address: [facility] [address] [place] [address] Hospital #: [id number] Taken:05/14/2025 Received:05/14/2025 Reported: 05/21/2025 Patient Type: BJ SDS Service: Surgery Location: [facility] OR POD1 Physician(s): Lani Harvey M.D. FINAL DIAGNOSIS A. Pelvic washings: - Atypical cytology Comments ThinPrep slide shows background mesothelial cells and lymphocytes and a single papilliform group, which may represent surface denudement of the ovarian tumor. lns05/17/2025 12:18 By this signature, I attest that the above diagnosis is based upon my personal examination of the slides(and/or other material indicated in the diagnosis). Nya Gutierrez M.D. Report Electronically Reviewed and Signed Out By Nya Gutierrez M.D. 05/21/2025 10:26:25 Oleg Vazquez MS, CT(ASCP)PA Gross Description A. Pelvic washings: 40 ml clear fluid - 1 Pap stained ThinPrep. (vo) Clinical Diagnosis and History The patient is a 64 year old woman with a right ovarian mass presenting for surgical managment. REPORT IMAGES AND SCANNED DOCUMENTS, IF INCLUDED, ONLY VIEWABLE IN PDF VERSION OF REPORT The performance characteristics of some immunohistochemical stains, in-situ hybridization and fluorescence in-situ hybridization tests and immunophenotyping by flow cytometry cited in this report (if any) were determined by the Surgical Pathology and Flow Cytometry Departments at [facility] as part of an ongoing quality process auditor program and in compliance with federally mandated regulations drawn from the Clinical Laboratory Improvement Act of 1988 (CLIA '88). Some of these tests rely on the use of analyte specific reagents and are subject to specific labeling requirements by the US Food and Drug Administration. Such diagnostic tests may only be performed in a facility that is certified by the Department of Health and Human Services as a high complexity laboratory under CLIA '88. The FDA has determined that such clearance or approval is not necessary. This test is used for clinical purposes. It should not be regarded as investigational or for research. Nevertheless, federal rules concerning the medical use of analyte specific reagents require that the following disclaimer be attached to the report: This test was developed and its performance characteristics determined by the Surgical Pathology and Flow Cytometry Departments of [facility]. It has not been cleared or approved by the U. S. Food and Drug Administration. Leonel Coronado MD LAB CYTOLOGY ORDERABLES Final Result PATHOLOGY [facility] 3rd Floor [place], [place] [phone] * [place] AN PROCEDURE PLACEHOLDER (05/14/2025 7:58 AM CDT) Abbie Mejia CRNA - 05/14/2025 7:58 AM CDT Abbie James CRNA 05/14/2025 7:59 AM Peripheral IV Catheter Patient location: OR Staff: Placed by: CIO: Abbie James CRNA Preprocedure prep: Prep solution: chlorhexadine PPE: provider hat/mask and gloves PIV line: Laterality: left Site: wrist Catheter size: 18 g Technique: direct visualization Procedure details: good blood return Number of attempts: 1 Assessment: Events: patient tolerated procedure well with no complications Myron Prado MD ANESTHESIA ORDERABLES Fi nal Result * [place] AN ELECTIVE ENDOTRACHEAL AIRWAY, [place] AN PROCEDURE PLACEHOLDER (05/14/2025 7:58 AM CDT) Abbie Mejia CRNA - 05/14/2025 7:58 AM CDT Abbie James CRNA 05/14/2025 7:58 AM Airway Patient location: OR Urgency: elective Indications for airway management: anesthesia and airway protection Difficult airway: no Staff: Supervising provider: Myron Prado MD Placed by: CIO: Abbie James CRNA Emergent airway documentation: Risks and benefits discussed: yes Consent obtained: yes Consent given by: patient Airway prep: Preoxygenated: yes Patient position: sniffing Mask difficulty assessment: 0 - not attempted Spontaneous ventilation during airway: absent Sedation level during airway: GA Final airway details: Final airway type: endotracheal airway Tube type: ETT ETT size: 7.0 mm Cuffed: yes Technique used for successful ETT placement: video laryngoscopy Devices/Methods used in placement: intubating stylet Insertion site: oral Blade type: Jin Video blade type: Nunn Blade size: 3 Cormack-Lehane (video): grade I - full view of glottis Cuff inflated with: air Placement verified by: auscultation and CO2 detection Airway secured with: silk tape Number of attempts: 1 Myron Braden Prado MD ANESTHESIA ORDERABLES Fi nal Result * POCT glucose (05/14/2025 6:03 AM CDT) Glucose, POC 140 70 - 199 mg/dL Blood 05/14/2025 6:03 AM CDT 05/14/2025 6:03 AM CDT [facility] LAB POCT ORDERABLES - DE VICE Final Result Performing Organization Address [facility] de Phone Number [facility] [place] [address] * TYPE AND SCREEN 14 DAY (05/04/2025 9:39 AM CDT) Peter, indirect Negative ABO Rh O Positive [facility] Blood 05/04/2025 9:39 AM CDT 05/04/2025 10:43 AM CDT Narrative [facility] - 05/04/2025 11:46 AM CDT Has the patient had Daratumumab or Isatuximab in the past 6 months?->No Is this test being ordered in advance for a procedure?->Yes Expected date of procedure:->04/30/25 Has the patient been transfused in the past 3 months?->No Has the patient been in the past 3 months?->No [facility] LAB BLOOD BANK TEST ORDE RABLES Final Result Performing Organization Address City/[facility]/ZIP Co de Phone Number [facility] [place] [address] * (ABNORMAL) eGFR (05/04/2025 9:39 AM CDT) Pathologist [facility] eGFR 16(L) >=60 mL/min/1. 73 m2 Comment: Interpretive Data [...] interpretive data was last reviewed 2021. Blood 05/04/2025 9:39 AM CDT 05/04/2025 10:24 AM CDT us Premal Chaka Coronado MD LAB BLOOD ORDERABLES Fin al Result [facility] Department [place] [address] * Differential, auto (05/04/2025 9:39 AM CDT) [facility] Neutrophil abs 4.56 1.50 - 6.50 K/cumm Imm gran abs 0.03 0.00 - 0.10 K/cumm [facility] Lymphocyte abs 0.83 0.80 - 3.30 K/cumm [facility] Monocyte abs 0.64 0.20 - 0.80 K/cumm [facility] Eosinophil abs 0.26 0.00 - 0.50 K/cumm [facility] Basophil abs 0.08 0.00 - 0.10 K/cumm [facility] Neutrophil pct 71.1 % [facility] Comment: Interpretive Data Percent cell count reference ranges are not reported, since discordance with absolute values may lead to misinterpretation of CBC data. Current Interpretive Data was last revised on 2017. Imm gran pct 0.5 % [facility] Comment: Interpretive Data Percent cell count reference ranges are not reported, since discordance with absolute values may lead to misinterpretation of CBC data. Current Interpretive Data was last revised on 2017. Lymphocyte pct 13.0 % [facility] Comment: Interpretive Data Percent cell count reference ranges are not reported, since discordance with absolute values may lead to misinterpretation of CBC data. Current Interpretive Data was last revised on 2017. Monocyte pct 10.0 % [facility] Comment: Interpretive Data Percent cell count reference ranges are not reported, since discordance with absolute values may lead to misinterpretation of CBC data. Current Interpretive Data was last revised on 2017. Eosinophil pct 4.1 % [facility] Comment: Interpretive Data Percent cell count reference ranges are not reported, since discordance with absolute values may lead to misinterpretation of CBC data. Current Interpretive Data was last revised on 2017. Basophil pct 1.3 % [facility] Comment: Interpretive Data Percent cell count reference ranges are not reported, since discordance with absolute values may lead to misinterpretation of CBC data. Current Interpretive Data was last revised on 2017. Blood 05/04/2025 9:39 AM CDT 05/04/2025 10:24 AM CDT us Premal Chaka Coronado MD LAB BLOOD ORDERABLES Fin al Result [facility] Department [place] [address] * CBC with auto differential (05/04/2025 9:39 AM CDT) WBC 6.40 3.80 - 9.90 K/cumm Hgb 13.0 11.9 - 15.5 g/dL [facility] Hct 39.2 35.6 - 45.5 % [facility] Plt 296 150 - 400 K/cumm [facility] MPV 10.4 9.1 - 12.3 fL [facility] RBC 4.68 3.90 - 5.20 M/cumm [facility] MCV 83.8 81.3 - 96.4 fL [facility] MCH 27.8 27.1 - 33.3 pg [facility] MCHC 33.2 32.3 - 35.7 g/dL [facility] RDW CV 13.9 11.1 - 14.9 % [facility] RDW SD 42.5 35.7 - 48.1 fL [facility] NRBC abs 0.00 0.00 - 0.01 K/cumm [facility] Blood 05/04/2025 9:39 AM CDT 05/04/2025 10:24 AM CDT Leonel Coronado MD LAB BLOOD ORDERABLES Fin al Result Performing Organization Address [facility] Co de Phone Number [facility] Department [place] [address] * Urine culture Urine, clean voided (05/04/2025 9:39 AM CDT) Report Final Report: Less than 100,000 colonies/mL (clinically insignificant growth based on current clinical standards) Organism (CLINICALLY INSIGNIFICANT GROWTH [facility] Urine, clean voided 05/04/2025 9:39 AM CDT 05/04/2025 11:07 AM CDT Narrative [facility] - 05/05/2025 1:08 PM CDT Testing performed by [facility] Microbiology Laboratory ([phone]) us Ligia Rob NP LAB MICROBIOLOGY - GENE RAL ORDERABLES Final Result Performing Organization Address City/[facility]/ZIP Co de Phone Number [facility] Department [place] [address] * (ABNORMAL) Basic metabolic panel (05/04/2025 9:39 AM CDT) Sodium 135 135 - 145 mmol/L Potassium, pl 4.1 3.3 - 4.9 mmol/L [facility] Chloride 100 97 - 110 mmol/L [facility] CO2 27 22 - 32 mmol/L [facility] Anion gap 8 2 - 15 mmol/L [facility] BUN 34(H) 6 - 25 mg/dL [facility] Creatinine 3.07(H) 0.60 - 1.10 mg/dL [facility] Glucose 157 70 - 199 mg/dL [facility] Comment: Interpretive Data Fasting glucose >/= [...] interpretive data was last revised 2022. Calcium 12.7(H) 8.5 - 10.3 mg/dL [facility] Blood 05/04/2025 9:39 AM CDT 05/04/2025 10:24 AM CDT [facility] Chaka Coronado MD LAB BLOOD ORDERABLES Fin al Result [facility] Department [place] [address] * (ABNORMAL) POCT hemoglobin A1c (05/04/2025 8:36 AM CDT) Hgb A1C, POC 6.8(H) 4.0 - 5.6 % Est Average Gluc POC 148 mg/dL [facility] Comment: The ADA recommends reporting an estimated Average Glucose (eAG) with all Hemoglobin A1c results using the equation derived from a study of 507 normal and diabetic adults. Minority populations were underrepresented and children were not included. (Diabetes Care 31:1852-0446, 2008). The eAG is not equivalent to a fasting glucose. Blood 05/04/2025 8:36 AM CDT 05/04/2025 8:36 AM CDT us Premal Chaka Coronado MD POINT OF CARE TEST ORDER BESS Final Result [facility] Department [place] [address] * US Pelvis Complete (04/09/2025 1:15 PM CDT) Cul de Sac No free fluid visualized [facility] Endometrial Thickness 1.0 mm&millim eters [facility] Anatomical Region Laterality Modality Pelvis N/A Ultrasound 04/09/2025 1:18 PM CDT Impressions 04/09/2025 2:39 PM CDT Images compared to scan on 12/28/24. The uterus is anteverted and normal in size. The endometrial stripe measures 1 mm. There is one fibroid, which is stable when compared to prior scan. Right ovarian lesion is multilocular and today contains a solid component which has not been seen previously, there is no color flow, mean diameter is stable at 78 mm, however the solid component does change the ORADS to 4 from prior 3. Stable left ovarian cyst, bilocular anechoic without color flow or solid component, still ORADS 2. There was no evidence of free fluid in the pelvis. Narrative Procedure Note Kathe Hernandez MD - 04/09/2025 IMPRESSION: Images compared to scan on 12/28/24. The uterus is anteverted and normal insize. The endometrial stripe measures 1 mm. There is one fibroid, whichis stable when compared to prior scan. Right ovarian lesion ismultilocular and today contains a solid component which has not been seenpreviously, there is no color flow, mean diameter is stable at 78 mm,however the solid component does change the ORADS to 4 from prior 3.Stable left ovarian cyst, bilocular anechoic without color flow or solidcomponent, still ORADS 2. There was no evidence of free fluid in thepelvis. us Premal Chaka Coronado MD IMG US PROCEDURES Final Result * TYPE AND SCREEN 14 DAY (03/12/2025 9:41 AM CDT) ABO Rh O Positive Peter, indirect Negative [facility] Blood 03/12/2025 9:41 AM CDT 03/12/2025 10:48 AM CDT N[facility]ative [facility] - 03/12/2025 12:06 PM CDT Has the patient had Daratumumab or Isatuximab in the past 6 months?->No Is this test being ordered in advance for a procedure?->Yes Expected date of procedure:->03/19/25 Has the patient been transfused in the past 3 months?->No Has the patient been in the past 3 months?->No Luis Manuel Dooley NP LAB BLOOD BANK TEST MARY ANN PEÑA Final Result [facility] Department [place] [address] * (ABNORMAL) eGFR (03/12/2025 9:41 AM CDT) eGFR 10(L) >=60 mL/min/1. 73 m2 Comment: Interpretive Data [...] interpretive data was last reviewed 2021. Blood 03/12/2025 9:41 AM CDT 03/12/2025 10:24 AM CDT us Luis Manuel Dooley NP LAB BLOOD ORDERABLES Fin al Result [facility] Department [place] [address] * Differential, auto (03/12/2025 9:41 AM CDT) Neutrophil abs 4.38 1.50 - 6.50 K/cumm Imm gran abs 0.03 0.00 - 0.10 K/cumm [facility] Lymphocyte abs 0.86 0.80 - 3.30 K/cumm [facility] Monocyte abs 0.45 0.20 - 0.80 K/cumm [facility] Eosinophil abs 0.22 0.00 - 0.50 K/cumm [facility] Basophil abs 0.07 0.00 - 0.10 K/cumm [facility] Neutrophil pct 72.8 % [facility] Comment: Interpretive Data Percent cell count reference ranges are not reported, since discordance with absolute values may lead to misinterpretation of CBC data. Current Interpretive Data was last revised on 2017. Imm gran pct 0.5 % [facility] Comment: Interpretive Data Percent cell count reference ranges are not reported, since discordance with absolute values may lead to misinterpretation of CBC data. Current Interpretive Data was last revised on 2017. Lymphocyte pct 14.3 % [facility] Comment: Interpretive Data Percent cell count reference ranges are not reported, since discordance with absolute values may lead to misinterpretation of CBC data. Current Interpretive Data was last revised on 2017. Monocyte pct 7.5 % [facility] Comment: Interpretive Data Percent cell count reference ranges are not reported, since discordance with absolute values may lead to misinterpretation of CBC data. Current Interpretive Data was last revised on 2017. Eosinophil pct 3.7 % [facility] Comment: Interpretive Data Percent cell count reference ranges are not reported, since discordance with absolute values may lead to misinterpretation of CBC data. Current Interpretive Data was last revised on 2017. Basophil pct 1.2 % [facility] Comment: Interpretive Data Percent cell count reference ranges are not reported, since discordance with absolute values may lead to misinterpretation of CBC data. Current Interpretive Data was last revised on 2017. Blood 03/12/2025 9:41 AM CDT 03/12/2025 10:24 AM CDT Luis Manuel Dooley COMBINE OPERATOR LAB BLOOD ORDERABLES Fin al Result Performing Organization Address City/[facility]/ZIP Co de Phone Number [facility] Department [place] [address] * CBC with auto differential (03/12/2025 9:41 AM CDT) WBC 6.01 3.80 - 9.90 K/cumm Hgb 13.1 11.9 - 15.5 g/dL [facility] Hct 38.5 35.6 - 45.5 % [facility] Plt 282 150 - 400 K/cumm [facility] MPV 11.2 9.1 - 12.3 fL [facility] RBC 4.65 3.90 - 5.20 M/cumm [facility] MCV 82.8 81.3 - 96.4 fL [facility] MCH 28.2 27.1 - 33.3 pg [facility] MCHC 34.0 32.3 - 35.7 g/dL [facility] RDW CV 13.2 11.1 - 14.9 % [facility] RDW SD 39.6 35.7 - 48.1 fL [facility] NRBC abs 0.00 0.00 - 0.01 K/cumm [facility] Blood 03/12/2025 9:41 AM CDT 03/12/2025 10:24 AM CDT Luis Manuel Dooley NP LAB BLOOD ORDERABLES Fin al Result Performing Organization Address City/[facility] Co de Phone Number [facility] Department [place] [address] * Urine culture Urine, bladder (03/12/2025 9:41 AM CDT) Report Final Report: Growth indicative of contamination with periurethral deidre. Please submit a new specimen with special attention given to the collection process and to prompt transport to the laboratory. Organism GROWTH INDICATES CONTAM WITH PERIURETHRAL DEIDRE. [facility] Urine, bladder 03/12/2025 9: 41 AM CDT 03/12/2025 11:13 AM CDT Narrative [facility] - 03/13/2025 2:36 PM CDT Testing performed by [facility] Microbiology Laboratory ([phone]) Luis Manuel Dooley NP LAB MICROBIOLOGY - [facility] ORDERABLES Final Result Performing Organization Address [facility] de Phone Number [facility] Department [place] [address] * (ABNORMAL) Comprehensive metabolic panel (03/12/2025 9:41 AM CDT) Sodium 138 135 - 145 mmol/L Potassium, pl 3.6 3.3 - 4.9 mmol/L [facility] Chloride 99 97 - 110 mmol/L [facility] CO2 26 22 - 32 mmol/L [facility] Anion gap 13 2 - 15 mmol/L [facility] BUN 37(H) 6 - 25 mg/dL [facility] Creatinine 4.49(H) 0.60 - 1.10 mg/dL [facility] Glucose 174 70 - 199 mg/dL [facility] Comment: Interpretive Data Fasting glucose >/= [...] interpretive data was last revised 2022. Calcium 13.6(H) 8.5 - 10.3 mg/dL [facility] Bilirubin, total 0.6 0.1 - 1.2 mg/dL [facility] Protein, pl 8.5 6.5 - 8.5 g/dL [facility] Albumin 4.1 3.5 - 5.0 g/dL [facility] Alk phos 141(H) 40 - 130 Units/L [facility] ALT 23 7 - 45 Units/L [facility] AST 26 10 - 45 Units/L [facility] Blood 03/12/2025 9:41 AM CDT 03/12/2025 10:24 AM CDT us Luis Manuel Dooley NP LAB BLOOD ORDERABLES Fin al Result [facility] Department [place] [address] * ECG 12 lead (03/12/2025 9:33 AM CDT) Pathologist [facility] Ventricular Rate EKG/Min 68 BPM [facility] Atrial Rate 68 BPM [facility] [place]-Interval (MSEC) 218 ms [facility] QRS-Interval (MSEC) 84 ms [facility] QT-Interval (MSEC) 412 ms [facility] QTc 438 ms [facility] P [place] 36 degrees [facility] R [place] -31 degrees [facility] T [place] 15 degrees [facility] Diagnosis Sinus rhythm with 1st degree A-V block Left axis deviation Low voltage QRS Inferior infarct , age undetermined Poor R-wave progression in the precordial leads Cannot rule out Anterior infarct , age undetermined Abnormal ECG No previous ECGs available Confirmed by CRISTIAN GRIFFIN M.D ([id number]) on 03/12/2025 4:53:43 PM [facility] 03/12/2025 9:33 AM CDT 03/12/2025 4:53 PM CDT us Luis Manuel Dooley NP ECG ORDERABLES Final Re sult [facility] * High Risk HPV DNA Detection with Genotyping (Molecular component) (06/29/2024 4:23 PM CDT) HPV HR 16 Not Detected Not Detected [facility] HPV HR 18 Not Detected Not Detected [facility] HPV HR Non 16/18 Not Detected Not Detected [facility] Comment: Interpretive Data Nucleic acid amplification [...] this test have been verified by the [facility] Molecular Infectious Disease laboratory. Correlate with separately reported cytology results, as applicable. 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 Number of vials->1 Testing type->Screening Last menstrual period (date if known)->over 5 years ago Premmegan Coronado MD LAB BODY FLUIDS AND STOO LS ORDERABLES Final Result Performing Organization Address City/[facility]/ZIP Co de Phone Number [facility] Department [place] [address] BJ from Last 3 Months or Most Recently Relevant to Health Maintenance Additional Health Concerns Active Problems Noted Date Diagnosed Date Autogenerated Problem 04/16/2025 Insurance [place] ANTHEM ACCESS CHOICE ACCESS MEDICARE RAILROAD [facility] MEDICARE RAILROAD Advance Directives For more information, please contact: [phone] * Full Code (Latest Code Status on File) Date Activated Date Inactivated Comments 12/03/2018 6:15 PM 12/04/2018 8:51 PM * Full Code Date Activated Date Inactivated Comments 11/06/2018 4:45 PM 11/08/2018 9:17 PM Care Teams Clearing Inspector Relationship Specialty Start Date End Date Sudha Tian MD PCP - General Family Medicine 03/08/25
[2025-05-25 09:36] VITALS: BP 131/71; PULSE 76; RESP 16; TEMP 36.1; O2SAT 99
--- NOTE | 2025-05-25 09:39 | SUR.PREOP ---
blood glucose monitor 156
[2025-05-25] MEDS: LACTATED RINGERS 1,000 ML 150 ML IV CONT (09:46)
--- NOTE | 2025-05-25 10:49 | WPDANESEPPF ---
Anes - Initial Pre Proc Eval Procedure: Operation Date: 05/25/25 10:30 Proposed Procedures p Esophagogastroduodenoscopy - Johann Correa MD Date/Time: 05/25/25 10:49 Surgeon: Johann Correa MD Pre Op Diagnosis: Esophageal obstruction Patient Data Age: 64 Gender: F Height: 1.65 m Weight: 68.1 kg Last Vital Signs Temp 96.9 F L 05/25/25 09:36 Pulse 76 05/25/25 09:36 Resp 16 05/25/25 09:36 BP 131/71 05/25/25 09:36 Pulse Ox 99 05/25/25 09:36 O2 Del Method Room Air 05/25/25 09:36 Allergies Allergy/AdvReac Type Severity Reaction Status Date / Time No Known Allergies Allergy Verified 05/25/25 09:33 Home Medications ?Medication ?Instructions ?Recorded ?Confirmed ?Type glucose 4 gram chewable tablet 16 g (4 x 4 gram) PO Q15M PRN 09/22/24 05/19/25 Rx (Dex4 Glucose) hypoglycemia #60 tabs solifenacin 5 mg tablet (Vesicare) 5 mg PO DAILY #90 tabs 10/22/24 05/25/25 Rx clopidogrel 75 mg tablet (Plavix) 75 mg PO DAILY #90 tabs 11/22/24 05/25/25 Rx insulin glargine 100 unit/mL (3 16 unit (0.16 mL) subcut DAILY #18 01/21/25 05/25/25 Rx mL) subcutaneous pen (Lantus mL Solostar U-100 Insulin) escitalopram oxalate 10 mg tablet 10 mg PO DAILY #90 tabs 02/08/25 05/25/25 Rx dulaglutide 4.5 mg/0.5 mL 4.5 mg subcut WEEKLY 03/18/25 05/25/25 History subcutaneous pen injector (Trulicity) glucagon 1 mg/0.2 mL subcutaneous 1 mg subcut ONCE PRN hypoglycemia 03/18/25 05/19/25 History auto-injector (Gvoke HypoPen 2-Pack) rosuvastatin 10 mg tablet 10 mg PO DAILY #90 tabs 04/22/25 05/25/25 Rx amlodipine 5 mg tablet 5 mg PO DAILY #90 tabs 05/04/25 05/25/25 Rx bupropion HCl 150 mg 24 hr tablet, 150 mg PO QAM #90 tabs 05/15/25 05/25/25 Rx extended release vitamin B complex 1 cap PO DAILY 05/19/25 05/25/25 History Patient hx anesthesia problems: none Family hx anesthesia problems: none Results Review: All pre-operative results and documents have been reviewed as part of the pre-operative evaluation. [facility] Past Medical History Medical History (Updated 05/11/25 @ 16:06 by Marianela Kovacs MD) Diabetic peripheral neuropathy Falls frequently Cerebrovascular disease Ataxia Brainstem stroke Normal pressure hydrocephalus Right-sided cerebrovascular accident (CVA) Anxiety Depression CKD (chronic kidney disease) Esophageal dilatation Obesity Diabetes Osteoarthritis HTN (hypertension) Hyperlipidemia Surgical History Surgical History History of removal of calculus of renal pelvis through percutaneous nephrostomy Family History Family History Father Bladder cancer Mother Diabetes mellitus Hypertension Depression Cerebrovascular accident Sibling Hypertension Diabetes mellitus Heart disease Social History Social History Smoking status: Never smoker Second hand tobacco smoke exposure: No Alcohol intake: never Substance use: never Substance use type: does not use Do You Feel Safe in your Home?: Yes Lack of Transportation: No Lack of Food: Never True Current Housing: I Have Housing Concerned About Future Housing: No Difficulty Paying Gas/Electric Bills: No Difficulty Paying for Meds: No Currently Unemployed: No Education: High School Diploma/GED Difficulty w/ Childcare or Family Care: No Living arrangements: alone Occupation/Education: occupation Gender identity (if verbalized by the patient): Female Spiritual care concerns: No Agree to blood products: Yes Anes - Eval Final PreProcedure Day of Procedure 05/25/25 10:49 Patient weight: normal Heart: regular rate and rhythm Lungs: clear to auscultation Airway: Mallampati scale class II Neurological: alert and oriented Last oral intake: >/= 8 hours ASA classification: III Emergent: no Anesthetic plan: proceed Anesthesia type and monitoring: general GIVS and standard monitoring Results Review: All pre-operative results and documents have been reviewed as part of the pre-operative evaluation. Informed Consent: The patient's anesthetic plan and its attendant risks and benefits were discussed with the patient/family/POA. Questions were solicited and answers provided to the satisfaction of the patient/family/POA.
--- NOTE | 2025-05-25 10:51 | PM.HPGS ---
History of Present Illness History of Present Illness Consent: Risks, benefits, and alternatives have been discussed and questions answered. Patient agrees to proceed with procedure. Chief complaint: Esophageal obstruction Narrative: Sommer Villavicencio is a 64 year old female with dysphagia, h/o esophageal dilation Review of Systems Review of Systems: All systems reviewed & are unremarkable except as noted in HPI and below PMFSH Past Medical History Medical History (Updated 05/11/25 @ 16:06 by Marianela Kovacs MD) Diabetic peripheral neuropathy Falls frequently Cerebrovascular disease Ataxia Brainstem stroke Normal pressure hydrocephalus Right-sided cerebrovascular accident (CVA) Anxiety Depression CKD (chronic kidney disease) Esophageal dilatation Obesity Diabetes Osteoarthritis HTN (hypertension) Hyperlipidemia Surgical History Surgical History History of removal of calculus of renal pelvis through percutaneous nephrostomy Family History Family History Father Bladder cancer Mother Diabetes mellitus Hypertension Depression Cerebrovascular accident Sibling Hypertension Diabetes mellitus Heart disease Social History Social History Smoking status: Never smoker Second hand tobacco smoke exposure: No Alcohol intake: never Substance use: never Substance use type: does not use Do You Feel Safe in your Home?: Yes Lack of Transportation: No Lack of Food: Never True Current Housing: I Have Housing Concerned About Future Housing: No Difficulty Paying Gas/Electric Bills: No Difficulty Paying for Meds: No Currently Unemployed: No Education: High School Diploma/GED Difficulty w/ Childcare or Family Care: No Living arrangements: alone Occupation/Education: occupation Gender identity (if verbalized by the patient): Female Spiritual care concerns: No Agree to blood products: Yes Meds Home Medications and Allergies Home Medications ?Medication ?Instructions ?Recorded ?Confirmed ?Type glucose 4 gram chewable tablet 16 g (4 x 4 gram) PO Q15M PRN 09/22/24 05/19/25 Rx (Dex4 Glucose) hypoglycemia #60 tabs solifenacin 5 mg tablet (Vesicare) 5 mg PO DAILY #90 tabs 10/22/24 05/25/25 Rx clopidogrel 75 mg tablet (Plavix) 75 mg PO DAILY #90 tabs 11/22/24 05/25/25 Rx insulin glargine 100 unit/mL (3 16 unit (0.16 mL) subcut DAILY #18 01/21/25 05/25/25 Rx mL) subcutaneous pen (Lantus mL Solostar U-100 Insulin) escitalopram oxalate 10 mg tablet 10 mg PO DAILY #90 tabs 02/08/25 05/25/25 Rx dulaglutide 4.5 mg/0.5 mL 4.5 mg subcut WEEKLY 03/18/25 05/25/25 History subcutaneous pen injector (Trulicity) glucagon 1 mg/0.2 mL subcutaneous 1 mg subcut ONCE PRN hypoglycemia 03/18/25 05/19/25 History auto-injector (Gvoke HypoPen 2-Pack) rosuvastatin 10 mg tablet 10 mg PO DAILY #90 tabs 04/22/25 05/25/25 Rx amlodipine 5 mg tablet 5 mg PO DAILY #90 tabs 05/04/25 05/25/25 Rx bupropion HCl 150 mg 24 hr tablet, 150 mg PO QAM #90 tabs 05/15/25 05/25/25 Rx extended release vitamin B complex 1 cap PO DAILY 05/19/25 05/25/25 History Allergies Allergy/AdvReac Type Severity Reaction Status Date / Time No Known Allergies Allergy Verified 05/25/25 09:33 Vital Signs Vital Signs - 24 hr 05/25/25 09:36 Temperature 96.9 F L Pulse Rate 76 Respiratory Rate 16 Blood Pressure 131/71 Pulse Oximetry 99 Oxygen Delivery Room Air Exam Const: General: comfortable and no acute distress HENMT: Face/Nose/Sinus: Normal nares present Eyes: General: appearance normal, both eyes and all related structures Neck: Neck: no JVD Resp: Auscultation: clear to auscultation bilaterally Cardio: Rate: regular rate Rhythm: regular rhythm GI: Inspection: non-distended GI Palp: Yes Soft to palpation Skin: General skin exam: normal color Neuro: Speech: normal speech Extrem: General: normal to inspection Psych: Mental Status: mental status grossly normal Assessment and Plan Assessment and plan (1) Dysphagia: Code(s): R13.10 - Dysphagia, unspecified Status: Acute Assessment and Plan: egd
[2025-05-25 11:02] VITALS: BP 118/67; PULSE 70; RESP 21; O2SAT 94
[2025-05-25 11:12] VITALS: BP 107/62; PULSE 70; RESP 21; O2SAT 93
[2025-05-25 11:22] VITALS: BP 109/66; PULSE 68; RESP 22; O2SAT 94
--- NOTE | 2025-05-25 11:45 | SUR.PHASEII ---
Blood glucose 156 per pt. continuous monitor.
== END 2025-05-25 11:40 | disposition home or self-care (01) ==
PROVIDERS: PCP Family Medicine; Visit Provider Internal Medicine Gastroenterology
PROC: 0DJ08ZZ Inspection of Upper Intestinal Tract, Via Natural or Artificial Opening Endoscopic (ICD-10-PCS; CPT 43249; principal; 2025-05-25 10:30)
DX: K22.2 Esophageal obstruction (principal); K21.00 Gastro-esophageal reflux disease with esophagitis, without bleeding; K57.10 Diverticulosis of small intestine without perforation or abscess without bleeding; E78.5 Hyperlipidemia, unspecified; E11.42 Type 2 diabetes mellitus with diabetic polyneuropathy; E11.22 Type 2 diabetes mellitus with diabetic chronic kidney disease; I12.9 Hypertensive chronic kidney disease with stage 1 through stage 4 chronic kidney disease, or unspecified chronic kidney disease; N18.9 Chronic kidney disease, unspecified; F41.9 Anxiety disorder, unspecified; F32.A Depression, unspecified; M19.90 Unspecified osteoarthritis, unspecified site; I67.9 Cerebrovascular disease, unspecified; Z79.02 Long term (current) use of antithrombotics/antiplatelets; Z79.4 Long term (current) use of insulin; Z79.85 Long-term (current) use of injectable non-insulin antidiabetic drugs; Z98.890 Other specified postprocedural states; Z86.79 Personal history of other diseases of the circulatory system; Z86.73 Personal history of transient ischemic attack (TIA), and cerebral infarction without residual deficits; Z80.52 Family history of malignant neoplasm of bladder; Z82.49 Family history of ischemic heart disease and other diseases of the circulatory system
CPT/HCPCS: 43249; C1726; J2003; J2704; J7120

== ENCOUNTER 2025-05-28 07:58 | Outpatient (CLI) | payer MEDICARE, SELFPAY ==
--- NOTE | ~2025-05-28 | DEXA_ITS ---
Bone Density Report Name: BLANK NUNEZ Age: 64 Sex: Female Ethnicity: White Date of : 1960 Indication: postmenopausal; screening for osteoporosis; hysterectomy; Referring Provider: BIENVENIDO CHEN Study: Bone densitometry was performed. Exam Date: May 28, 2025 Accession number: [id number] Bone Density: Region BMD T-score Z-score Classification AP Spine(L1, L2, L3) 1.305 2.6 4.5 Normal Femoral Neck (Left) 0.772 -0.7 0.9 Normal Total Hip (Left) 0.977 0.3 1.6 Normal Femoral Neck (Right) 0.787 -0.6 1.0 Normal Total Hip (Right) 0.931 -0.1 1.2 Normal Total Hip Mean 0.954 0.1 1.4 Normal World Health Organization criteria for BMD impression classify patients as: Normal (T-score at or above -1.0), Osteopenia (T-score between -1.0 and -2.5), or Osteoporosis (T-score at or below -2.5). 10-year Fracture Risk: FRAX not reported because: All T-scores for Spine Total, Hip Total, Femoral Neck at or above -1.0 Clinical Information Provided by Patient: Has the following medical conditions: Hysterectomy Patient maximum height was 65 Menopause Age: 50 No regular weight bearing exercise Does not regularly consume dairy products Drinks caffeinated beverages Onset of menses at age 9 Number of children 1 Impression: The patient has normal bone mass. Discussion: BONE DENSITY IS ABOVE THE MINIMUM DESIRABLE LEVEL AT ALL SKELETAL SITES TESTED. This patient?s bone mineral density is above the minimum desirable level (T-score -1.0 or better) at all sites measured. The patient should follow a healthful lifestyle (good nutrition with adequate calcium and vitamin D, and appropriate weight-bearing exercise). Follow-Up: Consider repeating this study in 5 years or sooner if there is some new clinical indication. Reported by: RYAN on 05/28/2025 8:43:00 AM. Reviewed, dictated and finalized at location A.
== END 2025-05-28 07:59 | disposition home or self-care (01) ==
LOC: MICIMG 07:58
PROVIDERS: PCP Family Medicine; Visit Provider Student in an Organized Health Care Education/Training Program
DX: N95.0 Postmenopausal bleeding (principal)
CPT/HCPCS: 77080

== ENCOUNTER 2025-06-02 10:58 | Inpatient (IN) | payer MEDICARE, SELFPAY ==
[2025-06-02] VITALS (8 sets, daily range): BP systolic 121–150; BP diastolic 57–98; PULSE 35–81; RESP 14–20; TEMP 36.3–36.6; O2SAT 97–100
--- NOTE | ~2025-06-02 | CT_ITS ---
EXAMINATION: CT facial bones wo con DATE: 06/02/2025 13:05 INDICATION: Status post fall. Trauma to the left jaw. TECHNIQUE: Computed tomography (CT) of the facial bones was performed without intravenous contrast. The dose-length product was 386.95 mGy-cm. COMPARISON: None FINDINGS: Orbits intact without blowout fracture. Lamina papyracea is intact. No nasal fracture. No acute abnormality of the maxilla or mandible. There is intracranial atherosclerosis. Zygomatic arches and pterygoid plates intact. There is mucosal thickening of the maxillary and the ethmoid sinuses. Visualized aspects of the upper cervical spine are unremarkable. No significant soft tissue abnormality. IMPRESSION: 1. No acute fracture. Reviewed, dictated and finalized at location O. IMPRESSION: 1. No acute fracture.
--- NOTE | ~2025-06-02 | XR_ITS ---
EXAMINATION: BONE SURVEY/METASTATIC SURVEY DATE: 06/05/2025 INDICATION: Hypercalcemia TECHNIQUE: A skeletal survey was performed including AP views of the chest, abdomen and pelvis; AP and lateral/lateral swimmers views of the cervical, thoracic and lumbar spine; lateral view of the skull, and AP and lateral views of the appendicular skeleton excluding the hands and feet. COMPARISON: 02/04/2025 FINDINGS: 15 degrees thoracic levocurvature and 15 degrees lumbar levocurvature. Moderate cervical, mild thoracic and severe lumbar spondylosis. Additional degenerative skeletal changes in the appendicular skeleton most prominent at the right knee the radial aspect of the bilateral carpi. No suspicious lytic or blastic bone lesions. Atherosclerotic calcific location at the bilateral carotid bulbs. Lungs are clear with no focal airspace opacities, pulmonary edema, pleural effusion or pneumothorax. Heart size is normal. Multiple splenic calcifications consistent with old granulomatous disease. IMPRESSION: 1. No suspicious lytic or blastic bone lesions. Reviewed, dictated and finalized at location A.
--- NOTE | ~2025-06-02 | US_ITS ---
Examination: Ultrasound of the retroperitoneum including kidneys and bladder. Clinical History: ANTONI on CKD . Comparison: CT abdomen and pelvis 03/19/2025. Findings: Right kidney: 9 cm. Normal echogenicity. No collecting system dilatation. 6 mm echogenic focus. Left kidney: 11 cm. Normal echogenicity. Mild collecting system dilatation. No shadowing calculi. Urinary bladder: No wall thickening or focal abnormality. Left ureteral jet seen, right ureteral jet not seen. IMPRESSION: 1. Hydronephrosis left kidney. 2. No hydronephrosis right kidney. 6 mm stone. Reviewed, dictated and finalized at location R.
--- NOTE | ~2025-06-02 | MR_ITS ---
EXAMINATION: MR brain/brain stem wo con DATE: 06/06/2025 15:16 INDICATION: Headache. Hypercalcemia. TECHNIQUE: Magnetic resonance imaging (MRI) of the brain and brainstem was performed without intravenous contrast. COMPARISON: Brain MRI 02/09/2025, head CT 06/06/2025 FINDINGS: There are scattered areas of nonspecific increased T2-weighted signal intensity in the cerebral white matter and scarlet. There is no intracranial hemorrhage, acute infarction, or abnormal intracranial mass lesion. The ventricles are normal in size. There is mild mucosal thickening in the paranasal sinuses. The orbits are normal. There is a trace left mastoid effusion. IMPRESSION: 1. Stable mild nonspecific cerebral white matter disease and pontine disease, which likely represents chronic small vessel ischemic disease. Reviewed, dictated and finalized at location K. IMPRESSION: 1. Stable mild nonspecific cerebral white matter disease and pontine disease, w hich likely represents chronic small vessel ischemic disease.
--- NOTE | ~2025-06-02 | NM_ITS ---
EXAMINATION: NM bone scan whole body DATE: 06/08/2025 08:32 INDICATION: Hypercalcemia TECHNIQUE: 26.1 mCi Tc-99m HDP was administered intravenously. Delayed whole- body scintigrams were obtained. COMPARISON: Skeletal survey dated 06/05/2025 FINDINGS: Likely degenerative joint centered uptake at the bilateral acromioclavicular and sternoclavicular joints, at the right C4-C5 facet joint and to lesser degree at the bilateral knees and several joints at the bilateral feet and ankles. Mild lumbar levocurvature. With mild uptake on both sides of the lumbar spine which could be related to facet osteoarthritis and/or degenerative disc disease with endplate osteophytes of which is evident on prior radiographs. No other atypical foci of increased bone uptake to suggest malignancy. IMPRESSION: 1. Typical distribution of likely degenerative uptake in the spine and appendicular skeleton with corresponding degenerative changes on skeletal survey. No lesions suspicious for metastatic disease. Reviewed, dictated and finalized at location A. IMPRESSION: 1. Typical distribution of likely degenerative uptake in the spine and appendic ular skeleton with corresponding degenerative changes on skeletal survey. No le sions suspicious for metastatic disease.
--- NOTE | ~2025-06-02 | CT_ITS ---
CT HEAD NON-CONTRAST Clinical History: fall, hit head Comparison: MRA brain 02/09/2025 Technique: Unenhanced axial images skull base to vertex Coronal, sagittal reformats CT images acquired with automatic exposure control for dose reduction DLP: 530 mGy-cm Findings: Chronic white matter microvascular ischemic changes. Sulci, ventricles: Unremarkable. No intracerebral hemorrhage. No evidence acute territorial infarct. No mass effect, midline shift. Bony calvarium intact. Visualized paranasal sinuses: Clear. Mastoid air cells: Clear. IMPRESSION: 1. No acute intracranial findings. Reviewed, dictated and finalized at location R.
--- NOTE | ~2025-06-02 | CT_ITS ---
EXAMINATION: CT brain & sinus wo con, 06/06/2025 15:25 CDT HISTORY: hypercalcemia, sinusitis COMPARISON: No comparisons available. Technique: Axial images obtained of the brain and sinuses without contrast. One or more of the following dose reduction techniques were used: automated exposure control, adjustment of the mA and/or kV according to patient size, use of iterative reconstruction technique. Findings: No acute infarct or parenchymal hemorrhage. No abnormal mass or mass effect. No midline shift. No extra-axial fluid collections. No hydrocephalus. Mastoid air cells unremarkable. The frontal sinuses demonstrate minimal mucosal thickening. Moderate mucosal thickening noted of the ethmoidal air cells bilaterally. Minimal mucosal thickening in the maxillary sinuses. The ostiomeatal complexes are patent. Nasal septum is in the midline. No significant thickening of the turbinates on either the nasal cavities. The sphenoid sinus is unremarkable. There is no osseous destruction or wall thickening identified. No acute fracture. No significant facial or scalp soft tissue swelling evident. No radiopaque foreign body is seen. Impression: 1.No acute intracranial abnormality. Reviewed, dictated and finalized at location A. Impression: 1.No acute intracranial abnormality.
--- NOTE | 2025-06-02 11:29 | ECG_ITS ---
Test Date: 2025-06-02 11:40:05 Measurements Intervals [place] Rate: 63 P: 4 GA: 199 QRS: -28 QRSD: 94 T: 0 QT: 382 QTc: 393 Interpretive Statements SINUS RHYTHM POSSIBLE ANTERIOR MYOCARDIAL INFARCTION , PROBABLY OLD [30 ms Q WAVE IN V3/V4, OR R < 0.2 mV IN V4] ABNORMAL ECG Compared to ECG 03/17/2025 23:05:16 NO SIGNIFICANT DIFFERENCE, SLIGHTLY SHORTER GA INTERVAL Electronically Signed On 06-02-2025 16:22:56 CDT by Arash Hernandez M.D.
[2025-06-02 11:50] LABS: Hematocrit 39.2 % (37.0-47.0); Hemoglobin 12.6 g/dL (12.0-15.0); Immature Granulocyte Percent A 0.5 % (0-0.5); Lymphocytes Absolute Auto 0.79 K/mm3 (0.9-3.2); Mean Corpuscular HGB Conc 32.1 g/dl (32-36); Mean Corpuscular Hemoglobin 27.4 pg (26-34); Mean Corpuscular Volume 85.2 fl (80-100); Nucleated Red Blood Cells Absolute Auto 0.000 K/mm3 (0.0-0.012); Nucleated Red Blood Cells Perc 0.0 % (0.0-0.2); Platelet Count Result 311 k/mm3 (150-375); Red Blood Count 4.60 M/mm3 (4.2-5.4); White Blood Count 7.3 K/mm3 (4.5-10.0)
--- OUTSIDE RECORDS SUMMARY | 2025-06-02 11:52 | XMS_ITS | Clinical Summary ---
Author Organization [facility] Address [address] [place] [address] Care Team Providers Care Goring Cutter Name Role Phone Sudha Tian MD Primary Care Provider [phone] Allergies Active Allergy Reactions Criticality Noted Date [...] (11/07/2018): Added automatically from request for surgery [id number] Encounters Date Type Department Care Team Description 05/31/2025 2:20 PM CDT Office Visit [facility] Medicine Obstetrics and Gynecology [address] [facility] 13th [place] [address] [place] [address] Leonel Coronado MD Ovarian mass (Primary Dx) 05/14/2025 7:30 AM CDT - 05/14/2025 10:45 AM CDT Surgery [facility] Operating Room [address] [place] [address] Leonel Coronado MD LAPAROSCOPIC HYSTERECTOMY ABDOMINAL SALPINGO-OOPHORECTO MY 05/14/2025 7:29 AM CDT Anesthesia Event [facility] Operating Room [address] [place] [address] Myron Prado MD Mallette, Allison Anne, NP 05/14/2025 5:19 AM CDT - 05/14/2025 2:45 PM CDT Hospital Encounter [facility] Operating Room [address] [place] [phone] Leonel Coronado MD Ovarian mass Discharge Disposition: Discharge to home or self care 05/13/2025 Telephone [facility] Medicine Obstetrics and Gynecology [address] [facility] 13th [place] [address] [place] [address] Argenis Rosas Surgery Confirmation 05/13/2025 Telephone [facility] Medicine Obstetrics and Gynecology [address] [facility] 13th [place] [address] [place] [address] Yesica Cross Surgery Confirmation 05/04/2025 8:30 AM CDT Pre-Admission Testing [facility] for Preoperative Assessment and Planning [facility] Advanced [facility] ([facility] [address] [place] [address] Preoperative testing (Primary Dx); Pain in urethra; Ovarian mass 04/12/2025 11:40 AM CDT Office Visit [facility] Medicine Obstetrics and Gynecology [address] [facility] 13th [place] [address] [place] [address] Leonel Coronado MD Ovarian mass (Primary Dx) 04/09/2025 1:15 PM CDT - 04/09/2025 11:59 PM CDT Hospital Encounter [facility] - Ultrasound [address] [facility], 7th Floor, [address] [facility] [place] [address] Adnexal mass Discharge Disposition: Discharge to home or self care 04/01/2025 Orders Only [facility] Medicine Obstetrics and Gynecology [address] [facility] 13th [place] [address] [place] [address] Jossie Whitaker RN Adnexal mass (Primary Dx) 03/17/2025 Telephone [facility] Medicine Obstetrics and Gynecology [address] [facility] 13th [place] [address] [place] [address] Jossie Whitaker RN 03/16/2025 Documentation [facility] Medicine Obstetrics and Gynecology [address] [facility] 13th [place] [address] [place] [address] Jossie Whitaker RN 03/16/2025 Orders Only [facility] Medicine Obstetrics and Gynecology [address] [facility] 13th [place] [address] [place] [address] Jossie Whitaker RN Adnexal mass (Primary Dx) 03/12/2025 9:00 AM CDT Pre-Admission Testing [facility] for Preoperative Assessment and Planning [facility] ([facility] [address] [place] [address] Preoperative testing (Primary Dx); Kidney stones 01/15/2025 11:59 PM CDT Anesthesia Event [facility] Operating Room [address] [place] [address] Ilsa Gomez NP from Last 3 Months [...] Added automatica lly from request for surgery [id number] ARF (acute renal failure) 10/2018 SCR: 2 [...] on file 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 Not on file Not on file Not on file Obstetrics History Para Term AB IAB SAB Ectopic Multiple Livin g Live Births 1 1 Date Outcome GA Total Labor Labor/2nd/3rd Weight Sex Type Anes PTL Dee Dee A1 A5 Name Clin Last Filed Vital Signs Vital Sign Reading Time Taken Comments Blood Pressure 124/74 05/31/2025 2:15 PM CDT Pulse 79 05/31/2025 2:15 PM CDT Temperature 36.8 C (98.3 F) 05/31/2025 2:15 PM CDT Respiratory Rate 18 05/31/2025 2:15 PM CDT Oxygen Saturation 97% 05/31/2025 2:15 PM CDT Inhaled Oxygen Concentration - - Weight 68.9 kg (151 lb 14.4 oz) 05/31/2025 2:15 PM CDT Height 165.1 cm (5' 5) 05/14/2025 5:40 AM CDT Body Mass Index 25.28 05/14/2025 5:40 AM CDT Plan of Treatment [...] Visit 65+ 2023 Influenza Vaccine (#1) 2025 , 07/11/2021, 09/01/2020, Additional history exists Hemoglobin A1C 11/04/2025 05/04/2025, 01/15/2025 eGFR 05/04/2026 05/04/2025, 06/, 01/15/2025 Fall Risk Assessment 05/14/2026 05/14/2025 Cervical Cancer Screening Discontinued 06/29/2024, 03/2024 Goals Goal Patient Goal Type Associated Problems Recent Progress Patient-Stated? Author Autogenera trisha Goal Care Plan Autogenerated Problem No Efrain Huber RN Medical Devices Explanted Type Area Shoe Clerk Device Identifier Shelf Expiration Date Model / Serial / Lot [employer] [id number] Universa 7fr 26cm 145cm Soft Positioner Paunch Trimmer Braid Tether - [id number] Implanted:Qty: 1 on 11/07/2018 by Ronan Pham MD at [facility] Explanted:Qty: 1 on 12/03/2018 at [facility] Stent Right: Urethra [employer] [id number] / / Procedures Procedure Name Priority Date/Time Associated Diagnosis Comments POCT GLUCOSE DEVICE Routine 05/14/2025 9 :53 AM CDT SURGICAL PATHOLOGY Routine 05/14/2025 8: 49 AM CDT Ovarian mass POCT GLUCOSE DEVICE Routine 05/14/2025 8 :20 AM CDT CYTOLOGY Routine 05/14/2025 8:15 AM CDT Ovarian mass [place] AN PROCEDURE PLACEHOLDER Routine 05/14/2025 7:58 AM CDT [place] AN PROCEDURE PLACEHOLDER Routine 05/14/2025 7:58 AM CDT [place] AN ELECTIVE ENDOTRACHEAL AIRWAY Routine 05/14/2025 7:58 [...] AM CDT 05/14/2025 9:53 AM CDT us Premia Chaka Coronado MD LAB POCT ORDERABLES - DE VICE Final Result [facility] [place] [address] * Surgical pathology (05/14/2025 8:49 AM CDT) Tissue (Uterus with/without tubes & ovaries, Neoplastic) 05/14/2025 8:49 AM CDT Tissue specimen (specimen) (Uterus with/without tubes & ovaries, Neoplastic) 05/14/2025 8:56 AM CDT Narrative PATHOLOGY [facility] - 05/19/2025 1:22 PM CDT EPIC results best viewed via link to PDF [facility] Daphne Chávez Laboratory [place] [address] Note to Patients: This report may contain [...] PATHOLOGY REPORT FINAL Patient Name: BLANK NUNEZ Hector Gender: F : 1960 (Age: 64) Address: [facility] [address] [place] [address] Hospital #: [id number] Taken:05/14/2025 Received:05/14/2025 Reported: 05/19/2025 Patient Type: [facility] Service: Surgery Location: [facility] OR POD1 Physician(s): Lani Harvey M.D. Diagnosis: A. Ovary [...] Left fallopian tube - No histopathologic abnormality [facility]/05/19/2025 08:10 By this signature, I attest [...] Draper M.D., P.h.D., Ron Jenkins MS, PA ([facility])CM Gross Consultation A: Right ovary Received fresh [...] projections. No definitive solid component is identified. Executive Producer [employer] sections of the papillary areas are submitted in cassettes AFR1 and AFR2. By James Terry MD PhD, Lillie Draper M.D., P.h.D., Ron Jenkins MS, PA ([facility])CM I personally examined the relevant preparation(s) or [...] right fallopian tube B11 Attached adipose tissue [facility]05/17/2025 15:34 Gross Resident:Real Nair M.D. By this signature, I attest that the above diagnosis is based upon my personal examination of the slides(and/or other material). Addenda/Procedures The performance characteristics of some immunohistochemical stains, fluorescence in-situ hybridization tests and immunophenotyping by flow cytometry cited in this report (if any) were determined by the Surgical Pathology and Flow Cytometry Departments at [facility] as part of an ongoing quality systems manager program and in compliance with federally mandated [...] Surgical Pathology and Flow Cytometry Departments of [facility]. It has not been cleared or approved by the U. S. Food and Drug Administration. IMAGES AND SCANNED DOCUMENTS, IF INCLUDED, ONLY VIEWABLE IN PDF VERSION OF REPORT [facility] Chaka Coronado MD LAB PATHOLOGY ORDERABLES Final Result PATHOLOGY [facility] 3rd Floor [place], [place] [phone] * POCT glucose (05/14/2025 8:20 AM CDT) Glucose, POC 141 70 - 199 mg/dL Blood 05/14/2025 8:20 AM CDT 05/14/2025 8:20 AM CDT [facility] Chaka Coronado MD LAB POCT ORDERABLES - DE VICE Final Result [facility] [place] [address] * Cytology (05/14/2025 8:15 AM CDT) Fluid (Pelvic Washing (Cytology)) 05/14/2025 8:15 AM CDT Narrative PATHOLOGY [facility] - 05/21/2025 10:26 AM CDT EPIC results best viewed via link to PDF [facility] Daphne Chávez Laboratory [place] [address] Note to Patients: This report may contain [...] Gender: F : 1960 (Age: 64) Address: [facility] [address] , [place] [id number] Hospital #: [id number] Taken:05/14/2025 Received:05/14/2025 Reported: 05/21/2025 Patient Type: [facility] Service: Surgery Location: [facility] OR [facility] Physician(s): Lani Harvey M.D. FINAL DIAGNOSIS A. Pelvic washings: - Atypical cytology Comments ThinPrep slide shows background mesothelial cells and lymphocytes and a single papilliform group, which may represent surface denudement of the ovarian tumor. lns/05/17/2025 12:18 By this signature, I attest that [...] Surgical Pathology and Flow Cytometry Departments at [facility] as part of an ongoing quality systems manager program and in compliance with federally mandated [...] Surgical Pathology and Flow Cytometry Departments of [facility]. It has not been cleared or approved by the U. S. Food and Drug Administration. [facility] Chaka oCronado MD LAB CYTOLOGY ORDERABLES Final Result [facility] 3rd Floor [place], [place] [phone] * [place] AN PROCEDURE PLACEHOLDER (05/14/2025 7:58 AM CDT) Abbie Mejia CRNA - 05/14/2025 7:58 AM CDT Abbie James CRNA 05/14/2025 7:59 AM Peripheral IV Catheter Patient location: OR Staff: Placed by: HOLE PUNCHER STRAP: Abbie James CRNA Preprocedure prep: Prep solution: chlorhexadine PPE: provider hat/mask and gloves PIV line: Laterality: left Site: wrist Catheter size: 18 g Technique: direct visualization Procedure details: good blood return Number of attempts: 1 Assessment: Events: patient tolerated procedure well with no complications Myron Prado MD ANESTHESIA ORDERABLES Fi nal Result * [place] AN ELECTIVE ENDOTRACHEAL AIRWAY, [place] AN PROCEDURE PLACEHOLDER (05/14/2025 7:58 AM CDT) Abbie Mejia CRNA - 05/14/2025 7:58 AM CDT Abbie James CRNA 05/14/2025 7:58 AM Airway Patient location: OR Urgency: elective Indications for airway management: anesthesia and airway protection Difficult airway: no Staff: Supervising provider: Myron Prado MD Placed by: HOLE PUNCHER STRAP: Abbie James CRNA Emergent airway documentation: Risks [...] 6:03 AM CDT 05/14/2025 6:03 AM CDT Leonel Coronado MD LAB POCT ORDERABLES - DE VICE Final Result [facility] [place] [address] * TYPE AND SCREEN 14 DAY (05/04/2025 9:39 AM CDT) Peter, indirect Negative ABO Rh O Positive [facility] Blood 05/04/2025 9:39 AM CDT 05/04/2025 10:43 AM CDT [facility] - 05/04/2025 11:46 AM CDT Has the patient had Daratumumab or Isatuximab in the past 6 months?->No Is this test being ordered in advance for a procedure?->Yes Expected date of procedure:->04/30/25 Has the patient been transfused in the past 3 months?->No Has the patient been in the past 3 months?->No Leonel Coronado MD LAB BLOOD BANK TEST ORDJuan PEÑA Final Result Performing Organization Address [facility] Co de Phone Number [facility] [place] [address] * (ABNORMAL) eGFR (05/04/2025 9:39 AM CDT) Pathologist [facility] eGFR 16(L) >=60 mL/min/1. 73 m2 Comment: [...] ORDERABLES Fin al Result Performing Organization Address City/[facility] Co de Phone Number [facility] [place] [address] * Differential, auto (05/04/2025 9:39 AM CDT) Pathologist [facility] Neutrophil abs 4.56 1.50 - 6.50 K/cumm Imm gran abs 0.03 0.00 - 0.10 K/cumm [facility] Lymphocyte abs 0.83 0.80 - 3.30 K/cumm [facility] Monocyte abs 0.64 0.20 - 0.80 K/cumm [facility] Eosinophil abs 0.26 0.00 - 0.50 K/cumm [facility] Basophil abs 0.08 0.00 - 0.10 K/cumm [facility] Neutrophil pct 71.1 % [facility] Comment: Interpretive Data Percent cell count reference ranges are not reported, since discordance with absolute values may lead to misinterpretation of CBC data. Current Interpretive Data was last revised on 2017. Imm gran pct 0.5 % [facility] Comment: Interpretive Data Percent cell count reference ranges are not reported, since discordance with absolute values may lead to misinterpretation of CBC data. Current Interpretive Data was last revised on 2017. Lymphocyte pct 13.0 % [facility] Comment: Interpretive Data Percent cell count reference ranges are not reported, since discordance with absolute values may lead to misinterpretation of CBC data. Current Interpretive Data was last revised on 2017. Monocyte pct 10.0 % [facility] Comment: Interpretive Data Percent cell count reference ranges are not reported, since discordance with absolute values may lead to misinterpretation of CBC data. Current Interpretive Data was last revised on 2017. Eosinophil pct 4.1 % [facility] Comment: Interpretive Data Percent cell count reference ranges are not reported, since discordance with absolute values may lead to misinterpretation of CBC data. Current Interpretive Data was last revised on 2017. Basophil pct 1.3 % [facility] Comment: Interpretive Data Percent cell count reference ranges are not reported, since discordance with absolute values may lead to misinterpretation of CBC data. Current Interpretive Data was last revised on 2017. Blood 05/04/2025 9:39 AM CDT 05/04/2025 10:24 AM CDT us Premal Chaka Coronado MD LAB BLOOD ORDERABLES Fin al Result [facility] [place] [address] * CBC with auto differential (05/04/2025 9:39 AM CDT) WBC 6.40 3.80 - 9.90 K/cumm Hgb 13.0 11.9 - 15.5 g/dL [facility] Hct 39.2 35.6 - 45.5 % [facility] Plt 296 150 - 400 K/cumm [facility] MPV 10.4 9.1 - 12.3 fL [facility] RBC 4.68 3.90 - 5.20 M/cumm [facility] MCV 83.8 81.3 - 96.4 fL [facility] MCH 27.8 27.1 - 33.3 pg [facility] MCHC 33.2 32.3 - 35.7 g/dL [facility] RDW CV 13.9 11.1 - 14.9 % [facility] RDW SD 42.5 35.7 - 48.1 fL [facility] NRBC abs 0.00 0.00 - 0.01 K/cumm [facility] Blood 05/04/2025 9:39 AM CDT 05/04/2025 10:24 AM CDT us Loenel Coronado MD LAB BLOOD ORDERABLES Fin al Result [facility] [place] [address] * Urine culture Urine, clean voided (05/04/2025 9:39 AM CDT) Pathologist [facility] Report Final Report: Less than 100,000 colonies/mL (clinically insignificant growth based on current clinical standards) Organism (CLINICALLY INSIGNIFICANT GROWTH [facility] Urine, clean voided 05/04/2025 9:39 AM CDT 05/04/2025 11:07 AM CDT Narrative [facility] - 05/05/2025 1:08 PM CDT Testing performed by [facility] Microbiology Laboratory ([phone]) us Ligia Rob NP LAB MICROBIOLOGY - GENE RAL ORDERABLES Final Result [facility] [place] [address] * (ABNORMAL) Basic metabolic panel (05/04/2025 9:39 AM CDT) Sodium 135 135 - 145 mmol/L Potassium, pl 4.1 3.3 - 4.9 mmol/L [facility] Chloride 100 97 - 110 mmol/L [facility] CO2 27 22 - 32 mmol/L [facility] Anion gap 8 2 - 15 mmol/L [facility] BUN 34(H) 6 - 25 mg/dL [facility] Creatinine 3.07(H) 0.60 - 1.10 mg/dL [facility] Glucose 157 70 - 199 mg/dL [facility] Comment: Interpretive Data Fasting glucose >/= [...] Calcium 12.7(H) 8.5 - 10.3 mg/dL [facility] Blood 05/04/2025 9:39 AM CDT 05/04/2025 10:24 AM CDT us Premal Chaka Coronado MD LAB BLOOD ORDERABLES Fin al Result [facility] [place] [address] * (ABNORMAL) POCT hemoglobin A1c (05/04/2025 8:36 AM CDT) Hgb A1C, POC 6.8(H) 4.0 - 5.6 % Est Average Gluc POC 148 mg/dL [facility] Comment: The ADA recommends reporting an estimated Average Glucose (eAG) with all Hemoglobin A1c results using the equation derived from a study of 507 normal and diabetic adults. Minority populations were underrepresented and children were not included. (Diabetes Care 31:2701-8753, 2008). The eAG is not equivalent to a fasting glucose. Blood 05/04/2025 8:36 AM CDT 05/04/2025 8:36 AM CDT us Premal Chaka Coronado MD POINT OF CARE TEST ORDER BESS Final Result [facility] [place] [address] * US Pelvis Complete (04/09/2025 1:15 PM [...] fluid in thepelvis. Premal Chaka Coronado MD IMG US PROCEDURES Final Result * TYPE AND SCREEN 14 DAY (03/12/2025 9:41 AM CDT) ABO Rh O Positive Peter, indirect Negative [facility] Blood 03/12/2025 9:41 AM CDT 03/12/2025 10:48 AM CDT Narrative [facility] - 03/12/2025 12:06 PM CDT Has [...] TEST MARY ANN PEÑA Final Result [facility] [place] [address] * (ABNORMAL) eGFR (03/12/2025 9:41 AM CDT) [...] of Race in Diagnosing Kidney Disease, JASN 202). The CKD-EPI equation should not be used for patients with unstable renal function and has not been validated in children and those over 70. Current interpretive data was last reviewed 2021. Blood 03/12/2025 9:41 AM CDT 03/12/2025 10:24 AM CDT us Luis Manuel Dooley NP LAB BLOOD ORDERABLES Fin al Result [facility] [place] [address] * Differential, auto (03/12/2025 9:41 AM CDT) Neutrophil abs 4.38 1.50 - 6.50 K/cumm Imm gran abs 0.03 0.00 - 0.10 K/cumm [facility] Lymphocyte abs 0.86 0.80 - 3.30 K/cumm [facility] Monocyte abs 0.45 0.20 - 0.80 K/cumm [facility] Eosinophil abs 0.22 0.00 - 0.50 K/cumm [facility] Basophil abs 0.07 0.00 - 0.10 K/cumm [facility] Neutrophil pct 72.8 % [facility] Comment: Interpretive Data Percent cell count reference ranges are not reported, since discordance with absolute values may lead to misinterpretation of CBC data. Current Interpretive Data was last revised on 2017. Imm gran pct 0.5 % [facility] Comment: Interpretive Data Percent cell count reference ranges are not reported, since discordance with absolute values may lead to misinterpretation of CBC data. Current Interpretive Data was last revised on 2017. Lymphocyte pct 14.3 % [facility] Comment: Interpretive Data Percent cell count reference ranges are not reported, since discordance with absolute values may lead to misinterpretation of CBC data. Current Interpretive Data was last revised on 2017. Monocyte pct 7.5 % [facility] Comment: Interpretive Data Percent cell count reference ranges are not reported, since discordance with absolute values may lead to misinterpretation of CBC data. Current Interpretive Data was last revised on 2017. Eosinophil pct 3.7 % [facility] Comment: Interpretive Data Percent cell count reference ranges are not reported, since discordance with absolute values may lead to misinterpretation of CBC data. Current Interpretive Data was last revised on 2017. Basophil pct 1.2 % [facility] Comment: Interpretive Data Percent cell count reference ranges are not reported, since discordance with absolute values may lead to misinterpretation of CBC data. Current Interpretive Data was last revised on 2017. Blood 03/12/2025 9:41 AM CDT 03/12/2025 10:24 AM CDT us Luis Manuel Dooley NP LAB BLOOD ORDERABLES Fin al Result [facility] [place] [address] * CBC with auto differential (03/12/2025 9:41 AM CDT) WBC 6.01 3.80 - 9.90 K/cumm Hgb 13.1 11.9 - 15.5 g/dL [facility] Hct 38.5 35.6 - 45.5 % [facility] Plt 282 150 - 400 K/cumm [facility] MPV 11.2 9.1 - 12.3 fL [facility] RBC 4.65 3.90 - 5.20 M/cumm [facility] MCV 82.8 81.3 - 96.4 fL [facility] MCH 28.2 27.1 - 33.3 pg [facility] MCHC 34.0 32.3 - 35.7 g/dL [facility] RDW CV 13.2 11.1 - 14.9 % [facility] RDW SD 39.6 35.7 - 48.1 fL [facility] NRBC abs 0.00 0.00 - 0.01 K/cumm [facility] Blood 03/12/2025 9:41 AM CDT 03/12/2025 10:24 AM CDT Luis Manuel Dooley DIECAST MACHINE OPERATOR LAB BLOOD ORDERABLES Fin al Result Performing Organization Address [facility] de Phone Number [facility] [place] [address] * Urine culture Urine, bladder (03/12/2025 9:41 AM CDT) Report Final Report: Growth indicative of contamination with periurethral deidre. Please submit a new specimen with special attention given to the collection process and to prompt transport to the laboratory. Organism GROWTH INDICATES CONTAM WITH PERIURETHRAL DEIDRE. [facility] Urine, bladder 03/12/2025 9: 41 AM CDT 03/12/2025 11:13 AM CDT Narrative [facility] - 03/13/2025 2:36 PM CDT Testing performed by [facility] Microbiology Laboratory ([phone]) Luis Manuel Dooley DIECAST MACHINE OPERATOR LAB MICROBIOLOGY - GENER AL ORDERABLES Final Result Performing Organization Address [facility] de Phone Number [facility] [place] [address] * (ABNORMAL) Comprehensive metabolic panel (03/12/2025 9:41 AM CDT) Sodium 138 135 - 145 mmol/L Potassium, pl 3.6 3.3 - 4.9 mmol/L [facility] Chloride 99 97 - 110 mmol/L [facility] CO2 26 22 - 32 mmol/L [facility] Anion gap 13 2 - 15 mmol/L [facility] BUN 37(H) 6 - 25 mg/dL [facility] Creatinine 4.49(H) 0.60 - 1.10 mg/dL [facility] Glucose 174 70 - 199 mg/dL [facility] Comment: Interpretive Data Fasting glucose >/= [...] 2022. Calcium 13.6(H) 8.5 - 10.3 mg/dL [facility] Bilirubin, total 0.6 0.1 - 1.2 mg/dL [facility] Protein, pl 8.5 6.5 - 8.5 g/dL [facility] Albumin 4.1 3.5 - 5.0 g/dL [facility] Alk phos 141(H) 40 - 130 Units/L [facility] ALT 23 7 - 45 Units/L [facility] AST 26 10 - 45 Units/L [facility] Blood 03/12/2025 9:41 AM CDT 03/12/2025 10:24 AM CDT us Luis Manuel Dooley NP LAB BLOOD ORDERABLES Fin al Result [facility] [place] [address] * ECG 12 lead (03/12/2025 9:33 AM CDT) Ventricular Rate EKG/Min 68 BPM [facility] Atrial Rate 68 BPM [facility] [place]-Interval (MSEC) 218 ms [facility] QRS-Interval (MSEC) 84 ms [facility] QT-Interval (MSEC) 412 ms [facility] QTc 438 ms [facility] P [place] 36 degrees [facility] R [place] -31 degrees [facility] T [place] 15 degrees [facility] Diagnosis Sinus rhythm with 1st degree A-V block Left axis deviation Low voltage QRS Inferior infarct , age undetermined Poor R-wave progression in the precordial leads Cannot rule out Anterior infarct , age undetermined Abnormal ECG No previous ECGs available Confirmed by CRISTIAN GRIFFIN M.D ([id number]) on 03/12/2025 4:53:43 PM [facility] 03/12/2025 9:33 AM CDT 03/12/2025 4:53 PM CDT Luis Manuel Dooley NP ECG ORDERABLES Final Re sult [facility] * High Risk HPV DNA Detection with Genotyping (Molecular component) (06/29/2024 4:23 PM CDT) HPV HR 16 Not Detected Not Detected [facility] HPV HR 18 Not Detected Not Detected [facility] HPV HR Non 16/18 Not Detected Not Detected [facility] Comment: Interpretive Data Nucleic acid amplification [...] test have been verified by the [facility] Molecular Infectious Disease laboratory. Correlate with separately reported cytology results, as applicable. Interpretive data last revised 23 Endocervical 06/29/2024 4:23 PM CDT 06/30/2024 9:10 AM CDT Narrative [facility] - 06/30/2024 7:16 PM CDT Clinical history and diagnosis->adnexal mass Number of vials->1 Testing type->Screening Last menstrual period (date if known)->over 5 years ago us Premal Chaka Coronado MD LAB BODY FLUIDS AND STOO LS ORDERABLES Final Result [facility] Department [place] [address] [facility] from Last 3 Months or Most Recently Relevant to Health Maintenance Additional Health Concerns Active Problems Noted Date Diagnosed Date Autogenerated Problem 04/16/2025 Insurance [employer] [place] [employer] Member Subscriber Plan / Payer (Ef fective 2019-Present) Name:Maye Blank Ann Relation to Subscriber:Self Name:Blank Nunez Payer ID:[id number] (NAIC) Type:[employer] Address: [email or web address] ACCESS MEDICARE [address]IL[address] [facility] [place] [address] [place] [address] [facility] MEDICARE RAILROAD Advance Directives For more information, please contact: [phone] * Full Code (Latest Code Status on File) Date Activated Date Inactivated Comments 12/03/2018 6:15 PM 12/04/2018 8:51 PM * Full Code Date Activated Date Inactivated Comments 11/06/2018 4:45 PM 11/08/2018 9:17 PM Care Teams [employer] Relationship Specialty Start Date End Date Sudha Tian MD PCP - General Family Medicine 03/08/25
[2025-06-02 12:08] LABS: Alanine Aminotransferase 41 U/L (6-35); Albumin Level 4.0 g/dL (3.5-5.1); Alkaline Phosphatase 229 U/L (38-126); Anion Gap 10 mmol/L (4-12); Aspartate Amino Transferase 38 U/L (14-36); Bilirubin,Total 0.8 mg/dL (0.2-1.3); Blood Urea Nitrogen 44 mg/dL (7-17); Carbon Dioxide 22 mmol/L (22-30); Chloride 101 mmol/L (98-107); Estimated Glomerular Filt Rate 11; Glucose 148 mg/dL (65-110); Potassium 4.5 mmol/L (3.4-5.0); Sodium 133 mmol/L (137-145); Total Protein 8.3 g/dL (6.3-8.2)
[2025-06-02] MEDS: SODIUM CHLORIDE 0.9% IV 1,000 ML 999 ML IV CONT (12:44)
[2025-06-02 12:46] LABS: Calcium 15.4 mg/dL (8.4-10.2)
[2025-06-02 12:47] LABS: Add Urine Microscopic? YES; Appearance Urine Cloudy (Clear); Glucose Urine UA Trace mg/dL (Negative); Leukocyte Esterase Ur 2+ LEU/UL (Negative); Need Manual Microscopic Reviewed; Nitrate Urine Negative (Negative); Specific Grav Ur 1.014 (1.001-1.035)
--- OUTSIDE RECORDS SUMMARY | 2025-06-02 13:04 | XMS_ITS | Clinical Summary ---
Author Organization [facility] Address [address] [place] [address] Care Team Providers Care Disability Insurance Claim Examiner Name Role Phone Sudha Tian MD Primary Care Provider [phone] Allergies Active Allergy Reactions Criticality Noted Date [...] (11/07/2018): Added automatically from request for surgery [id number] Encounters Date Type Department Care Team Description 05/31/2025 2:20 PM CDT Office Visit [facility] [place] Medicine Obstetrics and Gynecology [address] [facility] 13th [place] [address] [place] [address] Leonel Coronado MD Ovarian mass (Primary Dx) 05/14/2025 7:30 AM CDT - 05/14/2025 10:45 AM CDT Surgery [facility] Operating Room [address] [place] [address] Leonel Coronado MD LAPAROSCOPIC HYSTERECTOMY ABDOMINAL SALPINGO-OOPHORECTO MY 05/14/2025 7:29 AM CDT Anesthesia Event [facility] Operating Room [address] [place] [address] Myron Prado MD Mallette, Allison Anne, NP 05/14/2025 5:19 AM CDT - 05/14/2025 2:45 PM CDT Hospital Encounter [facility] Operating Room [address] [place] [phone] Leonel Coronado MD Ovarian mass Discharge Disposition: Discharge to home or self care 05/13/2025 Telephone [facility] [place] Medicine Obstetrics and Gynecology [address] [facility] 13th [place] [address] [place] [address] Argenis Rosas Surgery Confirmation 05/13/2025 Telephone [facility] [place] Medicine Obstetrics and Gynecology [address] 13th [place] [address] [place] [address] Yesica Cross Surgery Confirmation 05/04/2025 8:30 AM CDT Pre-Admission Testing [facility] for Preoperative Assessment and Planning [facility] [address] [place] [address] Preoperative testing (Primary Dx); Pain in urethra; Ovarian mass 04/12/2025 11:40 AM CDT Office Visit [facility] [place] Medicine Obstetrics and Gynecology [address]th [place] [address] [place] [address] Leonel Coronado MD Ovarian mass (Primary Dx) 04/09/2025 1:15 PM CDT - 04/09/2025 11:59 PM CDT Hospital Encounter [facility] - Ultrasound [address] [facility] 7th Floor, [address] [facility] [place] [address] Adnexal mass Discharge Disposition: Discharge to home or self care 04/01/2025 Orders Only [facility] [place] Medicine Obstetrics and Gynecology [address] [facility] 13th [place] [address] [place] [address] Jossie Whitaker RN Adnexal mass (Primary Dx) 03/17/2025 Telephone [facility] [place] Medicine Obstetrics and Gynecology [address] [facility] 13th [place] [address] [place] [address] Jossie Whitaker RN 03/16/2025 Documentation [facility] [place] Medicine Obstetrics and Gynecology [address] [facility] 13th [place] [address] [place] [address] Jossie Whitaker RN 03/16/2025 Orders Only [facility] [place] Medicine Obstetrics and Gynecology [address] [facility] [address]th [place] [address] [place] [address] Jossie Whitaker RN Adnexal mass (Primary Dx) 03/12/2025 9:00 AM CDT Pre-Admission Testing [facility] for Preoperative Assessment and Planning [facility] [address] [place] [address] Preoperative testing (Primary Dx); Kidney stones 01/15/2025 11:59 PM CDT Anesthesia Event [facility] Operating Room [address] [place] [address] Ilsa Gomez NP from Last 3 Months [...] Added automatica lly from request for surgery [id number] ARF (acute renal failure) 10/2018 SCR: 2 [...] on file Legal Sex Female 2:18 PM 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 Not on file [...] Huber RN Medical Devices Explanted Type Area Cable Television Program Director Device Identifier Shelf Expiration Date Model / Serial / Lot [employer] [id number] Universa 7fr 26cm 145cm Soft Positioner Grinding Wheel Dresser Braid Tether - [id number] Implanted:Qty: 1 on 11/07/2018 by Ronan Pham MD at [facility] Explanted:Qty: 1 on 12/03/2018 at [facility] Stent Right: Urethra [employer] [id number] / / Procedures Procedure Name Priority Date/Time Associated Diagnosis Comments POCT GLUCOSE DEVICE Routine 05/14/2025 9 :53 AM CDT SURGICAL PATHOLOGY Routine 05/14/2025 8: 49 AM CDT Ovarian mass POCT GLUCOSE DEVICE Routine 05/14/2025 8 :20 AM CDT CYTOLOGY Routine 05/14/2025 8:15 AM CDT Ovarian mass CT AN PROCEDURE PLACEHOLDER Routine 05/14/2025 7:[address] AN PROCEDURE PLACEHOLDER Routine 05/14/2025 7:[address] AN ELECTIVE ENDOTRACHEAL AIRWAY Routine 05/14/2025 7:58 [...] AM CDT 05/14/2025 9:53 AM CDT us Premhi Chaka Coronado MD LAB POCT ORDERABLES - DE VICE Final Result [facility] [place] [address] * Surgical pathology (05/14/2025 8:49 AM CDT) Tissue (Uterus with/without tubes & ovaries, Neoplastic) 05/14/2025 8:49 AM CDT Tissue specimen (specimen) (Uterus with/without tubes & ovaries, Neoplastic) 05/14/2025 8:56 AM CDT Narrative PATHOLOGY [facility] - 05/19/2025 1:22 PM CDT EPIC results best viewed via link to PDF [facility] Daphne Chávez Laboratory [place] [address] Note to Patients: This report may contain [...] Gender: F : 1960 (Age: 64) Address: [facility] [address] [place] [address] Hospital #: [id number] Taken:05/14/2025 Received:05/14/2025 Reported: 05/19/2025 Patient Type: [facility] Service: Surgery Location: [facility] OR POD1 Physician(s): Lani Harvey M.D. Diagnosis: [...] Left fallopian tube - No histopathologic abnormality [facility]/05/19/2025 08:10 By this signature, I attest that [...] Draper M.D., P.h.D., Ron Jenkins MS, PA ([facility])CM Gross Consultation A: Right ovary Received [...] projections. No definitive solid component is identified. Dishing Machine Operator sections of the papillary areas are submitted in cassettes AFR1 and AFR2. By James eTrry MD PhD, Lillie Draper M.D., P.h.D., Ron Jenkins MS, PA ([facility])CM I personally examined the relevant preparation(s) [...] right fallopian tube B11 Attached adipose tissue [facility]05/17/2025 15:34 Gross Resident:Real Nair M.D. By this signature, I attest that the above diagnosis is based upon my personal examination of the slides(and/or other material). Addenda/Procedures The performance characteristics of some immunohistochemical stains, fluorescence in-situ hybridization tests and immunophenotyping by flow cytometry cited in this report (if any) were determined by the Surgical Pathology and Flow Cytometry Departments at [facility] as part of an ongoing corporate quality assurance manager program and in compliance with federally [...] Surgical Pathology and Flow Cytometry Departments of [facility]. It has not been cleared or approved by the U. S. Food and Drug Administration. IMAGES AND SCANNED DOCUMENTS, IF INCLUDED, ONLY VIEWABLE IN PDF VERSION OF REPORT [facility] Chaka Coronado MD LAB PATHOLOGY ORDERABLES Final Result PATHOLOGY [facility] 3rd Floor [place], [place] [phone] * POCT glucose (05/14/2025 8:20 AM CDT) Glucose, POC 141 70 - 199 mg/dL Blood 05/14/2025 8:20 AM CDT 05/14/2025 8:20 AM CDT [facility] Chaka Coronado MD LAB POCT ORDERABLES - DE VICE Final Result [facility] [place] [address] * Cytology (05/14/2025 8:15 AM CDT) Fluid (Pelvic Washing (Cytology)) 05/14/2025 8:15 AM CDT Narrative PATHOLOGY [facility] - 05/21/2025 10:26 AM CDT EPIC results best viewed via link to PDF [facility] Daphne Chávez Laboratory [place] [address] Note to Patients: This report may contain [...] Gender: F : 1960 (Age: 64) Address: [facility] [address] , [place] [id number] Hospital #: [id number] Taken:05/14/2025 Received:05/14/2025 Reported: 05/21/2025 Patient Type: [facility] Service: Surgery Location: [facility] OR [facility] Physician(s): Lani Harvey M.D. FINAL DIAGNOSIS [...] Surgical Pathology and Flow Cytometry Departments at [facility] as part of an ongoing corporate quality assurance manager program and in compliance with federally [...] Surgical Pathology and Flow Cytometry Departments of [facility]. It has not been cleared or approved by the U. S. Food and Drug Administration. [facility] Chaka Coronado MD LAB CYTOLOGY ORDERABLES Final Result PATHOLOGY [facility] 3rd Floor [place], [place] [phone] * CT AN PROCEDURE PLACEHOLDER (05/14/2025 7:58 AM CDT) Abbie Mejia CRNA - 05/14/2025 7:58 AM CDT Abbie James CRNA 05/14/2025 7:59 AM Peripheral IV Catheter Patient location: OR Staff: Placed by: ENVIRONMENTAL COMPLIANCE ENGINEER: Abbie James CRNA Preprocedure prep: Prep solution: chlorhexadine PPE: provider hat/mask and gloves PIV line: Laterality: left Site: wrist Catheter size: 18 g Technique: direct visualization Procedure details: good blood return Number of attempts: 1 Assessment: Events: patient tolerated procedure well with no complications Myron Prado MD ANESTHESIA ORDERABLES Fi nal Result * CT AN ELECTIVE ENDOTRACHEAL AIRWAY, CT AN PROCEDURE PLACEHOLDER (05/14/2025 7:58 AM CDT) Abbie Mejia CRNA - 05/14/2025 7:58 AM CDT Abbie James CRNA 05/14/2025 7:58 AM Airway Patient location: OR Urgency: elective Indications for airway management: anesthesia and airway protection Difficult airway: no Staff: Supervising provider: Myron Prado MD Placed by: ENVIRONMENTAL COMPLIANCE ENGINEER: Abbie James CRNA Emergent airway documentation: Risks [...] POCT ORDERABLES - DE VICE Final Result [facility] [place] [address] * TYPE AND SCREEN 14 DAY (05/04/2025 9:39 AM CDT) Peter, indirect Negative ABO Rh O Positive [facility] Blood 05/04/2025 9:39 AM CDT 05/04/2025 10:43 AM CDT Narrative [facility] - 05/04/2025 11:46 AM CDT Has the [...] ORDJuan PEÑA Final Result Performing Organization Address [facility] Co de Phone Number [facility] [place] [address] * (ABNORMAL) eGFR (05/04/2025 9:39 AM CDT) Pathologist [facility] eGFR 16(L) >=60 mL/min/1. 73 m2 Comment: [...] ORDERABLES Fin al Result Performing Organization Address [facility] Co de Phone Number [facility] [place] [address] * Differential, auto (05/04/2025 9:39 AM CDT) Pathologist [facility] Neutrophil abs 4.56 1.50 - 6.50 K/cumm Imm gran abs 0.03 0.00 - 0.10 K/cumm [facility] Lymphocyte abs 0.83 0.80 - 3.30 K/cumm [facility] Monocyte abs 0.64 0.20 - 0.80 K/cumm [facility] Eosinophil abs 0.26 0.00 - 0.50 K/cumm [facility] Basophil abs 0.08 0.00 - 0.10 K/cumm [facility] Neutrophil pct 71.1 % [facility] Comment: Interpretive Data Percent cell count reference ranges are not reported, since discordance with absolute values may lead to misinterpretation of CBC data. Current Interpretive Data was last revised on 2017. Imm gran pct 0.5 % [facility] Comment: Interpretive Data Percent cell count reference ranges are not reported, since discordance with absolute values may lead to misinterpretation of CBC data. Current Interpretive Data was last revised on 2017. Lymphocyte pct 13.0 % [facility] Comment: Interpretive Data Percent cell count reference ranges are not reported, since discordance with absolute values may lead to misinterpretation of CBC data. Current Interpretive Data was last revised on 2017. Monocyte pct 10.0 % [facility] Comment: Interpretive Data Percent cell count reference ranges are not reported, since discordance with absolute values may lead to misinterpretation of CBC data. Current Interpretive Data was last revised on 2017. Eosinophil pct 4.1 % [facility] Comment: Interpretive Data Percent cell count reference ranges are not reported, since discordance with absolute values may lead to misinterpretation of CBC data. Current Interpretive Data was last revised on 2017. Basophil pct 1.3 % [facility] Comment: Interpretive Data Percent cell count reference ranges are not reported, since discordance with absolute values may lead to misinterpretation of CBC data. Current Interpretive Data was last revised on 2017. Blood 05/04/2025 9:39 AM CDT 05/04/2025 10:24 AM CDT us Premal Chaka Coronado MD LAB BLOOD ORDERABLES Fin al Result [facility] Department [place] [address] * CBC with auto differential (05/04/2025 9:39 AM CDT) WBC 6.40 3.80 - 9.90 K/cumm Hgb 13.0 11.9 - 15.5 g/dL [facility] Hct 39.2 35.6 - 45.5 % [facility] Plt 296 150 - 400 K/cumm [facility] MPV 10.4 9.1 - 12.3 fL [facility] RBC 4.68 3.90 - 5.20 M/cumm [facility] MCV 83.8 81.3 - 96.4 fL [facility] MCH 27.8 27.1 - 33.3 pg [facility] MCHC 33.2 32.3 - 35.7 g/dL [facility] RDW CV 13.9 11.1 - 14.9 % [facility] RDW SD 42.5 35.7 - 48.1 fL [facility] NRBC abs 0.00 0.00 - 0.01 K/cumm [facility] Blood 05/04/2025 9:39 AM CDT 05/04/2025 10:24 AM CDT us Leonel Coronado MD LAB BLOOD ORDERABLES Fin al Result [facility] Department [place] [address] * Urine culture Urine, clean voided (05/04/2025 9:39 AM CDT) Pathologist [facility] [place] Report Final Report: Less than 100,000 colonies/mL (clinically insignificant growth based on current clinical standards) Organism (CLINICALLY INSIGNIFICANT GROWTH [facility] Urine, clean voided 05/04/2025 9:39 AM CDT 05/04/2025 11:07 AM CDT Narrative [facility] - 05/05/2025 1:08 PM CDT Testing performed by [facility] Microbiology Laboratory ([phone]) us Ligia Rob NP LAB MICROBIOLOGY - GENE RAL ORDERABLES Final Result [facility] [place] [address] * (ABNORMAL) Basic metabolic panel (05/04/2025 9:39 AM CDT) Sodium 135 135 - 145 mmol/L Potassium, pl 4.1 3.3 - 4.9 mmol/L [facility] Chloride 100 97 - 110 mmol/L [facility] CO2 27 22 - 32 mmol/L [facility] Anion gap 8 2 - 15 mmol/L [facility] BUN 34(H) 6 - 25 mg/dL [facility] Creatinine 3.07(H) 0.60 - 1.10 mg/dL [facility] Glucose 157 70 - 199 mg/dL [facility] Comment: Interpretive Data Fasting glucose >/= 126 [...] 2022. Calcium 12.7(H) 8.5 - 10.3 mg/dL [facility] Blood 05/04/2025 9:39 AM CDT 05/04/2025 10:24 AM CDT us Premal Chaka Coronado MD LAB BLOOD ORDERABLES Fin al Result [facility] [place] [address] * (ABNORMAL) POCT hemoglobin A1c (05/04/2025 8:36 AM CDT) Hgb A1C, POC 6.8(H) 4.0 - 5.6 % Est Average Gluc POC 148 mg/dL [facility] Comment: The ADA recommends reporting an estimated Average Glucose (eAG) with all Hemoglobin A1c results using the equation derived from a study of 507 normal and diabetic adults. Minority populations were underrepresented and children were not included. (Diabetes Care 31:3767-8878, 2008). The eAG is not equivalent to a fasting glucose. Blood 05/04/2025 8:36 AM CDT 05/04/2025 8:36 AM CDT us Premal Chaka Coronado MD POINT OF CARE TEST ORDER BESS Final Result [facility] [place] [address] * US Pelvis Complete (04/09/2025 1:15 PM [...] fluid in the pelvis. Narrative Procedure Note aKthe Hernandez MD - 04/09/2025 IMPRESSION: Images compared [...] ABO Rh O Positive Peter, indirect Negative [facility] Blood 03/12/2025 9:41 AM CDT 03/12/2025 10:48 AM CDT Narrative [facility] - 03/12/2025 12:06 PM CDT Has the patient had Daratumumab or Isatuximab in the past 6 months?->No Is this test being ordered in advance for a procedure?->Yes Expected date of procedure:->03/19/25 Has the patient been transfused in the past 3 months?->No Has the patient been in the past 3 months?->No Luis Manuel Dooley NP LAB BLOOD BANK TEST MARY ANN PEÑA Final Result [facility] [place] [address] * (ABNORMAL) eGFR (03/12/2025 9:41 AM CDT) [...] NP LAB BLOOD ORDERABLES Fin al Result [facility] [place] [address] * Differential, auto (03/12/2025 9:41 AM CDT) Neutrophil abs 4.38 1.50 - 6.50 K/cumm Imm gran abs 0.03 0.00 - 0.10 K/cumm [facility] Lymphocyte abs 0.86 0.80 - 3.30 K/cumm [facility] Monocyte abs 0.45 0.20 - 0.80 K/cumm [facility] Eosinophil abs 0.22 0.00 - 0.50 K/cumm [facility] Basophil abs 0.07 0.00 - 0.10 K/cumm [facility] Neutrophil pct 72.8 % [facility] Comment: Interpretive Data Percent cell count reference ranges are not reported, since discordance with absolute values may lead to misinterpretation of CBC data. Current Interpretive Data was last revised on 2017. Imm gran pct 0.5 % [facility] Comment: Interpretive Data Percent cell count reference ranges are not reported, since discordance with absolute values may lead to misinterpretation of CBC data. Current Interpretive Data was last revised on 2017. Lymphocyte pct 14.3 % [facility] Comment: Interpretive Data Percent cell count reference ranges are not reported, since discordance with absolute values may lead to misinterpretation of CBC data. Current Interpretive Data was last revised on 2017. Monocyte pct 7.5 % [facility] Comment: Interpretive Data Percent cell count reference ranges are not reported, since discordance with absolute values may lead to misinterpretation of CBC data. Current Interpretive Data was last revised on 2017. Eosinophil pct 3.7 % [facility] Comment: Interpretive Data Percent cell count reference ranges are not reported, since discordance with absolute values may lead to misinterpretation of CBC data. Current Interpretive Data was last revised on 2017. Basophil pct 1.2 % [facility] Comment: Interpretive Data Percent cell count reference ranges are not reported, since discordance with absolute values may lead to misinterpretation of CBC data. Current Interpretive Data was last revised on 2017. Blood 03/12/2025 9:41 AM CDT 03/12/2025 10:24 AM CDT us Luis Manuel Dooley NP LAB BLOOD ORDERABLES Fin al Result [facility] [place] [address] * CBC with auto differential (03/12/2025 9:41 AM CDT) WBC 6.01 3.80 - 9.90 K/cumm Hgb 13.1 11.9 - 15.5 g/dL [facility] Hct 38.5 35.6 - 45.5 % [facility] Plt 282 150 - 400 K/cumm [facility] MPV 11.2 9.1 - 12.3 fL [facility] RBC 4.65 3.90 - 5.20 M/cumm [facility] MCV 82.8 81.3 - 96.4 fL [facility] MCH 28.2 27.1 - 33.3 pg [facility] MCHC 34.0 32.3 - 35.7 g/dL [facility] RDW CV 13.2 11.1 - 14.9 % [facility] RDW SD 39.6 35.7 - 48.1 fL [facility] NRBC abs 0.00 0.00 - 0.01 K/cumm [facility] Blood 03/12/2025 9:41 AM CDT 03/12/2025 10:24 AM CDT Luis Manuel Dooley AWNING INSTALLER LAB BLOOD ORDERABLES Fin al Result Performing Organization Address [email or web address]] de Phone Number [facility] [place] [address] * Urine culture Urine, bladder (03/12/2025 9:41 AM CDT) Report Final Report: Growth indicative of contamination with periurethral deidre. Please submit a new specimen with special attention given to the collection process and to prompt transport to the laboratory. Organism GROWTH INDICATES CONTAM WITH PERIURETHRAL DEIDRE. [facility] Urine, bladder 03/12/2025 9: 41 AM CDT 03/12/2025 11:13 AM CDT Narrative [facility] - 03/13/2025 2:36 PM CDT Testing performed by [facility] Microbiology Laboratory ([phone]) Luis Manuel Dooley AWNING INSTALLER LAB MICROBIOLOGY - GENER AL ORDERABLES Final Result Performing Organization Address [email or web address]] de Phone Number [facility] [place] [address] * (ABNORMAL) Comprehensive metabolic panel (03/12/2025 9:41 AM CDT) Sodium 138 135 - 145 mmol/L Potassium, pl 3.6 3.3 - 4.9 mmol/L [facility] Chloride 99 97 - 110 mmol/L [facility] CO2 26 22 - 32 mmol/L [facility] Anion gap 13 2 - 15 mmol/L [facility] BUN 37(H) 6 - 25 mg/dL [facility] Creatinine 4.49(H) 0.60 - 1.10 mg/dL [facility] Glucose 174 70 - 199 mg/dL [facility] Comment: Interpretive Data Fasting glucose >/= 126 [...] Calcium 13.6(H) 8.5 - 10.3 mg/dL [facility] Bilirubin, total 0.6 0.1 - 1.2 mg/dL [facility] Protein, pl 8.5 6.5 - 8.5 g/dL [facility] Albumin 4.1 3.5 - 5.0 g/dL [facility] Alk phos 141(H) 40 - 130 Units/L [facility] ALT 23 7 - 45 Units/L [facility] AST 26 10 - 45 Units/L [facility] Blood 03/12/2025 9:41 AM CDT 03/12/2025 10:24 AM CDT us Luis Manuel Dooley NP LAB BLOOD ORDERABLES Fin al Result [facility] [place] [address] * ECG 12 lead (03/12/2025 9:33 AM CDT) Ventricular Rate EKG/Min 68 BPM [facility] Atrial Rate 68 BPM [facility] CT-Interval (MSEC) 218 ms [facility] QRS-Interval (MSEC) 84 ms [facility] QT-Interval (MSEC) 412 ms [facility] QTc 438 ms [facility] P Stover 36 degrees [facility] R Stover -31 degrees [facility] T Stover 15 degrees [facility] Diagnosis Sinus rhythm with 1st degree A-V block Left axis deviation Low voltage QRS Inferior infarct , age undetermined Poor R-wave progression in the precordial leads Cannot rule out Anterior infarct , age undetermined Abnormal ECG No previous ECGs available Confirmed by CRISTIAN GRIFFIN M.D ([id number]) on 03/12/2025 4:53:43 PM [facility] 03/12/2025 9:33 AM CDT 03/12/2025 4:53 PM CDT Luis Manuel Dooley NP ECG ORDERABLES Final Re sult [facility] * High Risk HPV DNA Detection with Genotyping (Molecular component) (06/29/2024 4:23 PM CDT) HPV HR 16 Not Detected Not Detected [facility] HPV HR 18 Not Detected Not Detected [facility] HPV HR Non 16/18 Not Detected Not Detected [facility] Comment: Interpretive Data Nucleic acid amplification for [...] have been verified by the [facility] Molecular Infectious Disease laboratory. Correlate with separately reported cytology results, as applicable. Interpretive data last revised 23 Endocervical 06/29/2024 4:23 PM CDT 06/30/2024 9:10 AM CDT Narrative [facility] - 06/30/2024 7:16 PM CDT Clinical history and diagnosis->adnexal mass Number of vials->1 Testing type->Screening Last menstrual period (date if known)->over 5 years ago us Premal Chaka Coronado MD LAB BODY FLUIDS AND STOO LS ORDERABLES Final Result [facility] [place] [address] [facility] from Last 3 Months or Most Recently Relevant to Health Maintenance Additional Health Concerns Active Problems Noted Date Diagnosed Date Autogenerated Problem 04/16/2025 Insurance [place] [employer] [place] [facility] Subscriber Plan / Payer (Ef fective 2019-Present) Name:Maye Blank Ann Relation to Subscriber:Self Name:Blank Nunez Payer ID:[id number] (NAIC) Type:[employer] Address: [id number] ACCESS MEDICARE [address] [facility] [place] [address] [place] [address] [facility] RA[facility] Advance Directives For more information, please contact: [phone] * Full Code (Latest Code Status on File) Date Activated Date Inactivated Comments 12/03/2018 6:15 PM 12/04/2018 8:51 PM * Full Code Date Activated Date Inactivated Comments 11/06/2018 4:45 PM 11/08/2018 9:17 PM Care Teams Disability Insurance Claim Examiner Relationship Specialty Start Date End Date Sudha Tian MD PCP - General Family Medicine 03/08/25
--- NOTE | 2025-06-02 13:17 | ED.RECABL ---
HPI - Recheck/Abnormal Lab/Rx General Chief Complaint: Recheck/Abnormal Lab/Rx Stated Complaint: ABNORMAL LABS Time Seen by Provider: 06/02/25 12:08 History of Present Illness HPI narrative: This is a 64-year-old female with history of diabetes, CKD, hypercalcemia hyperlipidemia, CVA who presents the ED for abnormal labs. Patient states that she had regular labs drawn yesterday and was found have an elevated calcium prompting her to be sent to the ED for further evaluation. Patient states for the past couple days she has had nausea and vomiting x2. She has also felt achy throughout. She denies being confused but she has had confusion in past with her elevated calciums. Denies any changes in medications. She follows with Dr. Leonard. Denies fevers, chills, chest pain, shortness of breath abdominal pain, changes in urination. Related Data Home Medications ?Medication ?Instructions ?Recorded ?Confirmed ?Last Taken ?Type dulaglutide 4.5 mg/0.5 mL 4.5 mg subcut WEEKLY 03/18/25 06/02/25 05/29/25 History subcutaneous pen injector (Trulicity) glucagon 1 mg/0.2 mL subcutaneous 1 mg subcut ONCE PRN hypoglycemia 03/18/25 06/02/25 Unknown History auto-injector (GvOrgger HypoPen 2-Pack) vitamin B complex 1 cap PO DAILY 05/19/25 06/02/25 05/24/25 History Allergies Allergy/AdvReac Type Severity Reaction Status Date / Time No Known Allergies Allergy Verified 05/25/25 09:33 Review of Systems Review of Systems: Gen.: As per HPI Eyes: Denies eye pain or visual change ENT: Denies congestion Respiratory: Denies shortness of breath or cough CV: Denies chest pain or palpitations GI: Denies abdominal pain nausea, emesis or diarrhea denies burning, urgency, frequency or hematuria Musculoskeletal: Denies back pain or muscle pain Neuro: Denies numbness, tingling, weakness or focal weakness Skin: Denies rash Except as documented, all other systems reviewed and negative [facility] Past Medical History Medical History Diabetic peripheral neuropathy Falls frequently Cerebrovascular disease Ataxia Brainstem stroke Normal pressure hydrocephalus Right-sided cerebrovascular accident (CVA) Anxiety Depression CKD (chronic kidney disease) Esophageal dilatation Obesity Diabetes Osteoarthritis HTN (hypertension) Hyperlipidemia Surgical History Surgical History History of removal of calculus of renal pelvis through percutaneous nephrostomy Family History Family History Father Bladder cancer Mother Diabetes mellitus Hypertension Depression Cerebrovascular accident Sibling Hypertension Diabetes mellitus Heart disease Social History Social History Smoking status: Never smoker Second hand tobacco smoke exposure: No Alcohol intake: never Substance use: never Substance use type: does not use Do You Feel Safe in your Home?: Yes Lack of Transportation: No Lack of Food: Never True Current Housing: I Have Housing Concerned About Future Housing: No Difficulty Paying Gas/Electric Bills: No Difficulty Paying for Meds: No Currently Unemployed: No Education: High School Diploma/GED Difficulty w/ Childcare or Family Care: No Living arrangements: alone Occupation/Education: occupation Gender identity (if verbalized by the patient): Female Spiritual care concerns: No Agree to blood products: Yes Course Vital Signs Vital signs: Vital Signs Temperature 97.9 F 06/02/25 11:23 Pulse Rate 77 06/02/25 11:23 Respiratory Rate 16 06/02/25 11:23 Blood Pressure 124/74 06/02/25 11:23 Pulse Oximetry 100 06/02/25 11:23 Oxygen Delivery Room Air 06/02/25 11:23 Temperature 97.4 F L 06/02/25 16:00 Pulse Rate 63 06/02/25 16:00 Respiratory Rate 14 06/02/25 16:00 Blood Pressure 150/67 H 06/02/25 16:00 Pulse Oximetry 100 06/02/25 16:00 Oxygen Delivery Room Air 06/02/25 11:23 MDM - Recheck/Abnormal Lab/Rx MDM Narrative Medical decision making narrative: 64-year-old female who presents to the ED for hypercalcemia from outpatient labs. On initial evaluation, patient was in acute distress, afebrile, hemodynamically stable. Heart and lungs were clear. Abdomen soft nontender. CBC UA without significant abnormalities. Creatinine elevated at 3.96. Hypercalcemic to 15.4. UA appeared contaminated. Given the fall, head CT and CT facial bones was obtained and showed no acute process. Patient was given 2 L NS bolus. Discussed the case with Dr. Hernandez, nephrology, who will see the patient as consult, agrees with aggressive IV hydration at this time. Discussed the case with hospitalist who will admit the patient. Differential Diagnosis Differential diagnosis: Likely other (electrolyte abnormality, renal failure, cancer) Medical Records Attestation: I reviewed the patient's medical records. Lab Data Attestation: I reviewed the patient's lab results. 06/02/25 11:38 06/02/25 11:38 Labs: Lab Results 06/02/25 06/02/25 06/02/25 Range/Units 11:38 11:38 12:28 WBC 7.3 (4.5-10.0) K/mm3 RBC 4.60 (4.2-5.4) M/mm3 Hgb 12.6 (12.0-15.0) g/dL Hct 39.2 (37.0-47.0) % MCV 85.2 (80-100) fl MCH 27.4 (26-34) pg MCHC 32.1 (32-36) g/dl RDW 14.1 (11.5-14.5) % Plt Count 311 (150-375) k/mm3 MPV 10.6 H (7.4-10.4) fl Immature Gran % (Auto) 0.5 (0-0.5) % Neut % (Auto) 74.7 H (45.5-73.1) % Lymph % (Auto) 10.8 L (18.3-44.2) % [place] % (Auto) 9.8 H (2.6-8.5) % Eos % (Auto) 3.1 (0-4.4) % Baso % (Auto) 1.1 (0.2-1.2) % Lymph # (Auto) 0.79 L (0.9-3.2) K/mm3 [place] # (Auto) 0.7 H (0.1-0.6) K/mm3 Eos # (Auto) 0.2 (0-0.3) K/mm3 Baso # (Auto) 0.1 (0.0-0.1) K/mm3 Abs Immat Gran (auto) 0.04 H (0.00-0.031) K/mm3 Absolute Neuts (auto) 5.5 (1.3-6.7) K/mm3 Absolute Nucleated RBC 0.000 (0.0-0.012) K/mm3 Nucleated RBC % 0.0 (0.0-0.2) % Sodium 133 L (137-145) mmol/L Potassium 4.5 (3.4-5.0) mmol/L Chloride 101 (98-107) mmol/L Carbon Dioxide 22 (22-30) mmol/L Anion Gap 10 (4-12) mmol/L BUN 44 H D (7-17) mg/dL Creatinine 3.96 H (0.7-1.0) mg/dL Estim Creat Clear Calc Not Reportable Estimated GFR 11 L (59 - ) Glucose 148 H (65-110) mg/dL Hemoglobin A1c Pending Calcium 15.4 H* (8.4-10.2) mg/dL Phosphorus 6.2 H (2.5-4.5) mg/dL Magnesium 2.5 H (1.6-2.3) mg/dL Total Bilirubin 0.8 (0.2-1.3) mg/dL AST 38 H (14-36) U/L ALT 41 H (6-35) U/L Alkaline Phosphatase 229 H (38-126) U/L Total Creatine Kinase 47 Cancelled (30-135) U/L Total Protein 8.3 H (6.3-8.2) g/dL Albumin 4.0 (3.5-5.1) g/dL Urine Color Dark yellow (Yellow) Urine Appearance Cloudy H (Clear) Urine pH 5.5 (5.0-9.0) Ur Specific [place] 1.014 (1.001-1.035) Urine Protein 1+ H (Negative) mg/dL Urine Glucose (UA) Trace H (Negative) mg/dL Urine Ketones Negative (Negative) mg/dL Ur Blood (Man) 1+ H (Negative) Urine Nitrate Negative (Negative) Urine Bilirubin Negative (Negative) Urine Urobilinogen 0.2 (<2.0) mg/dL Add Ur Microanalysis Reviewed Leukocyte Esterase Rfl 2+ H (Negative) JOVANI/UL Urine RBC 0-2 (0-2) /hpf Urine WBC 11-20 H (0-3) /hpf Ur Squamous Epith Cells Moderate (Few) /hpf Calcium Oxalate Crystal Present (None) /hpf Urine Bacteria 2+ H /hpf Urine Casts 11-20 Hyaline Casts Present (None) /lpf Imaging Data Radiologist's impression: Impressions Head CT 06/02/25 13:06 IMPRESSION: 1. No acute intracranial findings. Face CT 06/02/25 13:23 IMPRESSION: 1. No acute fracture. ECG Data EKG #1: ECG completion date: 06/02/25 ECG completion time: 11:40 Interpretation: Normal sinus rhythm rate of 63, borderline left axis deviation, normal intervals, poor R-wave progression, Q-waves in inferior leads, no ST or T-wave changes Discharge Plan Discharge Clinical Impression: Hypercalcemia Acute on chronic kidney failure Qualifiers: Acute renal failure type: unspecified Chronic kidney disease stage: unspecified stage Qualified Code(s): N17.9 - Acute kidney failure, unspecified; N18.9 - Chronic kidney disease, unspecified Patient Disposition: Still a Patient Condition: Stable
[2025-06-02] MEDS: SODIUM CHLORIDE 0.9% IV 1,000 ML 100 ML IV CONT (16:20)
--- NOTE | 2025-06-02 19:58 | PM.IMHP ---
H&P: HPI History of Present Illness Date/Time: 06/02/25 19:58 Chief Complaint: fall after dizziness, Acute on chronic renal failure, hypercalcemia Narrative: This is a 64 year old female patient with a history of CKD, prior CVA, insulin dependent diabetes with peripheral neopathy, HTN, HLD, anxiety and depression who is admitted to the hospital after fall with lab findings of worsening hypercalcemia as well as acute on chronic renal failure. UA also with some concerns for UTI though admittedly not a clean catch sample. Patient given IV fluids and Nephrology was consulted with desire to continue continuous IV fluids. Patient reporting that her spouse recently and she doesn't have much will to carry on though she denies active self harm. She takes bupropion and escitalopram which will be continued. Patient reports that she fell after experiencing a rapid onset episode of dizziness. She reports these episodes happen time to time without known cause. She was walking up some concrete stairs when this happened and it caused her to fall striking her face/chin/anterior neck and left chest against the stairs. CT scan head and facial bones negative. Calcium 15.4, Phos 6.2, Cr 3.96 with BUN 44 and eGFR 11. A1c 6.8 Review of Systems Review of Systems: All systems reviewed & are unremarkable except as noted in HPI and below PMFSH Past Medical History Medical History Diabetic peripheral neuropathy Falls frequently Cerebrovascular disease Ataxia Brainstem stroke Normal pressure hydrocephalus Right-sided cerebrovascular accident (CVA) Anxiety Depression CKD (chronic kidney disease) Esophageal dilatation Obesity Diabetes Osteoarthritis HTN (hypertension) Hyperlipidemia Surgical History Surgical History History of removal of calculus of renal pelvis through percutaneous nephrostomy Family History Family History Father Bladder cancer Mother Diabetes mellitus Hypertension Depression Cerebrovascular accident Sibling Hypertension Diabetes mellitus Heart disease Social History Social History Smoking status: Never smoker Second hand tobacco smoke exposure: No Alcohol intake: never Substance use: never Substance use type: does not use Do You Feel Safe in your Home?: Yes Lack of Transportation: No Lack of Food: Never True Current Housing: I Have Housing Concerned About Future Housing: No Difficulty Paying Gas/Electric Bills: No Difficulty Paying for Meds: No Currently Unemployed: No Education: High School Diploma/GED Difficulty w/ Childcare or Family Care: No Living arrangements: alone Occupation/Education: occupation Gender identity (if verbalized by the patient): Female Spiritual care concerns: No Agree to blood products: Yes Meds Home Medications and Allergies Home Medications ?Medication ?Instructions ?Recorded ?Confirmed ?Type glucose 4 gram chewable tablet 16 g (4 x 4 gram) PO Q15M PRN 09/22/24 06/02/25 Rx (Dex4 Glucose) hypoglycemia #60 tabs solifenacin 5 mg tablet (Vesicare) 5 mg PO DAILY #90 tabs 10/22/24 06/02/25 Rx clopidogrel 75 mg tablet (Plavix) 75 mg PO DAILY #90 tabs 11/22/24 06/02/25 Rx insulin glargine 100 unit/mL (3 16 unit (0.16 mL) subcut DAILY #18 01/21/25 06/02/25 Rx mL) subcutaneous pen (Lantus mL Solostar U-100 Insulin) escitalopram oxalate 10 mg tablet 10 mg PO DAILY #90 tabs 02/08/25 06/02/25 Rx dulaglutide 4.5 mg/0.5 mL 4.5 mg subcut WEEKLY 03/18/25 06/02/25 History subcutaneous pen injector (Trulicity) glucagon 1 mg/0.2 mL subcutaneous 1 mg subcut ONCE PRN hypoglycemia 03/18/25 06/02/25 History auto-injector (B[place] HypoPen 2-Pack) rosuvastatin 10 mg tablet 10 mg PO DAILY #90 tabs 04/22/25 06/02/25 Rx amlodipine 5 mg tablet 5 mg PO DAILY #90 tabs 05/04/25 06/02/25 Rx bupropion HCl 150 mg 24 hr tablet, 150 mg PO QAM #90 tabs 05/15/25 06/02/25 Rx extended release vitamin B complex 1 cap PO DAILY 05/19/25 06/02/25 History Allergies Allergy/AdvReac Type Severity Reaction Status Date / Time No Known Allergies Allergy Verified 05/25/25 09:33 Vital Signs Vital Signs - 24 hr 06/02/25 11:23 06/02/25 13:00 06/02/25 13:31 Temperature 36.6 C Pulse Rate 77 66 64 Respiratory Rate 16 20 Blood Pressure 124/74 123/63 144/57 H Pulse Oximetry 100 98 Oxygen Delivery Room Air 06/02/25 13:33 06/02/25 13:35 06/02/25 16:00 Temperature 36.3 C L Pulse Rate 71 35 L 63 Respiratory Rate 14 Blood Pressure 121/98 H 126/64 150/67 H Pulse Oximetry 100 Oxygen Delivery Exam Narrative: GENERAL: Well-appearing, well-nourished, and in no acute distress HEAD: Normocephalic, left chin/neck contusion from fall ENT:? Mucous membranes moist CHEST: Clear to auscultation.? No respiratory distress. Left chest wall minor contusions HEART: Regular rate and rhythm. ? Normal peripheral pulses. ABDOMEN: Soft, nontender, nondistended. EXTREMITIES: Normal range of motion. No peripheral edema. SKIN: Warm dry normal color NEURO: Alert and oriented x3. PSYCH: normal mood and affect H&P: Results Labs Labs: Short CBC 06/02/25 Range/Units 11:38 WBC 7.3 (4.5-10.0) K/mm3 Hgb 12.6 (12.0-15.0) g/dL Hct 39.2 (37.0-47.0) % Plt Count 311 (150-375) k/mm3 BMP 06/02/25 11:38 Sodium 133 L Potassium 4.5 Chloride 101 Carbon Dioxide 22 BUN 44 H D Creatinine 3.96 H Glucose 148 H Calcium 15.4 H* Liver Function 06/02/25 Range/Units 11:38 Total Bilirubin 0.8 (0.2-1.3) mg/dL AST 38 H (14-36) U/L ALT 41 H (6-35) U/L Alkaline Phosphatase 229 H (38-126) U/L Albumin 4.0 (3.5-5.1) g/dL Urine 06/02/25 Range/Units 12:28 Urine Color Dark yellow (Yellow) Urine Appearance Cloudy H (Clear) Urine pH 5.5 (5.0-9.0) Ur Specific [place] 1.014 (1.001-1.035) Urine Protein 1+ H (Negative) mg/dL Urine Glucose (UA) Trace H (Negative) mg/dL Pulse Oximetry SpO2 results: 98-100% on room air Attestation: I personally reviewed and interpreted this pulse oximetry as follows: Interpretation: No need for supplemental oxygenation at this time ECG Attestation: I personally reviewed and interpreted this ECG as follows: ECG completion date: 06/02/25 ECG completion time: 11:40 Prior ECG tracings: available for review Interpretation: Sinus rhythm rate of 63 MT interval 199 QRS duration 94 QTC 393 QRS axis -28 no STEMI or acute ischemic changes, no significant changes from prior EKG Imaging CT Facial bones: Radiologist's impression: EXAMINATION: CT facial bones wo con DATE: 06/02/2025 13:05 INDICATION: Status post fall. Trauma to the left jaw. TECHNIQUE: Computed tomography (CT) of the facial bones was performed without intravenous contrast. The dose-length product was 386.95 mGy-cm. COMPARISON: None FINDINGS: Orbits intact without blowout fracture. Lamina papyracea is intact. No nasal fracture. No acute abnormality of the maxilla or mandible. There is intracranial atherosclerosis. Zygomatic arches and pterygoid plates intact. There is mucosal thickening of the maxillary and the ethmoid sinuses. Visualized aspects of the upper cervical spine are unremarkable. No significant soft tissue abnormality. IMPRESSION: 1. No acute fracture. Reviewed, dictated and finalized at location O. CT scan - head: Radiologist's impression: CT HEAD NON-CONTRAST Clinical History: fall, hit head Comparison: MRA brain 02/09/2025 Technique: Unenhanced axial images skull base to vertex Coronal, sagittal reformats CT images acquired with automatic exposure control for dose reduction DLP: 530 mGy-cm Findings: Chronic white matter microvascular ischemic changes. Sulci, ventricles: Unremarkable. No intracerebral hemorrhage. No evidence acute territorial infarct. No mass effect, midline shift. Bony calvarium intact. Visualized paranasal sinuses: Clear. Mastoid air cells: Clear. IMPRESSION: 1. No acute intracranial findings. Reviewed, dictated and finalized at location R. Assessment and Plan Assessment and plan (1) Acute on chronic renal failure: Code(s): N17.9 - Acute kidney failure, unspecified; N18.9 - Chronic kidney disease, unspecified Status: Acute Assessment and Plan: -Underlying stage 4 CKD noted with acute increased Cr to 3.96 and decreased eGFR to 11 -Dehydration felt to be reason for worsening renal failure given UA findings and worsening hypercalcemia -IV fluids infusing at 100 mL/hr after 1000 mL bolus -Repeat labs in AM -Add CK, magnesium and Phos levels to labs (2) Hypercalcemia: Code(s): E83.52 - Hypercalcemia Status: Acute Assessment and Plan: -History of chronic hypercalcemia but level is significantly higher than baseline and increasing over past month -IV fluids given -Nephrology consulted -Zolderonic acid not recommended due to renal failure -Repeat labs in the morning (3) Abnormal urinalysis: Code(s): R82.90 - Unspecified abnormal findings in urine Status: Acute Assessment and Plan: -UA with 2+ leukocyte esterase, 11-20 WBCs and 2+ bacteria though moderate squamous cells present -11-20 casts supports dehydration as possible cause of Acute on chronic renal failure -Rocephin started 1g every 24 hours for now -Patient not septic (4) Reaction, situational, acute, to stress: Code(s): F43.0 - Acute stress reaction Status: Acute Assessment and Plan: -Recent of spouse and patient reports not much will to live -No intentional self harm (5) Falls frequently: Code(s): R29.6 - Repeated falls Status: Chronic Assessment and Plan: -Repeated falls, PT/OT consulted for evaluation and discharge planning (6) Diabetic peripheral neuropathy: Code(s): E11.42 - Type 2 diabetes mellitus with diabetic polyneuropathy Status: Chronic Assessment and Plan: -Diabetic diet -A1c ordered -Continue Lantus with dose reduction due to renal failure and controlled diet while admitted -ACHS fingerstick glucose with low dose SSI ordered (7) HTN (hypertension): Qualifiers: Hypertension type: primary hypertension Qualified Code(s): I10 - Essential (primary) hypertension Code(s): I10 - Essential (primary) hypertension Status: Chronic Assessment and Plan: -Noted history, continue home medications, BP stable on admission (8) Hyperlipidemia: Qualifiers: Hyperlipidemia type: unspecified Qualified Code(s): E78.5 - Hyperlipidemia, unspecified Code(s): E78.5 - Hyperlipidemia, unspecified Status: Chronic Assessment and Plan: -Noted history, continue statin therapy -Add CK level to labs due to renal failure, falls and aches/pains (9) Anxiety: Code(s): F41.9 - Anxiety disorder, unspecified Status: Chronic Assessment and Plan: -Noted history, continue bupropion and escitalopram (10) Right-sided cerebrovascular accident (CVA): Code(s): I63.9 - Cerebral infarction, unspecified Status: Chronic Assessment and Plan: -Noted history, PT/OT consult with multiple recent falls Quality VTE Prophylaxis VTE prophylaxis: mechanical ordered If No VTE Prophylaxis Answer both mechanical and pharmacologic: Reason no pharmacologic proph: medical contraindication (Bruising to face/chest post falls) active bleeding/bleeding risk Hospitalist MIPS Advance Care Plan I have confirmed that the patient's Advanced Care Plan is present, code status is documented, or surrogate decision maker is listed in patient medical record.: Yes Medication Reconciliation I have utilized all available resources to obtain, update and review the patients current medications (includes all prescriptions, OTC, herbals, cannabis, and nutritional supplements).: Yes
[2025-06-02 20:20] LABS: Creatine Kinase 47 U/L (30-135); Magnesium 2.5 mg/dL (1.6-2.3)
[2025-06-02 21:15] LABS: Hemoglobin A1C 6.8 % (<5.7)
[2025-06-02] MEDS: cefTRIAXone 1 GM in SODIUM CHLORIDE 0.9% IV 50 ML 100 ML IVPB (21:37)
[2025-06-02] MEDS: ACETAMINOPHEN 325 MG TABLET 650 MG PO (23:20)
[2025-06-03] VITALS (8 sets, daily range): BP systolic 135–152; BP diastolic 53–69; PULSE 60–92; RESP 14–16; TEMP 36.2–36.6; O2SAT 97–100
[2025-06-03 00:52] LABS: Total Protein Urine Random 44 mg/dL; Ur Ttl Prot Creatinine Ratio 2.07 mg/mg (0-0.20)
[2025-06-03 00:55] LABS: Total Protein Urine Random 43 mg/dL
[2025-06-03 00:56] LABS: Urea Random Urine 160 MG/DL
[2025-06-03 01:41] LABS: Urine Eos QC 2nd Tech Confirmed
[2025-06-03] MEDS: SODIUM CHLORIDE 0.9% IV 1,000 ML 100 ML IV CONT ×3 (03:23→23:16)
[2025-06-03 06:20] LABS: Hematocrit 35.2 % (37.0-47.0); Hemoglobin 11.2 g/dL (12.0-15.0); Immature Granulocyte Percent A 0.3 % (0-0.5); Lymphocytes Absolute Auto 1.04 K/mm3 (0.9-3.2); Mean Corpuscular HGB Conc 31.8 g/dl (32-36); Mean Corpuscular Hemoglobin 27.8 pg (26-34); Mean Corpuscular Volume 87.3 fl (80-100); Nucleated Red Blood Cells Absolute Auto 0.000 K/mm3 (0.0-0.012); Nucleated Red Blood Cells Perc 0.0 % (0.0-0.2); Platelet Count Result 265 k/mm3 (150-375); Red Blood Count 4.03 M/mm3 (4.2-5.4); White Blood Count 6.0 K/mm3 (4.5-10.0)
[2025-06-03 06:40] LABS: Albumin Level 3.2 g/dL (3.5-5.1); Anion Gap 7 mmol/L (4-12); Blood Urea Nitrogen 40 mg/dL (7-17); Calcium 13.2 mg/dL (8.4-10.2); Carbon Dioxide 22 mmol/L (22-30); Chloride 108 mmol/L (98-107); Estimated CRCL calculation 11 ml/min; Estimated Glomerular Filt Rate 12; Glucose 98 mg/dL (65-110); Magnesium 2.5 mg/dL (1.6-2.3); Potassium 3.6 mmol/L (3.4-5.0); Sodium 137 mmol/L (137-145)
[2025-06-03 07:08] LABS: Thyroid Stimulating Hormone Reflex 0.872 uIU/mL (0.465-4.68)
[2025-06-03] MEDS: SOLIFENACIN 5 MG TABLET PO (09:44)
[2025-06-03] MEDS: CLOPIDOGREL BISULFATE 75 MG TABLET PO (09:44)
[2025-06-03] MEDS: VITAMIN B COMPLEX CAPSULE 1 CAP PO (09:44)
[2025-06-03] MEDS: buPROPion HCL XL (24 HR) 150 MG TABCR PO (09:44)
[2025-06-03] MEDS: ESCITALOPRAM OXALATE 10 MG TABLET PO (09:44)
[2025-06-03] MEDS: ROSUVASTATIN 10 MG TABLET PO (09:44)
[2025-06-03] MEDS: INSULIN GLARGINE (*BKC) 100 UNITS/ML 12 UNITS SUB-Q (09:45)
[2025-06-03] MEDS: CALCITONIN SALMON INJ 400 UNITS/2 ML VIAL 272 UNITS SUB-Q ×2 (09:45→20:38)
--- NOTE | 2025-06-03 13:57 | P.CONNP_ITS ---
Assessment and Plan Assessment and plan (1) Acute kidney injury: Code(s): N17.9 - Acute kidney failure, unspecified Status: Acute Assessment and Plan: * worsening renal function/creatinine in the few weeks as noted by outpatient labs/presentation * creatinine 3.09mg/dL on 05/20 * then 3.21mg/dL on 05/28 * 3.46mg/dL on 06/01 * up to 3.96mg/dL on admission * noted to be associated with hypercalcemia * evaluation to date noted: * renal ultrasound pending * UA suggestive of infection * urine electrolytes non-prerenal * urine eosinophils negative * CPK normal * moderate proteinuria * agree with trial of IVFs * correct hypercalcemia (see #3) * follow trend of repeat labs and UOP (2) Stage 4 chronic kidney disease: Code(s): N18.4 - Chronic kidney disease, stage 4 (severe) Status: Chronic Assessment and Plan: * due to biopsy proven arterionephrosclerosis and diabetic nephropathy * 40% interstitial fibrosis and tubular atrophy * baseline creatinine was running 1.7 - 2.2mg/dl since August 2024 * however, since February 2025 hospitalization, creatinine now running ~ 2.4- 2.8mg/dl (3) Hypercalcemia: Code(s): E83.52 - Hypercalcemia Status: Acute Assessment and Plan: * etiology remains unclear * was running in the mid 11ish range -- now up to 13.4!!! * extensive outpatient evaluation noted: * high urine calcium * PTH low * bone scan negative * skeletal survey negative for lytic bone lesions * serum/urine immunofixation negative * PTHrp negative * suspicion falls on 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 * trial of IVFs * calcitonin ordered x 6 doses * may need to consider pamidronate again * suspect may need for further evaluation by Endocrinology * follow trend of repeat calcium levels (4) Acute UTI: Code(s): N39.0 - Urinary tract infection, site not specified Status: Acute Assessment and Plan: * suspected based on admission UA * follow culture data * on antibiotics (5) Falls frequently: Code(s): R29.6 - Repeated falls Status: Chronic Assessment and Plan: * as noted by history * PT/OT as tolerated * related to ANTONI and hypercalcemia(?) (6) Anemia: Code(s): D64.9 - Anemia, unspecified Status: Acute Assessment and Plan: * presumably due to CKD * no need for DURAN at this time * follow trend of H/H (7) HTN (hypertension): Qualifiers: Hypertension type: primary hypertension Qualified Code(s): I10 - Essential (primary) hypertension Code(s): I10 - Essential (primary) hypertension Status: Chronic Assessment and Plan: * reasonable control at this time * continue home medications * follow trend of hemodynamics (8) Diabetes: Qualifiers: Diabetes mellitus complication status: without complication Diabetes mellitus fpc insulin use: without fpc use Diabetes mellitus type: t ype 2 Qualified Code(s): E11.9 - Type 2 diabetes mellitus without complications Code(s): E11.9 - Type 2 diabetes mellitus without complications Status: Chronic Assessment and Plan: * follow accu-cheks * glycemic control per hospitalist I will continue to follow the patient with you while she remains hospitalized and make further recommendations as deemed necessary. Thank you for allowing me to participate in the care of this patient. L History of Present Illness Reason for Consult Consult date: 06/03/25 Reason for consult: acute renal failure (on chronic kidney disease) and Other (hypercalcemia) Chief Complaint Chief complaint: Hypercalcemia History of Present Illness Narrative: The patient is a very pleasant 64-year-old female a past medical history as outlined below who presented to [facility] Emergency Room due to abnormal labs, specifically hypercalcemia. The patient has been having frequent outpatient labs done for monitoring of her renal function as well as her calcium level as she has a known history of hypercalcemia in the past that required hospitalization about 3 months ago. Her renal function had been relatively stable but in the last 2 or 3 weeks both her creatinine/ kidney function as well as her calcium level has been slowly worsening. Outpatient efforts were made to try to keep these laboratory findings and check but ought her most recent lab draw done the day prior to admission, her creatinine had worsened to 3.46 mg/dL in association with a calcium level of 14.8. Furthermore, the patient reports some issues and problems the nausea and vomiting in the past couple of days as well as feeling achy throughout her body. She denies any confusion but does admit to some issues with dizziness in association with frequent falls. She denies fevers, chills, chest pain, shortness of breath abdominal pain, changes in urination. Due to these constellation of symptoms as well her known worsening calcium level, she presented to the emergency room for further assessment. Workup and evaluation in the emergency room demonstrated the patient to be hemodynamically stable and in no acute distress. Routine testing demonstrated a CBC that was unremarkable and a urinalysis without any significant abnormalities. Her chemistry was noteworthy for a creatinine of 3.96, BUN 44, sodium 133, potassium 4.5 bicarb 22 glucose 148, phosphorus 6.2 max, magnesium 2.5, AST 38, ALT 41, CPK 47, and a calcium of 15.4(!). Given her history of falls which included a fall on concrete steps with the patient falling forward and striking her face/ chin/neck, she underwent a CT of face and head which was negative for any acute fractures or injuries. She was initiated on aggressive IV fluid hydration and subsequently admitted to the hospital for further evaluation and therapy. Since her admission, the patient states she feels somewhat better in general and both her kidney function as well as her calcium level have improved to some degree in comparison to admission labs. Renal consultation was requested due to her acute kidney injury on top of her baseline chronic kidney disease in association with her hypercalcemia. The patient follows with Dr. Clyde Leonard for management of her chronic kidney disease. Her chronic kidney disease is due to due to biopsy proven arterionephrosclerosis as well as class 4 diabetic glomerulosclerosis. She was hospitalized here at [facility] about 3 months ago for an episode of acute kidney injury on top of her baseline kidney function in association with hypercalcemia as well. Both her hypercalcemia as well as her renal function improved by the time of discharge with a combination of IV fluids at medications (calcitonin and pamidronate) and her creatinine seems stabilized at around 2.4 - 2.8 mg/dL in the outpatient setting. However, recent labs at the end of April and in the last week have shown worsening of her renal function going to 3.09, to 3.21, then 3.46 mg/dL in association with a rising calcium of 12.6, 13.6, and 14.8 mg/dL, respectively Despite all conservative therapy to try and improve these laboratory findings. Dr. Leonard and call the patient given the trend of these labs with a concern that she may require inpatient hospitalization again for IV fluids and IV medications although her symptoms as mentioned above prompted her ER visit. Currently, at the time my evaluation, she appeared to be in no acute distress. Review of Systems 2 Review of Systems: As per HPI. [facility] Past Medical History Medical History Diabetic peripheral neuropathy Falls frequently Cerebrovascular disease Ataxia Brainstem stroke Normal pressure hydrocephalus Right-sided cerebrovascular accident (CVA) Anxiety Depression CKD (chronic kidney disease) Esophageal dilatation Obesity Diabetes Osteoarthritis HTN (hypertension) Hyperlipidemia Surgical History Surgical History History of removal of calculus of renal pelvis through percutaneous nephrostomy Family History Family History Father Bladder cancer Mother Diabetes mellitus Hypertension Depression Cerebrovascular accident Sibling Hypertension Diabetes mellitus Heart disease Social History Social History Smoking status: Never smoker Second hand tobacco smoke exposure: No Alcohol intake: never Substance use: never Substance use type: does not use Do You Feel Safe in your Home?: Yes Lack of Transportation: No Lack of Food: Never True Current Housing: I Have Housing Concerned About Future Housing: No Difficulty Paying Gas/Electric Bills: No Difficulty Paying for Meds: No Currently Unemployed: No Education: High School Diploma/GED Difficulty w/ Childcare or Family Care: No Living arrangements: alone Occupation/Education: occupation Gender identity (if verbalized by the patient): Female Spiritual care concerns: No Agree to blood products: Yes Meds Home Medications and Allergies Home Medications ?Medication ?Instructions ?Recorded ?Confirmed ?Type glucose 4 gram chewable tablet 16 g (4 x 4 gram) PO Q1 5M PRN 09/22/24 06/02/25 Rx (Dex4 Glucose) hypoglycemia #60 tabs solifenacin 5 mg tablet (Vesicare) 5 mg PO DAILY #90 t abs 10/22/24 06/02/25 Rx clopidogrel 75 mg tablet (Plavix) 75 mg PO DAILY #90 t abs 11/22/24 06/02/25 Rx insulin glargine 100 unit/mL (3 16 unit (0.16 mL) subc ut DAILY #18 01/21/25 06/02/25 Rx mL) subcutaneous pen (Lantus mL Solostar U-100 Insulin) escitalopram oxalate 10 mg tablet 10 mg PO DAILY #90 t abs 02/08/25 06/02/25 Rx dulaglutide 4.5 mg/0.5 mL 4.5 mg subcut WEEKLY 5 06/02/25 History subcutaneous pen injector (Trulicity) glucagon 1 mg/0.2 mL subcutaneous 1 mg subcut ONCE PRN hypoglycemia 03/18/25 06/02/25 History auto-injector (Gvoke HypoPen 2-Pack) rosuvastatin 10 mg tablet 10 mg PO DAILY #90 tabs 03/2506/02/25 Rx amlodipine 5 mg tablet 5 mg PO DAILY #90 tabs 05/0406/02/25 Rx bupropion HCl 150 mg 24 hr tablet, 150 mg PO QAM #90 t abs 05/15/25 06/02/25 Rx extended release vitamin B complex 1 cap PO DAILY 05/19/2505/24 History Allergies Allergy/AdvReac Type Severity Reaction Status Date / Time No Known Allergies Allergy Verified 05/25/25 09:33 Vital Signs Vital Signs Temp Pulse Resp BP Pulse Ox O2 Del Method 06/03/25 11:57 97.9 F 65 14 147/68 H 98 06/03/25 08:00 64 06/03/25 08:00 64 14 100 Room Air 06/03/25 08:00 98 F 64 14 152/65 H 100 06/03/25 04:00 97.8 F 60 14 137/63 99 06/03/25 04:00 90 06/03/25 00:00 78 06/03/25 00:00 97.8 F 74 14 138/53 L 97 06/02/25 23:42 97 Room Air 06/02/25 20:00 81 06/02/25 20:00 97.8 F 61 14 141/59 H 99 Exam 2 Narrative: GENERAL APPEARANCE: well developed well nourished female in no acute distress HEENT: normocephalic, atraumatic, normal conjunctiva and sclera, nares patient NECK: no lymphadenopathy, thyromegaly, or JVD MOUTH: normal lips, teeth, and gums CARDIOVASCULAR: RRR, normal S1 and S2, no rub RESPIRATORY: clear to auscultation bilaterally ABDOMEN: soft, nontender, nondistended, positive bowel sounds present EXTREMITIES: no evidence of cyanosis, clubbing, or edema NEUROLOGICAL: alert and oriented x 3; CN II - XII intact bilaterally; no focal deficits noted Results Lab Results 06/04/25 06:22 06/04/25 06:22 Lab results: Most recent lab results Calcium 13.2 mg/dL (8.4-10.2) H* 06/03/25 05:25 Phosphorus 4.9 mg/dL (2.5-4.5) H 06/03/25 05:25 Magnesium 2.5 mg/dL (1.6-2.3) H 06/03/25 05:25 Urine Creatinine 21.3 mg/dL 06/03/25 00:14 Urine Creatinine 21.5 mg/dL 06/03/25 00:14
--- NOTE | 2025-06-03 15:38 | P.PNIM_ITS ---
Progress Note: A&P Assessment and Plan (1) Acute on chronic renal failure: Code(s): N17.9 - Acute kidney failure, unspecified; N18.9 - Chronic kidney disease, unspecified Status: Acute Assessment and Plan: Underlying stage 4 CKD noted with acute increased Cr to 3.96 and decreased eGFR to 1, Dehydration felt to be reason for worsening renal failure given UA findings and worsening hypercalcemia * Nephrology consulted follows with Dr. Leonard outpatient * IV fluids infusing at 100 mL/hr * trend renal function * Add CK, magnesium and Phos levels to labs * Avoid nephrotoxic (2) Hypercalcemia: Code(s): E83.52 - Hypercalcemia Status: Acute Assessment and Plan: History of chronic hypercalcemia but level is significantly higher than baseline and increasing over past month * improving with IV fluids running at 100 mL/hour 13.4 today * Nephrology consulted * Calcitonin injection x6 doses * trend * monitor neuro (3) Abnormal urinalysis: Code(s): R82.90 - Unspecified abnormal findings in urine Status: Acute Assessment and Plan: UA suspicious for urinary tract infection, uncomplicated patient with no current urinary complaints * Rocephin started 1g every 24 hours pending culture (4) Reaction, situational, acute, to stress: Code(s): F43.0 - Acute stress reaction Status: Acute Assessment and Plan: Recent of spouse and patient reports not much will to live, No intentional self harm * Continue her Wellbutrin and Lexapro (5) Falls frequently: Code(s): R29.6 - Repeated falls Status: Chronic Assessment and Plan: Repeated falls, PT/OT consulted for evaluation and discharge planning (6) Diabetic peripheral neuropathy: Code(s): E11.42 - Type 2 diabetes mellitus with diabetic polyneuropathy Status: Chronic Assessment and Plan: * Diabetic diet * A1c ordered * Continue Lantus with dose reduction due to renal failure and controlled diet while admitted * Hold Trulicity * ACHS fingerstick glucose with low dose SSI ordered * Hypoglycemic protocol (7) HTN (hypertension): Qualifiers: Hypertension type: primary hypertension Qualified Code(s): I10 - Essential (primary) hypertension Code(s): I10 - Essential (primary) hypertension Status: Chronic Assessment and Plan: * Continue amlodipine * Monitor BP per unit protocol (8) Hyperlipidemia: Qualifiers: Hyperlipidemia type: unspecified Qualified Code(s): E78.5 - Hyperlipidemia, unspecified Code(s): E78.5 - Hyperlipidemia, unspecified Status: Chronic Assessment and Plan: * Continued atorvastatin (9) Anxiety: Code(s): F41.9 - Anxiety disorder, unspecified Status: Chronic Assessment and Plan: * continue bupropion and escitalopram (10) Right-sided cerebrovascular accident (CVA): Code(s): I63.9 - Cerebral infarction, unspecified Status: Chronic Assessment and Plan: * Continue Plavix and atorvastatin Plan Code status: Full code per patient DVT prophylaxis: SCDs Stress ulcer prophylaxis: TOMMIE PT/OT notes: PT/OT evaluation due to frequent falls Disposition: Patient continues admission to the medical unit for hypercalcemia and acute on chronic renal failure will need to continue with IV fluid hydration and continue to monitor and trend patient's Ca and renal function nephrology is consulted and following patient plans to return home when medically stable at discharge. Time Spent With Patient Time with patient: 15 - 25 minutes Subjective Date/time seen: 06/03/25 15:38 Interval history: Patient is 64-year-old female who was admitted for further evaluation and treatment recent dizziness with fall at home and generalized weakness with hypercalcemia. Patient also found to have an acute on chronic renal failure and dehydration was admitted for further treatment, nephrology consulted. 06/03/2025: Upon assessment patient stating she is feeling better no further dizzy episodes since admission reports she has had previous episodes and is usually when her calcium is elevated states she follows with Nephrology who advised her to go to the emergency room for further evaluation due to increasing calcium numbers. Patient denied any current pain trauma workup with negative. Patient denied any chest pain, shortness a breath, nausea, vomiting is tolerating all oral intake denied any neurological changes. Review of Systems Review of Systems: All systems reviewed & are unremarkable except as noted in HPI and below Exam Narrative: GENERAL: Well-appearing, well-nourished pleasant female HEAD: Normocephalic ENT:? Mucous membranes moist CHEST: Clear to auscultation.? LT chest wall contusion HEART: RRR ABDOMEN: Soft, nontender, nondistended. EXTREMITIES: Normal range of motion. No peripheral edema. SKIN: Warm dry normal color NEURO: Alert and oriented x3. PSYCH: normal mood and affect Objective Data Vital Signs Vital Signs: Vital Signs - 24 hr 06/02/25 16:00 06/02/25 20:00 06/02/25 20:00 Temperature 97.4 F L 97.8 F Pulse Rate 63 61 81 Respiratory Rate 14 14 Blood Pressure 150/67 H 141/59 H Pulse Oximetry 100 99 Oxygen Delivery 06/02/25 23:42 06/03/25 00:00 06/03/25 00:00 Temperature 97.8 F Pulse Rate 74 78 Respiratory Rate 14 Blood Pressure 138/53 L Pulse Oximetry 97 97 Oxygen Delivery Room Air 06/03/25 04:00 06/03/25 04:00 06/03/25 08:00 Temperature 97.8 F 98 F Pulse Rate 90 60 64 Respiratory Rate 14 14 Blood Pressure 137/63 152/65 H Pulse Oximetry 99 100 Oxygen Delivery 06/03/25 08:00 06/03/25 08:00 06/03/25 11:57 Temperature 97.9 F Pulse Rate 64 64 65 Respiratory Rate 14 14 Blood Pressure 147/68 H Pulse Oximetry 100 98 Oxygen Delivery Room Air Intake/Output Intake/Output: Intake & Output 05/31/25 06/01/25 06/02/25 06/03/25 23:59 23:59 23:59 23:59 Intake Total 1240 3441.7 Output Total 3000 Balance 1240 441.7 Meds/Results Medications: Active Medications Generic Name Dose Route Start Last Admin Trade Name Freq PRN Reason Stop Dose Admin Acetaminophen 650 mg 06/02/25 23:16 06/02/25 23:20 Acetaminophen 325 Mg Tablet PO 650 mg Q6H PRN Administration Mild Pain (1-3) or Fever Amlodipine Besylate 5 mg 06/03/25 09:00 06/03/25 09:44 Amlodipine Besylate 5 Mg Tablet PO 5 mg DAILY DELANO Administration Bupropion HCl 150 mg 06/03/25 09:00 06/03/25 09:44 Bupropion Hcl Xl (24 Hr) 150 Mg Tabcr PO 150 mg QAM DELANO Administration Calcitonin [place] 272 units 06/03/25 09:00 06/03/25 09:45 Calcitonin [place] Inj 400 Units/2 Ml Vial SUB-Q 06/05/25 21:01 272 units Q12HR DELANO Administration Clopidogrel Bisulfate 75 mg 06/03/25 09:00 06/03/25 09:44 Clopidogrel Bisulfate 75 Mg Tablet PO 75 mg DAILY DELANO Administration Dextrose 12.5 gm 06/02/25 19:56 Dextrose 50% 25 Gm/50 Ml Syringe IV PUSH PRN PRN Hypoglycemia Protocol Escitalopram Oxalate 10 mg 06/03/25 09:00 06/03/25 09:44 Escitalopram Oxalate 10 Mg Tablet PO 10 mg DAILY DELANO Administration Glucagon 1 mg 06/02/25 19:56 Glucagon For Inj 1 Mg Vial IM PRN PRN Hypoglycemia Protocol Glucose 15 gm 06/02/25 19:56 Glucose Oral Gel 15 Gm Of Glucse In 37.5 Gm Tube PO PRN PRN Hypoglycemia Protocol Heparin Sodium (Porcine) 5,000 units 06/03/25 09:00 06/03/25 09:45 Heparin Sodium 5,000 Units/Ml Vial SUB-Q 5,000 units Q12HR DELANO Administration Sodium Chloride 1,000 mls @ 100 mls/hr 06/02/25 15:20 06/03/25 12:24 Normal Saline Iv IV CONT 100 mls/hr .Q10H DELANO Administration Dextrose 1,000 mls @ 100 mls/hr 06/02/25 19:56 Dextrose 5% 1,000 Ml IVPB PRN PRN Hypoglycemia Protocol Ceftriaxone Sodium 1 gm/ 50 mls @ 100 mls/hr 06/02/25 21:00 06/02/25 21:37 Sodium Chloride IVPB 100 mls/hr Q24H DELANO Administration Insulin Aspart 2 - 5 units 06/03/25 08:00 06/03/25 12:22 Insulin Aspart (*Bkc) 100 Units/Ml SUB-Q Not Given TIDWM DELANO Protocol Insulin Glargine 12 units 06/03/25 09:00 06/03/25 09:45 Insulin Glargine (*Bkc) 100 Units/Ml SUB-Q 12 units DAILY DELANO Administration Rosuvastatin Calcium 10 mg 06/03/25 09:00 06/03/25 09:44 Rosuvastatin 10 Mg Tablet PO 10 mg DAILY DELANO Administration Solifenacin 5 mg 06/03/25 09:00 06/03/25 09:44 Solifenacin 5 Mg Tablet PO 5 mg DAILY DELANO Administration Vitamin B Complex 1 cap 06/03/25 09:00 06/03/25 09:44 Vitamin B Complex Capsule PO 1 cap DAILY DELANO Administration Radiology Results: ITS Impressions Head CT 06/02/25 13:06 IMPRESSION: 1. No acute intracranial findings. Face CT 06/02/25 13:23 IMPRESSION: 1. No acute fracture. Labs Labs: Laboratory Results - last 24 hr 06/02/25 06/02/25 06/02/25 11:38 11:38 20:39 WBC RBC Hgb Hct MCV MCH MCHC RDW Plt Count MPV Immature Gran % (Auto) Neut % (Auto) Lymph % (Auto) [place] % (Auto) Eos % (Auto) Baso % (Auto) Lymph # (Auto) [place] # (Auto) Eos # (Auto) Baso # (Auto) Abs Immat Gran (auto) Absolute Neuts (auto) Absolute Nucleated RBC Nucleated RBC % Sodium Potassium Chloride Carbon Dioxide Anion Gap BUN Creatinine Estim Creat Clear Calc Estimated GFR Glucose POC Capillary Glucose 151 H Hemoglobin A1c 6.8 H Calcium Phosphorus 6.2 H Magnesium 2.5 H Total Creatine Kinase 47 Cancelled Albumin TSH (Reflex) Urine Eosinophils U Random Total Protein Ur Random Sodium Ur Random Urea Urine Creatinine Protein/Creat Ratio 2 06/03/25 06/03/25 06/03/25 00:14 00:14 00:14 WBC RBC Hgb Hct MCV MCH MCHC RDW Plt Count MPV Immature Gran % (Auto) Neut % (Auto) Lymph % (Auto) [place] % (Auto) Eos % (Auto) Baso % (Auto) Lymph # (Auto) [place] # (Auto) Eos # (Auto) Baso # (Auto) Abs Immat Gran (auto) Absolute Neuts (auto) Absolute Nucleated RBC Nucleated RBC % Sodium Potassium Chloride Carbon Dioxide Anion Gap BUN Creatinine Estim Creat Clear Calc Estimated GFR Glucose POC Capillary Glucose Hemoglobin A1c Calcium Phosphorus Magnesium Total Creatine Kinase Albumin TSH (Reflex) Urine Eosinophils None seen U Random Total Protein 44 43 Ur Random Sodium 98 Ur Random Urea 160 Urine Creatinine 21.3 21.5 Protein/Creat Ratio 2 2.07 H 06/03/25 06/03/25 06/03/25 05:25 07:34 11:24 WBC 6.0 RBC 4.03 L Hgb 11.2 L Hct 35.2 L MCV 87.3 MCH 27.8 MCHC 31.8 L RDW 13.9 Plt Count 265 MPV 11.0 H Immature Gran % (Auto) 0.3 Neut % (Auto) 60.8 Lymph % (Auto) 17.4 L [place] % (Auto) 12.6 H Eos % (Auto) 7.7 H Baso % (Auto) 1.2 Lymph # (Auto) 1.04 [place] # (Auto) 0.8 H Eos # (Auto) 0.5 H Baso # (Auto) 0.1 Abs Immat Gran (auto) 0.02 Absolute Neuts (auto) 3.6 Absolute Nucleated RBC 0.000 Nucleated RBC % 0.0 Sodium 137 Potassium 3.6 Chloride 108 H Carbon Dioxide 22 Anion Gap 7 BUN 40 H Creatinine 3.85 H Estim Creat Clear Calc 11 Estimated GFR 12 L Glucose 98 POC Capillary Glucose 97 148 H Hemoglobin A1c Calcium 13.2 H* Phosphorus 4.9 H Magnesium 2.5 H Total Creatine Kinase Albumin 3.2 L TSH (Reflex) 0.872 Urine Eosinophils U Random Total Protein Ur Random Sodium Ur Random Urea Urine Creatinine Protein/Creat Ratio 2 Quality VTE Prophylaxis VTE prophylaxis: mechanical ordered -Patient's previous records reviewed on admission -ER notes reviewed in detail on admission -discussed all findings and current treatment plan with patient/Family/POA -Consultations reviewed for recommendations -Patient's disposition for safe discharge discussed with director case Dictation performed by [employer] direct speech recognition software, therefore book solicitor variants and typographical errors may occur. Hospitalist MIPS Advance Care Plan I have confirmed that the patient's Advanced Care Plan is present, code status is documented, or surrogate decision maker is listed in patient medical record.: Yes Medication Reconciliation I have utilized all available resources to obtain, update and review the patients current medications (includes all prescriptions, OTC, herbals, cannabis, and nutritional supplements).: Yes The patient is not eligible for med reconciliation; the patient is in a emergent medical situation where delaying treatment would jeopardize the patients health.: No
[2025-06-03] MEDS: cefTRIAXone 1 GM in SODIUM CHLORIDE 0.9% IV 50 ML 100 ML IVPB (20:39)
[2025-06-04] VITALS (10 sets, daily range): BP systolic 138–167; BP diastolic 58–69; PULSE 62–100; RESP 16–20; TEMP 36–36.8; O2SAT 98–100
[2025-06-04 06:46] LABS: Hematocrit 33.7 % (37.0-47.0); Hemoglobin 10.7 g/dL (12.0-15.0); Immature Granulocyte Percent A 0.3 % (0-0.5); Lymphocytes Absolute Auto 0.86 K/mm3 (0.9-3.2); Mean Corpuscular HGB Conc 31.8 g/dl (32-36); Mean Corpuscular Hemoglobin 27.4 pg (26-34); Mean Corpuscular Volume 86.2 fl (80-100); Nucleated Red Blood Cells Absolute Auto 0.000 K/mm3 (0.0-0.012); Nucleated Red Blood Cells Perc 0.0 % (0.0-0.2); Platelet Count Result 231 k/mm3 (150-375); Red Blood Count 3.91 M/mm3 (4.2-5.4); White Blood Count 6.5 K/mm3 (4.5-10.0)
[2025-06-04 07:21] LABS: Alanine Aminotransferase 27 U/L (6-35); Albumin Level 3.0 g/dL (3.5-5.1); Alkaline Phosphatase 186 U/L (38-126); Anion Gap 8 mmol/L (4-12); Aspartate Amino Transferase 29 U/L (14-36); Bilirubin,Total 0.3 mg/dL (0.2-1.3); Blood Urea Nitrogen 34 mg/dL (7-17); Calcium 10.8 mg/dL (8.4-10.2); Carbon Dioxide 18 mmol/L (22-30); Chloride 111 mmol/L (98-107); Estimated CRCL calculation 13 ml/min; Estimated Glomerular Filt Rate 13; Glucose 103 mg/dL (65-110); Magnesium 2.1 mg/dL (1.6-2.3); Potassium 3.5 mmol/L (3.4-5.0); Sodium 137 mmol/L (137-145); Total Protein 6.5 g/dL (6.3-8.2)
--- NOTE | 2025-06-04 09:21 | P.PNNP_ITS ---
Progress Note: A&P Assessment and Plan (1) Acute kidney injury: Code(s): N17.9 - Acute kidney failure, unspecified Status: Acute Assessment and Plan: * slow improvement noted * worsening renal function/creatinine in the few weeks as noted by outpatient labs/presentation * creatinine 3.09mg/dL on 05/20 * then 3.21mg/dL on 05/28 * 3.46mg/dL on 06/01 * up to 3.96mg/dL on admission * noted to be associated with hypercalcemia * evaluation to date noted: * renal ultrasound pending * UA suggestive of infection * urine electrolytes non-prerenal * urine eosinophils negative * CPK normal * moderate proteinuria * continue IVFs for now (in the hopes of ongoing optimization of kidney function prior to discharge) * correct hypercalcemia (see #3) * follow trend of repeat labs and UOP (2) Stage 4 chronic kidney disease: Code(s): N18.4 - Chronic kidney disease, stage 4 (severe) Status: Chronic Assessment and Plan: * due to biopsy proven arterionephrosclerosis and diabetic nephropathy * 40% interstitial fibrosis and tubular atrophy * baseline creatinine was running 1.7 - 2.2mg/dl since August 2024 * however, since February 2025 hospitalization, creatinine now running ~ 2.4- 2.8mg/dl (3) Hypercalcemia: Code(s): E83.52 - Hypercalcemia Status: Acute Assessment and Plan: * etiology remains unclear * upward trend noted starting in mid March 2025 * extensive outpatient evaluation noted/done: * high urine calcium * PTH low * bone scan negative * skeletal survey negative for lytic bone lesions * serum/urine immunofixation negative * PTHrp negative * suspicion falls on 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 * continue IVFs * calcitonin SQ x 6 doses * hold off on pamidronate for now given improving calcium (but still may need...) * suspect may need further evaluation by Endocrinology * follow trend of repeat calcium levels (4) Acute UTI: Code(s): N39.0 - Urinary tract infection, site not specified Status: Acute Assessment and Plan: * suspected based on admission UA * unfortunately, no urine culture ordered/done... * on antibiotics (5) Falls frequently: Code(s): R29.6 - Repeated falls Status: Chronic Assessment and Plan: * as noted by history * PT/OT as tolerated * related to ANTONI and hypercalcemia(?) (6) Anemia: Code(s): D64.9 - Anemia, unspecified Status: Acute Assessment and Plan: * presumably due to CKD * suspect dilutional effect from IVFs as well * no need for DURAN at this time * follow trend of H/H (7) HTN (hypertension): Qualifiers: Hypertension type: primary hypertension Qualified Code(s): I10 - Essential (primary) hypertension Code(s): I10 - Essential (primary) hypertension Status: Chronic Assessment and Plan: * reasonable control at this time * continue home medications * follow trend of hemodynamics (8) Diabetes: Qualifiers: Diabetes mellitus complication status: without complication Diabetes mellitus watcher autom[employer] insulin use: without retirement use Diabetes mellitus type: t ype 2 Qualified Code(s): E11.9 - Type 2 diabetes mellitus without complications Code(s): E11.9 - Type 2 diabetes mellitus without complications Status: Chronic Assessment and Plan: * follow accu-cheks * glycemic control per hospitalist Will continue to follow. L Subjective Date/time seen: 06/04/25 09:21 Interval history: Follow-up for acute kidney injury/acute renal failure on chronic kidney disease and hypercalcemia. Improvement noted in calcium level as well as renal function/creatinine with current interventions/therapy (SQ calcitonin and IVFs); she reports feeling quite well at the time of my visit; no issues/events overnight or earlier this morning. Exam 2 Narrative: General: WD/WN female in NAD Heart: normal S1 and S2; no rub Lungs: clear to auscultation Abdomen: soft, nontender, nondistended, positive bowel sounds Extremities: no cyanosis or clubbing; no edema Skin: warm and dry Objective Data Vital Signs Vital Signs: Vital Signs Temp Pulse Resp BP Pulse Ox O2 Del Method 06/04/25 08:00 100 Room Air 06/04/25 04:35 98.1 F 69 18 142/58 H 98 06/04/25 04:00 89 06/04/25 00:35 98.3 F 76 16 143/69 H 99 06/04/25 00:00 97 06/03/25 21:00 97.6 F 72 16 152/62 H 99 06/03/25 20:00 84 06/03/25 20:00 Room Air Intake/Output Intake/Output: Intake & Output 06/01/25 06/02/25 06/03/25 06/04/25 23:59 23:59 23:59 23:59 Intake Total 1290 5581.7 2830 Output Total 3500 3450 Balance 1290 2081.7 -620 Meds/Results Medications: Active Medications Generic Name Dose Route Start Last Admin Trade Name Freq PRN Reason Stop Dose Admin Acetaminophen 650 mg 06/02/25 23:16 06/02/25 23:20 Acetaminophen 325 Mg Tablet PO 650 mg Q6H PRN Administration Mild Pain (1-3) or Fever Amlodipine Besylate 5 mg 06/03/25 09:00 06/04/25 09:49 Amlodipine Besylate 5 Mg Tablet PO 5 mg DAILY DELANO Administration Bupropion HCl 150 mg 06/03/25 09:00 06/04/25 09:49 Bupropion Hcl Xl (24 Hr) 150 Mg Tabcr PO 150 mg QAM DELANO Administration Calcitonin [place] 272 units 06/03/25 09:00 06/04/25 09:48 Calcitonin [place] Inj 400 Units/2 Ml Vial SUB-Q 06/05/25 21:01 272 units Q12HR DELANO Administration Clopidogrel Bisulfate 75 mg 06/03/25 09:00 06/04/25 09:49 Clopidogrel Bisulfate 75 Mg Tablet PO 75 mg DAILY DELANO Administration Dextrose 12.5 gm 06/02/25 19:56 Dextrose 50% 25 Gm/50 Ml Syringe IV PUSH PRN PRN Hypoglycemia Protocol Escitalopram Oxalate 10 mg 06/03/25 09:00 06/04/25 09:49 Escitalopram Oxalate 10 Mg Tablet PO 10 mg DAILY DELANO Administration Glucagon 1 mg 06/02/25 19:56 Glucagon For Inj 1 Mg Vial IM PRN PRN Hypoglycemia Protocol Glucose 15 gm 06/02/25 19:56 Glucose Oral Gel 15 Gm Of Glucse In 37.5 Gm Tube PO PRN PRN Hypoglycemia Protocol Heparin Sodium (Porcine) 5,000 units 06/03/25 09:00 06/04/25 09:49 Heparin Sodium 5,000 Units/Ml Vial SUB-Q 5,000 units Q12HR DELANO Administration Sodium Chloride 1,000 mls @ 100 mls/hr 06/02/25 15:20 06/04/25 09:43 Normal Saline Iv IV CONT 100 mls/hr .Q10H DELANO Administration Dextrose 1,000 mls @ 100 mls/hr 06/02/25 19:56 Dextrose 5% 1,000 Ml IVPB PRN PRN Hypoglycemia Protocol Ceftriaxone Sodium 1 gm/ 50 mls @ 100 mls/hr 06/02/25 21:00 06/03/25 20:39 Sodium Chloride IVPB 100 mls/hr Q24H DELANO Administration Insulin Aspart 2 - 5 units 06/03/25 08:00 06/04/25 12:44 Insulin Aspart (*Bkc) 100 Units/Ml SUB-Q Not Given TIDWM DELANO Protocol Insulin Glargine 12 units 06/03/25 09:00 06/04/25 09:50 Insulin Glargine (*Bkc) 100 Units/Ml SUB-Q 12 units DAILY DELANO Administration Rosuvastatin Calcium 10 mg 06/03/25 09:00 06/04/25 09:49 Rosuvastatin 10 Mg Tablet PO 10 mg DAILY DELANO Administration Solifenacin 5 mg 06/03/25 09:00 06/04/25 09:49 Solifenacin 5 Mg Tablet PO 5 mg DAILY DELANO Administration Vitamin B Complex 1 cap 06/03/25 09:00 06/04/25 09:49 Vitamin B Complex Capsule PO 1 cap DAILY DELANO Administration Radiology Results: ITS Impressions Head CT 06/02/25 13:06 IMPRESSION: 1. No acute intracranial findings. Face CT 06/02/25 13:23 IMPRESSION: 1. No acute fracture. Labs Labs: Laboratory Tests 06/04/25 06:22 06/04/25 06:22 Calcium 10.8 H Phosphorus 3.4 Magnesium 2.1 Total Bilirubin 0.3 AST 29 ALT 27 Alkaline Phosphatase 186 H Total Protein 6.5 Albumin 3.0 L
[2025-06-04] MEDS: SODIUM CHLORIDE 0.9% IV 1,000 ML 100 ML IV CONT ×2 (09:43→18:29)
[2025-06-04] MEDS: CALCITONIN SALMON INJ 400 UNITS/2 ML VIAL 272 UNITS SUB-Q ×2 (09:48→21:18)
[2025-06-04] MEDS: CLOPIDOGREL BISULFATE 75 MG TABLET PO (09:49)
[2025-06-04] MEDS: buPROPion HCL XL (24 HR) 150 MG TABCR PO (09:49)
[2025-06-04] MEDS: VITAMIN B COMPLEX CAPSULE 1 CAP PO (09:49)
[2025-06-04] MEDS: ESCITALOPRAM OXALATE 10 MG TABLET PO (09:49)
[2025-06-04] MEDS: ROSUVASTATIN 10 MG TABLET PO (09:49)
[2025-06-04] MEDS: SOLIFENACIN 5 MG TABLET PO (09:49)
[2025-06-04] MEDS: INSULIN GLARGINE (*BKC) 100 UNITS/ML 12 UNITS SUB-Q (09:50)
--- NOTE | 2025-06-04 13:50 | P.PNIM_ITS ---
Progress Note: A&P Assessment and Plan (1) Acute on chronic renal failure: Code(s): N17.9 - Acute kidney failure, unspecified; N18.9 - Chronic kidney disease, unspecified Status: Acute Assessment and Plan: Underlying stage 4 CKD noted with acute increased Cr to 3.96 and decreased eGFR to 1, Dehydration felt to be reason for worsening renal failure given UA findings and worsening hypercalcemia * Nephrology consulted follows with Dr. Leonard outpatient * Continue IV fluids * trend renal function * Add CK, magnesium and Phos levels to labs * Avoid nephrotoxic * Cr down to 3.41 * Renal ultrasound shows nonobstructing 6mm stone in the right kidney, otherwise normal (2) Hypercalcemia: Code(s): E83.52 - Hypercalcemia Status: Acute Assessment and Plan: History of chronic hypercalcemia but level is significantly higher than baseline and increasing over past month * Improving with IV fluids, 10.8 today * Nephrology consulted * Calcitonin injection x6 total doses * Repeat labs in am * monitor neuro (3) Abnormal urinalysis: Code(s): R82.90 - Unspecified abnormal findings in urine Status: Acute Assessment and Plan: UA suspicious for urinary tract infection, uncomplicated patient with no current urinary complaints * Rocephin started 1g every 24 hours pending culture * Urine culture NGTD (4) Reaction, situational, acute, to stress: Code(s): F43.0 - Acute stress reaction Status: Acute Assessment and Plan: Recent of spouse and patient reports not much will to live, No intentional self harm * Continue her Wellbutrin and Lexapro * Jovial affect today (5) Falls frequently: Code(s): R29.6 - Repeated falls Status: Chronic Assessment and Plan: Repeated falls, PT/OT consulted for evaluation and discharge planning (6) Diabetic peripheral neuropathy: Code(s): E11.42 - Type 2 diabetes mellitus with diabetic polyneuropathy Status: Chronic Assessment and Plan: * Diabetic diet * A1c ordered * Continue Lantus with dose reduction due to renal failure and controlled diet while admitted * Hold Trulicity * ACHS fingerstick glucose with low dose SSI ordered * Hypoglycemic protocol (7) HTN (hypertension): Qualifiers: Hypertension type: primary hypertension Qualified Code(s): I10 - Essential (primary) hypertension Code(s): I10 - Essential (primary) hypertension Status: Chronic Assessment and Plan: * Continue amlodipine * Monitor BP per unit protocol (8) Hyperlipidemia: Qualifiers: Hyperlipidemia type: unspecified Qualified Code(s): E78.5 - Hyperlipidemia, unspecified Code(s): E78.5 - Hyperlipidemia, unspecified Status: Chronic Assessment and Plan: * Continued atorvastatin (9) Anxiety: Code(s): F41.9 - Anxiety disorder, unspecified Status: Chronic Assessment and Plan: * continue bupropion and escitalopram (10) Right-sided cerebrovascular accident (CVA): Code(s): I63.9 - Cerebral infarction, unspecified Status: Chronic Assessment and Plan: * Continue Plavix and atorvastatin Plan Code status: Full code per patient DVT prophylaxis: SCDs Stress ulcer prophylaxis: NA PT/OT notes: PT/OT evaluation due to frequent falls Disposition: Patient continues admission to the medical unit for hypercalcemia and acute on chronic renal failure will need to continue with IV fluid hydration and continue to monitor and trend patient's Ca and renal function nephrology is consulted and following patient plans to return home when medically stable at discharge. Time Spent With Patient Time with patient: 25 - 35 minutes Subjective Date/time seen: 06/04/25 13:50 Interval history: No acute events reported overnight. Patient evaluated this morning in no distress. States that she feels better today than yesterday. Denies chest pain, shortness of breath and abdominal pain. Is agreeable to one more day for continued IV fluids. Awaiting nephrology recommendation. Review of Systems Review of Systems: All systems reviewed & are unremarkable except as noted in HPI and below Exam Const: General: comfortable and no acute distress HENMT: Ears: TM's normal bilaterally Face/Nose/Sinus: Normal nares present Mouth: Yes moist mucous membranes Eyes: General: appearance normal, both eyes and all related structures Sclera: sclerae normal Pupils: Equal, round and reactive pupils present Neck: Neck: supple and no JVD Resp: Effort & Inspection: normal respiratory effort Auscultation: clear to auscultation bilaterally Cardio: Rate: regular rate Rhythm: regular rhythm GI: GI Palp: Yes Soft to palpation Auscultation: normal bowel sounds Skin: General skin exam: normal color and no rashes or lesions noted Wounds: no wounds Neuro: General: gait normal Speech: normal speech Motor exam (neuro): 5/5 motor strength present throughout Sensory Exam: normal sensation Psych: Mental Status: mental status grossly normal Affect: normal affect Objective Data Vital Signs Vital Signs: Vital Signs - 24 hr 06/03/25 16:00 06/03/25 16:00 06/03/25 20:00 Temperature 97.2 F L Pulse Rate 82 92 Respiratory Rate 16 Blood Pressure 135/69 Pulse Oximetry 98 Oxygen Delivery Room Air 06/03/25 20:00 06/03/25 21:00 06/04/25 00:00 Temperature 97.6 F Pulse Rate 84 72 97 Respiratory Rate 16 Blood Pressure 152/62 H Pulse Oximetry 99 Oxygen Delivery 06/04/25 00:35 06/04/25 04:00 06/04/25 04:35 Temperature 98.3 F 98.1 F Pulse Rate 76 89 69 Respiratory Rate 16 18 Blood Pressure 143/69 H 142/58 H Pulse Oximetry 99 98 Oxygen Delivery 06/04/25 10:00 Temperature Pulse Rate Respiratory Rate Blood Pressure Pulse Oximetry Oxygen Delivery Room Air Intake/Output Intake/Output: Intake & Output 06/01/25 06/02/25 06/03/25 06/04/25 23:59 23:59 23:59 23:59 Intake Total 1290 5581.7 2090 Output Total 3500 2850 Balance 1290 2081.7 -760 Meds/Results Medications: Active Medications Generic Name Dose Route Start Last Admin Trade Name Freq PRN Reason Stop Dose Admin Acetaminophen 650 mg 06/02/25 23:16 06/02/25 23:20 Acetaminophen 325 Mg Tablet PO 650 mg Q6H PRN Administration Mild Pain (1-3) or Fever Amlodipine Besylate 5 mg 06/03/25 09:00 06/04/25 09:49 Amlodipine Besylate 5 Mg Tablet PO 5 mg DAILY DELANO Administration Bupropion HCl 150 mg 06/03/25 09:00 06/04/25 09:49 Bupropion Hcl Xl (24 Hr) 150 Mg Tabcr PO 150 mg QAM DELANO Administration Calcitonin [place] 272 units 06/03/25 09:00 06/04/25 09:48 Calcitonin [place] Inj 400 Units/2 Ml Vial SUB-Q 06/05/25 21:01 272 units Q12HR DELANO Administration Clopidogrel Bisulfate 75 mg 06/03/25 09:00 06/04/25 09:49 Clopidogrel Bisulfate 75 Mg Tablet PO 75 mg DAILY DELANO Administration Dextrose 12.5 gm 06/02/25 19:56 Dextrose 50% 25 Gm/50 Ml Syringe IV PUSH PRN PRN Hypoglycemia Protocol Escitalopram Oxalate 10 mg 06/03/25 09:00 06/04/25 09:49 Escitalopram Oxalate 10 Mg Tablet PO 10 mg DAILY DELANO Administration Glucagon 1 mg 06/02/25 19:56 Glucagon For Inj 1 Mg Vial IM PRN PRN Hypoglycemia Protocol Glucose 15 gm 06/02/25 19:56 Glucose Oral Gel 15 Gm Of Glucse In 37.5 Gm Tube PO PRN PRN Hypoglycemia Protocol Heparin Sodium (Porcine) 5,000 units 06/03/25 09:00 06/04/25 09:49 Heparin Sodium 5,000 Units/Ml Vial SUB-Q 5,000 units Q12HR DELANO Administration Sodium Chloride 1,000 mls @ 100 mls/hr 06/02/25 15:20 06/04/25 09:43 Normal Saline Iv IV CONT 100 mls/hr .Q10H DELANO Administration Dextrose 1,000 mls @ 100 mls/hr 06/02/25 19:56 Dextrose 5% 1,000 Ml IVPB PRN PRN Hypoglycemia Protocol Ceftriaxone Sodium 1 gm/ 50 mls @ 100 mls/hr 06/02/25 21:00 06/03/25 20:39 Sodium Chloride IVPB 100 mls/hr Q24H DELANO Administration Insulin Aspart 2 - 5 units 06/03/25 08:00 06/04/25 12:44 Insulin Aspart (*Bkc) 100 Units/Ml SUB-Q Not Given TIDWM DELANO Protocol Insulin Glargine 12 units 06/03/25 09:00 06/04/25 09:50 Insulin Glargine (*Bkc) 100 Units/Ml SUB-Q 12 units DAILY DELANO Administration Rosuvastatin Calcium 10 mg 06/03/25 09:00 06/04/25 09:49 Rosuvastatin 10 Mg Tablet PO 10 mg DAILY DELANO Administration Solifenacin 5 mg 06/03/25 09:00 06/04/25 09:49 Solifenacin 5 Mg Tablet PO 5 mg DAILY DELANO Administration Vitamin B Complex 1 cap 06/03/25 09:00 06/04/25 09:49 Vitamin B Complex Capsule PO 1 cap DAILY DELANO Administration Radiology Results: ITS Impressions Head CT 06/02/25 13:06 IMPRESSION: 1. No acute intracranial findings. Face CT 06/02/25 13:23 IMPRESSION: 1. No acute fracture. Renal Ultrasound 06/04/25 09:33 IMPRESSION: 1. Hydronephrosis left kidney. 2. No hydronephrosis right kidney. 6 mm stone. Labs Labs: Laboratory Results - last 24 hr 06/03/25 06/03/25 06/04/25 16:33 21:29 06:22 WBC 6.5 RBC 3.91 L Hgb 10.7 L Hct 33.7 L MCV 86.2 MCH 27.4 MCHC 31.8 L RDW 14.0 Plt Count 231 MPV 10.6 H Immature Gran % (Auto) 0.3 Neut % (Auto) 67.6 Lymph % (Auto) 13.2 L [place] % (Auto) 11.2 H Eos % (Auto) 6.6 H Baso % (Auto) 1.1 Lymph # (Auto) 0.86 L [place] # (Auto) 0.7 H Eos # (Auto) 0.4 H Baso # (Auto) 0.1 Abs Immat Gran (auto) 0.02 Absolute Neuts (auto) 4.4 Absolute Nucleated RBC 0.000 Nucleated RBC % 0.0 Sodium 137 Potassium 3.5 Chloride 111 H Carbon Dioxide 18 L Anion Gap 8 BUN 34 H Creatinine 3.41 H Estim Creat Clear Calc 13 Estimated GFR 13 L Glucose 103 POC Capillary Glucose 163 H 153 H Calcium 10.8 H Phosphorus 3.4 Magnesium 2.1 Total Bilirubin 0.3 AST 29 ALT 27 Alkaline Phosphatase 186 H Total Protein 6.5 Albumin 3.0 L 06/04/25 06/04/25 07:46 11:23 WBC RBC Hgb Hct MCV MCH MCHC RDW Plt Count MPV Immature Gran % (Auto) Neut % (Auto) Lymph % (Auto) [place] % (Auto) Eos % (Auto) Baso % (Auto) Lymph # (Auto) [place] # (Auto) Eos # (Auto) Baso # (Auto) Abs Immat Gran (auto) Absolute Neuts (auto) Absolute Nucleated RBC Nucleated RBC % Sodium Potassium Chloride Carbon Dioxide Anion Gap BUN Creatinine Estim Creat Clear Calc Estimated GFR Glucose POC Capillary Glucose 102 138 H Calcium Phosphorus Magnesium Total Bilirubin AST ALT Alkaline Phosphatase Total Protein Albumin Quality VTE Prophylaxis VTE prophylaxis: mechanical ordered -Patient's previous records reviewed on admission -ER notes reviewed in detail on admission -discussed all findings and current treatment plan with patient/Family/POA -Consultations reviewed for recommendations -Patient's disposition for safe discharge discussed with correctional case manager Dictation performed by [employer] direct speech recognition software, therefore director of institutional giving variants and typographical errors may occur. Hospitalist MIPS Advance Care Plan I have confirmed that the patient's Advanced Care Plan is present, code status is documented, or surrogate decision maker is listed in patient medical record.: Yes Medication Reconciliation I have utilized all available resources to obtain, update and review the patie nts current medications (includes all prescriptions, OTC, herbals, cannabis, and nutritional supplements).: Yes The patient is not eligible for med reconciliation; the patient is in a emergent medical situation where delaying treatment would jeopardize the patients health.: No
[2025-06-04] MEDS: CALCIUM CARBONATE (TUMS) 500 MG (200 MG ELEMENTAL) PO (17:30)
[2025-06-04] MEDS: cefTRIAXone 1 GM in SODIUM CHLORIDE 0.9% IV 50 ML 100 ML IVPB (21:18)
[2025-06-05] VITALS (9 sets, daily range): BP systolic 152–168; BP diastolic 75–80; PULSE 63–102; RESP 14–18; TEMP 35.7–36.3; O2SAT 98–100
[2025-06-05] MEDS: SODIUM CHLORIDE 0.9% IV 1,000 ML 100 ML IV CONT ×2 (06:22→15:23)
[2025-06-05 06:41] LABS: Hematocrit 33.9 % (37.0-47.0); Hemoglobin 10.8 g/dL (12.0-15.0); Immature Granulocyte Percent A 0.4 % (0-0.5); Lymphocytes Absolute Auto 0.70 K/mm3 (0.9-3.2); Mean Corpuscular HGB Conc 31.9 g/dl (32-36); Mean Corpuscular Hemoglobin 27.5 pg (26-34); Mean Corpuscular Volume 86.3 fl (80-100); Nucleated Red Blood Cells Absolute Auto 0.000 K/mm3 (0.0-0.012); Nucleated Red Blood Cells Perc 0.0 % (0.0-0.2); Platelet Count Result 237 k/mm3 (150-375); Red Blood Count 3.93 M/mm3 (4.2-5.4); White Blood Count 5.7 K/mm3 (4.5-10.0)
[2025-06-05 06:58] LABS: Alanine Aminotransferase 26 U/L (6-35); Albumin Level 3.2 g/dL (3.5-5.1); Alkaline Phosphatase 178 U/L (38-126); Anion Gap 9 mmol/L (4-12); Aspartate Amino Transferase 31 U/L (14-36); Bilirubin,Total 0.3 mg/dL (0.2-1.3); Blood Urea Nitrogen 31 mg/dL (7-17); Calcium 11.0 mg/dL (8.4-10.2); Carbon Dioxide 17 mmol/L (22-30); Chloride 113 mmol/L (98-107); Estimated CRCL calculation 14 ml/min; Estimated Glomerular Filt Rate 14; Glucose 109 mg/dL (65-110); Magnesium 2.0 mg/dL (1.6-2.3); Potassium 3.4 mmol/L (3.4-5.0); Sodium 139 mmol/L (137-145); Total Protein 6.7 g/dL (6.3-8.2)
[2025-06-05] MEDS: ESCITALOPRAM OXALATE 10 MG TABLET PO (09:03)
[2025-06-05] MEDS: ROSUVASTATIN 10 MG TABLET PO (09:03)
[2025-06-05] MEDS: VITAMIN B COMPLEX CAPSULE 1 CAP PO (09:03)
[2025-06-05] MEDS: buPROPion HCL XL (24 HR) 150 MG TABCR PO (09:03)
[2025-06-05] MEDS: CALCITONIN SALMON INJ 400 UNITS/2 ML VIAL 272 UNITS SUB-Q ×2 (09:04→20:23)
[2025-06-05] MEDS: CLOPIDOGREL BISULFATE 75 MG TABLET PO (09:04)
[2025-06-05] MEDS: SOLIFENACIN 5 MG TABLET PO (09:04)
[2025-06-05] MEDS: INSULIN GLARGINE (*BKC) 100 UNITS/ML 12 UNITS SUB-Q (09:06)
--- NOTE | 2025-06-05 11:10 | P.PNNP_ITS ---
Progress Note: A&P Assessment and Plan (1) Acute kidney injury: Code(s): N17.9 - Acute kidney failure, unspecified Status: Acute Assessment and Plan: * acute kidney injury * worsening renal function/creatinine in the few weeks as noted by outpatient labs/presentation * creatinine 3.09mg/dL on 05/20 * then 3.21mg/dL on 05/28 * 3.46mg/dL on 06/01 * up to 3.96mg/dL on admission * noted to be associated with hypercalcemia * evaluation to date noted: * renal ultrasound pending * UA suggestive of infection * urine electrolytes non-prerenal * urine eosinophils negative * CPK normal * moderate proteinuria * it seems that the GFR worsens as the calcium increases. * The working theory is that the high calcium interferes with ROM K and therefore acts like a loop diuretic which leads to dehydration. The dehydration makes a calcium worse and so is a feedback loop. * continue IVFs for now (in the hopes of ongoing optimization of kidney function prior to discharge) * We are improving volume status with hydration. Her GFR has improved from 11-14. * Calcium is a little bit better with hydration as well consistent with the above theory * Check more labs tomorrow. (2) Stage 4 chronic kidney disease: Code(s): N18.4 - Chronic kidney disease, stage 4 (severe) Status: Chronic Assessment and Plan: * due to biopsy proven arterionephrosclerosis and diabetic nephropathy * 40% interstitial fibrosis and tubular atrophy * baseline creatinine was running 1.7 - 2.2mg/dl since August 2024 * however, since February 2025 hospitalization, creatinine now running ~ 2.4- 2.8mg/dl (3) Hypercalcemia: Code(s): E83.52 - Hypercalcemia Status: Acute Assessment and Plan: * etiology remains unclear * upward trend noted starting in mid March 2025 * extensive outpatient evaluation noted/done: * high urine calcium Ruling out [facility] * PTH low ruling out hyperparathyroidism. * bone scan negative * skeletal survey negative for lytic bone lesions * serum/urine immunofixation negative * PTHrp , vitamin-A, vitamin-D, 1, 25 vitamin-D, and Johny level all negative * renal biopsy did not show signs of sarcoidosis, nor did chest x-ray. * suspicion falls on high absorption of dietary calcium. * However, since pamidronate worked before, there might be some contribution of resorption from the bones. * In addition, she did have a bone density which showed strong bones so if there is bony resorption then it has not been severe or chronic. * continue IVFs * calcitonin SQ x 6 doses. This is still in process. * hold off on pamidronate for now given improving calcium . Pamidronate may be an issue because it can cause renal toxicity if repeated. * Consider Prolia injections to keep the calcium down. * suspect may need further evaluation by Endocrinology. this may be a case for tertiary care as an outpatient. Unfortunately it is Saturday so I cannot get hold of anybody. * follow trend of repeat calcium levels (4) Acute UTI: Code(s): N39.0 - Urinary tract infection, site not specified Status: Acute Assessment and Plan: * suspected based on admission UA * unfortunately, no urine culture ordered/done. * on Ceftriaxone. She has had 3 doses (5) Falls frequently: Code(s): R29.6 - Repeated falls Status: Chronic Assessment and Plan: * as noted by history * PT/OT as tolerated * related to ANTONI and hypercalcemia(?) (6) Anemia: Code(s): D64.9 - Anemia, unspecified Status: Acute Assessment and Plan: * presumably due to CKD * suspect dilutional effect from IVFs as well * no need for DURAN at this time * check a CBC tomorrow (7) HTN (hypertension): Qualifiers: Hypertension type: primary hypertension Qualified Code(s): I10 - Essential (primary) hypertension Code(s): I10 - Essential (primary) hypertension Status: Chronic Assessment and Plan: * reasonable control at this time * continue home medications * follow trend of hemodynamics (8) Diabetes: Qualifiers: Diabetes mellitus type: type 2 Diabetes mellitus nursing home insulin use: without nursing home use Diabetes mellitus complication status: without complication Qualified Code(s): E11.9 - Type 2 diabetes mellitus without complications Code(s): E11.9 - Type 2 diabetes mellitus without complications Status: Chronic Assessment and Plan: * follow accu-cheks * glycemic control per hospitalist Will continue to follow. Subjective Date/time seen: 06/05/25 11:10 Interval history: patient is feeling better since she has been getting IV fluids. No chest pain or shortness of breath eating okay. Bowels okay. Exam Narrative: General: WD/WN female in NAD Heart: normal S1 and S2; no rub or gallop Lungs: clear to auscultation Abdomen: soft, nontender, nondistended, positive bowel sounds Extremities: no cyanosis or clubbing; no edema Skin: warm and dry without rash Objective Data Vital Signs Vital Signs: Vital Signs - 24 hr 06/04/25 12:00 06/04/25 12:00 06/04/25 13:46 Temperature 97.2 F L Pulse Rate 100 63 Respiratory Rate 17 Blood Pressure 140/68 Pulse Oximetry 98 Oxygen Delivery Room Air 06/04/25 16:00 06/04/25 18:52 06/04/25 20:00 Temperature 97.5 F L Pulse Rate 85 68 Respiratory Rate 20 Blood Pressure 138/62 Pulse Oximetry 100 Oxygen Delivery Room Air 06/04/25 20:00 06/04/25 20:35 06/05/25 00:00 Temperature 96.8 F L Pulse Rate 90 62 88 Respiratory Rate 18 Blood Pressure 167/67 H Pulse Oximetry 100 Oxygen Delivery 06/05/25 04:00 06/05/25 04:50 06/05/25 09:17 Temperature 96.8 F L Pulse Rate 85 74 Respiratory Rate 18 Blood Pressure 168/77 H Pulse Oximetry 100 Oxygen Delivery Room Air Intake/Output Intake/Output: Intake & Output 06/02/25 06/03/25 06/04/25 06/05/25 23:59 23:59 23:59 23:59 Intake Total 1290 5631.7 4256.7 1200 Output Total 3500 4250 2300 Balance 1290 2131.7 6.7 -1100 Meds/Results Medications: Active Medications Generic Name Dose Route Start Last Admin Trade Name Freq PRN Reason Stop Dose Admin Acetaminophen 650 mg 06/02/25 23:16 06/02/25 23:20 Acetaminophen 325 Mg Tablet PO 650 mg Q6H PRN Administration Mild Pain (1-3) or Fever Amlodipine Besylate 5 mg 06/03/25 09:00 06/05/25 09:03 Amlodipine Besylate 5 Mg Tablet PO 5 mg DAILY DELANO Administration Bupropion HCl 150 mg 06/03/25 09:00 06/05/25 09:03 Bupropion Hcl Xl (24 Hr) 150 Mg Tabcr PO 150 mg QAM DELANO Administration Calcitonin [place] 272 units 06/03/25 09:00 06/05/25 09:04 Calcitonin [place] Inj 400 Units/2 Ml Vial SUB-Q 06/05/25 21:01 272 units Q12HR DELANO Administration Clopidogrel Bisulfate 75 mg 06/03/25 09:00 06/05/25 09:04 Clopidogrel Bisulfate 75 Mg Tablet PO 75 mg DAILY DELANO Administration Dextrose 12.5 gm 06/02/25 19:56 Dextrose 50% 25 Gm/50 Ml Syringe IV PUSH PRN PRN Hypoglycemia Protocol Escitalopram Oxalate 10 mg 06/03/25 09:00 06/05/25 09:03 Escitalopram Oxalate 10 Mg Tablet PO 10 mg DAILY DELANO Administration Glucagon 1 mg 06/02/25 19:56 Glucagon For Inj 1 Mg Vial IM PRN PRN Hypoglycemia Protocol Glucose 15 gm 06/02/25 19:56 Glucose Oral Gel 15 Gm Of Glucse In 37.5 Gm Tube PO PRN PRN Hypoglycemia Protocol Heparin Sodium (Porcine) 5,000 units 06/03/25 09:00 06/05/25 09:03 Heparin Sodium 5,000 Units/Ml Vial SUB-Q 5,000 units Q12HR DELANO Administration Sodium Chloride 1,000 mls @ 100 mls/hr 06/02/25 15:20 06/05/25 06:22 Normal Saline Iv IV CONT 100 mls/hr .Q10H DELANO Administration Dextrose 1,000 mls @ 100 mls/hr 06/02/25 19:56 Dextrose 5% 1,000 Ml IVPB PRN PRN Hypoglycemia Protocol Ceftriaxone Sodium 1 gm/ 50 mls @ 100 mls/hr 06/02/25 21:00 06/04/25 21:48 Sodium Chloride IVPB Infused Q24H DELANO Infusion Insulin Aspart 2 - 5 units 06/03/25 08:00 06/05/25 09:03 Insulin Aspart (*Bkc) 100 Units/Ml SUB-Q Not Given TIDWM DELANO Protocol Insulin Glargine 12 units 06/03/25 09:00 06/05/25 09:06 Insulin Glargine (*Bkc) 100 Units/Ml SUB-Q 12 units DAILY DELANO Administration Rosuvastatin Calcium 10 mg 06/03/25 09:00 06/05/25 09:03 Rosuvastatin 10 Mg Tablet PO 10 mg DAILY DELANO Administration Solifenacin 5 mg 06/03/25 09:00 06/05/25 09:04 Solifenacin 5 Mg Tablet PO 5 mg DAILY DELANO Administration Vitamin B Complex 1 cap 06/03/25 09:00 06/05/25 09:03 Vitamin B Complex Capsule PO 1 cap DAILY DELANO Administration Radiology Results: ITS Impressions Head CT 06/02/25 13:06 IMPRESSION: 1. No acute intracranial findings. Face CT 06/02/25 13:23 IMPRESSION: 1. No acute fracture. Renal Ultrasound 06/04/25 09:33 IMPRESSION: 1. Hydronephrosis left kidney. 2. No hydronephrosis right kidney. 6 mm stone. Labs Labs: Laboratory Results - last 24 hr 06/04/25 06/04/25 06/04/25 11:23 16:02 21:14 WBC RBC Hgb Hct MCV MCH MCHC RDW Plt Count MPV Immature Gran % (Auto) Neut % (Auto) Lymph % (Auto) [place] % (Auto) Eos % (Auto) Baso % (Auto) Lymph # (Auto) [place] # (Auto) Eos # (Auto) Baso # (Auto) Abs Immat Gran (auto) Absolute Neuts (auto) Absolute Nucleated RBC Nucleated RBC % Sodium Potassium Chloride Carbon Dioxide Anion Gap BUN Creatinine Estim Creat Clear Calc Estimated GFR Glucose POC Capillary Glucose 138 H 141 H 118 H Calcium Phosphorus Magnesium Total Bilirubin AST ALT Alkaline Phosphatase Total Protein Albumin 06/05/25 06/05/25 05:45 07:44 WBC 5.7 RBC 3.93 L Hgb 10.8 L Hct 33.9 L MCV 86.3 MCH 27.5 MCHC 31.9 L RDW 14.0 Plt Count 237 MPV 10.8 H Immature Gran % (Auto) 0.4 Neut % (Auto) 68.4 Lymph % (Auto) 12.3 L [place] % (Auto) 11.7 H Eos % (Auto) 6.0 H Baso % (Auto) 1.2 Lymph # (Auto) 0.70 L [place] # (Auto) 0.7 H Eos # (Auto) 0.3 Baso # (Auto) 0.1 Abs Immat Gran (auto) 0.02 Absolute Neuts (auto) 3.9 Absolute Nucleated RBC 0.000 Nucleated RBC % 0.0 Sodium 139 Potassium 3.4 Chloride 113 H Carbon Dioxide 17 L Anion Gap 9 BUN 31 H Creatinine 3.21 H Estim Creat Clear Calc 14 Estimated GFR 14 L Glucose 109 POC Capillary Glucose 102 Calcium 11.0 H Phosphorus 3.4 Magnesium 2.0 Total Bilirubin 0.3 AST 31 ALT 26 Alkaline Phosphatase 178 H Total Protein 6.7 Albumin 3.2 L
--- NOTE | 2025-06-05 13:09 | P.PNIM_ITS ---
Progress Note: A&P Assessment and Plan (1) Acute on chronic renal failure: Code(s): N17.9 - Acute kidney failure, unspecified; N18.9 - Chronic kidney disease, unspecified Status: Acute Assessment and Plan: Underlying stage 4 CKD noted with acute increased Cr to 3.96 and decreased eGFR to 1, Dehydration felt to be reason for worsening renal failure given UA findings and worsening hypercalcemia * Nephrology consulted follows with Dr. Leonard outpatient * Continue IV fluids * trend renal function * Add CK, magnesium and Phos levels to labs * Avoid nephrotoxic * Cr down to 3.21 today * Renal ultrasound shows nonobstructing 6mm stone in the right kidney, otherwise normal (2) Hypercalcemia: Code(s): E83.52 - Hypercalcemia Status: Acute Assessment and Plan: History of chronic hypercalcemia but level is significantly higher than baseline and increasing over past month * IV fluids * 11 today * Nephrology consulted * Calcitonin injection x6 total doses * Repeat labs in am * will need Referral to rn transplant * bone scan and XR bone survey pending Per Nephrology * high urine calcium Ruling out [facility] * PTH low ruling out hyperparathyroidism. * bone scan negative * skeletal survey negative for lytic bone lesions * serum/urine immunofixation negative * PTHrp , vitamin-A, vitamin-D, 1, 25 vitamin-D, and Johny level all negative * renal biopsy did not show signs of sarcoidosis, nor did chest x-ray. (3) Abnormal urinalysis: Code(s): R82.90 - Unspecified abnormal findings in urine Status: Acute Assessment and Plan: UA suspicious for urinary tract infection, uncomplicated patient with no current urinary complaints * Rocephin started 1g * Urine culture not done no reflex on day 3 of ABX will just finish out 5 day course (4) Reaction, situational, acute, to stress: Code(s): F43.0 - Acute stress reaction Status: Acute Assessment and Plan: Recent of spouse and patient reports not much will to live, No intentional self harm * Continue her Wellbutrin and Lexapro * Jovial affect today (5) Falls frequently: Code(s): R29.6 - Repeated falls Status: Chronic Assessment and Plan: Repeated falls, PT/OT consulted for evaluation and discharge planning (6) Diabetic peripheral neuropathy: Code(s): E11.42 - Type 2 diabetes mellitus with diabetic polyneuropathy Status: Chronic Assessment and Plan: * Diabetic diet * A1c ordered * Continue Lantus with dose reduction due to renal failure and controlled diet while admitted * Hold Trulicity * ACHS fingerstick glucose with low dose SSI ordered * Hypoglycemic protocol (7) HTN (hypertension): Qualifiers: Hypertension type: primary hypertension Qualified Code(s): I10 - Essential (primary) hypertension Code(s): I10 - Essential (primary) hypertension Status: Chronic Assessment and Plan: * Continue amlodipine * Monitor BP per unit protocol (8) Hyperlipidemia: Qualifiers: Hyperlipidemia type: unspecified Qualified Code(s): E78.5 - Hyperlipidemia, unspecified Code(s): E78.5 - Hyperlipidemia, unspecified Status: Chronic Assessment and Plan: * Continued atorvastatin (9) Anxiety: Code(s): F41.9 - Anxiety disorder, unspecified Status: Chronic Assessment and Plan: * continue bupropion and escitalopram (10) Right-sided cerebrovascular accident (CVA): Code(s): I63.9 - Cerebral infarction, unspecified Status: Chronic Assessment and Plan: * Continue Plavix and atorvastatin (11) Dizziness: Code(s): R42 - Dizziness and giddiness Status: Acute Assessment and Plan: Patient with reports of dizziness thought to be secondary to her hypercalcemia but has been treated for vertigo in the pass with meclizine with improvement. * Meclizine p.r.n. Plan Code status: Full code per patient DVT prophylaxis: SCDs Stress ulcer prophylaxis: Protonix patient with history of GERD PT/OT notes: PT/OT evaluation due to frequent falls Disposition: Patient continues admission to the medical unit for hypercalcemia and acute on chronic renal failure will need to continue with IV fluid hydration and continue to monitor and trend patient's Ca and renal function nephrology is consulted and following patient plans to return home when medically stable at discharge. Will need referral to rn transplant discharge Time Spent With Patient Time with patient: 15 - 25 minutes Subjective Date/time seen: 06/05/25 13:09 Interval history: Patient is 64-year-old female who was admitted for further evaluation and treatment recent dizziness with fall at home and generalized weakness with hypercalcemia. Patient also found to have an acute on chronic renal failure and dehydration was admitted for further treatment, nephrology consulted. 06/05/2025: Patient stating she does not feel well today, had a dizzy episode when walking the bathroom and is Nausea. Patient did rely to me that she had been treated for vertigo in the pass. Renal function mildly improving but Ca with mild bump she states she has not be eating well for the last 24 hours. Review of Systems Review of Systems: All systems reviewed & are unremarkable except as noted in HPI and below Exam Narrative: GENERAL: Well-appearing, well-nourished pleasant female HEAD: Normocephalic ENT:? Mucous membranes moist CHEST: Clear to auscultation.? LT chest wall contusion HEART: RRR ABDOMEN: Soft, nontender, nondistended. EXTREMITIES: Normal range of motion. No peripheral edema. SKIN: Warm dry normal color NEURO: Alert and oriented x3. PSYCH: normal mood and affect Objective Data Vital Signs Vital Signs: Vital Signs - 24 hr 06/04/25 13:46 06/04/25 16:00 06/04/25 18:52 Temperature 97.5 F L Pulse Rate 85 68 Respiratory Rate 20 Blood Pressure 138/62 Pulse Oximetry 100 Oxygen Delivery Room Air 06/04/25 20:00 06/04/25 20:00 06/04/25 20:35 Temperature 96.8 F L Pulse Rate 90 62 Respiratory Rate 18 Blood Pressure 167/67 H Pulse Oximetry 100 Oxygen Delivery Room Air 06/05/25 00:00 06/05/25 04:00 06/05/25 04:50 Temperature 96.8 F L Pulse Rate 88 85 74 Respiratory Rate 18 Blood Pressure 168/77 H Pulse Oximetry 100 Oxygen Delivery 06/05/25 09:17 Temperature Pulse Rate Respiratory Rate Blood Pressure Pulse Oximetry Oxygen Delivery Room Air Intake/Output Intake/Output: Intake & Output 06/02/25 06/03/25 06/04/25 06/05/25 23:59 23:59 23:59 23:59 Intake Total 1290 5631.7 4256.7 1440 Output Total 3500 4250 2300 Balance 1290 2131.7 6.7 -860 Meds/Results Medications: Active Medications Generic Name Dose Route Start Last Admin Trade Name Freq PRN Reason Stop Dose Admin Acetaminophen 650 mg 06/02/25 23:16 06/02/25 23:20 Acetaminophen 325 Mg Tablet PO 650 mg Q6H PRN Administration Mild Pain (1-3) or Fever Amlodipine Besylate 5 mg 06/03/25 09:00 06/05/25 09:03 Amlodipine Besylate 5 Mg Tablet PO 5 mg DAILY DELANO Administration Bupropion HCl 150 mg 06/03/25 09:00 06/05/25 09:03 Bupropion Hcl Xl (24 Hr) 150 Mg Tabcr PO 150 mg QAM DELANO Administration Calcitonin [place] 272 units 06/03/25 09:00 06/05/25 09:04 Calcitonin [place] Inj 400 Units/2 Ml Vial SUB-Q 06/05/25 21:01 272 units Q12HR DELANO Administration Clopidogrel Bisulfate 75 mg 06/03/25 09:00 06/05/25 09:04 Clopidogrel Bisulfate 75 Mg Tablet PO 75 mg DAILY DELANO Administration Dextrose 12.5 gm 06/02/25 19:56 Dextrose 50% 25 Gm/50 Ml Syringe IV PUSH PRN PRN Hypoglycemia Protocol Escitalopram Oxalate 10 mg 06/03/25 09:00 06/05/25 09:03 Escitalopram Oxalate 10 Mg Tablet PO 10 mg DAILY DELANO Administration Glucagon 1 mg 06/02/25 19:56 Glucagon For Inj 1 Mg Vial IM PRN PRN Hypoglycemia Protocol Glucose 15 gm 06/02/25 19:56 Glucose Oral Gel 15 Gm Of Glucse In 37.5 Gm Tube PO PRN PRN Hypoglycemia Protocol Heparin Sodium (Porcine) 5,000 units 06/03/25 09:00 06/05/25 09:03 Heparin Sodium 5,000 Units/Ml Vial SUB-Q 5,000 units Q12HR DELANO Administration Sodium Chloride 1,000 mls @ 100 mls/hr 06/02/25 15:20 06/05/25 06:22 Normal Saline Iv IV CONT 100 mls/hr .Q10H DELANO Administration Dextrose 1,000 mls @ 100 mls/hr 06/02/25 19:56 Dextrose 5% 1,000 Ml IVPB PRN PRN Hypoglycemia Protocol Ceftriaxone Sodium 1 gm/ 50 mls @ 100 mls/hr 06/02/25 21:00 06/04/25 21:48 Sodium Chloride IVPB Infused Q24H DELANO Infusion Insulin Aspart 2 - 5 units 06/03/25 08:00 06/05/25 12:56 Insulin Aspart (*Bkc) 100 Units/Ml SUB-Q Not Given TIDWM [facility] Protocol Insulin Glargine 12 units 06/03/25 09:00 06/05/25 09:06 Insulin Glargine (*Bkc) 100 Units/Ml SUB-Q 12 units DAILY DELANO Administration Rosuvastatin Calcium 10 mg 06/03/25 09:00 06/05/25 09:03 Rosuvastatin 10 Mg Tablet PO 10 mg DAILY DELANO Administration Solifenacin 5 mg 06/03/25 09:00 06/05/25 09:04 Solifenacin 5 Mg Tablet PO 5 mg DAILY DELANO Administration Vitamin B Complex 1 cap 06/03/25 09:00 06/05/25 09:03 Vitamin B Complex Capsule PO 1 cap DAILY DELANO Administration Radiology Results: ITS Impressions Head CT 06/02/25 13:06 IMPRESSION: 1. No acute intracranial findings. Face CT 06/02/25 13:23 IMPRESSION: 1. No acute fracture. Renal Ultrasound 06/04/25 09:33 IMPRESSION: 1. Hydronephrosis left kidney. 2. No hydronephrosis right kidney. 6 mm stone. Labs Labs: Laboratory Results - last 24 hr 06/04/25 06/04/25 06/05/25 16:02 21:14 05:45 WBC 5.7 RBC 3.93 L Hgb 10.8 L Hct 33.9 L MCV 86.3 MCH 27.5 MCHC 31.9 L RDW 14.0 Plt Count 237 MPV 10.8 H Immature Gran % (Auto) 0.4 Neut % (Auto) 68.4 Lymph % (Auto) 12.3 L Ed[place]ds % (Auto) 11.7 H Eos % (Auto) 6.0 H Baso % (Auto) 1.2 Lymph # (Auto) 0.70 L [place] # (Auto) 0.7 H Eos # (Auto) 0.3 Baso # (Auto) 0.1 Abs Immat Gran (auto) 0.02 Absolute Neuts (auto) 3.9 Absolute Nucleated RBC 0.000 Nucleated RBC % 0.0 Sodium 139 Potassium 3.4 Chloride 113 H Carbon Dioxide 17 L Anion Gap 9 BUN 31 H Creatinine 3.21 H Estim Creat Clear Calc 14 Estimated GFR 14 L Glucose 109 POC Capillary Glucose 141 H 118 H Calcium 11.0 H Phosphorus 3.4 Magnesium 2.0 Total Bilirubin 0.3 AST 31 ALT 26 Alkaline Phosphatase 178 H Total Protein 6.7 Albumin 3.2 L 06/05/25 06/05/25 07:44 12:07 WBC RBC Hgb Hct MCV MCH MCHC RDW Plt Count MPV Immature Gran % (Auto) Neut % (Auto) Lymph % (Auto) Edmunds % (Auto) Eos % (Auto) Baso % (Auto) Lymph # (Auto) Edmunds # (Auto) Eos # (Auto) Baso # (Auto) Abs Immat Gran (auto) Absolute Neuts (auto) Absolute Nucleated RBC Nucleated RBC % Sodium Potassium Chloride Carbon Dioxide Anion Gap BUN Creatinine Estim Creat Clear Calc Estimated GFR Glucose POC Capillary Glucose 102 104 Calcium Phosphorus Magnesium Total Bilirubin AST ALT Alkaline Phosphatase Total Protein Albumin Quality VTE Prophylaxis VTE prophylaxis: mechanical ordered -Patient's previous records reviewed on admission -ER notes reviewed in detail on admission -discussed all findings and current treatment plan with patient/Family/POA -Consultations reviewed for recommendations -Patient's disposition for safe discharge discussed with outpatient case manager Dictation performed by [employer] direct speech recognition software, therefore furniture sander variants and typographical errors may occur. Hospitalist MIPS Advance Care Plan I have confirmed that the patient's Advanced Care Plan is present, code status is documented, or surrogate decision maker is listed in patient medical record.: Yes Medication Reconciliation I have utilized all available resources to obtain, update and review the patients current medications (includes all prescriptions, OTC, herbals, cannabis, and nutritional supplements).: Yes The patient is not eligible for med reconciliation; the patient is in a emergent medical situation where delaying treatment would jeopardize the patients health.: No
[2025-06-05] MEDS: PANTOPRAZOLE 40 MG TABLET PO ×2 (15:23→20:18)
[2025-06-05] MEDS: cefTRIAXone 1 GM in SODIUM CHLORIDE 0.9% IV 50 ML 100 ML IVPB (20:18)
[2025-06-06] VITALS (10 sets, daily range): BP systolic 141–149; BP diastolic 62–79; PULSE 59–110; RESP 16–22; TEMP 36.7–37.2; O2SAT 99–100
[2025-06-06] MEDS: SODIUM CHLORIDE 0.9% IV 1,000 ML 100 ML IV CONT ×3 (02:55→21:19)
[2025-06-06 06:07] LABS: Hematocrit 32.6 % (37.0-47.0); Hemoglobin 10.4 g/dL (12.0-15.0); Immature Granulocyte Percent A 0.4 % (0-0.5); Lymphocytes Absolute Auto 0.75 K/mm3 (0.9-3.2); Mean Corpuscular HGB Conc 31.9 g/dl (32-36); Mean Corpuscular Hemoglobin 27.4 pg (26-34); Mean Corpuscular Volume 85.8 fl (80-100); Nucleated Red Blood Cells Absolute Auto 0.000 K/mm3 (0.0-0.012); Nucleated Red Blood Cells Perc 0.0 % (0.0-0.2); Platelet Count Result 236 k/mm3 (150-375); Red Blood Count 3.80 M/mm3 (4.2-5.4); White Blood Count 5.4 K/mm3 (4.5-10.0)
[2025-06-06 06:22] LABS: Alanine Aminotransferase 26 U/L (6-35); Albumin Level 3.2 g/dL (3.5-5.1); Alkaline Phosphatase 180 U/L (38-126); Anion Gap 9 mmol/L (4-12); Aspartate Amino Transferase 34 U/L (14-36); Bilirubin,Total 0.3 mg/dL (0.2-1.3); Blood Urea Nitrogen 28 mg/dL (7-17); Calcium 9.8 mg/dL (8.4-10.2); Carbon Dioxide 15 mmol/L (22-30); Chloride 113 mmol/L (98-107); Estimated CRCL calculation 15 ml/min; Estimated Glomerular Filt Rate 16; Glucose 90 mg/dL (65-110); Magnesium 1.7 mg/dL (1.6-2.3); Potassium 3.6 mmol/L (3.4-5.0); Sodium 137 mmol/L (137-145); Total Protein 6.6 g/dL (6.3-8.2)
[2025-06-06] MEDS: INSULIN GLARGINE (*BKC) 100 UNITS/ML 12 UNITS SUB-Q (08:57)
[2025-06-06] MEDS: CLOPIDOGREL BISULFATE 75 MG TABLET PO (08:59)
[2025-06-06] MEDS: PANTOPRAZOLE 40 MG TABLET PO ×2 (08:59→21:19)
[2025-06-06] MEDS: ROSUVASTATIN 10 MG TABLET PO (08:59)
[2025-06-06] MEDS: ESCITALOPRAM OXALATE 10 MG TABLET PO (08:59)
[2025-06-06] MEDS: buPROPion HCL XL (24 HR) 150 MG TABCR PO (09:00)
[2025-06-06] MEDS: SOLIFENACIN 5 MG TABLET PO (09:00)
[2025-06-06] MEDS: VITAMIN B COMPLEX CAPSULE 1 CAP PO (09:00)
--- NOTE | 2025-06-06 09:24 | P.PNNP_ITS ---
Progress Note: A&P Assessment and Plan (1) Acute kidney injury: Code(s): N17.9 - Acute kidney failure, unspecified Status: Acute Assessment and Plan: * acute kidney injury * worsening renal function/creatinine in the few weeks as noted by outpatient labs/presentation * creatinine 3.09mg/dL on 05/20 * then 3.21mg/dL on 05/28 * 3.46mg/dL on 06/01 * up to 3.96mg/dL on admission * noted to be associated with hypercalcemia * evaluation to date noted: * renal ultrasound pending * UA suggestive of infection * urine electrolytes non-prerenal * urine eosinophils negative * CPK normal * moderate proteinuria * it seems that the GFR worsens as the calcium increases. long discussion with the patient again. * Her GFR is up to 16 because of the fluids. * Her calcium level has dropped because of the calcitonin and also possibly because of the fluids. * Last time she was in she got pamidronate which I assumed was responsible for the improved calcium over the next few months. However, the working theory is that she has excess absorption of calcium from her GI tract and the high calcium interferes with ROM K and therefore acts like a loop diuretic which leads to dehydration. ( Unfortunately there is no way to measure calcium absorption from the GI tract). The dehydration makes a calcium worse and so is a feedback loop. this the areas because bone scan and bone survey are all negative and her bone density is normal speaking against bony resorption. * Could adjust the fluids alone be making the calcium better because calcitonin and pamidronate act on the bones not on the GI tract. * At this point will see how the calcium does without any more intervention other than fluids. We can give IV fluids a couple more days in the hospital and watch the calcium. And if okay she can be discharged. * In the meantime I am going to have her see endocrinology at [facility] to help us out. (2) Stage 4 chronic kidney disease: Code(s): N18.4 - Chronic kidney disease, stage 4 (severe) Status: Chronic Assessment and Plan: * due to biopsy proven arterionephrosclerosis and diabetic nephropathy * 40% interstitial fibrosis and tubular atrophy * baseline creatinine was running 1.7 - 2.2mg/dl since August 2024 * however, since February 2025 hospitalization, creatinine now running ~ 2.4- 2.8mg/dl (3) Hypercalcemia: Code(s): E83.52 - Hypercalcemia Status: Acute Assessment and Plan: * etiology remains unclear * upward trend noted starting in mid March 2025 * extensive outpatient evaluation noted/done: * high urine calcium Ruling out [facility] * PTH low ruling out hyperparathyroidism. * bone scan negative * skeletal survey negative for lytic bone lesions * serum/urine immunofixation negative * PTHrp , vitamin-A, vitamin-D, 1, 25 vitamin-D, and Johny level all negative * renal biopsy did not show signs of sarcoidosis, nor did chest x-ray. * Just because her hypercalcemia is so severe, will look at other less common causes include excess growth hormone, adrenal insufficiency, hyperthyroidism, pheochromocytoma. Will check these * the patient has sinus issues as well. will check an ANCA level and a brain MRI and sinus CT. we can't use contrast due to the low gfr. * See above. (4) Acute UTI: Code(s): N39.0 - Urinary tract infection, site not specified Status: Acute Assessment and Plan: * suspected based on admission UA * unfortunately, no urine culture ordered/done. * on Ceftriaxone. She has had 4 doses (5) Falls frequently: Code(s): R29.6 - Repeated falls Status: Chronic Assessment and Plan: * as noted by history * PT/OT as tolerated * related to ANTONI and hypercalcemia(?) (6) Anemia: Code(s): D64.9 - Anemia, unspecified Status: Acute Assessment and Plan: * presumably due to CKD * suspect dilutional effect from IVFs as well * no need for DURAN at this time * hemoglobin slowly lower, probably because of fluid and dilution * check a CBC tomorrow (7) HTN (hypertension): Qualifiers: Hypertension type: primary hypertension Qualified Code(s): I10 - Essential (primary) hypertension Code(s): I10 - Essential (primary) hypertension Status: Chronic Assessment and Plan: * blood pressure is gradually increasing as we give fluids. * The patient is on amlodipine 5. Pulse is okay and she has no history of COPD so we can start metoprolol. * I hesitate to use Johny or Arb because of her variable creatinine. 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 Subjective Date/time seen: 06/06/25 09:24 Interval history: patient is alert. Feeling better than yesterday. She is actually hungry for breakfast today. Exam Narrative: General: WD/WN female in NAD Heart: normal S1 and S2; no rub or gallop Lungs: clear to auscultation Abdomen: soft, nontender, nondistended, positive bowel sounds Extremities: no cyanosis or clubbing; no edema Skin: No rash Objective Data Vital Signs Vital Signs: Vital Signs - 24 hr 06/05/25 12:00 06/05/25 14:00 06/05/25 16:00 Temperature 97.4 F L Pulse Rate 102 H 63 87 Respiratory Rate 14 Blood Pressure 152/75 H Pulse Oximetry 98 Oxygen Delivery 06/05/25 20:00 06/05/25 20:00 06/05/25 20:35 Temperature 96.2 F L Pulse Rate 83 67 Respiratory Rate 18 Blood Pressure 164/80 H Pulse Oximetry 100 Oxygen Delivery Room Air 06/06/25 00:00 06/06/25 04:00 06/06/25 05:15 Temperature 98.9 F Pulse Rate 88 77 74 Respiratory Rate 22 H Blood Pressure 141/66 H Pulse Oximetry 100 Oxygen Delivery Intake/Output Intake/Output: Intake & Output 06/03/25 06/04/25 06/05/25 06/06/25 23:59 23:59 23:59 23:59 Intake Total 5631.7 4256.7 2581.7 1300 Output Total 3500 4250 3600 2800 Balance 2131.7 6.7 -1018.3 -1500 Meds/Results Medications: Active Medications Generic Name Dose Route Start Last Admin Trade Name Freq PRN Reason Stop Dose Admin Acetaminophen 650 mg 06/02/25 23:16 06/02/25 23:20 Acetaminophen 325 Mg Tablet PO 650 mg Q6H PRN Administration Mild Pain (1-3) or Fever Amlodipine Besylate 5 mg 06/03/25 09:00 06/06/25 08:59 Amlodipine Besylate 5 Mg Tablet PO 5 mg DAILY DELANO Administration Bupropion HCl 150 mg 06/03/25 09:00 06/06/25 09:00 Bupropion Hcl Xl (24 Hr) 150 Mg Tabcr PO 150 mg QAM DELANO Administration Clopidogrel Bisulfate 75 mg 06/03/25 09:00 06/06/25 08:59 Clopidogrel Bisulfate 75 Mg Tablet PO 75 mg DAILY DELANO Administration Dextrose 12.5 gm 06/02/25 19:56 Dextrose 50% 25 Gm/50 Ml Syringe IV PUSH PRN PRN Hypoglycemia Protocol Escitalopram Oxalate 10 mg 06/03/25 09:00 06/06/25 08:59 Escitalopram Oxalate 10 Mg Tablet PO 10 mg DAILY DELANO Administration Glucagon 1 mg 06/02/25 19:56 Glucagon For Inj 1 Mg Vial IM PRN PRN Hypoglycemia Protocol Glucose 15 gm 06/02/25 19:56 Glucose Oral Gel 15 Gm Of Glucse In 37.5 Gm Tube PO PRN PRN Hypoglycemia Protocol Heparin Sodium (Porcine) 5,000 units 06/03/25 09:00 06/06/25 09:00 Heparin Sodium 5,000 Units/Ml Vial SUB-Q 5,000 units Q12HR DELANO Administration Sodium Chloride 1,000 mls @ 100 mls/hr 06/02/25 15:20 06/06/25 02:55 Normal Saline Iv IV CONT 100 mls/hr .Q10H DELANO Administration Dextrose 1,000 mls @ 100 mls/hr 06/02/25 19:56 Dextrose 5% 1,000 Ml IVPB PRN PRN Hypoglycemia Protocol Ceftriaxone Sodium 1 gm/ 50 mls @ 100 mls/hr 06/02/25 21:00 06/05/25 20:18 Sodium Chloride IVPB 100 mls/hr Q24H DELANO Administration Insulin Aspart 2 - 5 units 06/03/25 08:00 06/06/25 09:00 Insulin Aspart (*Bkc) 100 Units/Ml SUB-Q Not Given TIDWM DELANO Protocol Insulin Glargine 12 units 06/03/25 09:00 06/06/25 08:57 Insulin Glargine (*Bkc) 100 Units/Ml SUB-Q 12 units DAILY DELANO Administration Meclizine HCl 25 mg 06/05/25 14:44 Meclizine Hcl 25 Mg Tablet PO BID PRN Vertigo Pantoprazole Sodium 40 mg 06/05/25 14:50 06/06/25 08:59 Pantoprazole 40 Mg Tablet PO 40 mg Q12HR DELANO Administration Rosuvastatin Calcium 10 mg 06/03/25 09:00 06/06/25 08:59 Rosuvastatin 10 Mg Tablet PO 10 mg DAILY DELANO Administration Solifenacin 5 mg 06/03/25 09:00 06/06/25 09:00 Solifenacin 5 Mg Tablet PO 5 mg DAILY DELANO Administration Vitamin B Complex 1 cap 06/03/25 09:00 06/06/25 09:00 Vitamin B Complex Capsule PO 1 cap DAILY DELANO Administration Radiology Results: ITS Impressions Head CT 06/02/25 13:06 IMPRESSION: 1. No acute intracranial findings. Face CT 06/02/25 13:23 IMPRESSION: 1. No acute fracture. Renal Ultrasound 06/04/25 09:33 IMPRESSION: 1. Hydronephrosis left kidney. 2. No hydronephrosis right kidney. 6 mm stone. Labs Labs: Laboratory Results - last 24 hr 06/05/25 06/05/25 06/05/25 12:07 16:49 20:40 WBC RBC Hgb Hct MCV MCH MCHC RDW Plt Count MPV Immature Gran % (Auto) Neut % (Auto) Lymph % (Auto) Lynn % (Auto) Eos % (Auto) Baso % (Auto) Lymph # (Auto) Lynn # (Auto) Eos # (Auto) Baso # (Auto) Abs Immat Gran (auto) Absolute Neuts (auto) Absolute Nucleated RBC Nucleated RBC % Sodium Potassium Chloride Carbon Dioxide Anion Gap BUN Creatinine Estim Creat Clear Calc Estimated GFR Glucose POC Capillary Glucose 104 90 106 H Calcium Phosphorus Magnesium Total Bilirubin AST ALT Alkaline Phosphatase Total Protein Albumin 06/06/25 06/06/25 05:39 08:06 WBC 5.4 RBC 3.80 L Hgb 10.4 L Hct 32.6 L MCV 85.8 MCH 27.4 MCHC 31.9 L RDW 14.3 Plt Count 236 MPV 10.7 H Immature Gran % (Auto) 0.4 Neut % (Auto) 68.6 Lymph % (Auto) 13.9 L Lynn % (Auto) 10.7 H Eos % (Auto) 5.5 H Baso % (Auto) 0.9 Lymph # (Auto) 0.75 L Lynn # (Auto) 0.6 Eos # (Auto) 0.3 Baso # (Auto) 0.1 Abs Immat Gran (auto) 0.02 Absolute Neuts (auto) 3.7 Absolute Nucleated RBC 0.000 Nucleated RBC % 0.0 Sodium 137 Potassium 3.6 Chloride 113 H Carbon Dioxide 15 L Anion Gap 9 BUN 28 H Creatinine 2.98 H Estim Creat Clear Calc 15 Estimated GFR 16 L Glucose 90 POC Capillary Glucose 102 Calcium 9.8 Phosphorus 3.0 Magnesium 1.7 Total Bilirubin 0.3 AST 34 ALT 26 Alkaline Phosphatase 180 H Total Protein 6.6 Albumin 3.2 L
--- NOTE | 2025-06-06 10:44 | P.PNIM_ITS ---
Progress Note: A&P Assessment and Plan (1) Acute on chronic renal failure: Code(s): N17.9 - Acute kidney failure, unspecified; N18.9 - Chronic kidney disease, unspecified Status: Acute Assessment and Plan: Underlying stage 4 CKD noted with acute increased Cr to 3.96 and decreased eGFR to 1, Dehydration felt to be reason for worsening renal failure given UA findings and worsening hypercalcemia * Nephrology consulted follows with Dr. Leonard outpatient * Continue IV fluids * trend renal function * Add CK, magnesium and Phos levels to labs * Avoid nephrotoxic * Cr down to 2.91 today * Renal ultrasound shows nonobstructing 6mm stone in the right kidney, otherwise normal (2) Hypercalcemia: Code(s): E83.52 - Hypercalcemia Status: Acute Assessment and Plan: History of chronic hypercalcemia but level is significantly higher than baseline and increasing over past month * IV fluids * 11 today * Nephrology consulted * Calcitonin injection stopped will only do IV fluids to see what her Ca does * Repeat labs in am * will need Referral to mud tank operator * bone scan and XR bone survey pending * CT brain/sinus and MRI ordered with ANCA * Nephrology ordered further testing to evaluate for excess growth hormone, adrenal insufficiency, hyperthyroidism, pheochromocytoma they are also setting up With endocrinology at [facility] Per Nephrology * high urine calcium Ruling out [facility] * PTH low ruling out hyperparathyroidism. * bone scan negative * skeletal survey negative for lytic bone lesions * serum/urine immunofixation negative * PTHrp , vitamin-A, vitamin-D, 1, 25 vitamin-D, and Johny level all negative * renal biopsy did not show signs of sarcoidosis, nor did chest x-ray. greatly appreciate Nephrology's input and recommendations (3) Abnormal urinalysis: Code(s): R82.90 - Unspecified abnormal findings in urine Status: Acute Assessment and Plan: UA suspicious for urinary tract infection, uncomplicated patient with no current urinary complaints * Rocephin started 1g * Urine culture not done no reflex on day 3 of ABX will just finish out 5 day course (4) Reaction, situational, acute, to stress: Code(s): F43.0 - Acute stress reaction Status: Acute Assessment and Plan: Recent of spouse and patient reports not much will to live, No intentional self harm * Continue her Wellbutrin and Lexapro * Jovial affect today (5) Falls frequently: Code(s): R29.6 - Repeated falls Status: Chronic Assessment and Plan: Repeated falls, PT/OT consulted for evaluation and discharge planning (6) Diabetic peripheral neuropathy: Code(s): E11.42 - Type 2 diabetes mellitus with diabetic polyneuropathy Status: Chronic Assessment and Plan: * Diabetic diet * A1c ordered * Continue Lantus with dose reduction due to renal failure and controlled diet while admitted * Hold Trulicity * ACHS fingerstick glucose with low dose SSI ordered * Hypoglycemic protocol (7) HTN (hypertension): Qualifiers: Hypertension type: primary hypertension Qualified Code(s): I10 - Essential (primary) hypertension Code(s): I10 - Essential (primary) hypertension Status: Chronic Assessment and Plan: * Continue amlodipine * Monitor BP per unit protocol (8) Hyperlipidemia: Qualifiers: Hyperlipidemia type: unspecified Qualified Code(s): E78.5 - Hyperlipidemia, unspecified Code(s): E78.5 - Hyperlipidemia, unspecified Status: Chronic Assessment and Plan: * Continued atorvastatin (9) Anxiety: Code(s): F41.9 - Anxiety disorder, unspecified Status: Chronic Assessment and Plan: * continue bupropion and escitalopram (10) Right-sided cerebrovascular accident (CVA): Code(s): I63.9 - Cerebral infarction, unspecified Status: Chronic Assessment and Plan: * Continue Plavix and atorvastatin (11) Dizziness: Code(s): R42 - Dizziness and giddiness Status: Acute Assessment and Plan: Patient with reports of dizziness thought to be secondary to her hypercalcemia but has been treated for vertigo in the pass with meclizine with improvement. * Meclizine p.r.n. Plan Code status: Full code per patient DVT prophylaxis: SCDs Stress ulcer prophylaxis: Protonix patient with history of GERD PT/OT notes: PT/OT evaluation due to frequent falls Disposition: Patient continues admission to the medical unit for hypercalcemia and acute on chronic renal failure will need to continue with IV fluid hydration and continue to monitor and trend patient's Ca and renal function nephrology is consulted and following patient plans to return home when medically stable at discharge. Will need referral to mud tank operator discharge Time Spent With Patient Time with patient: 15 - 25 minutes Subjective Date/time seen: 06/06/25 10:44 Interval history: Patient is 64-year-old female who was admitted for further evaluation and treatment recent dizziness with fall at home and generalized weakness with hypercalcemia. Patient also found to have an acute on chronic renal failure and dehydration was admitted for further treatment, nephrology consulted. 06/06/2025: Patient reports feeling better today no episodes of dizziness overnight calcium improved as well as renal function patient with no other complaints. Review of Systems Review of Systems: All systems reviewed & are unremarkable except as noted in HPI and below Exam Narrative: GENERAL: Well-appearing, well-nourished pleasant female HEAD: Normocephalic ENT:? Mucous membranes moist CHEST: Clear to auscultation.? LT chest wall contusion HEART: RRR ABDOMEN: Soft, nontender, nondistended. EXTREMITIES: Normal range of motion. No peripheral edema. SKIN: Warm dry normal color NEURO: Alert and oriented x3. PSYCH: normal mood and affect Objective Data Vital Signs Vital Signs: Vital Signs - 24 hr 06/05/25 12:00 06/05/25 14:00 06/05/25 16:00 Temperature 97.4 F L Pulse Rate 102 H 63 87 Respiratory Rate 14 Blood Pressure 152/75 H Pulse Oximetry 98 Oxygen Delivery 06/05/25 20:00 06/05/25 20:00 06/05/25 20:35 Temperature 96.2 F L Pulse Rate 83 67 Respiratory Rate 18 Blood Pressure 164/80 H Pulse Oximetry 100 Oxygen Delivery Room Air 06/06/25 00:00 06/06/25 04:00 06/06/25 05:15 Temperature 98.9 F Pulse Rate 88 77 74 Respiratory Rate 22 H Blood Pressure 141/66 H Pulse Oximetry 100 Oxygen Delivery Intake/Output Intake/Output: Intake & Output 06/03/25 06/04/25 06/05/25 06/06/25 23:59 23:59 23:59 23:59 Intake Total 5631.7 4256.7 2581.7 1540 Output Total 3500 4250 3600 2800 Balance 2131.7 6.7 -1018.3 -1260 Meds/Results Medications: Active Medications Generic Name Dose Route Start Last Admin Trade Name Freq PRN Reason Stop Dose Admin Acetaminophen 650 mg 06/02/25 23:16 06/02/25 23:20 Acetaminophen 325 Mg Tablet PO 650 mg Q6H PRN Administration Mild Pain (1-3) or Fever Amlodipine Besylate 5 mg 06/03/25 09:00 06/06/25 08:59 Amlodipine Besylate 5 Mg Tablet PO 5 mg DAILY DELANO Administration Bupropion HCl 150 mg 06/03/25 09:00 06/06/25 09:00 Bupropion Hcl Xl (24 Hr) 150 Mg Tabcr PO 150 mg QAM DELANO Administration Clopidogrel Bisulfate 75 mg 06/03/25 09:00 06/06/25 08:59 Clopidogrel Bisulfate 75 Mg Tablet PO 75 mg DAILY DELANO Administration Dextrose 12.5 gm 06/02/25 19:56 Dextrose 50% 25 Gm/50 Ml Syringe IV PUSH PRN PRN Hypoglycemia Protocol Escitalopram Oxalate 10 mg 06/03/25 09:00 06/06/25 08:59 Escitalopram Oxalate 10 Mg Tablet PO 10 mg DAILY DELANO Administration Glucagon 1 mg 06/02/25 19:56 Glucagon For Inj 1 Mg Vial IM PRN PRN Hypoglycemia Protocol Glucose 15 gm 06/02/25 19:56 Glucose Oral Gel 15 Gm Of Glucse In 37.5 Gm Tube PO PRN PRN Hypoglycemia Protocol Heparin Sodium (Porcine) 5,000 units 06/03/25 09:00 06/06/25 09:00 Heparin Sodium 5,000 Units/Ml Vial SUB-Q 5,000 units Q12HR DELANO Administration Sodium Chloride 1,000 mls @ 100 mls/hr 06/02/25 15:20 06/06/25 02:55 Normal Saline Iv IV CONT 100 mls/hr .Q10H DELANO Administration Dextrose 1,000 mls @ 100 mls/hr 06/02/25 19:56 Dextrose 5% 1,000 Ml IVPB PRN PRN Hypoglycemia Protocol Ceftriaxone Sodium 1 gm/ 50 mls @ 100 mls/hr 06/02/25 21:00 06/05/25 20:18 Sodium Chloride IVPB 100 mls/hr Q24H DELANO Administration Insulin Aspart 2 - 5 units 06/03/25 08:00 06/06/25 09:00 Insulin Aspart (*Bkc) 100 Units/Ml SUB-Q Not Given TIDWM [facility] Protocol Insulin Glargine 12 units 06/03/25 09:00 06/06/25 08:57 Insulin Glargine (*Bkc) 100 Units/Ml SUB-Q 12 units DAILY DELANO Administration Meclizine HCl 25 mg 06/05/25 14:44 Meclizine Hcl 25 Mg Tablet PO BID PRN Vertigo Metoprolol Succinate 25 mg 06/06/25 09:35 Metoprolol Succinate Ext Rel 25 Mg Tabcr PO QAM DELANO Pantoprazole Sodium 40 mg 06/05/25 14:50 06/06/25 08:59 Pantoprazole 40 Mg Tablet PO 40 mg Q12HR DELANO Administration Rosuvastatin Calcium 10 mg 06/03/25 09:00 06/06/25 08:59 Rosuvastatin 10 Mg Tablet PO 10 mg DAILY DELANO Administration Solifenacin 5 mg 06/03/25 09:00 06/06/25 09:00 Solifenacin 5 Mg Tablet PO 5 mg DAILY DELANO Administration Vitamin B Complex 1 cap 06/03/25 09:00 06/06/25 09:00 Vitamin B Complex Capsule PO 1 cap DAILY DELANO Administration Radiology Results: ITS Impressions Head CT 06/02/25 13:06 IMPRESSION: 1. No acute intracranial findings. Face CT 06/02/25 13:23 IMPRESSION: 1. No acute fracture. Renal Ultrasound 06/04/25 09:33 IMPRESSION: 1. Hydronephrosis left kidney. 2. No hydronephrosis right kidney. 6 mm stone. Labs Labs: Laboratory Results - last 24 hr 06/05/25 06/05/25 06/05/25 12:07 16:49 20:40 WBC RBC Hgb Hct MCV MCH MCHC RDW Plt Count MPV Immature Gran % (Auto) Neut % (Auto) Lymph % (Auto) [place] % (Auto) Eos % (Auto) Baso % (Auto) Lymph # (Auto) [place] # (Auto) Eos # (Auto) Baso # (Auto) Abs Immat Gran (auto) Absolute Neuts (auto) Absolute Nucleated RBC Nucleated RBC % Sodium Potassium Chloride Carbon Dioxide Anion Gap BUN Creatinine Estim Creat Clear Calc Estimated GFR Glucose POC Capillary Glucose 104 90 106 H Calcium Phosphorus Magnesium Total Bilirubin AST ALT Alkaline Phosphatase Total Protein Albumin 06/06/25 06/06/25 05:39 08:06 WBC 5.4 RBC 3.80 L Hgb 10.4 L Hct 32.6 L MCV 85.8 MCH 27.4 MCHC 31.9 L RDW 14.3 Plt Count 236 MPV 10.7 H Immature Gran % (Auto) 0.4 Neut % (Auto) 68.6 Lymph % (Auto) 13.9 L [place] % (Auto) 10.7 H Eos % (Auto) 5.5 H Baso % (Auto) 0.9 Lymph # (Auto) 0.75 L [place] # (Auto) 0.6 Eos # (Auto) 0.3 Baso # (Auto) 0.1 Abs Immat Gran (auto) 0.02 Absolute Neuts (auto) 3.7 Absolute Nucleated RBC 0.000 Nucleated RBC % 0.0 Sodium 137 Potassium 3.6 Chloride 113 H Carbon Dioxide 15 L Anion Gap 9 BUN 28 H Creatinine 2.98 H Estim Creat Clear Calc 15 Estimated GFR 16 L Glucose 90 POC Capillary Glucose 102 Calcium 9.8 Phosphorus 3.0 Magnesium 1.7 Total Bilirubin 0.3 AST 34 ALT 26 Alkaline Phosphatase 180 H Total Protein 6.6 Albumin 3.2 L Quality VTE Prophylaxis VTE prophylaxis: mechanical ordered -Patient's previous records reviewed on admission -ER notes reviewed in detail on admission -discussed all findings and current treatment plan with patient/Family/POA -Consultations reviewed for recommendations -Patient's disposition for safe discharge discussed with medical case worker Dictation performed by [employer]IM[employer] Fluency direct speech recognition software, therefore aspnet developer variants and typographical errors may occur. Hospitalist MIPS Advance Care Plan I have confirmed that the patient's Advanced Care Plan is present, code status is documented, or surrogate decision maker is listed in patient medical record.: Yes Medication Reconciliation I have utilized all available resources to obtain, update and review the patients current medications (includes all prescriptions, OTC, herbals, cannabis, and nutritional supplements).: Yes The patient is not eligible for med reconciliation; the patient is in a emergent medical situation where delaying treatment would jeopardize the patients health.: No
[2025-06-06] MEDS: METOPROLOL SUCCINATE EXT REL 25 MG TABCR PO (11:31)
[2025-06-06 12:00] LABS: Thyroid Stimulating Hormone Reflex 1.790 uIU/mL (0.465-4.68)
[2025-06-06] MEDS: cefTRIAXone 1 GM in SODIUM CHLORIDE 0.9% IV 50 ML 100 ML IVPB (21:19)
[2025-06-07] VITALS (10 sets, daily range): BP systolic 124–142; BP diastolic 68–75; PULSE 58–102; RESP 16–18; TEMP 36.3–36.9; O2SAT 98–100
[2025-06-07 06:36] LABS: Hematocrit 31.3 % (37.0-47.0); Hemoglobin 10.0 g/dL (12.0-15.0); Immature Granulocyte Percent A 0.4 % (0-0.5); Lymphocytes Absolute Auto 0.70 K/mm3 (0.9-3.2); Mean Corpuscular HGB Conc 31.9 g/dl (32-36); Mean Corpuscular Hemoglobin 27.4 pg (26-34); Mean Corpuscular Volume 85.8 fl (80-100); Nucleated Red Blood Cells Absolute Auto 0.000 K/mm3 (0.0-0.012); Nucleated Red Blood Cells Perc 0.0 % (0.0-0.2); Platelet Count Result 221 k/mm3 (150-375); Red Blood Count 3.65 M/mm3 (4.2-5.4); White Blood Count 5.4 K/mm3 (4.5-10.0)
[2025-06-07 06:53] LABS: Alanine Aminotransferase 28 U/L (6-35); Albumin Level 3.0 g/dL (3.5-5.1); Alkaline Phosphatase 183 U/L (38-126); Anion Gap 10 mmol/L (4-12); Aspartate Amino Transferase 37 U/L (14-36); Bilirubin,Total 0.3 mg/dL (0.2-1.3); Blood Urea Nitrogen 27 mg/dL (7-17); Calcium 9.4 mg/dL (8.4-10.2); Carbon Dioxide 14 mmol/L (22-30); Chloride 113 mmol/L (98-107); Estimated CRCL calculation 16 ml/min; Estimated Glomerular Filt Rate 17; Glucose 93 mg/dL (65-110); Magnesium 1.6 mg/dL (1.6-2.3); Potassium 3.3 mmol/L (3.4-5.0); Sodium 137 mmol/L (137-145); Total Protein 6.4 g/dL (6.3-8.2)
[2025-06-07] MEDS: METOPROLOL SUCCINATE EXT REL 25 MG TABCR PO (08:31)
[2025-06-07] MEDS: PANTOPRAZOLE 40 MG TABLET PO ×2 (08:31→21:25)
[2025-06-07] MEDS: buPROPion HCL XL (24 HR) 150 MG TABCR PO (08:32)
[2025-06-07] MEDS: VITAMIN B COMPLEX CAPSULE 1 CAP PO (08:32)
[2025-06-07] MEDS: ROSUVASTATIN 10 MG TABLET PO (08:32)
[2025-06-07] MEDS: SOLIFENACIN 5 MG TABLET PO (08:33)
[2025-06-07] MEDS: INSULIN GLARGINE (*BKC) 100 UNITS/ML 12 UNITS SUB-Q (08:34)
[2025-06-07] MEDS: ESCITALOPRAM OXALATE 10 MG TABLET PO (08:34)
[2025-06-07] MEDS: CLOPIDOGREL BISULFATE 75 MG TABLET PO (08:34)
--- NOTE | 2025-06-07 10:41 | P.PNNP_ITS ---
Progress Note: A&P Assessment and Plan (1) Acute kidney injury: Code(s): N17.9 - Acute kidney failure, unspecified Status: Acute Assessment and Plan: * worsening renal function/creatinine in the few weeks as noted by outpatient labs/presentation * creatinine 3.09mg/dL on 05/20 * then 3.21mg/dL on 05/28 * 3.46mg/dL on 06/01 * up to 3.96mg/dL on admission * noted to be associated with hypercalcemia * evaluation to date noted: * renal ultrasound pending * UA suggestive of infection * urine electrolytes non-prerenal * urine eosinophils negative * CPK normal * moderate proteinuria * it would appear that her GFR/creatinine worsens as the calcium increases given evidence to date * the working theory is that she has excess absorption of calcium from her GI tract and the high calcium interferes with the ROM-K channel in the kidney tubules causing a loop diuretic effect which leads to dehydration (unfortunately, there is no way to measure calcium absorption from the GI tract). The dehydration makes the calcium worse thereby resulting in a feedback loop. * could just the fluids alone be making the calcium better (because calcitonin and pamidronate act on the bones not on the GI tract)??? * will continue IV fluids for another 24 hours and follow the calcium -- if it is stable/improved, would be okay for discharge * referral to [facility] Endocrinology as an outpatient (2) Stage 4 chronic kidney disease: Code(s): N18.4 - Chronic kidney disease, stage 4 (severe) Status: Chronic Assessment and Plan: * due to biopsy proven arterionephrosclerosis and diabetic nephropathy * 40% interstitial fibrosis and tubular atrophy * baseline creatinine was running 1.7 - 2.2mg/dl since August 2024 * however, since February 2025 hospitalization, creatinine now running ~ 2.4- 2.8mg/dl (3) Hypercalcemia: Code(s): E83.52 - Hypercalcemia Status: Acute Assessment and Plan: * etiology remains unclear * upward trend noted starting in mid March 2025 * extensive outpatient evaluation noted/done: * high urine calcium (ruling out [facility]) * PTH low ruling out hyperparathyroidism * bone scan negative * skeletal survey negative for lytic bone lesions * serum/urine immunofixation negative * PTHrp, vitamin-A, vitamin-D, 1,25 vitamin-D, and ANDREW levels all negative * renal biopsy did not show signs of sarcoidosis * attempting to r/o other less common causes (excess growth hormone, adrenal insufficiency, hyperthyroidism, and pheochromocytoma) * continue supportive therapy (4) Acute UTI: Code(s): N39.0 - Urinary tract infection, site not specified Status: Acute Assessment and Plan: * suspected based on admission UA * unfortunately, no urine culture ordered/done. * on antibiotics (5) Falls frequently: Code(s): R29.6 - Repeated falls Status: Chronic Assessment and Plan: * as noted by history * PT/OT as tolerated * related to ANTONI and hypercalcemia(?) (6) Anemia: Code(s): D64.9 - Anemia, unspecified Status: Acute Assessment and Plan: * presumably due to CKD * suspect dilutional effect from IVFs as well * no need for DURAN at this time * follow H/H (7) HTN (hypertension): Qualifiers: Hypertension type: primary hypertension Qualified Code(s): I10 - Essential (primary) hypertension Code(s): I10 - Essential (primary) hypertension Status: Chronic Assessment and Plan: * slight rising with IVFs * metoprolol just recently started * follow trend of hemodynamics (8) Diabetes: Qualifiers: Diabetes mellitus type: type 2 Diabetes mellitus fdc insulin use: without termite exterminator helper use Diabetes mellitus complication status: without complication Qualified Code(s): E11.9 - Type 2 diabetes mellitus without complications Code(s): E11.9 - Type 2 diabetes mellitus without complications Status: Chronic Assessment and Plan: * follow accu-cheks * glycemic control per hospitalist Will continue to follow. L Subjective Date/time seen: 06/07/25 10:41 Interval history: Follow-up for acute kidney injury/acute renal failure on chronic kidney disease and hypercalcemia. Chart reviewed since last seen -- with just IVF hydration along with calcitonin, renal function/creatinine as well as calcium level has improved; she otherwise feels reasonably well; no other acute issues/complaints voiced Exam 2 Narrative: General: WD/WN female in NAD Heart: normal S1 and S2; no rub Lungs: clear to auscultation Abdomen: soft, nontender, nondistended, positive bowel sounds Extremities: no cyanosis or clubbing; no edema Skin: warm and intact Objective Data Vital Signs Vital Signs: Vital Signs Temp Pulse Resp BP Pulse Ox 06/07/25 08:31 61 06/07/25 08:00 88 06/07/25 06:00 98 F 66 16 142/75 H 98 06/07/25 04:00 93 06/07/25 00:00 102 H 06/06/25 22:00 98.5 F 59 L 18 149/62 H 99 06/06/25 20:00 110 H Intake/Output Intake/Output: Intake & Output 06/04/25 06/05/25 06/06/25 06/07/25 23:59 23:59 23:59 23:59 Intake Total 4256.7 2631.7 3860 1930 Output Total 4250 3600 5500 1800 Balance 6.7 968.3 -1640 130 Meds/Results Medications: Active Medications Generic Name Dose Route Start Last Admin Trade Name Freq PRN Reason Stop Dose Admin Acetaminophen 650 mg 06/02/25 23:16 06/02/25 23:20 Acetaminophen 325 Mg Tablet PO 650 mg Q6H PRN Administration Mild Pain (1-3) or Fever Amlodipine Besylate 5 mg 06/03/25 09:00 06/07/25 08:33 Amlodipine Besylate 5 Mg Tablet PO 5 mg DAILY DELANO Administration Bupropion HCl 150 mg 06/03/25 09:00 06/07/25 08:32 Bupropion Hcl Xl (24 Hr) 150 Mg Tabcr PO 150 mg QAM DELANO Administration Clopidogrel Bisulfate 75 mg 06/03/25 09:00 06/07/25 08:34 Clopidogrel Bisulfate 75 Mg Tablet PO 75 mg DAILY DELANO Administration Dextrose 12.5 gm 06/02/25 19:56 Dextrose 50% 25 Gm/50 Ml Syringe IV PUSH PRN PRN Hypoglycemia Protocol Escitalopram Oxalate 10 mg 06/03/25 09:00 06/07/25 08:34 Escitalopram Oxalate 10 Mg Tablet PO 10 mg DAILY DELANO Administration Glucagon 1 mg 06/02/25 19:56 Glucagon For Inj 1 Mg Vial IM PRN PRN Hypoglycemia Protocol Glucose 15 gm 06/02/25 19:56 Glucose Oral Gel 15 Gm Of Glucse In 37.5 Gm Tube PO PRN PRN Hypoglycemia Protocol Heparin Sodium (Porcine) 5,000 units 06/03/25 09:00 06/07/25 08:30 Heparin Sodium 5,000 Units/Ml Vial SUB-Q 5,000 units Q12HR DELANO Administration Sodium Chloride 1,000 mls @ 100 mls/hr 06/02/25 15:20 06/07/25 12:38 Normal Saline Iv IV CONT 100 mls/hr .Q10H DELANO Administration Dextrose 1,000 mls @ 100 mls/hr 06/02/25 19:56 Dextrose 5% 1,000 Ml IVPB PRN PRN Hypoglycemia Protocol Insulin Aspart 2 - 5 units 06/03/25 08:00 06/07/25 17:05 Insulin Aspart (*Bkc) 100 Units/Ml SUB-Q Not Given TIDWM DELANO Protocol Insulin Glargine 12 units 06/03/25 09:00 06/07/25 08:34 Insulin Glargine (*Bkc) 100 Units/Ml SUB-Q 12 units DAILY DELANO Administration Meclizine HCl 25 mg 06/05/25 14:44 Meclizine Hcl 25 Mg Tablet PO BID PRN Vertigo Metoprolol Succinate 25 mg 06/06/25 09:35 06/07/25 08:31 Metoprolol Succinate Ext Rel 25 Mg Tabcr PO 25 mg QAM DELANO Administration Pantoprazole Sodium 40 mg 06/05/25 14:50 06/07/25 08:31 Pantoprazole 40 Mg Tablet PO 40 mg Q12HR DELANO Administration Rosuvastatin Calcium 10 mg 06/03/25 09:00 06/07/25 08:32 Rosuvastatin 10 Mg Tablet PO 10 mg DAILY DELANO Administration Sodium Bicarbonate 1,300 mg 06/07/25 13:00 06/07/25 17:46 Sodium Bicarbonate Tab 650 Mg Tablet PO 06/08/25 17:01 1,300 mg TID DELANO Administration Solifenacin 5 mg 06/03/25 09:00 06/07/25 08:33 Solifenacin 5 Mg Tablet PO 5 mg DAILY DELANO Administration Vitamin B Complex 1 cap 06/03/25 09:00 06/07/25 08:32 Vitamin B Complex Capsule PO 1 cap DAILY DELANO Administration Radiology Results: ITS Impressions Head CT 06/02/25 13:06 IMPRESSION: 1. No acute intracranial findings. Face CT 06/02/25 13:23 IMPRESSION: 1. No acute fracture. Renal Ultrasound 06/04/25 09:33 IMPRESSION: 1. Hydronephrosis left kidney. 2. No hydronephrosis right kidney. 6 mm stone. Head/Sinuses CT 06/06/25 16:16 Impression: 1.No acute intracranial abnormality. Labs Labs: Laboratory Tests 06/07/25 06:14 06/07/25 06:14 Calcium 9.4 Phosphorus 2.8 Magnesium 1.6 Total Bilirubin 0.3 AST 37 H ALT 28 Alkaline Phosphatase 183 H Total Protein 6.4 Albumin 3.0 L
[2025-06-07] MEDS: POTASSIUM CHLORIDE 20 MEQ ER TABLET PO (11:12)
[2025-06-07] MEDS: SODIUM BICARBONATE TAB 650 MG TABLET 1300 MG PO ×2 (12:34→17:46)
[2025-06-07] MEDS: SODIUM CHLORIDE 0.9% IV 1,000 ML 100 ML IV CONT (12:38)
--- NOTE | 2025-06-07 13:25 | P.PNIM_ITS ---
Progress Note: A&P Assessment and Plan (1) Acute on chronic renal failure: Code(s): N17.9 - Acute kidney failure, unspecified; N18.9 - Chronic kidney disease, unspecified <Donnie Dhillon, Student - Last Filed: 06/07/25 13:34> Status: Acute <Donnie EphraimCynthia Dhillon, Student - Last Filed: 06/07/25 13:34> Assessment and Plan: Underlying stage 4 CKD noted with acute increased Cr to 3.96 and decreased eGFR to 1, Dehydration felt to be reason for worsening renal failure given UA findings and worsening hypercalcemia * Nephrology consulted follows with Dr. Leonard outpatient * Continue IV fluids * trend renal function * Add CK, magnesium and Phos levels to labs * Avoid nephrotoxic * Cr down to 2.81 today * Renal ultrasound shows nonobstructing 6mm stone in the right kidney, otherwise normal * Tolerating oral intake <Donnie Dhillon, Student - Last Filed: 06/07/25 13:34> (2) Hypercalcemia: Code(s): E83.52 - Hypercalcemia <Donnie Dhillon, Student - Last Filed: 06/07/25 13:34> Status: Acute <Donnie Dhillon, Student - Last Filed: 06/07/25 13:34> Assessment and Plan: History of chronic hypercalcemia but level is significantly higher than baseline and increasing over past month * IV fluids * Ca 9.4 today * Nephrology consulted * Calcitonin injection stopped will only do IV fluids to see what her Ca does * Repeat labs in am * will need Referral to educational resource center teacher * bone scan negative * MRI ordered with ANCA * CT brain/sinus negative for acute abnormality * Nephrology ordered further testing to evaluate for excess growth hormone, adrenal insufficiency, hyperthyroidism, pheochromocytoma they are also setting up With endocrinology at [facility] Per Nephrology * high urine calcium Ruling out [facility] * PTH low ruling out hyperparathyroidism. * bone scan negative * skeletal survey negative for lytic bone lesions * serum/urine immunofixation negative * PTHrp , vitamin-A, vitamin-D, 1, 25 vitamin-D, and Johny level all negative * renal biopsy did not show signs of sarcoidosis, nor did chest x-ray. greatly appreciate Nephrology's input and recommendations <Donnie Dhillon, Student - Last Filed: 06/07/25 13:34> (3) Abnormal urinalysis: Code(s): R82.90 - Unspecified abnormal findings in urine <Donnie Dhillon, Student - Last Filed: 06/07/25 13:34> Status: Acute <Donnie Dhillon, Student - Last Filed: 06/07/25 13:34> Assessment and Plan: UA suspicious for urinary tract infection, uncomplicated patient with no current urinary complaints * Rocephin started 1g * Urine culture not done no reflex on day 4 of ABX will just finish out 5 day course <Donnie Dhillon, Student - Last Filed: 06/07/25 13:34> UA suspicious for urinary tract infection, uncomplicated patient with no current urinary complaints * Rocephin completed * Urine culture not done no reflex on day 4 of ABX will just finish out 5 day course <Melisa Avelar, CHILD WATCH ATTENDANT - Last Filed: 06/07/25 13:52> (4) Reaction, situational, acute, to stress: Code(s): F43.0 - Acute stress reaction <Donnie Dhillon, Student - Last Filed: 06/07/25 13:34> Status: Acute <Donnie Dhillon, Student - Last Filed: 06/07/25 13:34> Assessment and Plan: Recent of spouse and patient reports not much will to live, No intentional self harm * Continue her Wellbutrin and Lexapro * Jovial affect today <Donnie Dhillon, Student - Last Filed: 06/07/25 13:34> (5) Falls frequently: Code(s): R29.6 - Repeated falls <Donnie Dhillon, Student - Last Filed: 06/07/25 13:34> Status: Chronic <Donnie Dhillon, Student - Last Filed: 06/07/25 13:34> Assessment and Plan: Repeated falls, PT/OT consulted for evaluation and discharge planning <Donnie Dhillon, Student - Last Filed: 06/07/25 13:34> (6) Diabetic peripheral neuropathy: Code(s): E11.42 - Type 2 diabetes mellitus with diabetic polyneuropathy <Donnie Dhillon, Student - Last Filed: 06/07/25 13:34> Status: Chronic <Donnie Dhillon, Student - Last Filed: 06/07/25 13:34> Assessment and Plan: * Diabetic diet * A1c ordered * Continue Lantus with dose reduction due to renal failure and controlled diet while admitted * Hold Trulicity * ACHS fingerstick glucose with low dose SSI ordered * Hypoglycemic protocol <Donnie Dhillon, Student - Last Filed: 06/07/25 13:34> (7) HTN (hypertension): Qualifiers: Hypertension type: primary hypertension Qualified Code(s): I10 - Essential (primary) hypertension <Donnie Dhillon, Student - Last Filed: 06/07/25 13:34> Code(s): I10 - Essential (primary) hypertension <Donnie Dhillon, Student - Last Filed: 06/07/25 13:34> Status: Chronic <Donnie Dhillon, Student - Last Filed: 06/07/25 13:34> Assessment and Plan: * Continue amlodipine * Monitor BP per unit protocol <Donnie Dhillon, Student - Last Filed: 06/07/25 13:34> (8) Hyperlipidemia: Qualifiers: Hyperlipidemia type: unspecified Qualified Code(s): E78.5 - Hyperlipidemia, unspecified <Donnie Dhillon, Student - Last Filed: 06/07/25 13:34> Code(s): E78.5 - Hyperlipidemia, unspecified <Donnie Dhillon, Student - Last Filed: 06/07/25 13:34> Status: Chronic <Donnieisabell Dhillon, Student - Last Filed: 06/07/25 13:34> Assessment and Plan: * Continued atorvastatin <Donnie Dhillon, Student - Last Filed: 06/07/25 13:34> (9) Anxiety: Code(s): F41.9 - Anxiety disorder, unspecified <Donnie Dhillon, Student - Last Filed: 06/07/25 13:34> Status: Chronic <Donnie Dhillon, Student - Last Filed: 06/07/25 13:34> Assessment and Plan: * continue bupropion and escitalopram <Donnie Dhillon, Student - Last Filed: 06/07/25 13:34> (10) Right-sided cerebrovascular accident (CVA): Code(s): I63.9 - Cerebral infarction, unspecified <Donnie Dhillon, Student - Last Filed: 06/07/25 13:34> Status: Chronic <Donnie Dhillon, Student - Last Filed: 06/07/25 13:34> Assessment and Plan: * Continue Plavix and atorvastatin <Donnie Dhillon Naomi - Last Filed: 06/07/25 13:34> (11) Dizziness: Code(s): R42 - Dizziness and giddiness <Donnie Dhillon Naomi - Last Filed: 06/07/25 13:34> Status: Acute <Donnie Dhillon - Last Filed: 06/07/25 13:34> Assessment and Plan: Patient with reports of dizziness thought to be secondary to her hypercalcemia but has been treated for vertigo in the pass with meclizine with improvement. * Meclizine p.r.n. <Donnie Dhillon - Last Filed: 06/07/25 13:34> Assessment and Plan: Code status: Full code per patient DVT prophylaxis: SCDs Stress ulcer prophylaxis: Protonix patient with history of GERD PT/OT notes: PT/OT evaluation due to frequent falls Disposition: Patient continues admission to the medical unit for hypercalcemia and acute on chronic renal failure will need to continue with IV fluid hydration and continue to monitor and trend patient's Ca and renal function nephrology is consulted and following patient plans to return home when medically stable at discharge. Will need referral to educational resource center teacher discharge <Donnie Dhillon Naomi - Last Filed: 06/07/25 13:34> Time Spent With Patient Time with patient: 25 - 35 minutes <Donnie Dhillon Student - Last Filed: 06/07/25 13:34> Subjective Date/time seen: 06/07/25 13:25 <Donnie Dhillon - Last Filed: 06/07/25 13:34> Interval history: Patient is 64-year-old female who was admitted for further evaluation and treatment recent dizziness with fall at home and generalized weakness with hypercalcemia. Patient also found to have an acute on chronic renal failure and dehydration was admitted for further treatment, nephrology consulted. 06/07/2025: No acute events overnight. Patient reports feeling better today. Denies chest pain, shortness of breath and abdominal pain. Tolerating oral intake. <Donnie Dhillon Naomi - Last Filed: 06/07/25 13:34> Review of Systems Review of Systems: All systems reviewed & are unremarkable except as noted in HPI and below <Naomi Fields - Last Filed: 06/07/25 13:34> Exam Const: General: comfortable and no acute distress <Donnie Dhillon - Last Filed: 06/07/25 13:34> HENMT: Ears: TM's normal bilaterally <Donnie EphraimCynthia Aniyahdiane, Student - Last Filed: 06/07/25 13:34> Face/Nose/Sinus: Normal nares present <Donnie Dhillon Student - Last Filed: 06/07/25 13:34> Mouth: Yes moist mucous membranes <Donnieisabell Dhillon, Student - Last Filed: 06/07/25 13:34> Eyes: General: appearance normal, both eyes and all related structures <Donnie Dhillon, Student - Last Filed: 06/07/25 13:34> Sclera: sclerae normal <Donnie YeCynthia Dhillon - Last Filed: 06/07/25 13:34> Pupils: Equal, round and reactive pupils present <Donnieisabell Dhillon - Last Filed: 06/07/25 13:34> Neck: Neck: supple and no JVD <Donnieisabell Dhillon, Student - Last Filed: 06/07/25 13:34> Resp: Effort & Inspection: normal respiratory effort <Donnie Dhillon - Last Filed: 06/07/25 13:34> Auscultation: clear to auscultation bilaterally <Donnie Dhillon - Last Filed: 06/07/25 13:34> Cardio: Rate: regular rate <Donnie Dhillon - Last Filed: 06/07/25 13:34> Rhythm: regular rhythm <Donnie Dhillon - Last Filed: 06/07/25 13:34> GI: GI Palp: Yes Soft to palpation <Donnie Dhillon - Last Filed: 06/07/25 13:34> Auscultation: normal bowel sounds <Donnie Dhillon - Last Filed: 06/07/25 13:34> Skin: General skin exam: normal color <Donnie Dhillon Student - Last Filed: 06/07/25 13:34> Neuro: General: gait normal <Donnie Dhillon, Student - Last Filed: 06/07/25 13:34> Speech: normal speech <Donnie Dhillon, Student - Last Filed: 06/07/25 13:34> Motor exam (neuro): 5/5 motor strength present throughout and Normal motor muscle tone present throughout <Donnie Dhillon, Student - Last Filed: 06/07/25 13:34> Sensory Exam: normal sensation <Donnie Dhillon, Student - Last Filed: 06/07/25 13:34> Extrem: General: normal to inspection <Donnie Dhillon, Student - Last Filed: 06/07/25 13:34> Psych: Mental Status: mental status grossly normal <Donnie Dhillon, Student - Last Filed: 06/07/25 13:34> Objective Data Vital Signs Vital Signs: Vital Signs - 24 hr 06/06/25 14:00 06/06/25 16:00 06/06/25 20:00 Temperature 98.0 F Pulse Rate 61 91 110 H Respiratory Rate 16 Blood Pressure 143/79 H Pulse Oximetry 99 06/06/25 22:00 06/07/25 00:00 06/07/25 04:00 Temperature 98.5 F Pulse Rate 59 L 102 H 93 Respiratory Rate 18 Blood Pressure 149/62 H Pulse Oximetry 99 06/07/25 06:00 06/07/25 08:00 06/07/25 08:31 Temperature 98 F Pulse Rate 66 88 61 Respiratory Rate 16 Blood Pressure 142/75 H Pulse Oximetry 98 <Donnie Dhillon - Last Filed: 06/07/25 13:34> Intake/Output Intake/Output: Intake & Output 06/04/25 06/05/25 06/06/25 06/07/25 23:59 23:59 23:59 23:59 Intake Total 4256.7 2631.7 3860 1690 Output Total 4250 3600 5500 1800 Balance 6.7 -968.3 -1640 -110 <Donnie Dhillon Student - Last Filed: 06/07/25 13:34> Meds/Results Medications: Active Medications Generic Name Dose Route Start Last Admin Trade Name Freq PRN Reason Stop Dose Admin Acetaminophen 650 mg 06/02/25 23:16 06/02/25 23:20 Acetaminophen 325 Mg Tablet PO 650 mg Q6H PRN Administration Mild Pain (1-3) or Fever Amlodipine Besylate 5 mg 06/03/25 09:00 06/07/25 08:33 Amlodipine Besylate 5 Mg Tablet PO 5 mg DAILY DELANO Administration Bupropion HCl 150 mg 06/03/25 09:00 06/07/25 08:32 Bupropion Hcl Xl (24 Hr) 150 Mg Tabcr PO 150 mg QAM DELANO Administration Clopidogrel Bisulfate 75 mg 06/03/25 09:00 06/07/25 08:34 Clopidogrel Bisulfate 75 Mg Tablet PO 75 mg DAILY DELANO Administration Dextrose 12.5 gm 06/02/25 19:56 Dextrose 50% 25 Gm/50 Ml Syringe IV PUSH PRN PRN Hypoglycemia Protocol Escitalopram Oxalate 10 mg 06/03/25 09:00 06/07/25 08:34 Escitalopram Oxalate 10 Mg Tablet PO 10 mg DAILY DELANO Administration Glucagon 1 mg 06/02/25 19:56 Glucagon For Inj 1 Mg Vial IM PRN PRN Hypoglycemia Protocol Glucose 15 gm 06/02/25 19:56 Glucose Oral Gel 15 Gm Of Glucse In 37.5 Gm Tube PO PRN PRN Hypoglycemia Protocol Heparin Sodium (Porcine) 5,000 units 06/03/25 09:00 06/07/25 08:30 Heparin Sodium 5,000 Units/Ml Vial SUB-Q 5,000 units Q12HR DELANO Administration Sodium Chloride 1,000 mls @ 100 mls/hr 06/02/25 15:20 06/07/25 12:38 Normal Saline Iv IV CONT 100 mls/hr .Q10H DELANO Administration Dextrose 1,000 mls @ 100 mls/hr 06/02/25 19:56 Dextrose 5% 1,000 Ml IVPB PRN PRN Hypoglycemia Protocol Ceftriaxone Sodium 1 gm/ 50 mls @ 100 mls/hr 06/02/25 21:00 06/06/25 21:19 Sodium Chloride IVPB 100 mls/hr Q24H DELANO Administration Insulin Aspart 2 - 5 units 06/03/25 08:00 06/07/25 11:43 Insulin Aspart (*Bkc) 100 Units/Ml SUB-Q Not Given TIDWM DELANO Protocol Insulin Glargine 12 units 06/03/25 09:00 06/07/25 08:34 Insulin Glargine (*Bkc) 100 Units/Ml SUB-Q 12 units DAILY DELANO Administration Meclizine HCl 25 mg 06/05/25 14:44 Meclizine Hcl 25 Mg Tablet PO BID PRN Vertigo Metoprolol Succinate 25 mg 06/06/25 09:35 06/07/25 08:31 Metoprolol Succinate Ext Rel 25 Mg Tabcr PO 25 mg QAM DELANO Administration Pantoprazole Sodium 40 mg 06/05/25 14:50 06/07/25 08:31 Pantoprazole 40 Mg Tablet PO 40 mg Q12HR DELANO Administration Rosuvastatin Calcium 10 mg 06/03/25 09:00 06/07/25 08:32 Rosuvastatin 10 Mg Tablet PO 10 mg DAILY DELANO Administration Sodium Bicarbonate 1,300 mg 06/07/25 13:00 06/07/25 12:34 Sodium Bicarbonate Tab 650 Mg Tablet PO 06/08/25 17:01 1,300 mg TID DELANO Administration Solifenacin 5 mg 06/03/25 09:00 06/07/25 08:33 Solifenacin 5 Mg Tablet PO 5 mg DAILY DELANO Administration Vitamin B Complex 1 cap 06/03/25 09:00 06/07/25 08:32 Vitamin B Complex Capsule PO 1 cap DAILY DELANO Administration <Donnie Dhillon, Student - Last Filed: 06/07/25 13:34> Radiology Results: ITS Impressions Head CT 06/02/25 13:06 IMPRESSION: 1. No acute intracranial findings. Face CT 06/02/25 13:23 IMPRESSION: 1. No acute fracture. Renal Ultrasound 06/04/25 09:33 IMPRESSION: 1. Hydronephrosis left kidney. 2. No hydronephrosis right kidney. 6 mm stone. Head/Sinuses CT 06/06/25 16:16 Impression: 1.No acute intracranial abnormality. <Donnie Dhillon, Student - Last Filed: 06/07/25 13:34> Labs Labs: Laboratory Results - last 24 hr 06/06/25 06/06/25 06/07/25 16:57 22:15 06:14 WBC 5.4 RBC 3.65 L Hgb 10.0 L Hct 31.3 L MCV 85.8 MCH 27.4 MCHC 31.9 L RDW 14.3 Plt Count 221 MPV 10.5 H Immature Gran % (Auto) 0.4 Neut % (Auto) 65.4 Lymph % (Auto) 12.9 L [place] % (Auto) 12.4 H Eos % (Auto) 7.8 H Baso % (Auto) 1.1 Lymph # (Auto) 0.70 L [place] # (Auto) 0.7 H Eos # (Auto) 0.4 H Baso # (Auto) 0.1 Abs Immat Gran (auto) 0.02 Absolute Neuts (auto) 3.5 Absolute Nucleated RBC 0.000 Nucleated RBC % 0.0 Sodium 137 Potassium 3.3 L Chloride 113 H Carbon Dioxide 14 L Anion Gap 10 BUN 27 H Creatinine 2.81 H Estim Creat Clear Calc 16 Estimated GFR 17 L Glucose 93 POC Capillary Glucose 124 H 130 H Calcium 9.4 Phosphorus 2.8 Magnesium 1.6 Total Bilirubin 0.3 AST 37 H ALT 28 Alkaline Phosphatase 183 H Total Protein 6.4 Albumin 3.0 L 06/07/25 06/07/25 07:39 11:34 WBC RBC Hgb Hct MCV MCH MCHC RDW Plt Count MPV Immature Gran % (Auto) Neut % (Auto) Lymph % (Auto) [place] % (Auto) Eos % (Auto) Baso % (Auto) Lymph # (Auto) [place] # (Auto) Eos # (Auto) Baso # (Auto) Abs Immat Gran (auto) Absolute Neuts (auto) Absolute Nucleated RBC Nucleated RBC % Sodium Potassium Chloride Carbon Dioxide Anion Gap BUN Creatinine Estim Creat Clear Calc Estimated GFR Glucose POC Capillary Glucose 89 129 H Calcium Phosphorus Magnesium Total Bilirubin AST ALT Alkaline Phosphatase Total Protein Albumin <Donnie Dhillon, Student - Last Filed: 06/07/25 13:34> Quality VTE Prophylaxis VTE prophylaxis: mechanical ordered <Donnie Dhillon, Student - Last Filed: 06/07/25 13:34> -Patient's previous records reviewed on admission -ER notes reviewed in detail on admission -discussed all findings and current treatment plan with patient/Family/POA -Consultations reviewed for recommendations -Patient's disposition for safe discharge discussed with geriatric case manager Dictation performed by [employer] direct speech recognition software, therefore medical assistant float variants and typographical errors may occur. <Donnie Dhillon, Student - Last Filed: 06/07/25 13:34> Hospitalist [facility] Advance Care Plan I have confirmed that the patient's Advanced Care Plan is present, code status is documented, or surrogate decision maker is listed in patient medical record.: Yes <Donnie Dhillon, Student - Last Filed: 06/07/25 13:34> Medication Reconciliation I have utilized all available resources to obtain, update and review the patients current medications (includes all prescriptions, OTC, herbals, ca nnabis, and nutritional supplements).: Yes <Donnie Dhillon, Student - Last Filed: 06/07/25 13:34> The patient is not eligible for med reconciliation; the patient is in a emergent medical situation where delaying treatment would jeopardize the patients health.: No <Donnie Dhillon, Student - Last Filed: 06/07/25 13:34>
[2025-06-08] VITALS: PULSE 88
[2025-06-08] MEDS: SODIUM CHLORIDE 0.9% IV 1,000 ML 100 ML IV CONT (00:45)
[2025-06-08 04:00] VITALS: PULSE 105
[2025-06-08 05:35] VITALS: BP 139/64; PULSE 60; RESP 18; TEMP 36.9; O2SAT 100
[2025-06-08 06:22] LABS: Hematocrit 32.1 % (37.0-47.0); Hemoglobin 10.4 g/dL (12.0-15.0); Immature Granulocyte Percent A 0.5 % (0-0.5); Lymphocytes Absolute Auto 0.66 K/mm3 (0.9-3.2); Mean Corpuscular HGB Conc 32.4 g/dl (32-36); Mean Corpuscular Hemoglobin 27.7 pg (26-34); Mean Corpuscular Volume 85.6 fl (80-100); Nucleated Red Blood Cells Absolute Auto 0.000 K/mm3 (0.0-0.012); Nucleated Red Blood Cells Perc 0.0 % (0.0-0.2); Platelet Count Result 228 k/mm3 (150-375); Red Blood Count 3.75 M/mm3 (4.2-5.4); White Blood Count 5.8 K/mm3 (4.5-10.0)
[2025-06-08 06:45] LABS: Alanine Aminotransferase 29 U/L (6-35); Albumin Level 2.9 g/dL (3.5-5.1); Alkaline Phosphatase 176 U/L (38-126); Anion Gap 6 mmol/L (4-12); Aspartate Amino Transferase 35 U/L (14-36); Bilirubin,Total 0.3 mg/dL (0.2-1.3); Blood Urea Nitrogen 32 mg/dL (7-17); Calcium 9.8 mg/dL (8.4-10.2); Carbon Dioxide 16 mmol/L (22-30); Chloride 114 mmol/L (98-107); Estimated CRCL calculation 16 ml/min; Estimated Glomerular Filt Rate 17; Glucose 124 mg/dL (65-110); Magnesium 1.7 mg/dL (1.6-2.3); Potassium 3.7 mmol/L (3.4-5.0); Sodium 136 mmol/L (137-145); Total Protein 6.1 g/dL (6.3-8.2)
[2025-06-08 08:00] VITALS: PULSE 63
[2025-06-08] MEDS: VITAMIN B COMPLEX CAPSULE 1 CAP PO (09:04)
[2025-06-08] MEDS: SODIUM BICARBONATE TAB 650 MG TABLET 1300 MG PO (09:04)
[2025-06-08] MEDS: ESCITALOPRAM OXALATE 10 MG TABLET PO (09:05)
[2025-06-08] MEDS: SOLIFENACIN 5 MG TABLET PO (09:05)
[2025-06-08] MEDS: buPROPion HCL XL (24 HR) 150 MG TABCR PO (09:05)
[2025-06-08 09:06] VITALS: PULSE 55
[2025-06-08] MEDS: ROSUVASTATIN 10 MG TABLET PO (09:06)
[2025-06-08] MEDS: METOPROLOL SUCCINATE EXT REL 25 MG TABCR PO (09:06)
[2025-06-08] MEDS: CLOPIDOGREL BISULFATE 75 MG TABLET PO (09:06)
[2025-06-08] MEDS: PANTOPRAZOLE 40 MG TABLET PO (09:07)
[2025-06-08] MEDS: INSULIN GLARGINE (*BKC) 100 UNITS/ML 12 UNITS SUB-Q (09:09)
--- NOTE | 2025-06-08 09:22 | P.PNNP_ITS ---
Progress Note: A&P Assessment and Plan (1) Acute kidney injury: Code(s): N17.9 - Acute kidney failure, unspecified Status: Acute Assessment and Plan: * improvement noted * worsening renal function/creatinine in the few weeks as noted by outpatient labs/presentation * creatinine 3.09mg/dL on 05/20 * then 3.21mg/dL on 05/28 * 3.46mg/dL on 06/01 * up to 3.96mg/dL on admission * noted to be associated with hypercalcemia * evaluation to date noted: * renal ultrasound pending * UA suggestive of infection * urine electrolytes non-prerenal * urine eosinophils negative * CPK normal * moderate proteinuria * it would appear that her GFR/creatinine worsens as the calcium increases given evidence to date * the working theory is that she has excess absorption of calcium from her GI tract and the high calcium interferes with the ROM-K channel in the kidney tubules causing a loop diuretic effect which leads to dehydration (unfortunately, there is no way to measure calcium absorption from the GI tract). The dehydration makes the calcium worse thereby resulting in a feedback loop. * could just the fluids alone be making the calcium better (because calcitonin and pamidronate act on the bones not on the GI tract)??? * planning referral to [facility] Endocrinology as an outpatient (2) Stage 4 chronic kidney disease: Code(s): N18.4 - Chronic kidney disease, stage 4 (severe) Status: Chronic Assessment and Plan: * due to biopsy proven arterionephrosclerosis and diabetic nephropathy * 40% interstitial fibrosis and tubular atrophy * baseline creatinine was running 1.7 - 2.2mg/dl since August 2024 * however, since February 2025 hospitalization, creatinine now running ~ 2.4- 2.8mg/dl (3) Hypercalcemia: Code(s): E83.52 - Hypercalcemia Status: Acute Assessment and Plan: * etiology remains unclear * upward trend noted starting in mid March 2025 * extensive outpatient evaluation noted/done: * high urine calcium (ruling out [facility]) * PTH low ruling out hyperparathyroidism * bone scan negative x 2 * skeletal survey negative for lytic bone lesions x 2 * serum/urine immunofixation negative * PTHrp, vitamin-A, vitamin-D, 1,25 vitamin-D, and ANDREW levels all negative * renal biopsy did not show signs of sarcoidosis * attempting to r/o other less common causes (excess growth hormone, adrenal insufficiency, hyperthyroidism, and pheochromocytoma) * continue supportive therapy (4) Acute UTI: Code(s): N39.0 - Urinary tract infection, site not specified Status: Acute Assessment and Plan: * suspected based on admission UA * unfortunately, no urine culture ordered/done. * on antibiotics (5) Falls frequently: Code(s): R29.6 - Repeated falls Status: Chronic Assessment and Plan: * as noted by history * PT/OT as tolerated * related to ANTONI and hypercalcemia(?) (6) Anemia: Code(s): D64.9 - Anemia, unspecified Status: Acute Assessment and Plan: * presumably due to CKD * suspect dilutional effect from IVFs as well * no need for DURAN at this time * follow H/H (7) HTN (hypertension): Qualifiers: Hypertension type: primary hypertension Qualified Code(s): I10 - Essential (primary) hypertension Code(s): I10 - Essential (primary) hypertension Status: Chronic Assessment and Plan: * slight rising with IVFs * metoprolol just recently started * follow trend of hemodynamics (8) Diabetes: Qualifiers: Diabetes mellitus type: type 2 Diabetes mellitus superintendent terminal insulin use: without superintendent terminal use Diabetes mellitus complication status: without complication Qualified Code(s): E11.9 - Type 2 diabetes mellitus without complications Code(s): E11.9 - Type 2 diabetes mellitus without complications Status: Chronic Assessment and Plan: * follow accu-cheks * glycemic control per hospitalist Not opposed to discharge from renal standpoint if otherwise medically stable -- she can follow-up with Dr. Leonard as scheduled and frequent outpatient labs to monitor kidney function and calcium level. Will continue to follow. L Subjective Date/time seen: 06/08/25 09:22 Interval history: Follow-up for acute kidney injury/acute renal failure on chronic kidney disease and hypercalcemia. Continues to do well at the time of my visit; renal function/creatinine appears to have stabilized and calcium has normalized as well; no apparent distress noted when seen; noted results of imaging done yesterday; asking about going home today. Exam 2 Narrative: General: WD/WN female in NAD Heart: normal S1 and S2; no rub Lungs: clear to auscultation Abdomen: soft, nontender, nondistended, positive bowel sounds Extremities: no cyanosis or clubbing; no edema Skin: no rash or nodules Objective Data Vital Signs Vital Signs: Vital Signs Temp Pulse Resp BP Pulse Ox O2 Del Method 06/08/25 09:06 55 L 06/08/25 08:00 63 06/08/25 05:35 98.5 F 60 18 139/64 100 06/08/25 04:00 105 H 06/08/25 00:00 88 06/07/25 21:42 98.4 F 59 L 16 137/71 100 06/07/25 20:00 91 06/07/25 20:00 91 18 98 Room Air 06/07/25 16:00 91 06/07/25 14:00 97.3 F L 58 L 18 124/68 98 Intake/Output Intake/Output: Intake & Output 06/05/25 06/06/25 06/07/25 06/08/25 23:59 23:59 23:59 23:59 Intake Total 2631.7 3860 3170 640 Output Total 3600 5500 1800 Balance -968.3 -1640 1370 640 Meds/Results Medications: Active Medications Generic Name Dose Route Start Trade Name Freq PRN Reason Stop Acetaminophen 650 mg 06/02/25 23:16 Acetaminophen 325 Mg Tablet PO Q6H PRN Mild Pain (1-3) or Fever Amlodipine Besylate 5 mg 06/03/25 09:00 Amlodipine Besylate 5 Mg Tablet PO DAILY [facility] Bupropion HCl 150 mg 06/03/25 09:00 Bupropion Hcl Xl (24 Hr) 150 Mg Tabcr PO QAM [facility] Clopidogrel Bisulfate 75 mg 06/03/25 09:00 Clopidogrel Bisulfate 75 Mg Tablet PO DAILY [facility] Dextrose 12.5 gm 06/02/25 19:56 Dextrose 50% 25 Gm/50 Ml Syringe IV PUSH PRN PRN Hypoglycemia Protocol Escitalopram Oxalate 10 mg 06/03/25 09:00 Escitalopram Oxalate 10 Mg Tablet PO DAILY [facility] Glucagon 1 mg 06/02/25 19:56 Glucagon For Inj 1 Mg Vial IM PRN PRN Hypoglycemia Protocol Glucose 15 gm 06/02/25 19:56 Glucose Oral Gel 15 Gm Of Glucse In 37.5 Gm Tube PO PRN PRN Hypoglycemia Protocol Heparin Sodium (Porcine) 5,000 units 06/03/25 09:00 Heparin Sodium 5,000 Units/Ml Vial SUB-Q Q12HR [facility] Sodium Chloride 1,000 mls @ 100 mls/hr 06/02/25 15:20 Normal Saline Iv IV CONT .Q10H [facility] Dextrose 1,000 mls @ 100 mls/hr 06/02/25 19:56 Dextrose 5% 1,000 Ml IVPB PRN PRN Hypoglycemia Protocol Insulin Aspart 2 - 5 units 06/03/25 08:00 Insulin Aspart (*Bkc) 100 Units/Ml SUB-Q TIDWM [facility] Protocol Insulin Glargine 12 units 06/03/25 09:00 Insulin Glargine (*Bkc) 100 Units/Ml SUB-Q DAILY [facility] Meclizine HCl 25 mg 06/05/25 14:44 Meclizine Hcl 25 Mg Tablet PO BID PRN Vertigo Metoprolol Succinate 25 mg 06/06/25 09:35 Metoprolol Succinate Ext Rel 25 Mg Tabcr PO QAM [facility] Pantoprazole Sodium 40 mg 06/05/25 14:50 Pantoprazole 40 Mg Tablet PO Q12HR [facility] Rosuvastatin Calcium 10 mg 06/03/25 09:00 Rosuvastatin 10 Mg Tablet PO DAILY [facility] Sodium Bicarbonate 1,300 mg 06/07/25 13:00 Sodium Bicarbonate Tab 650 Mg Tablet PO 06/08/25 17:01 TID [facility] Solifenacin 5 mg 06/03/25 09:00 Solifenacin 5 Mg Tablet PO DAILY [facility] Vitamin B Complex 1 cap 06/03/25 09:00 Vitamin B Complex Capsule PO DAILY [facility] Radiology Results: ITS Impressions Head CT 06/02/25 13:06 IMPRESSION: 1. No acute intracranial findings. Face CT 06/02/25 13:23 IMPRESSION: 1. No acute fracture. Renal Ultrasound 06/04/25 09:33 IMPRESSION: 1. Hydronephrosis left kidney. 2. No hydronephrosis right kidney. 6 mm stone. Head/Sinuses CT 06/06/25 16:16 Impression: 1.No acute intracranial abnormality. Brain MRI 06/07/25 15:58 IMPRESSION: 1. Stable mild nonspecific cerebral white matter disease and pontine disease, which likely represents chronic small vessel ischemic disease. Skeletal Survey 06/07/25 17:17 IMPRESSION: 1. No suspicious lytic or blastic bone lesions. Bone Scan Nuclear Medicine 06/08/25 08:35 IMPRESSION: 1. Typical distribution of likely degenerative uptake in the spine and appendicular skeleton with corresponding degenerative changes on skeletal survey. No lesions suspicious for metastatic disease. Labs Labs: Laboratory Tests 06/08/25 05:43 06/08/25 05:43 Calcium 9.8 Phosphorus 2.8 Magnesium 1.7 Total Bilirubin 0.3 AST 35 ALT 29 Alkaline Phosphatase 176 H Total Protein 6.1 L Albumin 2.9 L
--- NOTE | 2025-06-08 09:22 | PM.PNNEP ---
Progress Note: A&P Assessment and Plan (1) Acute kidney injury: Code(s): N17.9 - Acute kidney failure, unspecified Status: Acute Assessment and Plan: improvement noted worsening renal function/creatinine in the few weeks as noted by outpatient labs/presentation creatinine 3.09mg/dL on 05/20 then 3.21mg/dL on 05/28 3.46mg/dL on 06/01 up to 3.96mg/dL on admission noted to be associated with hypercalcemia evaluation to date noted: renal ultrasound pending UA suggestive of infection urine electrolytes non-prerenal urine eosinophils negative CPK normal moderate proteinuria it would appear that her GFR/creatinine worsens as the calcium increases given evidence to date the working theory is that she has excess absorption of calcium from her GI tract and the high calcium interferes with the ROM-K channel in the kidney tubules causing a loop diuretic effect which leads to dehydration (unfortunately, there is no way to measure calcium absorption from the GI tract). The dehydration makes the calcium worse thereby resulting in a feedback loop. could just the fluids alone be making the calcium better (because calcitonin and pamidronate act on the bones not on the GI tract)??? planning referral to [facility] Endocrinology as an outpatient (2) Stage 4 chronic kidney disease: Code(s): N18.4 - Chronic kidney disease, stage 4 (severe) Status: Chronic Assessment and Plan: due to biopsy proven arterionephrosclerosis and diabetic nephropathy 40% interstitial fibrosis and tubular atrophy baseline creatinine was running 1.7 - 2.2mg/dl since August 2024 however, since February 2025 hospitalization, creatinine now running ~ 2.4- 2.8mg/dl (3) Hypercalcemia: Code(s): E83.52 - Hypercalcemia Status: Acute Assessment and Plan: etiology remains unclear upward trend noted starting in mid March 2025 extensive outpatient evaluation noted/done: high urine calcium (ruling out [facility]) PTH low ruling out hyperparathyroidism bone scan negative x 2 skeletal survey negative for lytic bone lesions x 2 serum/urine immunofixation negative PTHrp, vitamin-A, vitamin-D, 1,25 vitamin-D, and ANDREW levels all negative renal biopsy did not show signs of sarcoidosis attempting to r/o other less common causes (excess growth hormone, adrenal insufficiency, hyperthyroidism, and pheochromocytoma) continue supportive therapy (4) Acute UTI: Code(s): N39.0 - Urinary tract infection, site not specified Status: Acute Assessment and Plan: suspected based on admission UA unfortunately, no urine culture ordered/done. on antibiotics (5) Falls frequently: Code(s): R29.6 - Repeated falls Status: Chronic Assessment and Plan: as noted by history PT/OT as tolerated related to ANTONI and hypercalcemia(?) (6) Anemia: Code(s): D64.9 - Anemia, unspecified Status: Acute Assessment and Plan: presumably due to CKD suspect dilutional effect from IVFs as well no need for DURAN at this time follow H/H (7) HTN (hypertension): Qualifiers: Hypertension type: primary hypertension Qualified Code(s): I10 - Essential (primary) hypertension Code(s): I10 - Essential (primary) hypertension Status: Chronic Assessment and Plan: slight rising with IVFs metoprolol just recently started follow trend of hemodynamics (8) Diabetes: Qualifiers: Diabetes mellitus type: type 2 Diabetes mellitus long chain quiller tender insulin use: without long chain quiller tender use Diabetes mellitus complication status: without complication Qualified Code(s): E11.9 - Type 2 diabetes mellitus without complications Code(s): E11.9 - Type 2 diabetes mellitus without complications Status: Chronic Assessment and Plan: follow accu-cheks glycemic control per hospitalist Not opposed to discharge from renal standpoint if otherwise medically stable -- she can follow-up with Dr. Leonard as scheduled and frequent outpatient labs to monitor kidney function and calcium level. Will continue to follow. Subjective Date/time seen: 06/08/25 09:22 Interval history: Follow-up for acute kidney injury/acute renal failure on chronic kidney disease and hypercalcemia. Continues to do well at the time of my visit; renal function/creatinine appears to have stabilized and calcium has normalized as well; no apparent distress noted when seen; noted results of imaging done yesterday; asking about going home today. Exam Narrative: General: WD/WN female in NAD Heart: normal S1 and S2; no rub Lungs: clear to auscultation Abdomen: soft, nontender, nondistended, positive bowel sounds Extremities: no cyanosis or clubbing; no edema Skin: no rash or nodules Objective Data Vital Signs Vital Signs: Vital Signs Temp Pulse Resp BP Pulse Ox O2 Del Method 06/08/25 09:06 55 L 06/08/25 08:00 63 06/08/25 05:35 98.5 F 60 18 139/64 100 06/08/25 04:00 105 H 06/08/25 00:00 88 06/07/25 21:42 98.4 F 59 L 16 137/71 100 06/07/25 20:00 91 06/07/25 20:00 91 18 98 Room Air 06/07/25 16:00 91 06/07/25 14:00 97.3 F L 58 L 18 124/68 98 Intake/Output Intake/Output: Intake & Output 06/05/25 06/06/25 06/07/25 06/08/25 23:59 23:59 23:59 23:59 Intake Total 2631.7 3860 3170 640 Output Total 3600 5500 1800 Balance -968.3 -1640 1370 640 Meds/Results Medications: Active Medications Generic Name Dose Route Start Trade Name Freq PRN Reason Stop Acetaminophen 650 mg 06/02/25 23:16 Acetaminophen 325 Mg Tablet PO Q6H PRN Mild Pain (1-3) or Fever Amlodipine Besylate 5 mg 06/03/25 09:00 Amlodipine Besylate 5 Mg Tablet PO DAILY [facility] Bupropion HCl 150 mg 06/03/25 09:00 Bupropion Hcl Xl (24 Hr) 150 Mg Tabcr PO QAM [facility] Clopidogrel Bisulfate 75 mg 06/03/25 09:00 Clopidogrel Bisulfate 75 Mg Tablet PO DAILY [facility] Dextrose 12.5 gm 06/02/25 19:56 Dextrose 50% 25 Gm/50 Ml Syringe IV PUSH PRN PRN Hypoglycemia Protocol Escitalopram Oxalate 10 mg 06/03/25 09:00 Escitalopram Oxalate 10 Mg Tablet PO DAILY [facility] Glucagon 1 mg 06/02/25 19:56 Glucagon For Inj 1 Mg Vial IM PRN PRN Hypoglycemia Protocol Glucose 15 gm 06/02/25 19:56 Glucose Oral Gel 15 Gm Of Glucse In 37.5 Gm Tube PO PRN PRN Hypoglycemia Protocol Heparin Sodium (Porcine) 5,000 units 06/03/25 09:00 Heparin Sodium 5,000 Units/Ml Vial SUB-Q Q12HR [facility] Sodium Chloride 1,000 mls @ 100 mls/hr 06/02/25 15:20 Normal Saline Iv IV CONT .Q10H [facility] Dextrose 1,000 mls @ 100 mls/hr 06/02/25 19:56 Dextrose 5% 1,000 Ml IVPB PRN PRN Hypoglycemia Protocol Insulin Aspart 2 - 5 units 06/03/25 08:00 Insulin Aspart (*Bkc) 100 Units/Ml SUB-Q TIDWM [facility] Protocol Insulin Glargine 12 units 06/03/25 09:00 Insulin Glargine (*Bkc) 100 Units/Ml SUB-Q DAILY [facility] Meclizine HCl 25 mg 06/05/25 14:44 Meclizine Hcl 25 Mg Tablet PO BID PRN Vertigo Metoprolol Succinate 25 mg 06/06/25 09:35 Metoprolol Succinate Ext Rel 25 Mg Tabcr PO QAM [facility] Pantoprazole Sodium 40 mg 06/05/25 14:50 Pantoprazole 40 Mg Tablet PO Q12HR [facility] Rosuvastatin Calcium 10 mg 06/03/25 09:00 Rosuvastatin 10 Mg Tablet PO DAILY [facility] Sodium Bicarbonate 1,300 mg 06/07/25 13:00 Sodium Bicarbonate Tab 650 Mg Tablet PO 06/08/25 17:01 TID [facility] Solifenacin 5 mg 06/03/25 09:00 Solifenacin 5 Mg Tablet PO DAILY [facility] Vitamin B Complex 1 cap 06/03/25 09:00 Vitamin B Complex Capsule PO DAILY [facility] Radiology Results: ITS Impressions Head CT 06/02/25 13:06 IMPRESSION: 1. No acute intracranial findings. Face CT 06/02/25 13:23 IMPRESSION: 1. No acute fracture. Renal Ultrasound 06/04/25 09:33 IMPRESSION: 1. Hydronephrosis left kidney. 2. No hydronephrosis right kidney. 6 mm stone. Head/Sinuses CT 06/06/25 16:16 Impression: 1.No acute intracranial abnormality. Brain MRI 06/07/25 15:58 IMPRESSION: 1. Stable mild nonspecific cerebral white matter disease and pontine disease, which likely represents chronic small vessel ischemic disease. Skeletal Survey 06/07/25 17:17 IMPRESSION: 1. No suspicious lytic or blastic bone lesions. Bone Scan Nuclear Medicine 06/08/25 08:35 IMPRESSION: 1. Typical distribution of likely degenerative uptake in the spine and appendicular skeleton with corresponding degenerative changes on skeletal survey. No lesions suspicious for metastatic disease. Labs Labs: Laboratory Tests 06/08/25 05:43 06/08/25 05:43 Calcium 9.8 Phosphorus 2.8 Magnesium 1.7 Total Bilirubin 0.3 AST 35 ALT 29 Alkaline Phosphatase 176 H Total Protein 6.1 L Albumin 2.9 L
--- NOTE | 2025-06-08 11:10 | P.DS_ITS ---
DS: Admitting Diagnosis Discharge Date 06/08/2025 Admitting Diagnosis Hypercalcemia/acute on chronic renal failure DS: Discharge Diagnosis Discharge Diagnosis (1) Acute on chronic renal failure: Code(s): N17.9 - Acute kidney failure, unspecified; N18.9 - Chronic kidney disease, unspecified Status: Acute (2) Hypercalcemia: Code(s): E83.52 - Hypercalcemia Status: Acute (3) Abnormal urinalysis: Code(s): R82.90 - Unspecified abnormal findings in urine Status: Acute (4) Reaction, situational, acute, to stress: Code(s): F43.0 - Acute stress reaction Status: Acute (5) Falls frequently: Code(s): R29.6 - Repeated falls Status: Chronic (6) Diabetic peripheral neuropathy: Code(s): E11.42 - Type 2 diabetes mellitus with diabetic polyneuropathy Status: Chronic (7) HTN (hypertension): Qualifiers: Hypertension type: primary hypertension Qualified Code(s): I10 - Essential (primary) hypertension Code(s): I10 - Essential (primary) hypertension Status: Chronic (8) Hyperlipidemia: Qualifiers: Hyperlipidemia type: unspecified Qualified Code(s): E78.5 - Hyperlipidemia, unspecified Code(s): E78.5 - Hyperlipidemia, unspecified Status: Chronic (9) Anxiety: Code(s): F41.9 - Anxiety disorder, unspecified Status: Chronic (10) Right-sided cerebrovascular accident (CVA): Code(s): I63.9 - Cerebral infarction, unspecified Status: Chronic (11) Dizziness: Code(s): R42 - Dizziness and giddiness Status: Acute DS: Summary Hospital Course Reason for hospitalization: Hypercalcemia/acute on chronic renal failure Hospital Course: Admission: Patient was a 64 year old female patient with a history of CKD, prior CVA, insulin dependent diabetes with peripheral neopathy, HTN, HLD, anxiety and depression who is admitted to the hospital after fall with lab findings of worsening hypercalcemia as well as acute on chronic renal failure. UA also with some concerns for UTI though admittedly not a clean catch sample. Patient given IV fluids and Nephrology was consulted with desire to continue continuous IV fluids. Patient reporting that her spouse recently and she doesn't have much will to carry on though she denies active self harm. She takes bupropion and escitalopram which will be continued. In the ED: CT scan head and facial bones negative. Calcium 15.4, Phos 6.2, Cr 3.96 with BUN 44 and eGFR 11. A1c 6.8 Hospital Course: Patient was admitted and treated for symptotic hypercalcemia and a/c renal failure. Patient was started on IV fluids with a consult to nephrology who also initiated calcitonin x 6 doses. Per Nephrology recommendations patient was continued on IV fluids and trending Ca levels which overall improved with continued diagnostic testing for underlyin g cause of patient hypercalcemia Patient on admission had worsening renal function/creatinine in the few weeks as noted by outpatient labs/presentation creatinine 3.09mg/dL on 05/20, then 3.21mg/dL on 05/28, 3.46mg/dL on 06/01, up to 3.96mg/dL on admission but improved to 2.81 on day o discharge,renal ultrasound with no significant findings, UA suggestive of infection and treated with 5 days ceftriaxone. urine electrolytes showing non-prerenal, urine eosinophils negative, CPK normal with moderate proteinuria. Per Nephrology her calcium level has dropped because of the calcitonin and also possibly because of the fluids. Last time she was in she got pamidronate which I assumed was responsible for the improved calcium over the next few months. However, the working theory is that she has excess absorption of calcium from her GI tract and the high calcium interferes with ROM K and therefore acts like a loop diuretic which leads to dehydration. ( Unfortunately there is no way to measure calcium absorption from the GI tract). The dehydration makes a calcium worse and so is a feedback loop. this the areas because bone scan and bone survey are all negative and her bone density is normal speaking against bony resorption. Patient previous biopsy proven arterionephrosclerosis and diabetic nephropathy 40% interstitial fibrosis and tubular atrophy. As for patient hypercalcemia etiology remains unclear with and upward trend noted starting in mid March 2025: with the following testing done * high urine calcium Ruling out [facility] * PTH low ruling out hyperparathyroidism. * bone scan negative * skeletal survey negative for lytic bone lesions * serum/urine immunofixation negative * PTHrp , vitamin-A, vitamin-D, 1, 25 vitamin-D, and Johny level all negative * renal biopsy did not show signs of sarcoidosis, nor did chest x-ray. Other testing for her hypercalcemia included looking for other less common causes include excess growth hormone, adrenal insufficiency, hyperthyroidism, pheochromocytoma. Patient during hospitalization had resolution of all symptoms and no further dizziness reported. Her Ca had returned to normal limits and Kidney function to baseline. 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 Status at Discharge Functional status at discharge: independent ambulation Overall status at discharge: patient is back to baseline Time Spent with Patient Time attestation: Total time spent providing and/or coordinating discharge services: Time spent: Greater than 30 minutes Exam 2 Narrative: GENERAL: Well-appearing, well-nourished pleasant female HEAD: Normocephalic ENT:? Mucous membranes moist CHEST: Clear to auscultation.? LT chest wall contusion HEART: RRR ABDOMEN: Soft, nontender, nondistended. EXTREMITIES: Normal range of motion. No peripheral edema. SKIN: Warm dry normal color NEURO: Alert and oriented x3. PSYCH: normal mood and affect DS: Data Data Completed and Pending Labs on day of discharge: Labs from last 24 hours 06/08/25 06/08/25 06/07/25 07:42 05:43 21:46 WBC 5.8 RBC 3.75 L Hgb 10.4 L Hct 32.1 L MCV 85.6 MCH 27.7 MCHC 32.4 RDW 14.6 H Plt Count 228 MPV 10.7 H Immature Gran % (Auto) 0.5 Neut % (Auto) 71.6 Lymph % (Auto) 11.3 L Gibson % (Auto) 9.4 H Eos % (Auto) 6.7 H Baso % (Auto) 0.5 Lymph # (Auto) 0.66 L Gibson # (Auto) 0.6 Eos # (Auto) 0.4 H Baso # (Auto) 0.0 Abs Immat Gran (auto) 0.03 Absolute Neuts (auto) 4.2 Absolute Nucleated RBC 0.000 Nucleated RBC % 0.0 Sodium 136 L Potassium 3.7 Chloride 114 H Carbon Dioxide 16 L Anion Gap 6 BUN 32 H Creatinine 2.80 H Estim Creat Clear Calc 16 Estimated GFR 17 L Glucose 124 H POC Capillary Glucose 138 H 164 H Calcium 9.8 Phosphorus 2.8 Magnesium 1.7 Total Bilirubin 0.3 AST 35 ALT 29 Alkaline Phosphatase 176 H Total Protein 6.1 L Albumin 2.9 L Urine Metanephrine U Metanephrines 24 Hr U Normetanephrine U Normetanephrine 24h 06/07/25 06/07/25 06/06/25 16:49 11:34 13:00 WBC RBC Hgb Hct MCV MCH MCHC RDW Plt Count MPV Immature Gran % (Auto) Neut % (Auto) Lymph % (Auto) Gibson % (Auto) Eos % (Auto) Baso % (Auto) Lymph # (Auto) Gibson # (Auto) Eos # (Auto) Baso # (Auto) Abs Immat Gran (auto) Absolute Neuts (auto) Absolute Nucleated RBC Nucleated RBC % Sodium Potassium Chloride Carbon Dioxide Anion Gap BUN Creatinine Estim Creat Clear Calc Estimated GFR Glucose POC Capillary Glucose 153 H 129 H Calcium Phosphorus Magnesium Total Bilirubin AST ALT Alkaline Phosphatase Total Protein Albumin Urine Metanephrine Pending U Metanephrines 24 Hr Pending U Normetanephrine Pending U Normetanephrine 24h Pending Discharge Plan Discharge Attending physician on discharge: Bindu Aggarwal Consulting providers: Kan Hernandez; Donnie Dhillon; Arash Hernandez; Luis Goodrich; Clyde Leonard; Silvestre Harper; Cristi Anne; Harish Galan; Javier Raygoza V.; Chaim Delgado Discharging Clinician: Melisa Avelar Anticipated Discharge Date/Time: 06/08/25 11:03 Patient Disposition: Home Activity: as tolerated Diet: diabetic Discharge Instructions: 1). Hypercalcemia * Encourage oral hydration * Plan for follow-up outpatient with Nephrology * Follow-up with Endocrinology at [facility] for further testing 2). Chronic kidney disease * Encourage oral hydration * Monitor and control blood pressure * Recommend glucose control * Avoid nephrotoxic medication * Follow-up with Nephrology outpatient as scheduled How can you care for yourself at home? ? Keep track of any new symptoms or changes in your symptoms. ? Rest until you feel better. ? Be safe with medicines. Take your medicines exactly as prescribed. Call your doctor if you think you are having a problem with your medicine. ? Do not drive after taking a prescription pain medicine. ? Ensure to follow-up with primary care physician as indicated and provide updated medication list provided to you at discharge. When should you call for help? Call 911 anytime you think you may need emergency care. For example, call if: ? You passed out (lost consciousness). Call your doctor now or seek immediate medical care if: ? You have new symptoms like fever, difficulty breathing, Chest pain, vomiting, or rash. ? You have new or different pain. ? You are confused and are having trouble thinking clearly. ? Your symptoms are getting worse. Watch closely for changes in your health, and be sure to contact your doctor if: ? You do not get better as expected. Patient Instructions: Antibiotic Form, Chronic Kidney Disease (DC), Hypercalcemia (DC) Patient Language: [place] Stand Alone Forms: General Discharge Information Follow-up/Referrals: Clyde Leonard MD [Physician, Nephrology] - Keep Reg. Scheduled Appt. Discharge Medications: New metoprolol succinate [Toprol XL] 25 mg Tablet Extended Release 24 Hr 25 mg PO QAM Qty: 30 0RF sodium bicarbonate 650 mg tablet 650 mg PO DAILY Qty: 30 0RF Continued insulin glargine [Lantus Solostar U-100 Insulin] 100 unit/mL (3 mL) insulin pen 16 unit subcut DAILY Qty: 18 4RF glucose [Dex4 Glucose] 4 gram tablet,chewable 16 g PO Q15M PRN (Reason: hypoglycemia) Qty: 60 1RF Rx Instructions: until symptoms of low blood sugar are controlled vitamin B complex Capsule 1 cap PO DAILY Gvoke HypoPen 2-Pack 1 mg/0.2 mL auto-injector 1 mg subcut ONCE PRN (Reason: hypoglycemia) Rx Instructions: may repeat once after 15 minutes if no response Trulicity 4.5 mg/0.5 mL pen injector 4.5 mg subcut WEEKLY Rx Instructions: saturday solifenacin [Vesicare] 5 mg tablet 5 mg PO DAILY Qty: 90 3RF clopidogrel [Plavix] 75 mg tablet 75 mg PO DAILY Qty: 90 3RF Patient Comments: PT to hold for [address] Leonard escitalopram oxalate 10 mg tablet 10 mg PO DAILY Qty: 90 3RF rosuvastatin 10 mg tablet 10 mg PO DAILY Qty: 90 2RF amlodipine 5 mg tablet 5 mg PO DAILY Qty: 90 2RF bupropion HCl 150 mg tablet extended release 24 hr 150 mg PO QAM Qty: 90 2RF Date of admission: 06/02/25 13:44 Primary Care Provider: Sudha Tian Admitting Provider: Bindu Aggarwal Attending physician on admission: Melisa Avelar Condition: Stable Quality VTE Prophylaxis VTE prophylaxis: mechanical ordered -Patient's previous records reviewed on admission -ER notes reviewed in detail on admission -discussed all findings and current treatment plan with patient/Family/POA -Consultations reviewed for recommendations -Patient's disposition for safe discharge discussed with child support case officer Dictation performed by [employer] direct speech recognition software, therefore obiee obia solution architect variants and typographical errors may occur. Hospitalist MIPS Heart Failure (Exclusion) Patient has history of Heart Transplant or Left Ventricular Assistive Device?: No IF YES, STOP HERE Heart Failure (Qualifier) Patient has current or prior documentation of LVEF less than or equal to 40%, or mod/servere depressed LVSF?: No IF NO, STOP HERE
[2025-06-10 14:08] LABS: Anti-MPO Antibodies <0.2 units (0.0-0.9); Anti-PR3 Antibodies <0.2 units (0.0-0.9); Saccharomyces cerevisiae, IgA 60.7 Units (0.0-24.9); Saccharomyces cerevisiae, IgG 90.6 Units (0.0-24.9)
== END 2025-06-08 12:08 | disposition home or self-care (01) | DRG 684 ==
LOC: ANHED 12:19 → ANH3MEDSUR 14:45
PROVIDERS: Emergency Medicine; Internal Medicine Nephrology; Nurse Practitioner; Admitting Provider General Practice; Emergency Provider Student in an Organized Health Care Education/Training Program; PCP Family Medicine; Visit Provider Nurse Practitioner Family
DX: N17.9 Acute kidney failure, unspecified (principal); E11.22 Type 2 diabetes mellitus with diabetic chronic kidney disease; I12.9 Hypertensive chronic kidney disease with stage 1 through stage 4 chronic kidney disease, or unspecified chronic kidney disease; N18.4 Chronic kidney disease, stage 4 (severe); E83.52 Hypercalcemia; E86.0 Dehydration; D63.1 Anemia in chronic kidney disease; R82.90 Unspecified abnormal findings in urine; F43.0 Acute stress reaction; R29.6 Repeated falls; E11.42 Type 2 diabetes mellitus with diabetic polyneuropathy; E78.5 Hyperlipidemia, unspecified; M19.90 Unspecified osteoarthritis, unspecified site; F41.8 Other specified anxiety disorders; Z86.73 Personal history of transient ischemic attack (TIA), and cerebral infarction without residual deficits; Z87.442 Personal history of urinary calculi
CPT/HCPCS: 36415; 70450; 70486; 70551; 76770; 77075; 78306; 80053; 80069; 81001; 81050; 82533; 82550; 82570; 82948; 83003; 83036; 83735; 84100; 84156; 84300; 84443; 84540; 85025; 85999; 86037; 86364; 86671; 93005; 96360; 97110; 97161; 97165; 97530; 99285; A9270; A9503; J0630; J0696; J1644; J1815; J7030

== ENCOUNTER 2025-06-15 20:59 | Emergency (ER) | payer MEDICARE, SELFPAY ==
--- NOTE | ~2025-06-15 | CT_ITS ---
EXAMINATION: CT brain wo con DATE: 06/15/2025 21:33 INDICATION: Head injury TECHNIQUE: Computed tomography (CT) of the head was performed without intravenous contrast. The dose-length product was 605.33 mGy-cm. Automated exposure control and iterative reconstruction technique were employed. COMPARISON: CT dated 06/06/2025 FINDINGS: There is a small scalp hematoma near the left parietal vertex. No ventriculomegaly or midline shift. Generalized atrophy. There are scattered mild periventricular and subcortical white matter changes, most likely related to small vessel ischemic disease (microangiopathy). Basilar cisterns are patent. Paranasal sinuses and mastoids are unremarkable. There is intracranial atherosclerosis. No depressed skull fractures. No acute intracranial hemorrhage, infarction, mass or mass effect. IMPRESSION: 1. No acute intracranial abnormality. Reviewed, dictated and finalized at location O.
--- NOTE | ~2025-06-15 | CT_ITS ---
EXAMINATION: CT cervical spine wo con DATE: 06/15/2025 21:36 INDICATION: Neck pain after fall TECHNIQUE: Computed tomography (CT) of the cervical spine was performed without intravenous contrast. The dose-length product was 279 mGy-cm. Automated exposure control and iterative reconstruction technique were employed. COMPARISON: None FINDINGS: Odontoid process is normal. There is multilevel uncinate hypertrophy. Vertebral body heights are maintained. There is disc narrowing at C5-6 and C6-7. No evidence for perched facet. Craniovertebral junction is normal. No abnormality of the spinous processes. There is mild degenerative anterolisthesis at C7-T1 and T1-2. There is retrolisthesis at C5-6. Lung apices are unremarkable. No significant paraspinal soft tissue abnormality. No acute fracture or traumatic malalignment. IMPRESSION: 1. No acute abnormality of the cervical spine. 2: Mild-moderate multilevel cervical spondylosis. Reviewed, dictated and finalized at location O.
[2025-06-15 20:57] VITALS: BP 167/78; PULSE 72; RESP 18; TEMP 36.6; O2SAT 99
[2025-06-15 21:20] VITALS: BP 136/84; PULSE 74; RESP 20; O2SAT 100
--- NOTE | 2025-06-15 22:17 | ED_ITS ---
HPI - Head Injury General Chief complaint: Head Injury Stated complaint: HEAD TRAUMA S/P FALL, ON PLAVIX. Time Seen by Provider: 06/15/25 21:01 Source: patient Mode of arrival: EMS Limitations: no limitations History of Present Illness HPI Narrative: This is a 64-year-old female that presents to the emergency department after a fall today with head injury. Reports she tripped on her rug. She did not lose consciousness. She did hit her head. She takes Plavix. No other focal injuries or areas of pain. Denies vision changes, vomiting, numbness, and weakness. Unsure of last tetanus vaccination. Related Data Home Medications ?Medication ?Instructions ?Recorded ?Confirmed ?Last Taken ?Type dulaglutide 4.5 mg/0.5 mL 4.5 mg subcut WEEKLY 5 06/02/25 05/29/25 History subcutaneous pen injector (Trulicity) glucagon 1 mg/0.2 mL subcutaneous 1 mg subcut ONCE PRN hypoglycemia 03/18/25 06/02/25 Unknown History auto-injector ([employer] HypoPen 2-Pack) vitamin B complex 1 cap PO DAILY 05/19/2505/2405/24/25 History Allergies Allergy/AdvReac Type Severity Reaction Status Date / Time No Known Allergies Allergy Verified 06/15/25 21:03 Review of Systems Review of Systems: All systems reviewed & are unremarkable except as noted in HPI and below PMFSH Past Medical History Medical History Diabetic peripheral neuropathy Falls frequently Cerebrovascular disease Ataxia Brainstem stroke Normal pressure hydrocephalus Right-sided cerebrovascular accident (CVA) Anxiety Depression CKD (chronic kidney disease) Esophageal dilatation Obesity Diabetes Osteoarthritis HTN (hypertension) Hyperlipidemia Surgical History Surgical History History of removal of calculus of renal pelvis through percutaneous nephrostomy Family History Family History Father Bladder cancer Mother Diabetes mellitus Hypertension Depression Cerebrovascular accident Sibling Hypertension Diabetes mellitus Heart disease Social History Social History Smoking status: Never smoker Second hand tobacco smoke exposure: No Alcohol intake: never Substance use: never Substance use type: does not use Do You Feel Safe in your Home?: Yes Lack of Transportation: No Lack of Food: Never True Current Housing: I Have Housing Concerned About Future Housing: No Difficulty Paying Gas/Electric Bills: No Difficulty Paying for Meds: No Currently Unemployed: No Education: High School Diploma/GED Difficulty w/ Childcare or Family Care: No Living arrangements: alone Occupation/Education: occupation Gender identity (if verbalized by the patient): Female Spiritual care concerns: No Agree to blood products: Yes Exam Narrative: GENERAL: Well-appearing, well-nourished, and in no acute distress. HEAD: Normocephalic. 3cm linear laceration into subcutaneous tissue to the scalp EYES: PERRLA and EOMI. ENT: Nares clear, no rhinorrhea or epistaxis. Mucous membranes moist. Oropharynx without tonsillar hypertrophy exudate or other lesions. Bilateral TMs pearly diaz non-bulging NECK: Supple. No adenopathy or masses. CHEST: Clear to auscultation. No respiratory distress. No wheezes rales or rhonchi HEART: Regular rate and rhythm. No murmur heard. Normal peripheral pulses. ABDOMEN: Soft, nontender, nondistended, normal active bowel sounds. EXTREMITIES: Normal range of motion. No edema or obvious deformity. Strength equal in bilateral upper and lower extremities (5/5) SKIN: Warm, dry, no rash. NEURO: No focal deficits. Alert and oriented x3. CN II-XII grossly intact PSYCH: Normal mood and affect Course Vital Signs Vital signs: Vital Signs Temperature 98 F 06/15/25 20:57 Pulse Rate 72 06/15/25 20:57 Respiratory Rate 18 06/15/25 20:57 Blood Pressure 167/78 H 06/15/25 20:57 Pulse Oximetry 99 06/15/25 20:57 Oxygen Delivery Room Air 06/15/25 20:57 Temperature 98 F 06/15/25 20:57 Pulse Rate 74 06/15/25 21:20 Respiratory Rate 20 06/15/25 21:20 Blood Pressure 136/84 06/15/25 21:20 Pulse Oximetry 100 06/15/25 21:20 Oxygen Delivery Room Air 06/15/25 20:57 Procedures Laceration Laceration 1: Date: 06/15/25 Site: scalp Size (cm): 3 Description: linear Depth: simple, single layer Local Anesthetic: none Pre-repair: wound explored and irrigated ====== Skin Level ====== Skin layer closed with: kari Number of sutures: 5 ====== Subcutaneous Layer ====== ====== Muscle Layer ====== ====== Tendon Layer ====== MDM - Head Injury MDM Narrative Medical decision making narrative: Patient presents to the emergency department after a fall today with head injury. She is neurologically intact. CT brain, cervical spine without acute findings. Patient's wound was irrigated and closed with kari. Updated on tetanus vaccination. Educated on further wound care. She is to follow up with primary provider. She was given warnings to return to the ER Differential Diagnosis Differential diagnosis: Likely concussion without loss of consciousness, closed head injury and subdural hematoma Imaging Data Radiologist's impression: ITS Impressions Head CT 06/15/25 21:36 IMPRESSION: 1. No acute intracranial abnormality. Cervical Spine CT 06/15/25 21:39 IMPRESSION: 1. No acute abnormality of the cervical spine. 2: Mild-moderate multilevel cervical spondylosis. Critical Care Time Critical Care Time Critical Care Time: No Discharge Plan Discharge Clinical Impression: Head injury Qualifiers: Encounter type: initial encounter Qualified Code(s): S09.90XA - Unspecified injury of head, initial encounter Patient Disposition: Home Condition: Stable Instructions: Head Injury (ED) Additional Instructions: Return to the emergency department if you experience fever, chest pain, shortness of breath, vomiting, weakness, numbness, or any other symptoms that are concerning to you. Rest. Ice to the area. Over the counter pain medication as needed. You may let the water run over the wound in the shower. Avoid harsh scrubbing to the area. Follow up with your primary care doctor for staple removal in 7-10 days Patient Language: Mongolian Prescriptions: No Action insulin glargine [Lantus Solostar U-100 Insulin] 100 unit/mL (3 mL) insulin pen 16 unit subcut DAILY Qty: 18 4RF glucose [Dex4 Glucose] 4 gram tablet,chewable 16 g PO Q15M PRN (Reason: hypoglycemia) Qty: 60 1RF Rx Instructions: until symptoms of low blood sugar are controlled vitamin B complex Capsule 1 cap PO DAILY Gvoke HypoPen 2-Pack 1 mg/0.2 mL auto-injector 1 mg subcut ONCE PRN (Reason: hypoglycemia) Rx Instructions: may repeat once after 15 minutes if no response Trulicity 4.5 mg/0.5 mL pen injector 4.5 mg subcut WEEKLY Rx Instructions: saturday metoprolol succinate [Toprol XL] 25 mg Tablet Extended Release 24 Hr 25 mg PO QAM Qty: 30 0RF sodium bicarbonate 650 mg tablet 650 mg PO DAILY Qty: 30 0RF solifenacin [Vesicare] 5 mg tablet 5 mg PO DAILY Qty: 90 3RF clopidogrel [Plavix] 75 mg tablet 75 mg PO DAILY Qty: 90 3RF Patient Comments: PT to hold for [address] Leonard escitalopram oxalate 10 mg tablet 10 mg PO DAILY Qty: 90 3RF rosuvastatin 10 mg tablet 10 mg PO DAILY Qty: 90 2RF amlodipine 5 mg tablet 5 mg PO DAILY Qty: 90 2RF bupropion HCl 150 mg tablet extended release 24 hr 150 mg PO QAM Qty: 90 2RF Follow-up/Referrals: Sudha Tian MD [Primary Care Provider, Family Practice]
[2025-06-15] MEDS: TETANUS,DIPHTHERIA,AC PERTUSSIS ADULT (0.5 ML) BOOSTRIX IM (22:39)
[2025-06-15 22:40] VITALS: BP 147/74; PULSE 74; RESP 20; O2SAT 98
[2025-06-15] MEDS: HYDROGEN PEROXIDE 3% SOLN(*SP) 473 ML BOTTLE (22:56)
== END 2025-06-15 22:50 | disposition home or self-care (01) ==
PROVIDERS: Emergency Provider Physician Assistant; PCP Family Medicine
DX: S01.01XA Laceration without foreign body of scalp, initial encounter (principal); W01.0XXA Fall on same level from slipping, tripping and stumbling without subsequent striking against object, initial encounter; Z79.02 Long term (current) use of antithrombotics/antiplatelets; Z23 Encounter for immunization
CPT/HCPCS: 12002; 70450; 72125; 90471; 90715; 99284; A9270

== ENCOUNTER 2025-08-03 15:32 | Outpatient (CLI) | payer MEDICARE, SELFPAY ==
--- NOTE | ~2025-08-03 | MM_ITS ---
EXAMINATION: MM screening grant BI w veronika HISTORY: Screening TECHNIQUE: Craniocaudal and mediolateral oblique 3-D tomosynthesis images were obtained and synthetic 2-D images were generated. CAD analysis was submitted and interpreted. COMPARISON: Comparison to multiple prior studies sequentially, with oldest reviewed study dated 04/04/2017. BREAST PARENCHYMAL COMPOSITION: Not dense: There are scattered areas of fibroglandular density. FINDINGS: There is no evidence of suspicious mass, calcification, or architectural distortion to suggest malignancy in either breast. There has been no suspicious interval change. IMPRESSION: 1. No mammographic evidence of malignancy. 2. Recommend routine screening mammography in one year. BI-RADS Category 1: Negative Reviewed, dictated and finalized at location B. RVISOR TUNNEL HEADING
== END 2025-08-03 15:33 | disposition home or self-care (01) ==
LOC: MICIMG 15:33
PROVIDERS: PCP Student in an Organized Health Care Education/Training Program; Visit Provider Student in an Organized Health Care Education/Training Program
DX: Z12.31 Encounter for screening mammogram for malignant neoplasm of breast (principal)
CPT/HCPCS: 77063; 77067

== ENCOUNTER 2025-08-04 06:35 | Outpatient (CLI) | payer MEDICARE, SELFPAY ==
--- NOTE | ~2025-08-04 | CT_ITS ---
EXAMINATION:CT diagnostic chest wo con DATE: 08/04/2025 07:00 INDICATION: Hypercalcemia TECHNIQUE: Computed tomography (CT) of the chest was performed without intravenous contrast. The dose-length product (DLP) was 151.87 mGy-cm. COMPARISON: None. FINDINGS: No consolidation effusion or pneumothorax. 5 x 4 mm slightly spiculated nodule lateral segment right lower lobe image 79 series 4. 5 x 5 mm pleural-based nodule also slight spiculation image 95 and 96 series 4. 3 mm subpleural nodule lateral right lung image 50 series 4. 7 x 6 mm left lower lobe subpleural nodule image 83 series 4. 3 to 4 mm size nodules left upper lobe image 32 through 35 of series 4. Also 4 mm nodules image 43 series 4. No bulky lymphadenopathy or masses. Several nonpathologic sized mediastinal lymph nodes are noted. Heart size normal and great vessels appear normal in size. Extensive coronary artery calcifications. Diffuse degenerative changes throughout the bones. No acute process seen in the visualized portions of the upper abdomen. Only atrophic appearance of the kidneys with small bilateral kidney stones. IMPRESSION: 1. Numerous bilateral lung nodules all of which are 7 mm or smaller in size. If malignant process or metastatic disease is suspected, correlation with PET/CT recommended. Alternatively, follow-up chest CT in 3 months may also be performed. 2. Other findings as above. Reviewed, dictated and finalized at location A. AINER COORDINATOR IMPRESSION: 1. Numerous bilateral lung nodules all of which are 7 mm or smaller in size. If malignant process or metastatic disease is suspected, correlation with PET/CT recommended. Alternatively, follow-up chest CT in 3 months may also be performe d. 2. Other findings as above.
== END 2025-08-04 06:36 | disposition home or self-care (01) ==
PROVIDERS: PCP Student in an Organized Health Care Education/Training Program; Visit Provider Internal Medicine Nephrology
DX: E83.52 Hypercalcemia (principal); R91.8 Other nonspecific abnormal finding of lung field; N17.9 Acute kidney failure, unspecified; N18.9 Chronic kidney disease, unspecified; N83.8 Other noninflammatory disorders of ovary, fallopian tube and broad ligament
CPT/HCPCS: 71250

== ENCOUNTER 2025-08-26 12:07 | Outpatient (CLI) | payer MEDICARE, SELFPAY ==
--- NOTE | ~2025-08-26 | PE_ITS ---
EXAMINATION: PET skull to mid thigh DATE: 08/26/2025 14:49 INDICATION: Assess pulmonary nodules TECHNIQUE: Blood glucose level was 68 mg/dL. 10.165 mCi of 18-fluorodeoxyglucose (18-FDG) was administered i.v. Low dose computed tomography (CT) images were acquired from the base of the brain to the proximal thighs for attenuation correction and anatomic localization. Positron emission tomography (PET) images were acquired in the same distribution beginning 63 minutes after injection. Images including fused PET/CT images were reconstructed in axial, coronal, and sagittal planes. Automated exposure control technique was employed. The dose- length product was 743.45mGy-cm. COMPARISON: None FINDINGS: Head/neck: There is symmetric increased activity in the oral cavity, palatine tonsils, parotid glands, submandibular glands, laryngeal muscles and ocular muscles without CT correlate, likely physiologic. 2.4 cm macroscopic fat attenuation lipoma overlying the left mandible. No pathologically enlarged cervical ly mphadenopathy or suspicious foci of increased FDG uptake in the visualized head or neck. Chest: Again seen are multiple <6 mm pulmonary nodules scattered throughout both lungs which are without evident FDG activity. Calcified nodules. Infrahilar right lower lobe consistent with old granulomatous disease. No pleural effusion. Heart size is normal. No pericardial effusion. Thoracic aorta is normal in caliber. There are few normal-sized mildly FDG avid likely reactive mediastinal and bilateral hilar lymph nodes with maximal SUV of 5.1 at the left hilum, 4.5 at the right hilum and 4.9 in the subcarinal mediastinum. No pathologically enlarged thoracic lymphadenopathy. Abdomen/pelvis/proximal thighs: Physiologic renal accumulation and excretion of FDG activity in the kidneys, bladder and along portions of ureters. There are 3 nonobstructing stones in the right kidney the largest measuring up to 3 mm. Normal degree and heterogenous pattern of increased uptake throughout the liver without radiologic correlate or dominant FDG avid lesion. Numerous splenic calcific lesions consistent with old granulomatous disease. The gallbladder, pancreas and bilateral adrenal glands are normal. Mild uptake scattered throughout the bowels without radiologic correlate, also likely physiologic. Prominent duodenal diverticulum. Uterus and bilateral adnexa are not visualized and are likely surgically absent. There is prominent FDG uptake with maximal SUV of 12.9 associated with a normal-sized right common iliac chain lymph node. There are also more prominent FDG avid bilateral external iliac chain lymph nodes. These include 2 on the left measuring 9 mm and 7 mm in maximal short axis diameters with maximal SUV values of 26.5 and 34.5 respectively and 2 left external chain lymph nodes measuring 10 mm and 5 mm in maximal short axis diameters with maximal SUV values of 21.4 and 8.4 respectively. No other abnormal foci of increased FDG uptake or pathologically enlarged lymphadenopathy in the abdomen, pelvis or proximal thighs. Musculoskeletal: With moderate cervical and thoracic and severe lumbar spondylosis. No suspicious lytic, blastic or abnormally FDG avid bone lesions. IMPRESSION: 1. No abnormal FDG uptake associated with multiple 6 mm smaller scattered bilateral pulmonary nodules all reassuring would recommend 12 month follow-up low-dose noncontrast chest CT. 2. Prominent increased FDG uptake associated with a normal-sized bilateral pelvic lymph nodes which may be reactive related to reported recent hysterectomy and bilateral salpingo-oophorectomy for benign bilateral ovarian lesions. 3. No other lesions suspicious for primary malignancy or metastatic disease. 4. Nonobstructing right nephrolithiasis. Reviewed, dictated and finalized at location A. D ADMINISTRATOR IMPRESSION: 1. No abnormal FDG uptake associated with multiple 6 mm smaller scattered bilat eral pulmonary nodules all reassuring would recommend 12 month follow-up low-do se noncontrast chest CT. 2. Prominent increased FDG uptake associated with a normal-sized bilateral pelv ic lymph nodes which may be reactive related to reported recent hysterectomy an d bilateral salpingo-oophorectomy for benign bilateral ovarian lesions. 3. No other lesions suspicious for primary malignancy or metastatic disease. 4. Nonobstructing right nephrolithiasis.
== END 2025-08-26 12:08 | disposition home or self-care (01) ==
PROVIDERS: PCP Student in an Organized Health Care Education/Training Program; Visit Provider Internal Medicine Nephrology
DX: R91.8 Other nonspecific abnormal finding of lung field (principal); N18.4 Chronic kidney disease, stage 4 (severe); E83.52 Hypercalcemia; N20.0 Calculus of kidney
CPT/HCPCS: 78815; A9552

== ENCOUNTER 2025-09-02 11:23 | Outpatient (CLI) | payer MEDICARE, SELFPAY ==
[2025-09-02 12:00] LABS: Hematocrit 33.0 % (37.0-47.0); Hemoglobin 10.6 g/dL (12.0-15.0); Immature Granulocyte Percent A 0.4 % (0-0.5); Lymphocytes Absolute Auto 0.90 K/mm3 (0.9-3.2); Mean Corpuscular HGB Conc 32.1 g/dl (32-36); Mean Corpuscular Hemoglobin 28.7 pg (26-34); Mean Corpuscular Volume 89.4 fl (80-100); Nucleated Red Blood Cells Absolute Auto 0.000 K/mm3 (0.0-0.012); Nucleated Red Blood Cells Perc 0.0 % (0.0-0.2); Platelet Count Result 230 k/mm3 (150-375); Red Blood Count 3.69 M/mm3 (4.2-5.4); White Blood Count 4.8 K/mm3 (4.5-10.0)
[2025-09-02 16:25] LABS: Alanine Aminotransferase 28 U/L (6-35); Albumin Level 4.3 g/dL (3.5-5.1); Alkaline Phosphatase 104 U/L (38-126); Anion Gap 9 mmol/L (4-12); Aspartate Amino Transferase 88 U/L (14-36); Bilirubin,Total 0.5 mg/dL (0.2-1.3); Blood Urea Nitrogen 33 mg/dL (7-17); Calcium 10.6 mg/dL (8.4-10.2); Carbon Dioxide 19 mmol/L (22-30); Chloride 110 mmol/L (98-107); Estimated Glomerular Filt Rate 12; Glucose 103 mg/dL (65-110); Potassium 3.9 mmol/L (3.4-5.0); Sodium 138 mmol/L (137-145); Total Protein 8.6 g/dL (6.3-8.2)
[2025-09-02 16:25] LABS: Iron 58 ug/dL (37-170)
[2025-09-02 16:34] LABS: Percent Iron Saturation 20 % (20-50)
[2025-09-02 17:06] LABS: Ferritin 58.30 ng/mL (11.1-264)
[2025-09-02 17:36] LABS: Vitamin B12 319.0 pg/mL (239-931)
[2025-09-03 14:09] LABS: Albumin 3.5 g/dL (2.9-4.4); Alpha-1-Globulin 0.3 g/dL (0.0-0.4); Alpha-2-Globulin 0.6 g/dL (0.4-1.0); Gamma Globulin 1.9 g/dL (0.4-1.8)
[2025-09-03 15:09] LABS: ACE 83 U/L (14-82)
== END 2025-09-02 11:24 | disposition home or self-care (01) ==
LOC: ANHLAB 11:24
PROVIDERS: PCP Student in an Organized Health Care Education/Training Program; Visit Provider Internal Medicine Hematology & Oncology
DX: D64.9 Anemia, unspecified (principal); D86.9 Sarcoidosis, unspecified
CPT/HCPCS: 36415; 80053; 82164; 82607; 82668; 82728; 82746; 83540; 83550; 83921; 84155; 84165; 84238; 85025